=== PATIENT | female | born 1960 | race Caucasian/White ===

== ENCOUNTER 2017-01-06 18:21 | Emergency (ER) | payer MEDICARE, OTHER ==
[2017-01-06 18:30] VITALS: RESP 18
[2017-01-06] MEDS ORDERED: MORPHINE SULFATE 4 MG/ML SYRINGE IVP STA (18:44)
[2017-01-06] MEDS ORDERED: KETOROLAC 30 MG/ML 1 ML VIAL IVP STA (18:44)
[2017-01-06] MEDS ORDERED: SODIUM CHLORIDE 0.9% 1,000 ML IV STA (18:44)
--- NOTE | 2017-01-06 18:48 | ED ---
Abdominal Pain HPI - General Chief Complaint: Abdominal Pain Stated Complaint: LUQ pain Time Seen by Provider: 01/06/17 18:30 Source: patient Mode of arrival: ambulatory Limitations: no limitations - History of Present Illness Initial Comments: Patient is a 48-year-old female history of ventral hernia repair presenting with left upper quadrant pain. Patient states pains been worse for the past 2 days. Patient has Ultram for her fibromyalgia for which is not helping. Patient denies relation to food. Patient says is worse with movement and bending at the waist. Patient denies fever, chills, chest, shortness breath, nausea, vomiting, diarrhea, dysuria. - Related Data Home Medications Medication Instructions Recorded Confirmed Ascorbic Acid [Vitamin C] 1,500 mg PO DAILY 01/06/17 01/06/17 Cyanocobalamin (Vitamin B-12) 7,500 mcg PO DAILY 01/06/17 01/06/17 [Vitamin B12] Ferrous Sulfate [Feosol] 650 mg PO DAILY 01/06/17 01/06/17 Fish Oil/Dha/Epa [Fish Oil 1,200 1 cap PO DAILY 01/06/17 01/06/17 mg Fish Oil] Hydrochlorothiazide [Hydrodiuril] 12.5 mg PO DAILY 01/06/17 01/06/17 Levothyroxine Sodium [Synthroid] 75 mcg PO DAILY 01/06/17 01/06/17 Loratadine [Claritin] 10 mg PO DAILY 01/06/17 01/06/17 Milnacipran HCl [Savella] 100 mg PO BID 01/06/17 01/06/17 Omeprazole 20 mg PO DAILY 01/06/17 01/06/17 Pramipexole [Mirapex] 2 mg PO BID 01/06/17 01/06/17 buPROPion HCL [Wellbutrin XL] 300 mg PO DAILY 01/06/17 01/06/17 traMADol HCL [Ultram] 50 mg PO DAILY PRN 01/06/17 01/06/17 Allergies Allergy/AdvReac Type Severity Reaction Status Date / Time latex Allergy Rash/Hives Verified 01/06/17 18:45 Review of Systems ROS Statement: Those systems with pertinent positive or pertinent negative responses have been documented in the HPI. Constitutional: No fever and no chills. HENT: No congestion, no rhinorrhea and no sore throat. Eyes: No discharge and no redness. Respiratory: No cough and no shortness of breath. Cardiovascular: No chest pain and no palpitations. Gastrointestinal: No nausea, no vomiting, +abdominal pain and no diarrhea. Genitourinary: No dysuria and no hematuria. Musculoskeletal: No back pain and no arthralgias. Skin: No pallor and no rash. Neurological: No dizziness and No headaches. ROS Other: All systems not noted in ROS Statement are negative. Past Medical History Past Medical History: Fibromyalgia, Hypertension History of Any Multi-Drug Resistant Organisms: None Reported Past Surgical History: Back Surgery, Hernia Repair, Joint Replacement, Orthopedic Surgery Additional Past Surgical History / Comment(s): Right knee arthroplasty; right foot surgery Past Psychological History: Depression Smoking Status: Former smoker Past Alcohol Use History: Rare Past Drug Use History: None Reported General Exam - General Exam Comments Initial Comments: Constitutional: Patient appears well-developed and well-nourished. No distress. Head: Normocephalic and atraumatic. Eyes: Conjunctivae and EOM are normal. Right eye exhibits no discharge. Left eye exhibits no discharge. No scleral icterus. Neck: Normal range of motion. Neck supple. Cardiovascular: Normal rate and regular rhythm. No murmur heard. Pulmonary/Chest: Effort normal and breath sounds normal. No respiratory distress. No wheezes. Abdominal: Soft. No distension. Patient with nonspecific abdominal wall tenderness in LUQ. There is no rebound and no guarding. Musculoskeletal: Normal range of motion. No edema or tenderness. Neurological: Patient alert and oriented to person, place, and time. Skin: Skin is warm and dry. Not diaphoretic. Nursing notes and vitals reviewed. Limitations: no limitations Course Vital Signs 01/06/17 01/06/17 01/06/17 18:26 20:16 21:36 Temperature 98.1 F 97.4 F L 97.6 F Pulse Rate 98 88 77 Respiratory 18 18 18 Rate Blood Pressure 165/88 136/65 120/56 O2 Sat by Pulse 98 96 96 Oximetry 01/06/17 22:54 Temperature 98 F Pulse Rate 77 Respiratory 18 Rate Blood Pressure 133/70 O2 Sat by Pulse 96 Oximetry - Reevaluation(s) Reevaluation #1: 01/06/17 22:33 Patient updated results and feeling much better. Patient can use Tylenol, Motrin, heat or ice. Medical Decision Making - Medical Decision Making Patient is a 56-year-old female presenting with 2 days of left upper quadrant abdominal wall pain. Patient's not getting relief with tramadol. CBC, BMP, LFT , lipase unremarkable. Abdominal CT obtained and negative. Patient was given IV fluids, Toradol and morphine for pain. Prior to discharge, patient was resting comfortably in bed. Course of stay improved. Abdomen soft and nontender. Denies pain. Discussed physical exam and diagnostic tests with patient. Questions answered and patient is agreeable to discharge with close follow up with Primary Care Physician. Instructed to return to Emergency Department if symptoms worsen. - Lab Data Result diagrams: 01/06/17 19:04 01/06/17 19:04 Lab Results 01/06/17 01/06/17 01/06/17 Range/Units 19:04 19:04 19:04 WBC 7.5 (3.8-10.6) k/uL RBC 4.49 (3.80-5.40) m/uL Hgb 12.7 (11.4-16.0) gm/dL Hct 39.1 (34.0-46.0) % MCV 87.3 (80.0-100.0) fL MCH 28.2 (25.0-35.0) pg MCHC 32.3 (31.0-37.0) g/dL RDW 17.9 H (11.5-15.5) % Plt Count 270 (150-450) k/uL Neutrophils % 70 % Lymphocytes % 21 % Monocytes % 4 % Eosinophils % 3 % Basophils % 0 % Neutrophils # 5.2 (1.3-7.7) k/uL Lymphocytes # 1.6 (1.0-4.8) k/uL Monocytes # 0.3 (0-1.0) k/uL Eosinophils # 0.2 (0-0.7) k/uL Basophils # 0.0 (0-0.2) k/uL Anisocytosis Slight PT (9.0-12.0) sec INR (<1.1) APTT (22.0-30.0) sec Sodium 139 (137-145) mmol/L Potassium 4.1 (3.5-5.1) mmol/L Chloride 103 (98-107) mmol/L Carbon Dioxide 27 (22-30) mmol/L Anion Gap 9 mmol/L BUN 17 (7-17) mg/dL Creatinine 0.75 (0.52-1.04) mg/dL Est GFR (MDRD) Af Amer >60 (>60 ml/min/1.73 sqM) Est GFR (MDRD) Non-Af >60 (>60 ml/min/1.73 sqM) Glucose 113 H (74-99) mg/dL Calcium 9.4 (8.4-10.2) mg/dL Total Bilirubin (0.2-1.3) mg/dL AST (14-36) U/L ALT (9-52) U/L Alkaline Phosphatase (38-126) U/L Lipase (23-300) U/L Blood Type O Negative Blood Type Recheck No Antibody Screen NEGATIVE Spec Expiration Date 01/09/2017 - 230301/06/17 01/06/17 Range/Units 19:04 19:04 WBC (3.8-10.6) k/uL RBC (3.80-5.40) m/uL Hgb (11.4-16.0) gm/dL Hct (34.0-46.0) % MCV (80.0-100.0) fL MCH (25.0-35.0) pg MCHC (31.0-37.0) g/dL RDW (11.5-15.5) % Plt Count (150-450) k/uL Neutrophils % % Lymphocytes % % Monocytes % % Eosinophils % % Basophils % % Neutrophils # (1.3-7.7) k/uL Lymphocytes # (1.0-4.8) k/uL Monocytes # (0-1.0) k/uL Eosinophils # (0-0.7) k/uL Basophils # (0-0.2) k/uL Anisocytosis PT 9.9 (9.0-12.0) sec INR 1.0 (<1.1) APTT 24.0 (22.0-30.0) sec Sodium (137-145) mmol/L Potassium (3.5-5.1) mmol/L Chloride (98-107) mmol/L Carbon Dioxide (22-30) mmol/L Anion Gap mmol/L BUN (7-17) mg/dL Creatinine (0.52-1.04) mg/dL Est GFR (MDRD) Af Amer (>60 ml/min/1.73 sqM) Est GFR (MDRD) Non-Af (>60 ml/min/1.73 sqM) Glucose (74-99) mg/dL Calcium (8.4-10.2) mg/dL Total Bilirubin 0.5 (0.2-1.3) mg/dL AST 24 (14-36) U/L ALT 26 (9-52) U/L Alkaline Phosphatase 104 (38-126) U/L Lipase 115 (23-300) U/L Blood Type Blood Type Recheck Antibody Screen Spec Expiration Date Disposition Clinical Impression: Abdominal pain Disposition: HOME SELF-CARE Condition: Good Instructions: Abdominal Pain (ED) Referrals: Maria L Deleon DO [Primary Care Provider] - 1-2 days
[2017-01-06 19:31] LABS: Anion Gap 9 mmol/L; Blood Urea Nitrogen 17 mg/dL (7-17); Calcium 9.4 mg/dL (8.4-10.2); Carbon Dioxide 27 mmol/L (22-30); Chloride 103 mmol/L (98-107); Glucose 113 mg/dL (74-99); Non-African American GFR(MDRD) >60 (>60 ml/min/1.73 sqM); Potassium 4.1 mmol/L (3.5-5.1); Sodium 139 mmol/L (137-145)
[2017-01-06 19:34] LABS: Prothrombin Time 9.9 sec (9.0-12.0)
[2017-01-06 19:45] LABS: Anisocytosis Slight; Basophils % (A) 0 %; CH 28.2; CHCM 32.3; Eosinophils # (A) 0.2 k/uL (0-0.7); Eosinophils % (A) 3 %; HCT 39.1 % (34.0-46.0); HDW 2.71; HGB 12.7 gm/dL (11.4-16.0); Luc # (Auto) 0.13; Luc % (Auto) 2; Lymphocytes # (A) 1.6 k/uL (1.0-4.8); Lymphocytes % (A) 21 %; MCH 28.2 pg (25.0-35.0); MCHC 32.3 g/dL (31.0-37.0); MCV 87.3 fL (80.0-100.0); Mean Platelet Volume 6.7; Monocytes # (A) 0.3 k/uL (0-1.0); Monocytes % (A) 4 %; Neutrophils # (A) 5.2 k/uL (1.3-7.7); Neutrophils % (A) 70 %; RBC 4.49 m/uL (3.80-5.40); RDW 17.9 % (11.5-15.5); WBC 7.5 k/uL (3.8-10.6); WBC (Perox) 7.57
[2017-01-06 21:37] VITALS: PULSE 77
--- NOTE | 2017-01-06 22:13 | CT ---
EXAMINATION TYPE: CT abdomen pelvis wo con DATE OF EXAM: 01/06/2017 8:36 PM COMPARISON: NONE INDICATION: Pt states LUQ pain. Hx of hernia repairs. DLP: 1165.9 mGycm, Automated exposure control for dose reduction was used. CONTRAST: 0 mL of Omnipaque 300. Study performed without Oral Contrast TECHNIQUE: Axial images were obtained from above the diaphragm to the pubic rami in the axial plane a t 5 mm thick sections. Reconstructed images are reviewed on the computer in the coronal plane. FINDINGS: Limited CT sections are obtained the lung bases. The lung bases are clear. CT ABDOMEN: Postsurgical changes are through the stomach. Liver: Normal Spleen: Normal Pancreas: Normal Adrenal glands: The adrenal glands are normal. Gallbladder: Surgically absent Kidneys: No masses are evident. No hydronephrosis is present. No cysts are present. No renal stone s are identified. Aorta: Vascular calcification is within the aorta. Inferior vena cava: Normal. CT PELVIS: Loops of bowel within the abdomen and pelvis are normal. Study is performed without oral contrast limiting evaluation. Appendix: Normal as visualized. Urinary bladder: Normal. Genitourinary structures: Uterus and ovaries are not identified. No free fluid is within the pelvis. Osseous structures: No suspicious lytic or sclerotic lesions. Facet changes are present. IMPRESSIONS: 1. No acute process evident. 2. Normal appendix 3. No abnormal findings left upper quadrant to account for the patient's pain
[2017-01-06 22:51] LABS: Total Bilirubin 0.5 mg/dL (0.2-1.3)
[2017-01-06 22:55] VITALS: BP 133/70; TEMP 98
== END 2017-01-06 23:10 | disposition home or self-care (01) ==
LOC: EC 18:21
DX: R10.12 Left upper quadrant pain (principal); M79.7 Fibromyalgia; I10 Essential (primary) hypertension; F32.9 Major depressive disorder, single episode, unspecified; Z87.891 Personal history of nicotine dependence; Z79.899 Other long term (current) drug therapy; Z91.040 Latex allergy status
CPT/HCPCS: 99284; 96374; 96375; 96361 ×4; 36415; 86900; 86901; 80048; 82247; 83690; 84075; 84450; 84460; 85025; 85610; 85730; 86850; 74176; J2270; J1885

== ENCOUNTER → 2017-01-14 | Outpatient (CLI) | payer MEDICARE, OTHER ==
--- NOTE | 2017-01-15 09:35 | CT ---
EXAMINATION TYPE: CT chest w con DATE OF EXAM: 01/14/2017 8:27 PM COMPARISON: CT abdomen pelvis January 06, 2017 HISTORY: Patient complains of left lower chest and luq pain. CT DLP: 568 mGycm Automated exposure control for dose reduction was used. CONTRAST: CT scan of the chest is performed with IV Contrast, patient injected with 100 mL of Omnipaque 300. FINDINGS: LUNGS: The lungs are remarkable for some minimal density within the lingula of questionable clinical significance, possibly scar, there is no concerning parenchymal mass or nodule identified. There is no pleural effusion or pneumothorax seen. Coronary artery calcification suspected. The tracheobronc hial tree is patent. MEDIASTINUM: There are no greater than 1 cm hilar or mediastinal lymph nodes. No pericardial effusi on is seen. AORTA: No additional significant abnormality is seen. 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 Patient is post cholecystectomy. Low attenuation within the liver may be indicative of fatty infiltration. There is a small hiatal hernia or thickening of t he distal esophagus. Postop changes are noted to the stomach and along the anterior abdominal wall. IMPRESSION: Postop changes. Additional nonspecific findings described above.
== END | disposition home or self-care (01) ==
LOC: RADCTMAIN 19:33
PROVIDERS: ATTEND Family Medicine
DX: R10.12 Left upper quadrant pain (principal); Z90.49 Acquired absence of other specified parts of digestive tract
CPT/HCPCS: 71260; Q9967

== ENCOUNTER → 2017-04-06 | Outpatient (CLI) | payer MEDICARE, OTHER ==
--- NOTE | 2017-04-06 10:31 | FL ---
EXAMINATION TYPE: FL UGI air w esophagus DATE OF EXAM: 04/06/2017 10:23 AM COMPARISON: NONE CLINICAL HISTORY: Abdominal pain. History of previous gastric bypass. Preliminary view of the abdomen reveals a normal bowel gas pattern. Previous hernia repair surgery. Upper GI examination was performed according to the single contrast technique. Barium was swallowed without difficulty or delay. Esophageal peristalsis and motility are within normal limits. There is no evidence for esophagitis, intraluminal mass, hiatal hernia or gastroesophageal reflux. The stomach demonstrates changes of ga stric bypass procedure. There is no evidence for leak or obstruction. Gastrojejunostomy is unremarkab le. And single contrast cervical esophagram was also performed following the ingestion of thin liquid barium. There is no evidence for aspiration or penetration. No masses are seen. No filling defect s are evident. IMPRESSION: No significant abnormality appreciated.
== END | disposition home or self-care (01) ==
LOC: RADFLWHC 09:27
PROVIDERS: ATTEND Surgery
DX: R10.84 Generalized abdominal pain (principal)
CPT/HCPCS: 74246

== ENCOUNTER 2017-04-27 08:46 | Day surgery (SDC) | payer MEDICARE, OTHER ==
[2017-04-22 14:31] VITALS: BMI 39.4
[~2017-04-27 08:46] MED LIST: LACTATED RINGERS 1,000 ML IV SCH; LIDOCAINE 1% 20 ML VIAL (10MG/ML) FOR IV START INTRADERMA PRN
[2017-04-27 09:22] VITALS: RESP 16; TEMP 97.6
[2017-04-27 09:37] LABS: Glucose,Whole Blood 89 mg/dL (75-99)
[2017-04-27] MEDS ORDERED: GLYCOPYRROLATE 0.2 MG/ML 2 ML VIAL ONE (09:40)
[2017-04-27] MEDS ORDERED: PROPOFOL 10 MG/ML 20 ML VIAL IV ONE (09:40)
[2017-04-27] MEDS ORDERED: LIDOCAINE 1% INJ 10MG/ML (20 ML MDV) ONE (09:40)
--- NOTE | 2017-04-27 09:47 | P.GSHP ---
History of Present Illness H&P Date: 04/27/17 Chief Complaint: Epigastric pain, gastritis This is a 48-year-old female referred from Dr. Maria L Deleon. Patient presents today for EGD. He's had complaints of epigastric abdominal pain. Patient has previous history of gastric bypass and repair of incisional hernia. Past Medical History Past Medical History: Diabetes Mellitus, Fibromyalgia, Hypertension History of Any Multi-Drug Resistant Organisms: None Reported Past Surgical History: Back Surgery, Hernia Repair, Joint Replacement, Orthopedic Surgery Additional Past Surgical History / Comment(s): Right knee arthroplasty; R Knee replacement; right foot surgery; EGD; Colonoscopies Past Anesthesia/Blood Transfusion Reactions: Family History of Problems w/ Anesthesia, Postoperative Nausea & Vomiting (PONV) Additional Past Anesthesia/Blood Transfusion Reaction / Comment(s): mother N/V Smoking Status: Former smoker - Past Family History Father Family Medical History: Cancer Mother Family Medical History: Cancer Brother(s) Family Medical History: Cancer Medications and Allergies Home Medications Medication Instructions Recorded Confirmed Type Ascorbic Acid [Vitamin C] 1,500 mg PO DAILY 01/06/17 04/27/17 History Ferrous Sulfate [Feosol] 650 mg PO DAILY 01/06/17 04/22/17 History Hydrochlorothiazide [Hydrodiuril] 12.5 mg PO DAILY 01/06/17 04/27/17 History Levothyroxine Sodium [Synthroid] 75 mcg PO DAILY 01/06/17 04/27/17 History Loratadine [Claritin] 10 mg PO DAILY 01/06/17 04/27/17 History Milnacipran HCl [Savella] 100 mg PO BID 01/06/17 04/27/17 History Omeprazole 20 mg PO DAILY 01/06/17 04/27/17 History Pramipexole [Mirapex] 2 mg PO BID 01/06/17 04/27/17 History buPROPion HCL [Wellbutrin XL] 300 mg PO DAILY 01/06/17 04/27/17 History traMADol HCL [Ultram] 50 mg PO DAILY PRN 01/06/17 04/27/17 History metFORMIN HCL [Glucophage Xr] 500 mg PO DAILY 04/22/17 04/27/17 History Allergies Allergy/AdvReac Type Severity Reaction Status Date / Time latex Allergy Rash/Hives Verified 04/22/17 14:24 Surgical - Exam Vital Signs Temp Pulse Resp BP Pulse Ox 97.6 F 76 16 134/82 94 L 04/27/17 09:20 04/27/17 09:20 04/27/17 09:20 04/27/17 09:20 04/27/17 09:20 - General well developed, no distress - Eyes PERRL - ENT normal pinna - Neck no masses - Respiratory normal expansion - Cardiovascular Rhythm: regular - Abdomen Abdomen: soft Assessment and Plan Plan: Epigastric pain, gastritis, history gastric bypass. We'll perform EGD.
--- NOTE | 2017-04-27 10:06 | P.OP ---
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 Procedure(s) Performed: EGD Implants: Anesthesia: MAC Surgeon: Jackson Valerio Pathology: other (Foreign body mesh) Condition: stable Disposition: PACU Indications for Procedure: Operative Findings: Description of Procedure: The patient's placed the operative table in the supine position. She received IV sedation. The gastroscope some placed oropharynx and passed into the esophagus and into the proximal stomach. Just below the GE junction there was a foreign body encountered appeared to have the appearance of Prolene mesh. The scope was then placed into the distal stomach. The antrum was visualized. The patient had a previous history of a gastric bypass. 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 The piece of mesh was grasped and was easily retrieved with a forcep. There is a small amount of bleeding at the area of the mesh site. The scope was then withdrawn. The proximal stomach and distal esophagus appeared normal. Scope was withdrawn from patient.
[2017-04-27] MEDS ORDERED: ONDANSETRON 4 MG/2 ML VIAL IVP ONE (10:22)
[2017-04-27 10:55] VITALS: BP 115/74; PULSE 72
== END 2017-04-27 11:04 | disposition home or self-care (01) ==
LOC: ORWHC2ENDO 08:46
PROVIDERS: ATTEND Surgery
DX: T18.2XXA Foreign body in stomach, initial encounter (principal); Z98.84 Bariatric surgery status; E11.9 Type 2 diabetes mellitus without complications; M79.7 Fibromyalgia; I10 Essential (primary) hypertension; E07.9 Disorder of thyroid, unspecified; E66.9 Obesity, unspecified; Z79.899 Other long term (current) drug therapy; Z79.84 Long term (current) use of oral hypoglycemic drugs; Z91.040 Latex allergy status; Z87.891 Personal history of nicotine dependence
CPT/HCPCS: 88304; 43247; J2405; J2001; J2704; 43239

== ENCOUNTER 2017-07-27 17:30 | Emergency (ER) | payer MEDICARE, OTHER ==
[2017-07-27] MEDS ORDERED: KETOROLAC 30 MG/ML 1 ML VIAL IM STA (19:28)
[2017-07-27] MEDS ORDERED: ORPHENADRINE 30 MG/ML 2 ML VIAL IM STA (19:28)
--- NOTE | 2017-07-27 19:47 | ED ---
General Adult HPI - General Chief complaint: Extremity Injury, Lower Stated complaint: BACK PAIN Time Seen by Provider: 07/27/17 19:22 Source: patient, RN notes reviewed Mode of arrival: wheelchair Limitations: no limitations - History of Present Illness Initial comments: This is a 57-year-old female presents to the emergency department with chief complaint of acute on chronic back pain. Patient states that she has been experiencing increased back pain on the left side over the past 2 days. She states that pain is worsened with walking. She states that her left hip feels like it's going to give out due to the pain. She states that she walks with most of her weight on her right lower extremity. Patient states that she has had lumbar surgery in the past. She describes the pain as sharp and stabbing. She denies any radiation. Denies fever, chills, chest pain, shortness of breath , abdominal pain, nausea or vomiting, constipation or diarrhea, dysuria or hematuria, numbness or tingling, headache or vision changes. - Related Data Home Medications Medication Instructions Recorded Confirmed Ascorbic Acid [Vitamin C] 1,500 mg PO DAILY 01/06/17 07/27/17 Ferrous Sulfate [Feosol] 650 mg PO DAILY 01/06/17 07/27/17 Hydrochlorothiazide [Hydrodiuril] 12.5 mg PO DAILY 01/06/17 07/27/17 Levothyroxine Sodium [Synthroid] 75 mcg PO DAILY 01/06/17 07/27/17 Loratadine [Claritin] 10 mg PO DAILY 01/06/17 07/27/17 Milnacipran HCl [Savella] 100 mg PO BID 01/06/17 07/27/17 Omeprazole 20 mg PO DAILY 01/06/17 07/27/17 Pramipexole [Mirapex] 2 mg PO BID 01/06/17 07/27/17 buPROPion HCL [Wellbutrin XL] 300 mg PO DAILY 01/06/17 07/27/17 traMADol HCL [Ultram] 50 mg PO DAILY PRN 01/06/17 07/27/17 metFORMIN HCL [Glucophage Xr] 500 mg PO DAILY 04/22/17 07/27/17 Previous Rx's Medication Instructions Recorded Cyclobenzaprine [Flexeril] 10 mg PO TID #12 tab 11/15/17 Allergies Allergy/AdvReac Type Severity Reaction Status Date / Time latex Allergy Rash/Hives Verified 07/27/17 18:03 Review of Systems ROS Statement: Those systems with pertinent positive or pertinent negative responses have been documented in the HPI. ROS Other: All systems not noted in ROS Statement are negative. Past Medical History Past Medical History: Diabetes Mellitus, Fibromyalgia, Hypertension History of Any Multi-Drug Resistant Organisms: None Reported Past Surgical History: Back Surgery, Hernia Repair, Joint Replacement, Orthopedic Surgery Additional Past Surgical History / Comment(s): Right knee arthroplasty; R Knee replacement; right foot surgery; EGD; Colonoscopies Past Anesthesia/Blood Transfusion Reactions: Family History of Problems w/ Anesthesia, Postoperative Nausea & Vomiting (PONV) Additional Past Anesthesia/Blood Transfusion Reaction / Comment(s): mother N/V Past Psychological History: Depression Smoking Status: Former smoker Past Alcohol Use History: None Reported Past Drug Use History: None Reported - Past Family History Father Family Medical History: Cancer Mother Family Medical History: Cancer Brother(s) Family Medical History: Cancer General Exam - General Exam Comments Initial Comments: General: Awake and alert, well-developed; in no apparent distress. Lying on ED stretcher. HEENT: Head atraumatic, normocephalic. Pupils are equal, round and reactive to light. Extraocular movements intact. Oropharynx moist without erythema or exudate. Neck: Supple. Normal ROM. Cardiovascular: Regular rate and rhythm. No murmurs, rubs or gallops. Chest symmetrical. Respiratory: Lungs clear to auscultation bilaterally. No wheezes, rales or rhonchi. Normal respiratory effort with no use of accessory muscles. Musculoskeletal: Tenderness on palpation of left paraspinal muscles and SI joint. Range of motion and sensation are intact. Pulses are 2+ equal and palpable bilaterally. Skin: [place], warm and dry without rashes or lesions. Neurological: Alert and oriented x3. CN II-XII grossly intact. Speech is fluent and answers are appropriate. No focal neuro deficits. Psychiatric: Normal mood and affect. No overt signs of depression or anxiety noted. Limitations: no limitations Course Vital Signs 07/27/17 18:01 Temperature 98.2 F Pulse Rate 100 Respiratory 18 Rate Blood Pressure 134/86 O2 Sat by Pulse 99 Oximetry Medical Decision Making - Medical Decision Making This is a 57-year-old female who presents to the emergency department with chief complaint of acute on chronic back pain. Lumbar x-ray revealed no acute fractures or dislocations. This case was discussed with attending physician, Dr. Plata. Patient states pain has significantly improved with pain medication and muscle relaxers she received while in the emergency department. She is in no acute distress at this time. Patient will be discharged home with a prescription for Flexeril. She was strongly advised to follow up with her primary care provider within 1-2 days. Patient is in agreement to the plan and voices understanding. All questions were answered. - Radiology Data Radiology results: report reviewed X-ray lumbar spine impression: No acute fracture dislocation is seen in the lumbar spine. No significant change from comparison CT. Disposition Clinical Impression: Strain of lumbar region Disposition: HOME SELF-CARE Condition: Good Instructions: Low Back Strain (ED) Additional Instructions: Please take medications as prescribed. Please follow up with primary care provider within 1-2 days. Return to emergency department if symptoms should worsen or any concerns arise. Prescriptions: Cyclobenzaprine [Flexeril] 10 mg PO TID #12 tab Referrals: Maria L Deleon DO [Primary Care Provider] - 1-2 days Time of Disposition: 20:34
--- NOTE | 2017-07-27 20:07 | XR ---
EXAMINATION TYPE: XR lumbar spine 2 or 3V DATE OF EXAM: 07/27/2017 CLINICAL HISTORY: Low back pain into left leg. History of 2 prior surgeries. TECHNIQUE: Frontal, lateral, and oblique images of the lumbar spine are obtained. COMPARISON: CT abdomen and pelvis January 06, 2017 FINDINGS: Osseous structures are demineralized. There are 5 lumbar type vertebral bodies identified. The lumbar spine shows satisfactory alignment without evidence of acute fracture or dislocation. Ve rtebral body heights are within normal limits. There is moderate multilevel disc space narrowing wit h relative sparing of L2-L3 level. There is multilevel prominent facet arthropathy mid to lower lumba r spine. There is spinous process resection lower lumbar levels The oblique images appear within norm al limits. Coils ventral wall hernia repair surgery overlying the abdomen along the periphery of imag es. Cholecystectomy clips are noted. Vascular calcification of aorta is seen. IMPRESSION: No acute fracture or dislocation is seen in the lumbar spine. No significant change from comparison CT.
[2017-07-27 20:41] VITALS: BP 133/80; PULSE 97; RESP 16; TEMP 98
== END 2017-07-27 20:41 | disposition home or self-care (01) ==
LOC: EC 17:30
DX: S39.012A Strain of muscle, fascia and tendon of lower back, initial encounter (principal); E11.9 Type 2 diabetes mellitus without complications; M79.7 Fibromyalgia; I10 Essential (primary) hypertension; F32.9 Major depressive disorder, single episode, unspecified; Z98.890 Other specified postprocedural states; Z87.891 Personal history of nicotine dependence; Z79.899 Other long term (current) drug therapy; Z79.84 Long term (current) use of oral hypoglycemic drugs; Z91.040 Latex allergy status
CPT/HCPCS: 99283; 96372 ×2; 72100; J2360; J1885

== ENCOUNTER 2017-09-05 18:14 | Emergency (ER) | payer MEDICARE, OTHER ==
[2017-09-05 18:28] VITALS: BP 140/85; PULSE 99; RESP 20; TEMP 98.5
[2017-09-05] MEDS ORDERED: IBUPROFEN 600 MG STARTER PACK 4 TAB BTL PO STA (18:36)
--- NOTE | 2017-09-05 18:36 | ED ---
General Adult HPI - General Chief complaint: Fall Stated complaint: left flank pain from fall Time Seen by Provider: 09/05/17 18:29 Source: patient, RN notes reviewed Mode of arrival: ambulatory Limitations: no limitations - History of Present Illness Initial comments: 57-year-old female presents to the emergency Department chief complaint of right -sided rib pain and right knee pain after fall. She states that she has bad knees in her left leg just gave out she fell onto her right knee and hit the right side of her rib cage. Patient states hurts if she takes a deep breath or she touches the right lateral aspect of the ribs. Patient denies any abdominal pain she denies any head injury. She states that there is no loss of consciousness she's not take any blood thinners patient states that she was concerned due to her discomfort so she thought that she should be seen. Patient states her pain is moderate there is no radiation.Patient denies any recent fever, chills, shortness of breath, back pain, abdominal pain, nausea vomiting, numbness or tingling, dysuria or hematuria, constipation or diarrhea, headaches or visual changes, or any other current symptoms.. - Related Data Home Medications Medication Instructions Recorded Confirmed Hydrochlorothiazide [Hydrodiuril] 12.5 mg PO DAILY 01/06/17 09/05/17 Levothyroxine Sodium [Synthroid] 75 mcg PO DAILY 01/06/17 09/05/17 Milnacipran HCl [Savella] 100 mg PO BID 01/06/17 09/05/17 Pramipexole [Mirapex] 2 mg PO BID 01/06/17 09/05/17 buPROPion HCL [Wellbutrin XL] 300 mg PO HS 01/06/17 09/05/17 traMADol HCL [Ultram] 50 mg PO QID PRN 01/06/17 09/05/17 metFORMIN HCL [Glucophage Xr] 500 mg PO DAILY 04/22/17 09/05/17 Cyclobenzaprine [Flexeril] 10 mg PO BID 09/05/17 09/05/17 Gabapentin [Neurontin] 300 mg PO BID 09/05/17 09/05/17 Ranitidine HCl [Zantac] 300 mg PO BID 09/05/17 09/05/17 Allergies Allergy/AdvReac Type Severity Reaction Status Date / Time latex Allergy Rash/Hives Verified 09/05/17 19:04 Review of Systems ROS Statement: Those systems with pertinent positive or pertinent negative responses have been documented in the HPI. ROS Other: All systems not noted in ROS Statement are negative. Past Medical History Past Medical History: Diabetes Mellitus, Fibromyalgia, Hypertension History of Any Multi-Drug Resistant Organisms: None Reported Past Surgical History: Back Surgery, Hernia Repair, Joint Replacement, Orthopedic Surgery Additional Past Surgical History / Comment(s): Right knee arthroplasty; R Knee replacement; right foot surgery; EGD; Colonoscopies Past Anesthesia/Blood Transfusion Reactions: Family History of Problems w/ Anesthesia, Postoperative Nausea & Vomiting (PONV) Additional Past Anesthesia/Blood Transfusion Reaction / Comment(s): mother N/V Past Psychological History: Depression Smoking Status: Former smoker Past Alcohol Use History: None Reported Past Drug Use History: None Reported - Past Family History Father Family Medical History: Cancer Mother Family Medical History: Cancer Brother(s) Family Medical History: Cancer General Exam Limitations: no limitations General appearance: alert, in no apparent distress Head exam: Present: atraumatic, normocephalic, normal inspection ENT exam: Present: normal exam, mucous membranes moist Neck exam: Present: normal inspection. Absent: tenderness, meningismus, lymphadenopathy Respiratory exam: Present: normal lung sounds bilaterally, chest wall tenderness (right lateral). Absent: respiratory distress, wheezes, rales, rhonchi, stridor Cardiovascular Exam: Present: regular rate, normal rhythm, normal heart sounds. Absent: systolic murmur, diastolic murmur, rubs, gallop, clicks Extremities exam: Present: normal inspection, full ROM, tenderness (mild anterior to right knee), normal capillary refill. Absent: pedal edema, joint swelling, calf tenderness Neurological exam: Present: alert, oriented X3 Psychiatric exam: Present: normal affect, normal mood Skin exam: Present: warm, dry, intact, normal color. Absent: rash Course Vital Signs 09/05/17 18:24 Temperature 98.5 F Pulse Rate 99 Respiratory 20 Rate Blood Pressure 140/85 O2 Sat by Pulse 100 Oximetry Medical Decision Making - Medical Decision Making 57-year-old female presents for right rib pain and right knee pain after fall. This time patient appears to have a right rib and right knee contusion. This time we discussed Motrin Tylenol and ice. We discussed return parameters and follow-up and all the patient's questions. She stated that she understood and she is in agreement this plan. All questions have been answered. She will be discharged home. - Radiology Data Radiology results: report reviewed, image reviewed Disposition Clinical Impression: Fall, Contusion of right knee and lower leg, Contusion of rib on right side Disposition: HOME SELF-CARE Condition: Stable Instructions: Contusion in Adults (ED) Additional Instructions: Please use medication as discussed. Please follow up with family doctor if symptoms have not improved over the next two days. Please return to the emergency room if your symptoms increase or worsen or for any other concerns. Referrals: Maria L Deleon DO [Primary Care Provider] - 1-2 days Time of Disposition: 19:12
[2017-09-05] MEDS ORDERED: IBUPROFEN 600 MG TAB PO STA (18:40)
--- NOTE | 2017-09-05 19:09 | XR ---
EXAMINATION TYPE: PA chest and right rib series DATE OF EXAM: 09/05/2017 COMPARISON: None HISTORY: 57-year-old female with a right rib pain after fall yesterday TECHNIQUE: 5 views FINDINGS: Heart is normal size. Slight elongation of thoracic aorta. Mild interstitial prominence is a chronic appearance. No consolidation, pleural effusion, or pneumothorax. Strandy atelectasis in the lower alexys gs. No displaced right rib fracture seen. IMPRESSION: Chronic appearing changes without acute cardiopulmonary process. No displaced right rib fracture seen .
--- NOTE | 2017-09-05 19:10 | XR ---
EXAMINATION TYPE: XR knee complete RT DATE OF EXAM: 09/05/2017 COMPARISON: NONE HISTORY: 57-year-old female with pain after fall yesterday TECHNIQUE: Reviews FINDINGS: There is right knee total arthroplasty. Both distal femoral and proximal tibial components of the pro sthesis appear well seated without periprosthetic fracture. Extensor mechanism appears intact. Alignm ent grossly anatomic. No knee joint effusion. IMPRESSION: Uncomplicated appearance to the right total knee arthroplasty.
== END 2017-09-05 19:23 | disposition home or self-care (01) ==
LOC: EC 18:14
DX: S80.01XA Contusion of right knee, initial encounter (principal); S20.211A Contusion of right front wall of thorax, initial encounter; I10 Essential (primary) hypertension; E11.9 Type 2 diabetes mellitus without complications; M79.7 Fibromyalgia; F32.9 Major depressive disorder, single episode, unspecified; Z87.891 Personal history of nicotine dependence; Z79.84 Long term (current) use of oral hypoglycemic drugs; Z79.899 Other long term (current) drug therapy; Z91.040 Latex allergy status; Z96.651 Presence of right artificial knee joint; W01.10XA Fall on same level from slipping, tripping and stumbling with subsequent striking against unspecified object, initial encounter; Y92.59 Other trade areas as the place of occurrence of the external cause
CPT/HCPCS: 99283

== ENCOUNTER 2017-09-14 18:07 | Inpatient (IN) | payer MEDICARE, OTHER ==
[2017-09-14 19:09] LABS: Basophils % (A) 1 %; Eosinophils # (A) 0.2 k/uL (0-0.7); Eosinophils % (A) 2 %; HCT 41.6 % (34.0-46.0); Lymphocytes # (A) 0.4 k/uL (1.0-4.8); Lymphocytes % (A) 5 %; MCH 28.5 pg (25.0-35.0); MCHC 31.2 g/dL (31.0-37.0); MCV 91.3 fL (80.0-100.0); Mean Platelet Volume 7.2; Monocytes # (A) 0.3 k/uL (0-1.0); Monocytes % (A) 4 %; Neutrophils % (A) 87 %; Platelet Count 294 k/uL (150-450); RBC 4.56 m/uL (3.80-5.40); RDW 15.9 % (11.5-15.5); WBC 6.9 k/uL (3.8-10.6)
[2017-09-14 19:17] LABS: Partial Thromboplastin Time 24.5 sec (22.0-30.0); Prothrombin Time 9.6 sec (9.0-12.0)
[2017-09-14 19:20] LABS: ALT 45 U/L (9-52); AST 34 U/L (14-36); Albumin 4.3 g/dL (3.5-5.0); Alkaline Phosphatase 119 U/L (38-126); Anion Gap 10 mmol/L; Blood Urea Nitrogen 9 mg/dL (7-17); Calcium 9.3 mg/dL (8.4-10.2); Carbon Dioxide 25 mmol/L (22-30); Chloride 100 mmol/L (98-107); Glucose 106 mg/dL (74-99); Sodium 135 mmol/L (137-145); Total Bilirubin 0.4 mg/dL (0.2-1.3); Total Protein 7.2 g/dL (6.3-8.2)
[2017-09-14 19:23] LABS: Potassium 4.3 mmol/L (3.5-5.1)
--- NOTE | 2017-09-14 19:36 | XR ---
EXAMINATION TYPE: XR chest 2V DATE OF EXAM: 09/14/2017 COMPARISON: NONE HISTORY: Short of breath TECHNIQUE: Frontal and lateral views of the chest are obtained. FINDINGS: Heart and mediastinum are normal. There is some linear density in the right middle lobe. T he left lung is clear. There is no pleural effusion. There is no heart failure. Bony thorax is intact . IMPRESSION: Right middle lobe atelectasis. Normal heart.
[2017-09-14] MEDS ORDERED: ACETAMINOPHEN TAB 500 MG TAB PO STA (19:51)
[2017-09-14] MEDS ORDERED: IBUPROFEN 600 MG TAB PO STA (19:52)
--- NOTE | 2017-09-14 19:55 | ED ---
General Adult HPI - General Source: patient, family, RN notes reviewed Mode of arrival: wheelchair Limitations: no limitations <Jimmy Moreno - Last Filed: 09/14/17 21:23> <Hamilton Payan - Last Filed: 09/14/17 22:33> - General Chief complaint: Fever Stated complaint: Fever Time Seen by Provider: 09/14/17 19:15 - History of Present Illness Initial comments: Patient is a pleasant 57-year-old female presenting to the emergency department with fatigue and chills. Patient believes she is having a fever. Minimal cough. Patient does have some sinus congestion. Patient feels achy all over. Patient states every part of her body hurts. Patient has not taken any Tylenol or Motrin. No isolated area of weakness. (Jimmy Moreno) - Related Data Home Medications Medication Instructions Recorded Confirmed Levothyroxine Sodium [Synthroid] 75 mcg PO DAILY 01/06/17 09/14/17 Milnacipran HCl [Savella] 100 mg PO BID 01/06/17 09/14/17 Pramipexole [Mirapex] 1 mg PO QAM 01/06/17 09/14/17 buPROPion HCL [Wellbutrin XL] 300 mg PO DAILY 01/06/17 09/14/17 traMADol HCL [Ultram] 50 mg PO QID PRN 01/06/17 09/14/17 metFORMIN HCL [Glucophage Xr] 500 mg PO DAILY 04/22/17 09/14/17 Cyclobenzaprine [Flexeril] 10 mg PO TID 09/05/17 09/14/17 Ranitidine HCl [Zantac] 300 mg PO BID 09/05/17 09/14/17 Fluticasone Nasal [place] [Flonase 2 spr EA NOSTRIL DAILY 09/14/17 09/14/17 Nasal [place]] Gabapentin [Neurontin] 200 mg PO TID 09/14/17 09/14/17 Nortriptyline HCl 75 mg PO DAILY 09/14/17 09/14/17 Pantoprazole Sodium [Protonix] 40 mg PO DAILY 09/14/17 09/14/17 Pramipexole [Mirapex] 2 mg PO HS 09/14/17 09/14/17 Spironolactone [Aldactone] 50 mg PO DAILY 09/14/17 09/14/17 Allergies Allergy/AdvReac Type Severity Reaction Status Date / Time latex Allergy Rash/Hives Verified 09/14/17 18:13 Review of Systems ROS Other: All systems not noted in ROS Statement are negative. Constitutional: Reports: fever, chills, weakness Eyes: Denies: eye pain ENT: Denies: ear pain Respiratory: Reports: cough, dyspnea Cardiovascular: Denies: chest pain Endocrine: Reports: fatigue Gastrointestinal: Denies: abdominal pain Genitourinary: Denies: dysuria Musculoskeletal: Denies: back pain Skin: Denies: rash Neurological: Denies: headache <Jimmy Moreno - Last Filed: 09/14/17 21:23> ROS Other: All systems not noted in ROS Statement are negative. <Hamilton Payan - Last Filed: 09/14/17 22:33> ROS Statement: Those systems with pertinent positive or pertinent negative responses have been documented in the HPI. Past Medical History Past Medical History: Diabetes Mellitus, Fibromyalgia, Hypertension History of Any Multi-Drug Resistant Organisms: None Reported Past Surgical History: Back Surgery, Hernia Repair, Joint Replacement, Orthopedic Surgery Additional Past Surgical History / Comment(s): Right knee arthroplasty; R Knee replacement; right foot surgery; EGD; Colonoscopies Past Anesthesia/Blood Transfusion Reactions: Family History of Problems w/ Anesthesia, Postoperative Nausea & Vomiting (PONV) Additional Past Anesthesia/Blood Transfusion Reaction / Comment(s): mother N/V Past Psychological History: Depression Smoking Status: Former smoker Past Alcohol Use History: None Reported Past Drug Use History: None Reported - Past Family History Father Family Medical History: Cancer Mother Family Medical History: Cancer Brother(s) Family Medical History: Cancer <Jimmy Moreno - Last Filed: 09/14/17 21:23> General Exam Limitations: no limitations General appearance: alert, in no apparent distress Head exam: Present: atraumatic Eye exam: Present: normal appearance, PERRL ENT exam: Present: normal oropharynx Neck exam: Present: normal inspection. Absent: meningismus Respiratory exam: Present: normal lung sounds bilaterally Cardiovascular Exam: Present: tachycardia GI/Abdominal exam: Present: soft. Absent: tenderness Extremities exam: Present: normal inspection. Absent: pedal edema, calf tenderness Neurological exam: Present: alert. Absent: motor sensory deficit Psychiatric exam: Present: normal affect, normal mood Skin exam: Present: other (Facial flushing) <Jimmy Moreno - Last Filed: 09/14/17 21:23> General appearance: alert, in no apparent distress Head exam: Present: atraumatic, normocephalic, normal inspection Eye exam: Present: normal appearance, PERRL, EOMI. Absent: scleral icterus, conjunctival injection, periorbital swelling ENT exam: Present: normal exam, mucous membranes moist Neck exam: Present: normal inspection. Absent: tenderness, meningismus, lymphadenopathy Respiratory exam: Present: normal lung sounds bilaterally. Absent: respiratory distress, wheezes, rales, rhonchi, stridor Cardiovascular Exam: Present: tachycardia GI/Abdominal exam: Present: soft, normal bowel sounds. Absent: distended, tenderness, guarding, rebound, rigid Extremities exam: Present: normal inspection, full ROM, normal capillary refill. Absent: tenderness, pedal edema, joint swelling, calf tenderness Back exam: Present: normal inspection Neurological exam: Present: alert, oriented X3, CN II-XII intact Psychiatric exam: Present: normal affect, normal mood Skin exam: Present: warm, dry, intact, normal color. Absent: rash <Hamilton Payan - Last Filed: 09/14/17 22:33> Course <Jimmy Moreno - Last Filed: 09/14/17 21:23> <Hamilton Payan - Last Filed: 09/14/17 22:33> Vital Signs 09/14/17 09/14/17 09/14/17 18:11 18:56 20:10 Temperature 98.7 F 99.1 F Pulse Rate 118 H Respiratory 25 H 20 Rate Blood Pressure 134/66 O2 Sat by Pulse 97 Oximetry 09/14/17 21:34 Temperature 101.1 F H Pulse Rate 113 H Respiratory 18 Rate Blood Pressure 104/54 O2 Sat by Pulse 95 Oximetry - Reevaluation(s) Reevaluation #1: 09/14/17 21:23 Patient reevaluated and resting in bed. Patient states she does not feel all that much better. D-dimer somewhat elevated and computed tomography scan has been ordered. Patient and daughter updated on results of to this point. Case will be endorsed to Dr. Payan final disposition. (Jimmy Moreno) Reevaluation #2: 09/14/17 22:32 Patient at this time is that she does not feel well continued cough and congestion (Hamilton Payan) Reevaluation #3: 09/14/17 22:32 Patient is recurrent fever, flu x-ray urine or negative (Hamilton Payan) EKG Findings - EKG Comments: EKG Findings:: Sinus tachycardia 113. RI 160. QRS 86. QT 3:30. QTC 452. Normal axis. Normal QRS. No acute ST change. <Jimmy Moreno - Last Filed: 09/14/17 21:23> Medical Decision Making - Lab Data Result diagrams: 09/14/17 18:41 09/14/17 18:41 - Radiology Data Radiology results: image reviewed (Chest x-ray shows right lower lobe atelectasis) <Jimmy Moreno - Last Filed: 09/14/17 21:23> - Lab Data Result diagrams: 09/14/17 18:41 09/14/17 18:41 - Radiology Data Radiology results: report reviewed (CTA chest was negative for PE shows atelectasis), image reviewed <Hamilton Payan - Last Filed: 09/14/17 22:33> - Medical Decision Making 57 female to ER with cough congestion, fever, patient will be admitted for fever control IV hydration symptoms therapy, IV antibiotics secondary to underlying likely pneumonia. (Hamilton Payan) - Lab Data Lab Results 09/14/17 09/14/17 09/14/17 Range/Units 18:41 18:41 18:41 WBC 6.9 (3.8-10.6) k/uL RBC 4.56 (3.80-5.40) m/uL Hgb 13.0 (11.4-16.0) gm/dL Hct 41.6 (34.0-46.0) % MCV 91.3 (80.0-100.0) fL MCH 28.5 (25.0-35.0) pg MCHC 31.2 (31.0-37.0) g/dL RDW 15.9 H (11.5-15.5) % Plt Count 294 (150-450) k/uL Neutrophils % 87 % Lymphocytes % 5 % Monocytes % 4 % Eosinophils % 2 % Basophils % 1 % Neutrophils # 6.0 (1.3-7.7) k/uL Lymphocytes # 0.4 L (1.0-4.8) k/uL Monocytes # 0.3 (0-1.0) k/uL Eosinophils # 0.2 (0-0.7) k/uL Basophils # 0.0 (0-0.2) k/uL PT (9.0-12.0) sec INR (<1.2) APTT (22.0-30.0) sec D-Dimer (<0.60) mg/L FEU Sodium 135 L (137-145) mmol/L Potassium 4.3 (3.5-5.1) mmol/L Chloride 100 (98-107) mmol/L Carbon Dioxide 25 (22-30) mmol/L Anion Gap 10 mmol/L BUN 9 (7-17) mg/dL Creatinine 0.68 (0.52-1.04) mg/dL Est GFR (MDRD) Af Amer >60 (>60 ml/min/1.73 sqM) Est GFR (MDRD) Non-Af >60 (>60 ml/min/1.73 sqM) Glucose 106 H (74-99) mg/dL Plasma Lactic Acid William (0.7-2.0) mmol/L Calcium 9.3 (8.4-10.2) mg/dL Phosphorus (2.5-4.5) mg/dL Magnesium (1.6-2.3) mg/dL Total Bilirubin 0.4 (0.2-1.3) mg/dL AST 34 (14-36) U/L ALT 45 (9-52) U/L Alkaline Phosphatase 119 (38-126) U/L Total Protein 7.2 (6.3-8.2) g/dL Albumin 4.3 (3.5-5.0) g/dL Urine Color Urine Appearance (Clear) Urine pH (5.0-8.0) Ur Specific [place] (1.001-1.035) Urine Protein (Negative) Urine Glucose (UA) (Negative) Urine Ketones (Negative) Urine Blood (Negative) Urine Nitrite (Negative) Urine Bilirubin (Negative) Urine Urobilinogen (<2.0) mg/dL Ur Leukocyte Esterase (Negative) Influenza Type A RNA Not Detected (Not Detectd) Influenza Type B (PCR) Not Detected (Not Detectd) 01/03/18 01/03/18 01/03/18 Range/Units 18:41 18:41 18:41 WBC (3.8-10.6) k/uL RBC (3.80-5.40) m/uL Hgb (11.4-16.0) gm/dL Hct (34.0-46.0) % MCV (80.0-100.0) fL MCH (25.0-35.0) pg MCHC (31.0-37.0) g/dL RDW (11.5-15.5) % Plt Count (150-450) k/uL Neutrophils % % Lymphocytes % % Monocytes % % Eosinophils % % Basophils % % Neutrophils # (1.3-7.7) k/uL Lymphocytes # (1.0-4.8) k/uL Monocytes # (0-1.0) k/uL Eosinophils # (0-0.7) k/uL Basophils # (0-0.2) k/uL PT 9.6 (9.0-12.0) sec INR 1.0 (<1.2) APTT 24.5 (22.0-30.0) sec D-Dimer 1.18 H (<0.60) mg/L FEU Sodium (137-145) mmol/L Potassium (3.5-5.1) mmol/L Chloride (98-107) mmol/L Carbon Dioxide (22-30) mmol/L Anion Gap mmol/L BUN (7-17) mg/dL Creatinine (0.52-1.04) mg/dL Est GFR (MDRD) Af Amer (>60 ml/min/1.73 sqM) Est GFR (MDRD) Non-Af (>60 ml/min/1.73 sqM) Glucose (74-99) mg/dL Plasma Lactic Acid William 1.4 (0.7-2.0) mmol/L Calcium (8.4-10.2) mg/dL Phosphorus (2.5-4.5) mg/dL Magnesium (1.6-2.3) mg/dL Total Bilirubin (0.2-1.3) mg/dL AST (14-36) U/L ALT (9-52) U/L Alkaline Phosphatase (38-126) U/L Total Protein (6.3-8.2) g/dL Albumin (3.5-5.0) g/dL Urine Color Urine Appearance (Clear) Urine pH (5.0-8.0) Ur Specific [place] (1.001-1.035) Urine Protein (Negative) Urine Glucose (UA) (Negative) Urine Ketones (Negative) Urine Blood (Negative) Urine Nitrite (Negative) Urine Bilirubin (Negative) Urine Urobilinogen (<2.0) mg/dL Ur Leukocyte Esterase (Negative) Influenza Type A RNA (Not Detectd) Influenza Type B (PCR) (Not Detectd) 09/14/17 09/14/17 Range/Units 18:41 19:58 WBC (3.8-10.6) k/uL RBC (3.80-5.40) m/uL Hgb (11.4-16.0) gm/dL Hct (34.0-46.0) % MCV (80.0-100.0) fL MCH (25.0-35.0) pg MCHC (31.0-37.0) g/dL RDW (11.5-15.5) % Plt Count (150-450) k/uL Neutrophils % % Lymphocytes % % Monocytes % % Eosinophils % % Basophils % % Neutrophils # (1.3-7.7) k/uL Lymphocytes # (1.0-4.8) k/uL Monocytes # (0-1.0) k/uL Eosinophils # (0-0.7) k/uL Basophils # (0-0.2) k/uL PT (9.0-12.0) sec INR (<1.2) APTT (22.0-30.0) sec D-Dimer (<0.60) mg/L FEU Sodium (137-145) mmol/L Potassium (3.5-5.1) mmol/L Chloride (98-107) mmol/L Carbon Dioxide (22-30) mmol/L Anion Gap mmol/L BUN (7-17) mg/dL Creatinine (0.52-1.04) mg/dL Est GFR (MDRD) Af Amer (>60 ml/min/1.73 sqM) Est GFR (MDRD) Non-Af (>60 ml/min/1.73 sqM) Glucose (74-99) mg/dL Plasma Lactic Acid William (0.7-2.0) mmol/L Calcium (8.4-10.2) mg/dL Phosphorus 2.5 (2.5-4.5) mg/dL Magnesium 2.0 (1.6-2.3) mg/dL Total Bilirubin (0.2-1.3) mg/dL AST (14-36) U/L ALT (9-52) U/L Alkaline Phosphatase (38-126) U/L Total Protein (6.3-8.2) g/dL Albumin (3.5-5.0) g/dL Urine Color Yellow Urine Appearance Clear (Clear) Urine pH 8.5 H (5.0-8.0) Ur Specific [place] 1.012 (1.001-1.035) Urine Protein Trace H (Negative) Urine Glucose (UA) Negative (Negative) Urine Ketones Negative (Negative) Urine Blood Negative (Negative) Urine Nitrite Negative (Negative) Urine Bilirubin Negative (Negative) Urine Urobilinogen <2.0 (<2.0) mg/dL Ur Leukocyte Esterase Negative (Negative) Influenza Type A RNA (Not Detectd) Influenza Type B (PCR) (Not Detectd) Disposition <Jimmy Moreno - Last Filed: 09/14/17 21:23> <Hamilton Payan - Last Filed: 09/14/17 22:33> Clinical Impression: Fever, Community acquired pneumonia Disposition: ADMITTED IP TO THIS HOSP Condition: Fair Referrals: Maria L Deleon DO [Primary Care Provider] - 1-2 days
[2017-09-14 20:17] LABS: Bilirubin,Urine Negative (Negative); Blood,Urine Negative (Negative); Glucose,Urine (UA) Negative (Negative); Ketones,Urine Negative (Negative); Nitrite,Urine Negative (Negative); PH, Urine 8.5 (5.0-8.0); Protein,Urine Trace (Negative); Urobilinogen,Urine <2.0 mg/dL (<2.0)
[2017-09-14 20:38] LABS: Appearance,Urine Clear (Clear); Color,Urine Yellow; Leukocyte Esterase,Urine Negative (Negative); Specific Gravity,Urine 1.012 (1.001-1.035)
[2017-09-14] MEDS ORDERED: RX INFO: IV CONTRAST WAS GIVEN 1 EACH MISC MISCELLANE PRN (20:47)
[2017-09-14] MEDS ORDERED: SODIUM CHLORIDE 0.9% 500 ML IV STA ×2 (21:23→21:55)
[2017-09-14 21:43] LABS: Phosphorus 2.5 mg/dL (2.5-4.5)
[2017-09-14] MEDS ORDERED: SODIUM CHLORIDE 0.9% 1,000 ML IV STA (21:55)
--- NOTE | 2017-09-14 22:19 | CT ---
EXAMINATION TYPE: CT angio chest DATE OF EXAM: 09/14/2017 9:53 PM COMPARISON: 01/14/2017 HISTORY: Shortness of breath and fever today. CT DLP: 613.80 mGycm Automated exposure control for dose reduction was used. CONTRAST: CTA scan of the thorax is performed with IV Contrast, patient injected with 80 mL of Omnipaque 350, p ulmonary embolism protocol. There are 3-D post processed images.. FINDINGS: There is mild subsegmental atelectasis in the lower lobes. There is no evidence of a pulmonary mass. There is no sign of aortic aneurysm or dissection. I see no filling defects in the pulmonary arteries . There are no hilar masses. There is no mediastinal adenopathy. Spurring in the thoracic spine. IMPRESSION: NO EVIDENCE OF PULMONARY EMBOLISM. THERE IS PATCHY AREAS OF ATELECTASIS IN THE LOWER LOBES THAT APPEA RS NEW COMPARED TO OLD EXAM. SMALL HIATAL HERNIA.
[2017-09-14] MEDS ORDERED: MORPHINE SULFATE 5 MG/ML SYRINGE IVP STA (22:29)
[2017-09-14] MEDS ORDERED: MORPHINE SULFATE 5 MG/ML SYRINGE IVP PRN (22:29)
[2017-09-14] MEDS ORDERED: ACETAMINOPHEN TAB 325 MG TAB PO PRN (22:29)
[2017-09-14] MEDS ORDERED: ACETAMINOPHEN TAB 325 MG TAB PO STA (22:29)
[2017-09-14] MEDS ORDERED: AZITHROMYCIN 500 MG in SODIUM CHLORIDE 0.9% 250 ML IVPB STA (22:30)
[2017-09-14] MEDS ORDERED: PNEUMONIA PROTOCOL UTILIZED 1 EACH MISC PO PRN (22:30)
[2017-09-14] MEDS ORDERED: cefTRIAXone IN SWFI 1,000 MG/10 ML SYRINGE IVP STA ×2 (22:30→23:06)
[2017-09-14] MEDS ORDERED: VANCOMYCIN IV PER PHARMACY 1 EACH MISC MISCELLANE PRN (23:06)
--- NOTE | 2017-09-14 23:57 | ED ---
Medical Decision Making - Medical Decision Making 57 female to ER for evaluation, patient again was reexamined secondary to increase in fever, despite Motrin and Tylenol, also complaining of headache neck pain back pain. Patient states she did have a headache that began estriol that was not her original complaint was presented to the emergency room. Patient complaining of generalized pain, cough congestion, runny nose. Having pain and tenderness everywhere but is having pain in her neck and her back. Patient at this time has discussed lumbar puncture, we'll move forward with procedure. Patient does have history of back surgery, lumbar puncture was unsuccessful with 3 attempts Patient placed on antibiotics necessary to cover meningitis, Did make call for anesthesiology, suggest calling interventional radiology for LP in the morning Patient remains and continues remain awake and alert. - Lab Data Result diagrams: 09/14/17 18:41 09/14/17 18:41 Lab Results 09/14/17 09/14/17 09/14/17 Range/Units 18:41 18:41 18:41 WBC 6.9 (3.8-10.6) k/uL RBC 4.56 (3.80-5.40) m/uL Hgb 13.0 (11.4-16.0) gm/dL Hct 41.6 (34.0-46.0) % MCV 91.3 (80.0-100.0) fL MCH 28.5 (25.0-35.0) pg MCHC 31.2 (31.0-37.0) g/dL RDW 15.9 H (11.5-15.5) % Plt Count 294 (150-450) k/uL Neutrophils % 87 % Lymphocytes % 5 % Monocytes % 4 % Eosinophils % 2 % Basophils % 1 % Neutrophils # 6.0 (1.3-7.7) k/uL Lymphocytes # 0.4 L (1.0-4.8) k/uL Monocytes # 0.3 (0-1.0) k/uL Eosinophils # 0.2 (0-0.7) k/uL Basophils # 0.0 (0-0.2) k/uL PT (9.0-12.0) sec INR (<1.2) APTT (22.0-30.0) sec D-Dimer (<0.60) mg/L FEU Sodium 135 L (137-145) mmol/L Potassium 4.3 (3.5-5.1) mmol/L Chloride 100 (98-107) mmol/L Carbon Dioxide 25 (22-30) mmol/L Anion Gap 10 mmol/L BUN 9 (7-17) mg/dL Creatinine 0.68 (0.52-1.04) mg/dL Est GFR (MDRD) Af Amer >60 (>60 ml/min/1.73 sqM) Est GFR (MDRD) Non-Af >60 (>60 ml/min/1.73 sqM) Glucose 106 H (74-99) mg/dL Plasma Lactic Acid William (0.7-2.0) mmol/L Calcium 9.3 (8.4-10.2) mg/dL Phosphorus (2.5-4.5) mg/dL Magnesium (1.6-2.3) mg/dL Total Bilirubin 0.4 (0.2-1.3) mg/dL AST 34 (14-36) U/L ALT 45 (9-52) U/L Alkaline Phosphatase 119 (38-126) U/L Total Protein 7.2 (6.3-8.2) g/dL Albumin 4.3 (3.5-5.0) g/dL TSH (0.465-4.680) mIU/L Urine Color Urine Appearance (Clear) Urine pH (5.0-8.0) Ur Specific [place] (1.001-1.035) Urine Protein (Negative) Urine Glucose (UA) (Negative) Urine Ketones (Negative) Urine Blood (Negative) Urine Nitrite (Negative) Urine Bilirubin (Negative) Urine Urobilinogen (<2.0) mg/dL Ur Leukocyte Esterase (Negative) Influenza Type A RNA Not Detected (Not Detectd) Influenza Type B (PCR) Not Detected (Not Detectd) 09/14/17 09/14/17 09/14/17 Range/Units 18:41 18:41 18:41 WBC (3.8-10.6) k/uL RBC (3.80-5.40) m/uL Hgb (11.4-16.0) gm/dL Hct (34.0-46.0) % MCV (80.0-100.0) fL MCH (25.0-35.0) pg MCHC (31.0-37.0) g/dL RDW (11.5-15.5) % Plt Count (150-450) k/uL Neutrophils % % Lymphocytes % % Monocytes % % Eosinophils % % Basophils % % Neutrophils # (1.3-7.7) k/uL Lymphocytes # (1.0-4.8) k/uL Monocytes # (0-1.0) k/uL Eosinophils # (0-0.7) k/uL Basophils # (0-0.2) k/uL PT 9.6 (9.0-12.0) sec INR 1.0 (<1.2) APTT 24.5 (22.0-30.0) sec D-Dimer 1.18 H (<0.60) mg/L FEU Sodium (137-145) mmol/L Potassium (3.5-5.1) mmol/L Chloride (98-107) mmol/L Carbon Dioxide (22-30) mmol/L Anion Gap mmol/L BUN (7-17) mg/dL Creatinine (0.52-1.04) mg/dL Est GFR (MDRD) Af Amer (>60 ml/min/1.73 sqM) Est GFR (MDRD) Non-Af (>60 ml/min/1.73 sqM) Glucose (74-99) mg/dL Plasma Lactic Acid William 1.4 (0.7-2.0) mmol/L Calcium (8.4-10.2) mg/dL Phosphorus (2.5-4.5) mg/dL Magnesium (1.6-2.3) mg/dL Total Bilirubin (0.2-1.3) mg/dL AST (14-36) U/L ALT (9-52) U/L Alkaline Phosphatase (38-126) U/L Total Protein (6.3-8.2) g/dL Albumin (3.5-5.0) g/dL TSH (0.465-4.680) mIU/L Urine Color Urine Appearance (Clear) Urine pH (5.0-8.0) Ur Specific [place] (1.001-1.035) Urine Protein (Negative) Urine Glucose (UA) (Negative) Urine Ketones (Negative) Urine Blood (Negative) Urine Nitrite (Negative) Urine Bilirubin (Negative) Urine Urobilinogen (<2.0) mg/dL Ur Leukocyte Esterase (Negative) Influenza Type A RNA (Not Detectd) Influenza Type B (PCR) (Not Detectd) 09/14/17 09/14/17 Range/Units 18:41 19:58 WBC (3.8-10.6) k/uL RBC (3.80-5.40) m/uL Hgb (11.4-16.0) gm/dL Hct (34.0-46.0) % MCV (80.0-100.0) fL MCH (25.0-35.0) pg MCHC (31.0-37.0) g/dL RDW (11.5-15.5) % Plt Count (150-450) k/uL Neutrophils % % Lymphocytes % % Monocytes % % Eosinophils % % Basophils % % Neutrophils # (1.3-7.7) k/uL Lymphocytes # (1.0-4.8) k/uL Monocytes # (0-1.0) k/uL Eosinophils # (0-0.7) k/uL Basophils # (0-0.2) k/uL PT (9.0-12.0) sec INR (<1.2) APTT (22.0-30.0) sec D-Dimer (<0.60) mg/L FEU Sodium (137-145) mmol/L Potassium (3.5-5.1) mmol/L Chloride (98-107) mmol/L Carbon Dioxide (22-30) mmol/L Anion Gap mmol/L BUN (7-17) mg/dL Creatinine (0.52-1.04) mg/dL Est GFR (MDRD) Af Amer (>60 ml/min/1.73 sqM) Est GFR (MDRD) Non-Af (>60 ml/min/1.73 sqM) Glucose (74-99) mg/dL Plasma Lactic Acid William (0.7-2.0) mmol/L Calcium (8.4-10.2) mg/dL Phosphorus 2.5 (2.5-4.5) mg/dL Magnesium 2.0 (1.6-2.3) mg/dL Total Bilirubin (0.2-1.3) mg/dL AST (14-36) U/L ALT (9-52) U/L Alkaline Phosphatase (38-126) U/L Total Protein (6.3-8.2) g/dL Albumin (3.5-5.0) g/dL TSH 2.490 (0.465-4.680) mIU/L Urine Color Yellow Urine Appearance Clear (Clear) Urine pH 8.5 H (5.0-8.0) Ur Specific [place] 1.012 (1.001-1.035) Urine Protein Trace H (Negative) Urine Glucose (UA) Negative (Negative) Urine Ketones Negative (Negative) Urine Blood Negative (Negative) Urine Nitrite Negative (Negative) Urine Bilirubin Negative (Negative) Urine Urobilinogen <2.0 (<2.0) mg/dL Ur Leukocyte Esterase Negative (Negative) Influenza Type A RNA (Not Detectd) Influenza Type B (PCR) (Not Detectd) - Radiology Data Radiology results: report reviewed (CT brain negative), image reviewed Critical Care Time Critical Care Time: Yes Total Critical Care Time: 31 Disposition Clinical Impression: Fever, Community acquired pneumonia, Fever, unknown origin, Headache, Neck pain Narrative: ro Meningitis Disposition: ADMITTED IP TO THIS [facility] Condition: Fair
--- NOTE | 2017-09-15 00:45 | CT ---
EXAMINATION TYPE: CT brain wo con DATE OF EXAM: 09/15/2017 COMPARISON: NONE HISTORY: headache and fever CT DLP: 1047.10 mGycm Automated exposure control for dose reduction was used. FINDINGS: Ventricles and sulci appear normal. There is no mass effect nor midline shift. There is no sign of in tracranial hemorrhage. The calvarium is intact. There is mucosal thickening in the ethmoid air cells. IMPRESSION: NEGATIVE CT SCAN OF THE BRAIN. NO EVIDENCE OF CEREBRAL EDEMA.
[2017-09-15] MEDS: SODIUM CHLORIDE 0.9% 1,000 ML IV SCH ×3 (00:52→17:15)
[2017-09-15] MEDS: VANCOMYCIN 1,750 MG in SODIUM CHLORIDE 0.9% 250 ML IVPB SCH ×2 (02:39→13:15)
[2017-09-15 07:31] LABS: Glucose,Whole Blood 100 mg/dL (75-99)
[2017-09-15] MEDS: IBUPROFEN 600 MG TAB PO PRN ×2 (07:49→19:46)
[2017-09-15] MEDS: ENOXAPARIN 40 MG/0.4 ML SYRINGE SQ SCH (07:49)
[2017-09-15] MEDS: AZITHROMYCIN 500 MG TAB PO SCH (08:37)
[2017-09-15] MEDS: cefTRIAXone IN SWFI 2,000 MG/20 ML SYRINGE IVP SCH ×2 (08:37→22:04)
[2017-09-15 09:43] LABS: Basophils % (A) 1 %; Eosinophils # (A) 0.1 k/uL (0-0.7); Eosinophils % (A) 2 %; HCT 35.8 % (34.0-46.0); HGB 11.1 gm/dL (11.4-16.0); Hypochromasia Slight; Lymphocytes # (A) 0.6 k/uL (1.0-4.8); Lymphocytes % (A) 17 %; MCH 28.7 pg (25.0-35.0); MCHC 31.1 g/dL (31.0-37.0); MCV 92.3 fL (80.0-100.0); Mean Platelet Volume 7.8; Monocytes # (A) 0.3 k/uL (0-1.0); Monocytes % (A) 8 %; Neutrophils # (A) 2.5 k/uL (1.3-7.7); Neutrophils % (A) 71 %; Platelet Count 231 k/uL (150-450); RBC 3.88 m/uL (3.80-5.40); RDW 15.6 % (11.5-15.5); WBC 3.5 k/uL (3.8-10.6)
[2017-09-15 09:51] LABS: ALT 38 U/L (9-52); AST 26 U/L (14-36); Albumin 3.2 g/dL (3.5-5.0); Alkaline Phosphatase 89 U/L (38-126); Anion Gap 7 mmol/L; Blood Urea Nitrogen 11 mg/dL (7-17); Calcium 8.6 mg/dL (8.4-10.2); Carbon Dioxide 25 mmol/L (22-30); Chloride 107 mmol/L (98-107); Glucose 103 mg/dL (74-99); Potassium 3.9 mmol/L (3.5-5.1); Sodium 139 mmol/L (137-145); Total Bilirubin <0.1 mg/dL (0.2-1.3); Total Protein 5.7 g/dL (6.3-8.2)
[2017-09-15 11:25] LABS: Hepatitis A Antibody IgM Non-Reactive (Non-Reactive); Hepatitis B Core IgM Non-Reactive (Non-Reactive)
[2017-09-15] MEDS ORDERED: traMADol 50 MG TAB PO PRN (11:58)
[2017-09-15 12:10] LABS: Glucose,Whole Blood 85 mg/dL (75-99)
[2017-09-15] MEDS: IPRATROPIUM-ALBUTEROL 3 ML NEB INHALATION PRN (12:25)
--- NOTE | 2017-09-15 12:48 | P.HPIM ---
History of Present Illness H&P Date: 09/15/17 Chief Complaint: Chills with generalized weakness and fatigue This is a 57-year-old female, patient of [facility]. She has a known past medical history of diabetes mellitus type 2, fibromyalgia and hypothyroidism. Patient reports 2 days ago she noted that she was just feeling very weak and tired. Yesterday she started to have severe chills and was very fatigued following asleep constantly. She does report having some sinus congestion and postnasal drip. She's been having headache that wraps around her head. Her daughter was able to bring her into the emergency room. Patient reports that she cannot stay awake core. She did have a temp of 101.1. White count was normal. CRP level was elevated at 25.2. She was started on antibiotics for a possible pneumonia. Also due to the headache and some neck pain there were concerns about possible meningitis lumbar puncture was attempted 3 times in the emergency room and was unsuccessful. D-dimer was elevated computed tomography scan of the chest was negative for PE but did show atelectasis in the lower lobes patient started on Zithromax Rocephin and vancomycin in the emergency room. Dr. Hawley was consulted. Influenza screen was negative. Urinalysis negative. Blood cultures are pending. [facility] [place] She is working on a place to live. She denies any cough, chest pain, shortness of breath, nausea or vomiting, bowel movement changes or urinary symptoms. She denies any sore throat or earache. She denies any new skin rash. Denies any sick contacts. She does report aching all over her body. She feels that her neck discomfort is likely related to her fibromyalgia. Patient reports never feeling like this past. 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 Patient reports that she was placed on Protonix after that in her stomach discomfort did improve. She does complain of some mild epigastric discomfort at times. Amylase and lipase have been ordered. LFTs are normal. Review of Systems Please refer to HPI otherwise unremarkable Past Medical History Past Medical History: Diabetes Mellitus, Fibromyalgia, Hypertension History of Any Multi-Drug Resistant Organisms: None Reported Past Surgical History: Back Surgery, Cholecystectomy, Hernia Repair, Joint Replacement, Orthopedic Surgery Additional Past Surgical History / Comment(s): Right knee arthroplasty; R Knee replacement; right foot surgery; EGD; Colonoscopies, partial thyroidectomy Past Anesthesia/Blood Transfusion Reactions: Family History of Problems w/ Anesthesia, Postoperative Nausea & Vomiting (PONV) Additional Past Anesthesia/Blood Transfusion Reaction / Comment(s): mother N/V Past Psychological History: Depression Smoking Status: Former smoker Past Alcohol Use History: None Reported Additional Past Alcohol Use History / Comment(s): smoked from age 16 to 41 yrs 1ppd Past Drug Use History: None Reported - Past Family History Father Family Medical History: Cancer Mother Family Medical History: Cancer Brother(s) Family Medical History: Cancer Medications and Allergies Home Medications Medication Instructions Recorded Confirmed Type Levothyroxine Sodium [Synthroid] 75 mcg PO DAILY 01/06/17 09/14/17 History Milnacipran HCl [Savella] 100 mg PO BID 01/06/17 09/14/17 History Pramipexole [Mirapex] 1 mg PO QAM 01/06/17 09/14/17 History buPROPion HCL [Wellbutrin XL] 300 mg PO DAILY 01/06/17 09/14/17 History traMADol HCL [Ultram] 50 mg PO QID PRN 01/06/17 09/14/17 History metFORMIN HCL [Glucophage Xr] 500 mg PO DAILY 04/22/17 09/14/17 History Cyclobenzaprine [Flexeril] 10 mg PO TID 09/05/17 09/14/17 History Ranitidine HCl [Zantac] 300 mg PO BID 09/05/17 09/14/17 History Fluticasone Nasal [place] [Flonase 2 spr EA NOSTRIL DAILY 09/14/17 09/14/17 History Nasal [place]] Gabapentin [Neurontin] 200 mg PO TID 09/14/17 09/14/17 History Nortriptyline HCl 75 mg PO DAILY 09/14/17 09/14/17 History Pantoprazole Sodium [Protonix] 40 mg PO DAILY 09/14/17 09/14/17 History Pramipexole [Mirapex] 2 mg PO HS 09/14/17 09/14/17 History Spironolactone [Aldactone] 50 mg PO DAILY 09/14/17 09/14/17 History Allergies Allergy/AdvReac Type Severity Reaction Status Date / Time latex Allergy Rash/Hives Verified 09/14/17 18:13 Physical Exam Vitals: Vital Signs Temp Pulse Pulse Resp BP BP Pulse Ox 09/15/17 12:25 92 09/15/17 07:00 98.3 F 85 16 113/69 96 09/15/17 01:50 96.1 F L 97 20 102/65 96 09/15/17 00:00 99.1 F 91 18 110/61 96 09/14/17 21:34 101.1 F H 113 H 18 104/54 95 09/14/17 20:10 99.1 F 09/14/17 18:56 20 09/14/17 18:11 98.7 F 118 H 25 H 134/66 97 Intake and Output 09/14/17 09/15/17 09/15/17 22:59 06:59 14:59 Other: # Voids 1 Weight 113.398 kg 120.565 kg Mouth: Thrush Head normocephalic Neck supple Lungs clear to auscultation bilaterally no wheezing or crackles Heart regular rate and rhythm S1-S2, no rub or gallop Abdomen is soft mild epigastric tenderness nondistended positive bowel sounds no hepatosplenomegaly Extremities no edema Neuro alert and orientated to 3 Results CBC & Chem 7: 09/15/17 09:27 09/15/17 09:27 Labs: Abnormal Lab Results - Last 24 Hours (Table) 09/14/17 09/14/17 09/14/17 Range/Units 18:41 18:41 18:41 WBC (3.8-10.6) k/uL Hgb (11.4-16.0) gm/dL RDW 15.9 H (11.5-15.5) % Lymphocytes # 0.4 L (1.0-4.8) k/uL D-Dimer 1.18 H (<0.60) mg/L FEU Sodium 135 L (137-145) mmol/L Glucose 106 H (74-99) mg/dL POC Glucose (mg/dL) (75-99) mg/dL Total Bilirubin (0.2-1.3) mg/dL C-Reactive Protein (<10.0) mg/L Total Protein (6.3-8.2) g/dL Albumin (3.5-5.0) g/dL Urine pH (5.0-8.0) Urine Protein (Negative) 09/14/17 09/14/17 09/15/17 Range/Units 18:41 19:58 07:22 WBC (3.8-10.6) k/uL Hgb (11.4-16.0) gm/dL RDW (11.5-15.5) % Lymphocytes # (1.0-4.8) k/uL D-Dimer (<0.60) mg/L FEU Sodium (137-145) mmol/L Glucose (74-99) mg/dL POC Glucose (mg/dL) 100 H (75-99) mg/dL Total Bilirubin (0.2-1.3) mg/dL C-Reactive Protein 25.2 H (<10.0) mg/L Total Protein (6.3-8.2) g/dL Albumin (3.5-5.0) g/dL Urine pH 8.5 H (5.0-8.0) Urine Protein Trace H (Negative) 09/15/17 09/15/17 Range/Units 09:27 09:27 WBC 3.5 L (3.8-10.6) k/uL Hgb 11.1 L (11.4-16.0) gm/dL RDW 15.6 H (11.5-15.5) % Lymphocytes # 0.6 L (1.0-4.8) k/uL D-Dimer (<0.60) mg/L FEU Sodium (137-145) mmol/L Glucose 103 H (74-99) mg/dL POC Glucose (mg/dL) (75-99) mg/dL Total Bilirubin <0.1 L (0.2-1.3) mg/dL C-Reactive Protein (<10.0) mg/L Total Protein 5.7 L (6.3-8.2) g/dL Albumin 3.2 L (3.5-5.0) g/dL Urine pH (5.0-8.0) Urine Protein (Negative) Microbiology - Last 24 Hours (Table) 09/14/17 19:58 Urine Culture - Preliminary Urine,Voided Thrombosis Risk Factor Assmnt - Choose All That Apply Each Factor Represents 1 point: Age 41-60 years, Obesity (BMI >25) Thrombosis Risk Factor Assessment Total Risk Factor Score: 2 Thrombosis Risk Factor Assessment Level: Low Risk Assessment and Plan Assessment: 1. Severe chills with fatigue, generalized weakness and fever on admission. Acute etiology unclear. Initially concerns for a possible pneumonia in the ER. However patient denies cough and computed tomography scan of the chest shows atelectasis in the lower lobes. Influenza screen negative, urinalysis negative , white count 6.9. CRP elevated at 25.2. Blood culture pending. Infectious disease consulted. Patient currently on azithromycin and Rocephin and vancomycin. There were concerns about possible meningitis in the emergency room due to headache and neck pain. Lumbar puncture was unsuccessful. Will await evaluation by infectious disease. Computed tomography scan of the brain negative 2. Atelectasis: Ordered incentive spirometer 3. Elevated d-dimer on admission. Computed tomography scan of the chest negative for PE 4. Acute systemic inflammatory response syndrome present on admission with temp of 101.1 and tachycardia 5. History of fibromyalgia 6. Diabetes mellitus type 2: Hold metformin during hospitalization. Add sliding scale coverage 7. Hypothyroidism continue Synthroid 8. Oral thrush start nystatin swish and swallow GI prophylaxis Protonix and DVT prophylaxis Lovenox Time with Patient: Greater than 30 (Greater than 50% of the total time spent in counseling and coordination of care.I performed an examination of the patient and discussed their management with the physician Medical Office Asst. I have reviewed the Physician Medical Office Asst's notes and agree with the documented findings and plan of care)
[2017-09-15] MEDS: INSULIN ASPART 100 UNIT/ML 1 ML 10 ML VIAL SQ SCH ×3 (12:51→22:05)
[2017-09-15] MEDS: PANTOPRAZOLE 40 MG TABLET PO SCH (12:55)
[2017-09-15] MEDS: buPROPion XL 300 MG TAB.ER.24H PO SCH (12:55)
[2017-09-15] MEDS: NYSTATIN 100,000 UNIT/ML SUSP 500,000 UNIT/5 ML CUP PO SCH ×3 (12:55→22:06)
[2017-09-15] MEDS: NORTRIPTYLINE 25 MG CAP PO SCH (12:55)
[2017-09-15] MEDS: LEVOTHYROXINE 75 MCG TAB PO SCH (12:56)
[2017-09-15 13:10] LABS: Amylase <30 U/L (30-110); Lipase 73 U/L (23-300)
--- NOTE | 2017-09-15 15:39 | XR ---
EXAMINATION TYPE: XR chest 2V DATE OF EXAM: 09/15/2017 COMPARISON: 09/14/2017 INDICATION: Pneumonia short of breath congestion TECHNIQUE: Frontal and lateral views of the chest are obtained. FINDINGS: The heart size is normal. The pulmonary vasculature is normal. The lungs are clear. IMPRESSION: 1. No acute pulmonary process.
[2017-09-15] MEDS: CYCLOBENZAPRINE 10 MG TAB PO SCH ×2 (17:14→22:06)
[2017-09-15] MEDS: GABAPENTIN 100 MG CAP PO SCH ×2 (17:14→22:06)
[2017-09-15 17:17] LABS: Glucose,Whole Blood 84 mg/dL (75-99)
[2017-09-15 20:04] LABS: Hemoglobin A1C 5.5 % (4.0-6.0)
[2017-09-15 21:02] LABS: Glucose,Whole Blood 87 mg/dL (75-99)
[2017-09-15] MEDS ORDERED: cefTRIAXone IN SWFI 1,000 MG/10 ML SYRINGE IVP SCH (22:00)
[2017-09-15] MEDS: FAMOTIDINE 20 MG TAB PO SCH (22:04)
[2017-09-15] MEDS: NON-FORMULARY DRUG (Milnacipran Hcl [Savella] 100 MG) PO SCH (22:05)
[2017-09-15] MEDS: PRAMIPEXOLE 1 MG TAB PO SCH (22:06)
[2017-09-16] MEDS ORDERED: RX INFO: IV CONTRAST WAS GIVEN 1 EACH MISC MISCELLANE PRN (00:36)
--- NOTE | 2017-09-16 00:36 | P.CONS ---
History of Present Illness - Reason for Consult Consult date: 09/15/17 - Chief Complaint Sudden onset of fevers and chills and generalized weakness - History of Present Illness 57-year-old female who is a long-standing history of diabetes mellitus type 2 parathyroidism fibromyalgia and obesity. The patient relates she has a history of a gastric bypass years ago. She difficulty with some increasing weight gain and abdominal pain. Following with her surgeon and has been evaluated with endoscopy showing evidence of difficulty with the mesh that is present. Possibly some further surgical intervention was needed. The patient relates that she suddenly became ill while she was her daughter's house. She developed high-grade fevers chills generalized malaise and fatigue. Because she became so ill so quickly she was brought to the emergency center where she was out of his a temperature of 101.1. She did have complaints of severe headache. She had a temp for a lumbar puncture but with her significant degenerative joint disease could not be performed. Also concerns pneumonia and antibiotic therapy was given with Rocephin and azithromycin and vancomycin. Influenza testing was negative. The patient is now feeling somewhat better headache is improved but not resolved. She has no neck stiffness and fevers have definitely improved. She still feels poorly and continues to have difficulties with her abdominal pain. Review of Systems as noted the patient had the sudden onset fever chills rigors while she was at her daughter's house. This is all improved. HEENT:as per the HPI she has severe headache that is now much improved. No visual changes. No sensorimotor discomforts. No difficulty swallowing. Lungs: Denies significant shortness of breath, cough, sputum production, or hemoptysis. Cardiovascular: Denies significant shortness of breath, chest pain, chest wall pain, orthopnea, dyspnea on exertion, syncope Gastrointestinalas per the HPI has chronic abdominal pain. But denies nausea emesis diarrhea hematemesis melena or hematochezia at this time. Musculoskeletal: dShe has for myalgia has chronic musculoskeletal pain stable at this time. No new joint troubles Skin: Denies new rash or lesions. No new ulcers or wounds are related.. Neuro: as per the HPI had severe headache that is now improved. No acute unilateral weakness or neurological changes PsychiatricChronic anxiety Endocrine: chronic severe CT and weight gain is occurring as of late despite her bariatric procedure Past Medical History Past Medical History: Diabetes Mellitus, Fibromyalgia, Hypertension History of Any Multi-Drug Resistant Organisms: None Reported Past Surgical History: Back Surgery, Cholecystectomy, Hernia Repair, Joint Replacement, Orthopedic Surgery Additional Past Surgical History / Comment(s): Right knee arthroplasty; R Knee replacement; right foot surgery; EGD; Colonoscopies, partial thyroidectomy Past Anesthesia/Blood Transfusion Reactions: Family History of Problems w/ Anesthesia, Postoperative Nausea & Vomiting (PONV) Additional Past Anesthesia/Blood Transfusion Reaction / Comm: mother N/V Past Psychological History: Depression Additional Psychological History / Comment(s): . Adult children. No animal exposures. No experience. No international travel. Does not work outside of the home Smoking Status: Former smoker Past Alcohol Use History: None Reported Additional Past Alcohol Use History / Comment(s): smoked from age 16 to 41 yrs 1ppd Past Drug Use History: None Reported - Past Family History Father Family Medical History: Cancer Mother Family Medical History: Cancer Brother(s) Family Medical History: Cancer Medications and Allergies Home Medications and Allergies Comment(s): Current Medications Acetaminophen (Tylenol Tab) 650 mg PO Q6HR PRN PRN Reason: Fever and/ or Pain Albuterol/Ipratropium (Duoneb 0.5 Mg-3 Mg/3 Ml Soln) 3 ml INHALATION RT-Q4H PRN PRN Reason: shortness of breath Last Admin: 09/15/17 12:25 Dose: 3 ml Azithromycin (Zithromax) 500 mg PO DAILY [facility] Last Admin: 09/15/17 08:37 Dose: 500 mg Bupropion HCl (Wellbutrin Xl) 300 mg PO DAILY [facility] Last Admin: 09/15/17 12:55 Dose: 300 mg Ceftriaxone Sodium (Rocephin) 2,000 mg IVP Q12HR [facility] Last Admin: 09/15/17 22:04 Dose: 2,000 mg Cyclobenzaprine HCl (Flexeril) 10 mg PO TID [facility] Last Admin: 09/15/17 22:06 Dose: 10 mg Enoxaparin Sodium (Lovenox) 40 mg SQ DAILY [facility] Last Admin: 09/15/17 07:49 Dose: 40 mg Famotidine (Pepcid) 20 mg PO BID [facility] Last Admin: 09/15/17 22:04 Dose: 20 mg Fluticasone Propionate (Flonase Nasal [place]) 2 spray EA NOSTRIL DAILY [facility] Gabapentin (Neurontin) 200 mg PO TID [facility] Last Admin: 09/15/17 22:06 Dose: 200 mg Sodium Chloride (Saline 0.9%) 1,000 mls @ 100 mls/hr IV .Q10H [facility] Last Admin: 09/15/17 17:15 Dose: 100 mls/hr Vancomycin HCl 1,750 mg/ (Sodium Chloride) 250 mls @ 125 mls/hr IVPB Q12H [facility] Last Admin: 09/15/17 13:15 Dose: 125 mls/hr Ibuprofen (Motrin) 600 mg PO TID PRN PRN Reason: Fever Last Admin: 09/15/17 19:46 Dose: 600 mg Insulin Aspart (Novolog) 0 unit SQ ACHS [facility] PRN Reason: Protocol Last Admin: 09/15/17 22:05 Dose: Not Given Levothyroxine Sodium (Synthroid) 75 mcg PO DAILY@0630 [facility] Last Admin: 09/15/17 12:56 Dose: 75 mcg Miscellaneous Information (Rx Info: Iv Contrast Was Given) 1 each MISCELLANE DAILY PRN PRN Reason: Per Protocol Stop: 09/16/17 20:47 Miscellaneous Information (Pneumonia Protocol Utilized) 1 each PO ONCE PRN PRN Reason: Per Protocol Morphine Sulfate (Morphine Sulfate) 4 mg IVP Q4HR PRN PRN Reason: Pain/Discomfort Non-Formulary Medication (Milnacipran Hcl [Savella]) 100 mg PO BID [facility] Last Admin: 09/15/17 22:05 Dose: Not Given Nortriptyline HCl (Pamelor) 75 mg PO DAILY [facility] Last Admin: 09/15/17 12:55 Dose: 75 mg Nystatin (Mycostatin Oral Susp) 500,000 unit PO QID [facility] Last Admin: 09/15/17 22:06 Dose: 500,000 unit Pantoprazole Sodium (Protonix) 40 mg PO DAILY@0730 [facility] Last Admin: 09/15/17 12:55 Dose: 40 mg Pramipexole Dihydrochloride (Mirapex) 1 mg PO QAM [facility] Pramipexole Dihydrochloride (Mirapex) 2 mg PO HS [facility] Last Admin: 09/15/17 22:06 Dose: 2 mg Spironolactone (Aldactone) 50 mg PO DAILY [facility] Tramadol HCl (Ultram) 50 mg PO QID PRN PRN Reason: Pain Home Medications Medication Instructions Recorded Confirmed Type Levothyroxine Sodium [Synthroid] 75 mcg PO DAILY 01/06/17 09/14/17 History Milnacipran HCl [Savella] 100 mg PO BID 01/06/17 09/14/17 History Pramipexole [Mirapex] 1 mg PO QAM 01/06/17 09/14/17 History buPROPion HCL [Wellbutrin XL] 300 mg PO DAILY 01/06/17 09/14/17 History traMADol HCL [Ultram] 50 mg PO QID PRN 01/06/17 09/14/17 History metFORMIN HCL [Glucophage Xr] 500 mg PO DAILY 04/22/17 09/14/17 History Cyclobenzaprine [Flexeril] 10 mg PO TID 09/05/17 09/14/17 History Ranitidine HCl [Zantac] 300 mg PO BID 09/05/17 09/14/17 History Fluticasone Nasal [place] [Flonase 2 spr EA NOSTRIL DAILY 09/14/17 09/14/17 History Nasal [place]] Gabapentin [Neurontin] 200 mg PO TID 09/14/17 09/14/17 History Nortriptyline HCl 75 mg PO DAILY 09/14/17 09/14/17 History Pantoprazole Sodium [Protonix] 40 mg PO DAILY 09/14/17 09/14/17 History Pramipexole [Mirapex] 2 mg PO HS 09/14/17 09/14/17 History Spironolactone [Aldactone] 50 mg PO DAILY 09/14/17 09/14/17 History Allergies Allergy/AdvReac Type Severity Reaction Status Date / Time latex Allergy Rash/Hives Verified 09/14/17 18:13 Physical Exam Vitals: Vital Signs Temp Pulse Pulse Resp BP Pulse Ox 09/15/17 23:00 97.1 F L 92 20 108/68 95 09/15/17 15:00 96.5 F L 97 18 129/57 97 09/15/17 12:34 92 09/15/17 12:25 92 09/15/17 07:00 98.3 F 85 16 113/69 96 09/15/17 01:50 96.1 F L 97 20 102/65 96 Intake and Output 09/15/17 09/15/1709/16/18 14:59 22:59 06:59 Intake Total 200 Balance 200 Intake: Oral 200 Other: # Voids 3 1 1 pleasant obese 57-year-old woman who seems modestly comfortable at this time but does complain of abdominal pain.her fevers and chills have improved HEENT: Anicteric conjunctiva are pink and moist nasal mucosa grossly intact without significant lesions, there is no thrush. Neck: The neck is supple without significant lymphadenopathy or thyromegaly. Lungs: Good bilateral air entry without significant crackles or wheezing. There is no significant bronchial sounds. There is no egophony or dullness.few basilar crackles are heard Heart: Regular rate and rhythm with an audible S1-S2, no S3 no S4. There is no significant murmur click or rub, PMI was nondisplaced. Abdomen: obese,Positive bowel sounds soft without palpable masses or organomegaly. There was no guarding or rebound.patient is evidence of prior extensive surgery to the abdomen. The horizontal incision is an area of discoloration that is chronic. It is chronically tender. It does not have drainage at this time. Extremities: The upper extremities have excellent pulses they are symmetric, no significant petechiae or telangiectasia. No splinter hemorrhages were noted. The lower extremities are free from significant edema. The peripheral pulses were 2+ and symmetric. Neuro: Awake alert oriented to person place and time. There are no acute new gross focal sensory motor deficits. Results CBC & Chem 7: 09/15/17 09:27 09/15/17 09:27 Labs: Abnormal Lab Results - Last 24 Hours (Table) 09/14/17 09/15/17 09/15/17 Range/Units 18:41 07:22 09:27 WBC 3.5 L (3.8-10.6) k/uL Hgb 11.1 L (11.4-16.0) gm/dL RDW 15.6 H (11.5-15.5) % Lymphocytes # 0.6 L (1.0-4.8) k/uL Glucose (74-99) mg/dL POC Glucose (mg/dL) 100 H (75-99) mg/dL Total Bilirubin (0.2-1.3) mg/dL C-Reactive Protein 25.2 H (<10.0) mg/L Total Protein (6.3-8.2) g/dL Albumin (3.5-5.0) g/dL Amylase (30-110) U/L 09/15/17 09/15/17 Range/Units 09: 09:27 WBC (3.8-10.6) k/uL Hgb (11.4-16.0) gm/dL RDW (11.5-15.5) % Lymphocytes # (1.0-4.8) k/uL Glucose 103 H (74-99) mg/dL POC Glucose (mg/dL) (75-99) mg/dL Total Bilirubin <0.1 L (0.2-1.3) mg/dL C-Reactive Protein (<10.0) mg/L Total Protein 5.7 L (6.3-8.2) g/dL Albumin 3.2 L (3.5-5.0) g/dL Amylase <30 L (30-110) U/L Microbiology - Last 24 Hours (Table) 09/14/17 18:41 Blood Culture - Preliminary Blood No Growth after 24 hours 09/14/17 19:58 Urine Culture - Preliminary Urine,Voided Laboratory Results WBC 3.5 k/uL (3.8-10.6) L 09/15/17 09: RBC 3.88 m/uL (3.80-5.40) 09/15/17 09:27 Hgb 11.1 gm/dL (11.4-16.0) L 09/15/17 09: Hct 35.8 % (34.0-46.0) 09/15/17 09: MCV 92.3 fL (80.0-100.0) 09/15/17 09: MCH 28.7 pg (25.0-35.0) 09/15/17 09: MCHC 31.1 g/dL (31.0-37.0) 09/15/17 09: RDW 15.6 % (11.5-15.5) H 09/15/17 09:27 Plt Count 231 k/uL (150-450) 09/15/17 09:27 Neutrophils % 71 % 09/15/17 09:27 Lymphocytes % 17 % 09/15/17 09:27 Monocytes % 8 % 09/15/17 09:27 Eosinophils % 2 % 09/15/17 09:27 Basophils % 1 % 09/15/17 09:27 Neutrophils # 2.5 k/uL (1.3-7.7) 09/15/17 09:27 Lymphocytes # 0.6 k/uL (1.0-4.8) L 09/15/17 09:27 Monocytes # 0.3 k/uL (0-1.0) 09/15/17 09:27 Eosinophils # 0.1 k/uL (0-0.7) 09/15/17 09:27 Basophils # 0.0 k/uL (0-0.2) 09/15/17 09:27 Hypochromasia Slight 09/15/17 09:27 PT 9.6 sec (9.0-12.0) 09/14/17 18:41 INR 1.0 (<1.2) 09/14/17 18:41 APTT 24.5 sec (22.0-30.0) 09/14/17 18:41 D-Dimer 1.18 mg/L FEU (<0.60) H 09/14/17 18:41 Sodium 139 mmol/L (137-145) 09/15/17 09:27 Potassium 3.9 mmol/L (3.5-5.1) 09/15/17 09:27 Chloride 107 mmol/L (98-107) 09/15/17 09:27 Carbon Dioxide 25 mmol/L (22-30) 09/15/17 09:27 Anion Gap 7 mmol/L 09/15/17 09:27 BUN 11 mg/dL (7-17) 09/15/17 09:27 Creatinine 0.72 mg/dL (0.52-1.04) 09/15/17 09:27 Est GFR (MDRD) Af Amer >60 (>60 ml/min/1.73 sqM) 09/15/17 09:27 Est GFR (MDRD) Non-Af >60 (>60 ml/min/1.73 sqM) 09/15/17 09:27 Glucose 103 mg/dL (74-99) H 09/15/17 09:27 POC Glucose (mg/dL) 87 mg/dL (75-99) 09/15/17 20:57 POC Glu Academic Tutor ID Siobhan Machado 09/15/17 20:57 Plasma Lactic Acid William 1.4 mmol/L (0.7-2.0) 09/14/17 18:41 Calcium 8.6 mg/dL (8.4-10.2) 09/15/17 09:27 Phosphorus 2.5 mg/dL (2.5-4.5) 09/14/17 18:41 Magnesium 2.0 mg/dL (1.6-2.3) 09/14/17 18:41 Total Bilirubin <0.1 mg/dL (0.2-1.3) L 09/15/17 09:27 AST 26 U/L (14-36) 09/15/17 09:27 ALT 38 U/L (9-52) 09/15/17 09:27 Alkaline Phosphatase 89 U/L (38-126) 09/15/17 09:27 C-Reactive Protein 25.2 mg/L (<10.0) H 09/14/17 18:41 Total Protein 5.7 g/dL (6.3-8.2) L 09/15/17 09:27 Albumin 3.2 g/dL (3.5-5.0) L 09/15/17 09:27 Amylase <30 U/L (30-110) L 09/15/17 09:27 Lipase 73 U/L (23-300) 09/15/17 09:27 TSH 2.490 mIU/L (0.465-4.680) 09/14/17 18:41 Urine Color Yellow 09/14/17 19:58 Urine Appearance Clear (Clear) 09/14/17 19:58 Urine pH 8.5 (5.0-8.0) H 09/14/17 19:58 Ur Specific [place] 1.012 (1.001-1.035) 09/14/17 19:58 Urine Protein Trace (Negative) H 09/14/17 19:58 Urine Glucose (UA) Negative (Negative) 09/14/17 19:58 Urine Ketones Negative (Negative) 09/14/17 19:58 Urine Blood Negative (Negative) 09/14/17 19:58 Urine Nitrite Negative (Negative) 09/14/17 19:58 Urine Bilirubin Negative (Negative) 09/14/17 19:58 Urine Urobilinogen <2.0 mg/dL (<2.0) 09/14/17 19:58 Ur Leukocyte Esterase Negative (Negative) 09/14/17 19:58 Hepatitis A IgM Ab Non-Reactive (Non-Reactive) 09/14/17 18:41 Hep Bs Antigen Non-Reactive (Non-Reactive) 09/14/17 18:41 Hep B Core IgM Ab Non-Reactive (Non-Reactive) 09/14/17 18:41 Hep C IgG Ab Non-Reactive (Non-Reactive) 09/14/17 18:41 Influenza Type A RNA Not Detected (Not Detectd) 09/14/17 18:41 Influenza Type B (PCR) Not Detected (Not Detectd) 09/14/17 18:41 Microbiology 09/14/17 18:41 Blood Blood Culture - Preliminary No Growth after 24 hours 09/14/17 19:58 Urine,Voided Urine Culture - Preliminary Assessment and Plan (1) Fever Current Visit: Yes Status: Acute Code(s): R50.9 - FEVER, UNSPECIFIED SNOMED Code(s): 461294462 (2) Pneumonia Current Visit: Yes Status: Acute Code(s): J18.9 - PNEUMONIA, UNSPECIFIED ORGANISM SNOMED Code(s): 411596183 (3) Abdominal pain Narrative/Plan: 57-year-old female presents to hospital with a sudden onset of fevers and chills in sudden weakness.imaging studies reveal evidence of no pulmonary embolus and evidence of some atelectasis and not completely excluding pneumonia. Influenza was negative. Patient is receiving several antibiotic therapy at this time with the concerns to pneumonia. Cultures are negative so far Fever is resolving Patient however has significant ongoing abdominal pain and does have the significant history of the gastric bypass with difficulties. 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 Apparently at some time she is was to be seen by another surgeon to see if any else can be done. However at this time she is acutely ill and concern would be to the possibility of infection related to these ongoing issues. If not performed a computed tomography scan of the abdomen and pelvis should be performed to assure there is no abscess related to these chronic issues. as of the workup continues and cultures are followed a course of antibiotic therapy can then be suggestive the time of her discharge. she has developed what appears to be a transient leukopenia. If this continues will consider discontinuation of vancomycin. Current Visit: Yes Status: Acute Code(s): R10.9 - UNSPECIFIED ABDOMINAL PAIN SNOMED Code(s): 13552238 (4) History of gastric bypass Current Visit: Yes Status: Acute Code(s): Z98.84 - BARIATRIC SURGERY STATUS SNOMED Code(s): 364272745
[2017-09-16] MEDS: VANCOMYCIN 1,750 MG in SODIUM CHLORIDE 0.9% 250 ML IVPB SCH ×2 (01:23→13:07)
[2017-09-16] MEDS: IBUPROFEN 600 MG TAB PO PRN ×2 (06:13→15:58)
[2017-09-16] MEDS: LEVOTHYROXINE 75 MCG TAB PO SCH (06:14)
[2017-09-16] MEDS: INSULIN ASPART 100 UNIT/ML 1 ML 10 ML VIAL SQ SCH ×4 (07:39→21:07)
[2017-09-16] MEDS: SODIUM CHLORIDE 0.9% 1,000 ML IV SCH ×2 (07:54→13:08)
[2017-09-16] MEDS: NYSTATIN 100,000 UNIT/ML SUSP 500,000 UNIT/5 ML CUP PO SCH ×4 (07:55→21:11)
[2017-09-16 07:56] LABS: Glucose,Whole Blood 99 mg/dL (75-99)
[2017-09-16] MEDS: GABAPENTIN 100 MG CAP PO SCH ×3 (07:56→21:10)
[2017-09-16] MEDS: NORTRIPTYLINE 25 MG CAP PO SCH (07:56)
[2017-09-16] MEDS: SPIRONOLACTONE 25 MG TAB PO SCH (07:57)
[2017-09-16] MEDS: PRAMIPEXOLE 1 MG TAB PO SCH ×2 (07:57→21:11)
[2017-09-16] MEDS: AZITHROMYCIN 500 MG TAB PO SCH (07:57)
[2017-09-16] MEDS: PANTOPRAZOLE 40 MG TABLET PO SCH (07:57)
[2017-09-16] MEDS: buPROPion XL 300 MG TAB.ER.24H PO SCH (07:58)
[2017-09-16] MEDS: CYCLOBENZAPRINE 10 MG TAB PO SCH ×3 (07:58→21:10)
[2017-09-16] MEDS: FAMOTIDINE 20 MG TAB PO SCH ×2 (07:58→21:10)
[2017-09-16] MEDS: FLUTICASONE 50MCG/SPRAY NASAL 16GM EA NOSTRIL SCH (07:58)
[2017-09-16] MEDS: ENOXAPARIN 40 MG/0.4 ML SYRINGE SQ SCH (07:59)
[2017-09-16] MEDS: NON-FORMULARY DRUG (Milnacipran Hcl [Savella] 100 MG) PO SCH ×2 (08:02→21:11)
[2017-09-16 08:19] LABS: ALT 45 U/L (9-52); AST 29 U/L (14-36); Albumin 3.2 g/dL (3.5-5.0); Alkaline Phosphatase 93 U/L (38-126); Anion Gap 9 mmol/L; Blood Urea Nitrogen 9 mg/dL (7-17); Calcium 8.5 mg/dL (8.4-10.2); Carbon Dioxide 23 mmol/L (22-30); Chloride 109 mmol/L (98-107); Glucose 94 mg/dL (74-99); Potassium 4.3 mmol/L (3.5-5.1); Sodium 141 mmol/L (137-145); Total Bilirubin <0.1 mg/dL (0.2-1.3); Total Protein 5.7 g/dL (6.3-8.2)
[2017-09-16 08:20] LABS: Basophils % (A) 0 %; Eosinophils # (A) 0.1 k/uL (0-0.7); Eosinophils % (A) 2 %; HCT 36.6 % (34.0-46.0); HGB 11.3 gm/dL (11.4-16.0); Hypochromasia Moderate; Lymphocytes # (A) 0.9 k/uL (1.0-4.8); Lymphocytes % (A) 19 %; MCH 28.9 pg (25.0-35.0); MCHC 30.8 g/dL (31.0-37.0); MCV 93.9 fL (80.0-100.0); Mean Platelet Volume 7.5; Monocytes # (A) 0.3 k/uL (0-1.0); Monocytes % (A) 6 %; Neutrophils # (A) 3.2 k/uL (1.3-7.7); Neutrophils % (A) 70 %; Platelet Count 230 k/uL (150-450); RDW 15.9 % (11.5-15.5); WBC 4.5 k/uL (3.8-10.6)
[2017-09-16] MEDS: IOHEXOL 350 MG/ML 25 ML BOTTLE (ORAL USE) PO PRN ×2 (08:22→09:15)
[2017-09-16] MEDS: cefTRIAXone IN SWFI 2,000 MG/20 ML SYRINGE IVP SCH (08:22)
[2017-09-16] MEDS: IPRATROPIUM-ALBUTEROL 3 ML NEB INHALATION PRN (08:25)
--- NOTE | 2017-09-16 10:34 | CT ---
EXAMINATION TYPE: CT abdomen pelvis w con DATE OF EXAM: 09/16/2017 HISTORY: Left upper abdominal pain. Assess for abscess with history of gastric bypass. CT DLP: 3012.2mGycm Automated Exposure Control for Dose Reduction was Utilized. CONTRAST: CT scan of the abdomen and pelvis is performed with IV Contrast, patient injected with 100 mL of Omni paque 300. COMPARISON: CT abdomen and pelvis January 06, 2017 FINDINGS: LUNG BASES: No significant abnormality is appreciated. LIVER/GB: Cholecystectomy clips are redemonstrated. PANCREAS: No significant abnormality is seen. SPLEEN: No significant abnormality is seen. ADRENALS: Small low dense nodular thickening to left adrenal gland is stable favoring benign hyperpla [place]. KIDNEYS: Mildly distended bladder is present. BOWEL: There is small remnant bypass stomach which correlates with patient's history of gastric bypas s surgery. The oral contrast only reaches the mid small bowel level. There is no suspicious small or large bowel dilatation identified. Remnant stomach is poorly distended and thus suboptimally evaluate d. There is no contrast in bypassed gastric antrum and proximal duodenal sweep which correlates with patient's history. 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 Distal to this there is reflux con trast into the afferent small bowel loop. Cecum is noted wandering into the anterior right mid abdome n seen best on coronal image 31 with visualization of terminal ileum which appears unremarkable. Ther e is poor distention mid transverse colon making evaluation at this level suboptimal. There is poorly distended sigmoid colon also noted. UTERUS/ADNEXA: Uterus is surgically absent. LYMPH NODES: No greater than 1cm abdominal or pelvic lymph nodes are appreciated. Nonspecific 6 mm so ft tissue nodule right lower quadrant axial image 54 could reflect prominent lymph node is stable but of uncertain etiology. OSSEOUS STRUCTURES: There is underlying dextroconvex scoliosis in the lumbar spine. There is multilev el facet arthropathy mid to lower lumbar levels. There are bilateral laminectomy defects and spinous process resection lower lumbar levels. There is multilevel vacuum disc phenomenon in the thoracolumba r spine. There is mild to moderate disc space narrowing L3-L4 through L5-S1 levels. Multilevel mild t o moderate spurring in the visualized thoracolumbar spine is noted. OTHER: There are numerous ventral wall coils from hernia repair surgery. Curvilinear density is pres ent suspected mesh. No suspicious recurrent ventral wall hernia is identified. Overlying vertical sca r is noted. There is mild to moderate calcified plaque in the distal abdominal aorta extending to iliac branch ve ssels. IMPRESSION: No worrisome thick-walled fluid collection particularly near epigastric region to suggest abscess is identified. No bowel obstruction is present. No significant change from prior study is no courtney.
--- NOTE | 2017-09-16 10:35 | P.PN ---
Subjective Progress Note Date: 09/16/17 This is a 57-year-old female, patient of [facility]. She has a known past medical history of diabetes mellitus type 2, fibromyalgia and hypothyroidism. Patient reports 2 days ago she noted that she was just feeling very weak and tired. Yesterday she started to have severe chills and was very fatigued following asleep constantly. She does report having some sinus congestion and postnasal drip. She's been having headache that wraps around her head. Her daughter was able to bring her into the emergency room. Patient reports that she cannot stay awake core. She did have a temp of 101.1. White count was normal. CRP level was elevated at 25.2. She was started on antibiotics for a possible pneumonia. Also due to the headache and some neck pain there were concerns about possible meningitis lumbar puncture was attempted 3 times in the emergency room and was unsuccessful. D-dimer was elevated computed tomography scan of the chest was negative for PE but did show atelectasis in the lower lobes patient started on Zithromax Rocephin and vancomycin in the emergency room. Dr. Hawley was consulted. Influenza screen was negative. Urinalysis negative. Blood cultures are pending. Patient has currently been living in a retirement. She is working on a place to live. She denies any cough, chest pain, shortness of breath, nausea or vomiting, bowel movement changes or urinary symptoms. She denies any sore throat or earache. She denies any new skin rash. Denies any sick contacts. She does report aching all over her body. She feels that her neck discomfort is likely related to her fibromyalgia. Patient reports never feeling like this past. 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 Patient reports that she was placed on Protonix after that in her stomach discomfort did improve. She does complain of some mild epigastric discomfort at times. Amylase and lipase have been ordered. LFTs are normal. 09/16/2017 patient is afebrile this morning. She is still complaining of sinus congestion and frontal temporal sinus headache. She usually takes Claritin at home this will be restarted. She was seen by infectious disease they have ordered a computed tomography scan of the abdomen and pelvis due to patient's history of gastric bypass difficulties and an EGD that had shown concerns for a possible fistula between the gastric pouch and distal aspect of the stomach. Amylase and lipase and LFTs are all normal. She is complaining of a more of a left lower quadrant abdominal pain today. Denies any nausea or vomiting. Denies any change in her bowel movements. Denies any chest pain or shortness of breath. Denies any burning with urination. Denies cough. Seen by infectious disease felt that there were not signs of meningitis lumbar puncture was not required Objective - Vital Signs Vital signs: Vital Signs Temp 98.0 F 09/16/17 07:00 Pulse 92 09/16/17 08:34 Resp 16 09/16/17 07:00 BP 132/81 09/16/17 07:00 Pulse Ox 97 09/16/17 07:00 Intake & Output 09/15/17 09/16/17 09/16/17 18:59 06:59 18:59 Intake Total 300 Balance 300 Intake: Oral 300 Other: # Voids 2 1 - Exam HEENT tenderness with palpation of frontal sinuses and maxillary sinus bilaterally Head normocephalic Neck supple Lungs clear to auscultation bilaterally no wheezing or crackles Heart regular rate and rhythm S1-S2, no rub or gallop Abdomen is soft nontender nondistended positive bowel sounds no hepatosplenomegaly Extremities no edema Neuro alert and orientated to 3 - Labs CBC & Chem 7: 09/16/17 07:30 09/16/17 07:30 Labs: Abnormal Lab Results - Last 24 Hours (Table) 09/15/17 09/16/17 09/16/17 Range/Units 09:27 07:30 07:30 Hgb 11.3 L (11.4-16.0) gm/dL MCHC 30.8 L (31.0-37.0) g/dL RDW 15.9 H (11.5-15.5) % Lymphocytes # 0.9 L (1.0-4.8) k/uL Chloride 109 H (98-107) mmol/L Total Bilirubin <0.1 L (0.2-1.3) mg/dL Total Protein 5.7 L (6.3-8.2) g/dL Albumin 3.2 L (3.5-5.0) g/dL Amylase <30 L (30-110) U/L Microbiology - Last 24 Hours (Table) 09/14/17 19:58 Urine Culture - Final Urine,Voided 09/14/17 18:41 Blood Culture - Preliminary Blood No Growth after 24 hours Assessment and Plan Assessment: 1. Severe chills with fatigue, generalized weakness and fever on admission. Acute etiology unclear. Initially concerns for a possible pneumonia in the ER. However patient denies cough and computed tomography scan of the chest shows atelectasis in the lower lobes. Repeat chest x-ray shows no acute pulmonary process. Influenza screen negative, urinalysis negative, white count 6.9. CRP elevated at 25.2. Blood culture pending. Infectious disease consulted. Patient currently on azithromycin and Rocephin and vancomycin. There were concerns about possible meningitis in the emergency room due to headache and neck pain. Lumbar puncture was unsuccessful. Will await evaluation by infectious disease. Computed tomography scan of the brain negative. Computed tomography scan the abdomen and pelvis pending. Patient seen by infectious disease felt that this was unlikely meningitis. LP is not required. Hepatitis panel negative 2. Atelectasis: Ordered incentive spirometer 3. Elevated d-dimer on admission. Computed tomography scan of the chest negative for PE 4. Acute systemic inflammatory response syndrome present on admission with temp of 101.1 and tachycardia 5. History of fibromyalgia 6. Diabetes mellitus type 2: Hold metformin during hospitalization. Add sliding scale coverage A1c is only 5.5. Continue to monitor 7. Hypothyroidism continue Synthroid 8. Oral thrush start nystatin swish and swallow GI prophylaxis Protonix and DVT prophylaxis Lovenox I performed an examination of the patient and discussed their management with the physician Tool Shaper Setup Operator. I have reviewed the Physician Tool Shaper Setup Operator's notes and agree with the documented findings and plan of care
[2017-09-16 11:37] LABS: Glucose,Whole Blood 88 mg/dL (75-99)
[2017-09-16] MEDS: LORATADINE 10 MG TAB PO SCH (13:07)
--- NOTE | 2017-09-16 14:41 | P.PN ---
Subjective Progress Note Date: 09/16/17 Principal diagnosis: Fever 57-year-old female who is a long-standing history of diabetes mellitus type 2 parathyroidism fibromyalgia and obesity. The patient relates she has a history of a gastric bypass years ago. She difficulty with some increasing weight gain and abdominal pain. Following with her surgeon and has been evaluated with endoscopy showing evidence of difficulty with the mesh that is present. Possibly some further surgical intervention was needed. The patient relates that she suddenly became ill while she was her daughter's house. She developed high-grade fevers chills generalized malaise and fatigue. Because she became so ill so quickly she was brought to the emergency center where she was out of his a temperature of 101.1. She did have complaints of severe headache. She had a temp for a lumbar puncture but with her significant degenerative joint disease could not be performed. Also concerns pneumonia and antibiotic therapy was given with Rocephin and azithromycin and vancomycin. Influenza testing was negative. The patient is now feeling somewhat better headache is improved but not resolved. She has no neck stiffness and fevers have definitely improved. She still feels poorly and continues to have difficulties with her abdominal pain. Patient is feeling considerably better today. CT results are reviewed. No evidence of any intra-abdominal abscess. The mesh is definitely visible on computed tomography scan. But no abscess or other acute abnormality associated with the mesh. Objective - Vital Signs Vital signs: Vital Signs Temp 98.0 F 09/16/17 07:00 Pulse 92 09/16/17 08:34 Resp 16 09/16/17 07:00 BP 132/81 09/16/17 07:00 Pulse Ox 97 09/16/17 07:00 Intake & Output 09/15/17 09/16/17 09/16/17 18:59 06:59 18:59 Intake Total 300 Balance 300 Intake: Oral 300 Other: # Voids 2 1 - Exam pleasant obese 57-year-old woman who seems modestly comfortable at this time but does complain of abdominal pain.her fevers and chills have improved HEENT: Anicteric conjunctiva are pink and moist nasal mucosa grossly intact without significant lesions, there is no thrush. Neck: The neck is supple without significant lymphadenopathy or thyromegaly. Lungs: Good bilateral air entry without significant crackles or wheezing. There is no significant bronchial sounds. There is no egophony or dullness.few basilar crackles are heard Heart: Regular rate and rhythm with an audible S1-S2, no S3 no S4. There is no significant murmur click or rub, PMI was nondisplaced. Abdomen: obese,Positive bowel sounds soft without palpable masses or organomegaly. There was no guarding or rebound.patient is evidence of prior extensive surgery to the abdomen. The horizontal incision is an area of discoloration that is chronic. It is chronically tender. It does not have drainage at this time. Extremities: The upper extremities have excellent pulses they are symmetric, no significant petechiae or telangiectasia. No splinter hemorrhages were noted. The lower extremities are free from significant edema. The peripheral pulses were 2+ and symmetric. Neuro: Awake alert oriented to person place and time. There are no acute new gross focal sensory motor deficits. - Labs CBC & Chem 7: 09/16/17 07:30 09/16/17 07:30 Labs: Abnormal Lab Results - Last 24 Hours (Table) 09/16/17 09/16/17 Range/Units 07:30 07:30 Hgb 11.3 L (11.4-16.0) gm/dL MCHC 30.8 L (31.0-37.0) g/dL RDW 15.9 H (11.5-15.5) % Lymphocytes # 0.9 L (1.0-4.8) k/uL Chloride 109 H (98-107) mmol/L Total Bilirubin <0.1 L (0.2-1.3) mg/dL Total Protein 5.7 L (6.3-8.2) g/dL Albumin 3.2 L (3.5-5.0) g/dL Microbiology - Last 24 Hours (Table) 09/14/17 19:58 Urine Culture - Final Urine,Voided 09/14/17 18:41 Blood Culture - Preliminary Blood No Growth after 24 hours Laboratory Results WBC 4.5 k/uL (3.8-10.6) 09/16/17 07:30 RBC 3.90 m/uL (3.80-5.40) 09/16/17 07:30 Hgb 11.3 gm/dL (11.4-16.0) L 09/16/17 07:30 Hct 36.6 % (34.0-46.0) 09/16/17 07:30 MCV 93.9 fL (80.0-100.0) 09/16/17 07:30 MCH 28.9 pg (25.0-35.0) 09/16/17 07:30 MCHC 30.8 g/dL (31.0-37.0) L 09/16/17 07:30 RDW 15.9 % (11.5-15.5) H 09/16/17 07:30 Plt Count 230 k/uL (150-450) 09/16/17 07:30 Neutrophils % 70 % 09/16/17 07:30 Lymphocytes % 19 % 09/16/17 07:30 Monocytes % 6 % 09/16/17 07:30 Eosinophils % 2 % 09/16/17 07:30 Basophils % 0 % 09/16/17 07:30 Neutrophils # 3.2 k/uL (1.3-7.7) 09/16/17 07:30 Lymphocytes # 0.9 k/uL (1.0-4.8) L 09/16/17 07:30 Monocytes # 0.3 k/uL (0-1.0) 09/16/17 07:30 Eosinophils # 0.1 k/uL (0-0.7) 09/16/17 07:30 Basophils # 0.0 k/uL (0-0.2) 09/16/17 07:30 Hypochromasia Moderate 09/16/17 07:30 PT 9.6 sec (9.0-12.0) 09/14/17 18:41 INR 1.0 (<1.2) 09/14/17 18:41 APTT 24.5 sec (22.0-30.0) 09/14/17 18:41 D-Dimer 1.18 mg/L FEU (<0.60) H 09/14/17 18:41 Sodium 141 mmol/L (137-145) 09/16/17 07:30 Potassium 4.3 mmol/L (3.5-5.1) 09/16/17 07:30 Chloride 109 mmol/L (98-107) H 09/16/17 07:30 Carbon Dioxide 23 mmol/L (22-30) 09/16/17 07:30 Anion Gap 9 mmol/L 09/16/17 07:30 BUN 9 mg/dL (7-17) 09/16/17 07:30 Creatinine 0.61 mg/dL (0.52-1.04) 09/16/17 07:30 Est GFR (MDRD) Af Amer >60 (>60 ml/min/1.73 sqM) 09/16/17 07:30 Est GFR (MDRD) Non-Af >60 (>60 ml/min/1.73 sqM) 09/16/17 07:30 Glucose 94 mg/dL (74-99) 09/16/17 07:30 POC Glucose (mg/dL) 88 mg/dL (75-99) 09/16/17 11:35 POC Glu Machine Stoppage Frequency Checker ID Fernanda Lomeli 09/16/17 11:[address] Glu mg/dL 111 09/15/17 09:27 Hemoglobin A1c 5.5 % (4.0-6.0) 09/15/17 09:27 Plasma Lactic Acid William 1.4 mmol/L (0.7-2.0) 09/14/17 18:41 Calcium 8.5 mg/dL (8.4-10.2) 09/16/17 07:30 Phosphorus 2.5 mg/dL (2.5-4.5) 09/14/17 18:41 Magnesium 2.0 mg/dL (1.6-2.3) 09/14/17 18:41 Total Bilirubin <0.1 mg/dL (0.2-1.3) L 09/16/17 07:30 AST 29 U/L (14-36) 09/16/17 07:30 ALT 45 U/L (9-52) 09/16/17 07:30 Alkaline Phosphatase 93 U/L (38-126) 09/16/17 07:30 C-Reactive Protein 25.2 mg/L (<10.0) H 09/14/17 18:41 Total Protein 5.7 g/dL (6.3-8.2) L 09/16/17 07:30 Albumin 3.2 g/dL (3.5-5.0) L 09/16/17 07:30 Amylase <30 U/L (30-110) L 09/15/17 09:27 Lipase 73 U/L (23-300) 09/15/17 09:27 TSH 2.490 mIU/L (0.465-4.680) 09/14/17 18:41 Urine Color Yellow 09/14/17 19:58 Urine Appearance Clear (Clear) 09/14/17 19:58 Urine pH 8.5 (5.0-8.0) H 09/14/17 19:58 Ur Specific [place] 1.012 (1.001-1.035) 09/14/17 19:58 Urine Protein Trace (Negative) H 09/14/17 19:58 Urine Glucose (UA) Negative (Negative) 09/14/17 19:58 Urine Ketones Negative (Negative) 09/14/17 19:58 Urine Blood Negative (Negative) 09/14/17 19:58 Urine Nitrite Negative (Negative) 09/14/17 19:58 Urine Bilirubin Negative (Negative) 09/14/17 19:58 Urine Urobilinogen <2.0 mg/dL (<2.0) 09/14/17 19:58 Ur Leukocyte Esterase Negative (Negative) 09/14/17 19:58 Hepatitis A IgM Ab Non-Reactive (Non-Reactive) 09/14/17 18:41 Hep Bs Antigen Non-Reactive (Non-Reactive) 09/14/17 18:41 Hep B Core IgM Ab Non-Reactive (Non-Reactive) 09/14/17 18:41 Hep C IgG Ab Non-Reactive (Non-Reactive) 09/14/17 18:41 Influenza Type A RNA Not Detected (Not Detectd) 09/14/17 18:41 Influenza Type B (PCR) Not Detected (Not Detectd) 09/14/17 18:41 Microbiology 09/14/17 19:58 Urine,Voided Urine Culture - Final 09/14/17 18:41 Blood Blood Culture - Preliminary No Growth after [address] reviewed with radiologist. No intra-abdominal abscesses seen. Assessment and Plan (1) Fever Current Visit: Yes Status: Acute Code(s): R50.9 - FEVER, UNSPECIFIED SNOMED Code(s): 484207857 (2) Pneumonia Current Visit: Yes Status: Acute Code(s): J18.9 - PNEUMONIA, UNSPECIFIED ORGANISM SNOMED Code(s): 553986766 (3) Abdominal pain Narrative/Plan: 57-year-old female presents to hospital with a sudden onset of fevers and chills in sudden weakness.imaging studies reveal evidence of no pulmonary embolus and evidence of some atelectasis and not completely excluding pneumonia. Influenza was negative. Patient is receiving several antibiotic therapy at this time with the concerns to pneumonia. Cultures are negative so far Fever is resolving Patient however has significant ongoing abdominal pain and does have the significant history of the gastric bypass with difficulties. 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 Apparently at some time she is was to be seen by another surgeon to see if any else can be done. However at this time she is acutely ill and concern would be to the possibility of infection related to these ongoing issues. If not performed a computed tomography scan of the abdomen and pelvis should be performed to assure there is no abscess related to these chronic issues. as of the workup continues and cultures are followed a course of antibiotic therapy can then be suggestive the time of her discharge. she has developed what appears to be a transient leukopenia which is most likely viral. Computed tomography scan is reviewed with no evidence of any intra-abdominal abscess. Consequently has had an acute viral infection resulting in the above symptoms that are now much improved. Intravenous antibiotic therapy has been discontinued, may complete her course of azithromycin. Current Visit: Yes Status: Acute Code(s): R10.9 - UNSPECIFIED ABDOMINAL PAIN SNOMED Code(s): 23874752 (4) History of gastric bypass Current Visit: Yes Status: Acute Code(s): Z98.84 - BARIATRIC SURGERY STATUS SNOMED Code(s): 595527021
[2017-09-16 17:20] LABS: Glucose,Whole Blood 102 mg/dL (75-99)
[2017-09-16 20:53] LABS: Glucose,Whole Blood 93 mg/dL (75-99)
[2017-09-16 23:01] VITALS: RESP 18
[2017-09-17] MEDS: LEVOTHYROXINE 75 MCG TAB PO SCH (05:04)
[2017-09-17] MEDS: IBUPROFEN 600 MG TAB PO PRN (05:04)
[2017-09-17] MEDS: SODIUM CHLORIDE 0.9% 1,000 ML IV SCH ×2 (05:06→11:55)
[2017-09-17 07:52] VITALS: PULSE 90; TEMP 97.1
[2017-09-17 07:58] LABS: Glucose,Whole Blood 102 mg/dL (75-99)
[2017-09-17] MEDS: INSULIN ASPART 100 UNIT/ML 1 ML 10 ML VIAL SQ SCH ×2 (08:26→11:56)
[2017-09-17] MEDS: FLUTICASONE 50MCG/SPRAY NASAL 16GM EA NOSTRIL SCH (08:28)
[2017-09-17] MEDS: LORATADINE 10 MG TAB PO SCH (08:29)
[2017-09-17] MEDS: ENOXAPARIN 40 MG/0.4 ML SYRINGE SQ SCH (08:29)
[2017-09-17] MEDS: CYCLOBENZAPRINE 10 MG TAB PO SCH (08:29)
[2017-09-17] MEDS: NYSTATIN 100,000 UNIT/ML SUSP 500,000 UNIT/5 ML CUP PO SCH ×2 (08:29→11:59)
[2017-09-17] MEDS: buPROPion XL 300 MG TAB.ER.24H PO SCH (08:29)
[2017-09-17] MEDS: AZITHROMYCIN 500 MG TAB PO SCH (08:29)
[2017-09-17] MEDS: PRAMIPEXOLE 1 MG TAB PO SCH (08:29)
[2017-09-17] MEDS: NORTRIPTYLINE 25 MG CAP PO SCH (08:29)
[2017-09-17] MEDS: PANTOPRAZOLE 40 MG TABLET PO SCH (08:29)
[2017-09-17] MEDS: FAMOTIDINE 20 MG TAB PO SCH (08:29)
[2017-09-17] MEDS: GABAPENTIN 100 MG CAP PO SCH (08:29)
[2017-09-17] MEDS: NON-FORMULARY DRUG (Milnacipran Hcl [Savella] 100 MG) PO SCH (08:30)
[2017-09-17] MEDS: SPIRONOLACTONE 25 MG TAB PO SCH (08:30)
[2017-09-17 08:31] LABS: Basophils % (A) 0 %; Eosinophils # (A) 0.2 k/uL (0-0.7); Eosinophils % (A) 7 %; HCT 35.9 % (34.0-46.0); HGB 11.3 gm/dL (11.4-16.0); Hypochromasia Slight; Lymphocytes # (A) 0.8 k/uL (1.0-4.8); Lymphocytes % (A) 22 %; MCHC 31.4 g/dL (31.0-37.0); MCV 92.2 fL (80.0-100.0); Mean Platelet Volume 7.4; Monocytes # (A) 0.2 k/uL (0-1.0); Monocytes % (A) 6 %; Neutrophils # (A) 2.2 k/uL (1.3-7.7); Neutrophils % (A) 62 %; Platelet Count 240 k/uL (150-450); RBC 3.89 m/uL (3.80-5.40); RDW 15.6 % (11.5-15.5); WBC 3.6 k/uL (3.8-10.6)
[2017-09-17 08:48] LABS: ALT 39 U/L (9-52); AST 30 U/L (14-36); Albumin 3.4 g/dL (3.5-5.0); Alkaline Phosphatase 99 U/L (38-126); Anion Gap 8 mmol/L; Blood Urea Nitrogen 7 mg/dL (7-17); Calcium 8.8 mg/dL (8.4-10.2); Carbon Dioxide 28 mmol/L (22-30); Chloride 106 mmol/L (98-107); Glucose 89 mg/dL (74-99); Sodium 142 mmol/L (137-145); Total Bilirubin 0.2 mg/dL (0.2-1.3); Total Protein 5.9 g/dL (6.3-8.2)
[2017-09-17 09:49] VITALS: BP 133/74
[2017-09-17 11:39] LABS: Glucose,Whole Blood 81 mg/dL (75-99)
[2017-09-17] MEDS ORDERED: VANCOMYCIN TROUGH DUE 1 EACH MISC MISCELLANE ONE (12:00)
--- NOTE | 2017-09-17 13:31 | P.DS ---
Providers Date of admission: 09/14/17 22:30 Attending physician: Charisse Mann Consults: 09/15/17 00:03 Consult Physician Urgent Consulting Provider: Julius Hawley Reason/Comments: FUKO Do you want consulting provider notified?: Yes Primary care physician: Maria L Deleon Hospital Course: 1. Viral upper respiratory tract infection. With fever of 101.5 in the ER. Extensive Workup has been negative. computed tomography scan of the chest shows atelectasis in the lower lobes. Repeat chest x-ray shows no acute pulmonary process. Influenza screen negative, urinalysis negative, Blood culture negative. Infectious disease consulted. Computed tomography scan of the brain and abdomen and pelvis negative. Hepatitis panel negative 2. Atelectasis: Ordered incentive spirometer 3. Elevated d-dimer on admission. Computed tomography scan of the chest negative for PE 4. Acute systemic inflammatory response syndrome present on admission with temp of 101.1 and tachycardia probably secondary to viral illness 5. History of fibromyalgia 6. Diabetes mellitus type 2: Hold metformin during hospitalization. Add sliding scale coverage A1c is only 5.5. Continue to monitor 7. Hypothyroidism continue Synthroid 8. Oral thrush start nystatin swish and swallow Patient will be discharged home in a stable condition Patient Condition at Discharge: Fair Plan - Discharge Summary Discharge Rx Participant: Yes New Discharge Prescriptions: New Azithromycin [Zithromax] 500 mg PO DAILY #4 tab Nystatin 100,000 Unit/ml Susp [Mycostatin Oral Susp] 500,000 unit PO QID 5 Days #20 cup Continue traMADol HCL [Ultram] 50 mg PO QID PRN PRN Reason: Pain buPROPion HCL [Wellbutrin XL] 300 mg PO DAILY Milnacipran HCl [Savella] 100 mg PO BID Levothyroxine Sodium [Synthroid] 75 mcg PO DAILY Pramipexole [Mirapex] 1 mg PO QAM metFORMIN HCL [Glucophage Xr] 500 mg PO DAILY Ranitidine HCl [Zantac] 300 mg PO BID Cyclobenzaprine [Flexeril] 10 mg PO TID Spironolactone [Aldactone] 50 mg PO DAILY Pantoprazole Sodium [Protonix] 40 mg PO DAILY Fluticasone Nasal [place] [Flonase Nasal [place]] 2 spr EA NOSTRIL DAILY Nortriptyline HCl 75 mg PO DAILY Pramipexole [Mirapex] 2 mg PO HS Gabapentin [Neurontin] 200 mg PO TID Discharge Medication List Levothyroxine Sodium [Synthroid] 75 mcg PO DAILY 01/06/17 [History] Milnacipran HCl [[place]] 100 mg PO BID 01/06/17 [History] Pramipexole [Mirapex] 1 mg PO QAM 01/06/17 [History] buPROPion HCL [Wellbutrin XL] 300 mg PO DAILY 01/06/17 [History] traMADol HCL [Ultram] 50 mg PO QID PRN 01/06/17 [History] metFORMIN HCL [Glucophage Xr] 500 mg PO DAILY 04/22/17 [History] Cyclobenzaprine [Flexeril] 10 mg PO TID 09/05/17 [History] Ranitidine HCl [Zantac] 300 mg PO BID 09/05/17 [History] Fluticasone Nasal [place] [Flonase Nasal [place]] 2 spr EA NOSTRIL DAILY 09/14/17 [ History] Gabapentin [Neurontin] 200 mg PO TID 09/14/17 [History] Nortriptyline HCl 75 mg PO DAILY 09/14/17 [History] Pantoprazole Sodium [Protonix] 40 mg PO DAILY 09/14/17 [History] Pramipexole [Mirapex] 2 mg PO HS 09/14/17 [History] Spironolactone [Aldactone] 50 mg PO DAILY 09/14/17 [History] Azithromycin [Zithromax] 500 mg PO DAILY #4 tab 09/16/17 [Rx] Nystatin 100,000 Unit/ml Susp [Mycostatin Oral Susp] 500,000 unit PO QID 5 Days #20 cup 09/17/17 [Rx] Follow up Appointment(s)/Referral(s): Maria L Deleon DO [Primary Care Provider] - 1 Week Activity/Diet/Wound Care/Special Instructions: Cardiac, diabetic diet. Activity as tolerated. Discharge Disposition: HOME SELF-CARE
== END 2017-09-17 14:00 | disposition home or self-care (01) | DRG 153 ==
LOC: EC 18:07 → 4MS4W 22:30
PROVIDERS: ADMIT Internal Medicine; ATTEND Internal Medicine
PROC: 00JU3ZZ Inspection of Spinal Canal, Percutaneous Approach (ICD-10-PCS; principal; 2017-09-14)
DX: J06.9 Acute upper respiratory infection, unspecified (principal); B37.0 Candidal stomatitis; J98.11 Atelectasis; E11.9 Type 2 diabetes mellitus without complications; M79.7 Fibromyalgia; R79.82 Elevated C-reactive protein (CRP); R79.1 Abnormal coagulation profile; F32.9 Major depressive disorder, single episode, unspecified; Z96.651 Presence of right artificial knee joint; I10 Essential (primary) hypertension; E66.9 Obesity, unspecified; R51 Headache; E89.0 Postprocedural hypothyroidism; Z91.040 Latex allergy status; Z79.899 Other long term (current) drug therapy; Z79.84 Long term (current) use of oral hypoglycemic drugs; Z87.19 Personal history of other diseases of the digestive system; Z90.49 Acquired absence of other specified parts of digestive tract; Z98.84 Bariatric surgery status; Z87.891 Personal history of nicotine dependence; Z80.9 Family history of malignant neoplasm, unspecified
CPT/HCPCS: 36415; 70450; 71046; 71275; 74177; 80053; 80074; 80202; 81003; 82150; 83036; 83605; 83690; 83735; 84100; 84443; 85025; 85379; 85610; 85730; 86140; 87040; 87086; 87502; 93005; 94640; 94760; 96361; 96365; 96374; 96375; 99285

== ENCOUNTER 2017-09-21 20:33 | Emergency (ER) | payer MEDICARE, OTHER ==
[2017-09-21 20:38] VITALS: RESP 20; TEMP 97.4
[2017-09-21] MEDS ORDERED: SODIUM CHLORIDE 0.9% 500 ML IV STA (20:45)
[2017-09-21] MEDS ORDERED: SODIUM CHLORIDE 0.9% 1,000 ML IV STA (20:45)
[2017-09-21] MEDS ORDERED: MORPHINE SULFATE 5 MG/ML SYRINGE IV STA (20:45)
[2017-09-21] MEDS ORDERED: ONDANSETRON 4 MG/2 ML VIAL IVP STA (20:45)
[2017-09-21] MEDS ORDERED: KETOROLAC 30 MG/ML 1 ML VIAL IVP STA (20:46)
[2017-09-21] MEDS ORDERED: diphenhydrAMINE 50 MG/ML 1 ML VIAL IVP STA (20:46)
[2017-09-21 20:59] LABS: Basophils % (A) 0 %; Eosinophils # (A) 0.2 k/uL (0-0.7); Eosinophils % (A) 4 %; HCT 36.3 % (34.0-46.0); HGB 11.9 gm/dL (11.4-16.0); Lymphocytes # (A) 1.8 k/uL (1.0-4.8); Lymphocytes % (A) 32 %; MCHC 32.8 g/dL (31.0-37.0); MCV 88.5 fL (80.0-100.0); Mean Platelet Volume 7.2; Monocytes # (A) 0.3 k/uL (0-1.0); Monocytes % (A) 5 %; Neutrophils # (A) 3.2 k/uL (1.3-7.7); Neutrophils % (A) 57 %; Platelet Count 331 k/uL (150-450); RBC 4.11 m/uL (3.80-5.40); RDW 13.9 % (11.5-15.5); WBC 5.6 k/uL (3.8-10.6)
[2017-09-21 21:07] LABS: ALT 31 U/L (9-52); AST 31 U/L (14-36); Albumin 3.9 g/dL (3.5-5.0); Alkaline Phosphatase 117 U/L (38-126); Anion Gap 11 mmol/L; Blood Urea Nitrogen 15 mg/dL (7-17); Calcium 9.4 mg/dL (8.4-10.2); Carbon Dioxide 27 mmol/L (22-30); Chloride 102 mmol/L (98-107); Glucose 108 mg/dL (74-99); Phosphorus 3.2 mg/dL (2.5-4.5); Potassium 3.9 mmol/L (3.5-5.1); Sodium 140 mmol/L (137-145); Total Bilirubin 0.3 mg/dL (0.2-1.3); Total Protein 6.6 g/dL (6.3-8.2)
[2017-09-21 21:09] LABS: Partial Thromboplastin Time 22.3 sec (22.0-30.0); Prothrombin Time 9.7 sec (9.0-12.0)
[2017-09-21 21:18] LABS: Creatine Kinase 154 U/L (30-135)
--- NOTE | 2017-09-21 21:27 | ED ---
General Adult HPI - General Chief complaint: Headache Stated complaint: Headache/Dizziness Time Seen by Provider: 09/21/17 20:40 Source: patient, RN notes reviewed, old records reviewed Mode of arrival: EMS Limitations: no limitations - History of Present Illness Initial comments: This is a 57-year-old female to the ER for evaluation regarding headache today. This is a positional headache. She states he does not think his sinuses even though she does struggle from sinus disease. No trauma. Patient has no fevers. Patient states the headache is positional, this morning was worse when she was lying down, better when she gets up moving around and again tonight when she laid down. He states the headache is throbbing in nature no nausea or vomiting. No neurological deficits - Related Data Home Medications Medication Instructions Recorded Confirmed Levothyroxine Sodium [Synthroid] 75 mcg PO DAILY 01/06/17 09/21/17 Milnacipran HCl [Savella] 100 mg PO BID 01/06/17 09/21/17 Pramipexole [Mirapex] 1 mg PO QAM 01/06/17 09/21/17 buPROPion HCL [Wellbutrin XL] 300 mg PO DAILY 01/06/17 09/21/17 traMADol HCL [Ultram] 50 mg PO QID PRN 01/06/17 09/21/17 metFORMIN HCL [Glucophage Xr] 500 mg PO DAILY 04/22/17 09/21/17 Cyclobenzaprine [Flexeril] 10 mg PO TID 09/05/17 09/21/17 Ranitidine HCl [Zantac] 300 mg PO BID 09/05/17 09/21/17 Fluticasone Nasal [place] [Flonase 2 spr EA NOSTRIL DAILY 09/14/17 09/21/17 Nasal [place]] Gabapentin [Neurontin] 200 mg PO TID 09/14/17 09/21/17 Nortriptyline HCl 75 mg PO DAILY 09/14/17 09/21/17 Pantoprazole Sodium [Protonix] 40 mg PO DAILY 09/14/17 09/21/17 Pramipexole [Mirapex] 2 mg PO HS 09/14/17 09/21/17 Spironolactone [Aldactone] 50 mg PO DAILY 09/14/17 09/21/17 Allergies Allergy/AdvReac Type Severity Reaction Status Date / Time latex Allergy Rash/Hives Verified 09/21/17 20:52 Review of Systems ROS Statement: Those systems with pertinent positive or pertinent negative responses have been documented in the HPI. ROS Other: All systems not noted in ROS Statement are negative. Past Medical History Past Medical History: Diabetes Mellitus, Fibromyalgia, Hypertension, Pneumonia History of Any Multi-Drug Resistant Organisms: None Reported Past Surgical History: Back Surgery, Cholecystectomy, Hernia Repair, Joint Replacement, Orthopedic Surgery Additional Past Surgical History / Comment(s): Right knee arthroplasty; R Knee replacement; right foot surgery; EGD; Colonoscopies, partial thyroidectomy Past Anesthesia/Blood Transfusion Reactions: Family History of Problems w/ Anesthesia, Postoperative Nausea & Vomiting (PONV) Additional Past Anesthesia/Blood Transfusion Reaction / Comment(s): mother N/V Past Psychological History: Depression Smoking Status: Former smoker Past Alcohol Use History: None Reported Past Drug Use History: None Reported - Past Family History Father Family Medical History: Cancer Mother Family Medical History: Cancer Brother(s) Family Medical History: Cancer General Exam Limitations: no limitations General appearance: alert, in no apparent distress Head exam: Present: atraumatic, normocephalic, normal inspection Eye exam: Present: normal appearance, PERRL, EOMI. Absent: scleral icterus, conjunctival injection, periorbital swelling ENT exam: Present: normal exam, mucous membranes moist Neck exam: Present: normal inspection. Absent: tenderness, meningismus, lymphadenopathy Respiratory exam: Present: normal lung sounds bilaterally. Absent: respiratory distress, wheezes, rales, rhonchi, stridor Cardiovascular Exam: Present: regular rate, normal rhythm, normal heart sounds. Absent: systolic murmur, diastolic murmur, rubs, gallop, clicks GI/Abdominal exam: Present: soft, normal bowel sounds. Absent: distended, tenderness, guarding, rebound, rigid Extremities exam: Present: normal inspection, full ROM, normal capillary refill. Absent: tenderness, pedal edema, joint swelling, calf tenderness Back exam: Present: normal inspection Neurological exam: Present: alert, oriented X3, CN II-XII intact Psychiatric exam: Present: normal affect, normal mood Skin exam: Present: warm, dry, intact, normal color. Absent: rash Course Vital Signs 09/21/17 20:35 Temperature 97.4 F L Pulse Rate 90 Respiratory 20 Rate Blood Pressure 157/88 O2 Sat by Pulse 97 Oximetry - Reevaluation(s) Reevaluation #1: 09/21/17 21:26 Prior record and hospitalizations through reviewed EKG Findings - EKG Comments: EKG Findings:: EKG shows normal sinus rhythm rate of 89, MD 160, QRS 74, QTc 479 Medical Decision Making - Medical Decision Making 57 female the ER for evaluation regarding static positional headache worse with laying down, patient CT is negative, headache is improved, resolved and patient can be discharged home. No fevers - Lab Data Result diagrams: 09/21/17 20:39 09/21/17 20:39 Lab Results 09/21/17 09/21/17 09/21/17 Range/Units 20:39 20:39 20:39 WBC 5.6 (3.8-10.6) k/uL RBC 4.11 (3.80-5.40) m/uL Hgb 11.9 (11.4-16.0) gm/dL Hct 36.3 (34.0-46.0) % MCV 88.5 (80.0-100.0) fL MCH 29.0 (25.0-35.0) pg MCHC 32.8 (31.0-37.0) g/dL RDW 13.9 (11.5-15.5) % Plt Count 331 (150-450) k/uL Neutrophils % 57 % Lymphocytes % 32 % Monocytes % 5 % Eosinophils % 4 % Basophils % 0 % Neutrophils # 3.2 (1.3-7.7) k/uL Lymphocytes # 1.8 (1.0-4.8) k/uL Monocytes # 0.3 (0-1.0) k/uL Eosinophils # 0.2 (0-0.7) k/uL Basophils # 0.0 (0-0.2) k/uL PT (9.0-12.0) sec INR (<1.2) APTT (22.0-30.0) sec Sodium 140 (137-145) mmol/L Potassium 3.9 (3.5-5.1) mmol/L Chloride 102 (98-107) mmol/L Carbon Dioxide 27 (22-30) mmol/L Anion Gap 11 mmol/L BUN 15 (7-17) mg/dL Creatinine 0.70 (0.52-1.04) mg/dL Est GFR (MDRD) Af Amer >60 (>60 ml/min/1.73 sqM) Est GFR (MDRD) Non-Af >60 (>60 ml/min/1.73 sqM) Glucose 108 H (74-99) mg/dL Calcium 9.4 (8.4-10.2) mg/dL Phosphorus 3.2 (2.5-4.5) mg/dL Magnesium 2.0 (1.6-2.3) mg/dL Total Bilirubin 0.3 (0.2-1.3) mg/dL AST 31 (14-36) U/L ALT 31 (9-52) U/L Alkaline Phosphatase 117 (38-126) U/L Total Creatine Kinase 154 H (30-135) U/L CK-MB (CK-2) 1.1 (0.0-2.4) ng/mL CK-MB (CK-2) Rel Index 0.7 Troponin I <0.012 (0.000-0.034) ng/mL Total Protein 6.6 (6.3-8.2) g/dL Albumin 3.9 (3.5-5.0) g/dL 09/21/17 Range/Units 20:39 WBC (3.8-10.6) k/uL RBC (3.80-5.40) m/uL Hgb (11.4-16.0) gm/dL Hct (34.0-46.0) % MCV (80.0-100.0) fL MCH (25.0-35.0) pg MCHC (31.0-37.0) g/dL RDW (11.5-15.5) % Plt Count (150-450) k/uL Neutrophils % % Lymphocytes % % Monocytes % % Eosinophils % % Basophils % % Neutrophils # (1.3-7.7) k/uL Lymphocytes # (1.0-4.8) k/uL Monocytes # (0-1.0) k/uL Eosinophils # (0-0.7) k/uL Basophils # (0-0.2) k/uL PT 9.7 (9.0-12.0) sec INR 1.0 (<1.2) APTT 22.3 (22.0-30.0) sec Sodium (137-145) mmol/L Potassium (3.5-5.1) mmol/L Chloride (98-107) mmol/L Carbon Dioxide (22-30) mmol/L Anion Gap mmol/L BUN (7-17) mg/dL Creatinine (0.52-1.04) mg/dL Est GFR (MDRD) Af Amer (>60 ml/min/1.73 sqM) Est GFR (MDRD) Non-Af (>60 ml/min/1.73 sqM) Glucose (74-99) mg/dL Calcium (8.4-10.2) mg/dL Phosphorus (2.5-4.5) mg/dL Magnesium (1.6-2.3) mg/dL Total Bilirubin (0.2-1.3) mg/dL AST (14-36) U/L ALT (9-52) U/L Alkaline Phosphatase (38-126) U/L Total Creatine Kinase (30-135) U/L CK-MB (CK-2) (0.0-2.4) ng/mL CK-MB (CK-2) Rel Index Troponin I (0.000-0.034) ng/mL Total Protein (6.3-8.2) g/dL Albumin (3.5-5.0) g/dL - Radiology Data Radiology results: report reviewed (CT brain negative), image reviewed Disposition Clinical Impression: Neck pain, Headache Disposition: HOME SELF-CARE Condition: Good Instructions: Acute Headache (ED) Referrals: Maria L Deleon DO [Primary Care Provider] - 1-2 days
[2017-09-21 21:31] LABS: Creatine Kinase MB 1.1 ng/mL (0.0-2.4); Troponin I <0.012 ng/mL (0.000-0.034)
--- NOTE | 2017-09-21 21:44 | CT ---
EXAMINATION: CT brain wo con DATE AND TIME: 09/21/2017 9:30 PM ORDERING PROVIDER: Hamilton Payan DO CLINICAL INDICATION: pain weeks, dizzyness TECHNIQUE: Standard departmental protocol. COMPARISON: 09/15/2017 DESCRIPTION: The calvarium is intact. There is no intracranial hemorrhage. There is no mass or mass e ffect. There is no definite new attenuation defect. Remainder of the intra-axial and extra-axial comp artment examination is unremarkable. The paranasal sinuses, middle ear cavities, and mastoid sinus ai r cells are clear. The orbits are intact. IMPRESSION: NO ACUTE PROCESS.
[2017-09-21 23:12] VITALS: BP 128/69; PULSE 82
== END 2017-09-21 23:34 | disposition home or self-care (01) ==
LOC: EC 20:33
DX: R51 Headache (principal); M54.2 Cervicalgia; E11.9 Type 2 diabetes mellitus without complications; M79.7 Fibromyalgia; I10 Essential (primary) hypertension; F32.9 Major depressive disorder, single episode, unspecified; Z87.891 Personal history of nicotine dependence; Z91.040 Latex allergy status; Z79.51 Long term (current) use of inhaled steroids; Z79.84 Long term (current) use of oral hypoglycemic drugs; Z79.899 Other long term (current) drug therapy
CPT/HCPCS: 99285; 96374; 96375 ×3; 96361; 36415; 93005; 80053; 82550; 82553; 83735; 84100; 84484; 85025; 85610; 85730; 70450; J1200; J2405; J1885; J2274

== ENCOUNTER 2018-01-03 20:39 | Emergency (ER) | payer MEDICARE, OTHER ==
[2018-01-03] MEDS ORDERED: SODIUM CHLORIDE 0.9% 1,000 ML IV STA (21:50)
[2018-01-03] MEDS ORDERED: MORPHINE SULFATE 4 MG/0.8 ML SYRINGE (INJ) IV STA (21:50)
[2018-01-03] MEDS ORDERED: PANTOPRAZOLE 40 MG/10 ML VIAL IVP STA (21:50)
[2018-01-03] MEDS ORDERED: RX INFO: IV CONTRAST WAS GIVEN 1 EACH MISC MISCELLANE PRN (21:50)
--- NOTE | 2018-01-03 21:55 | ED ---
General Adult HPI - General Chief complaint: Abdominal Pain Stated complaint: Abdominal pain Time Seen by Provider: 01/03/18 21:35 Source: patient, family, RN notes reviewed Mode of arrival: wheelchair Limitations: no limitations - History of Present Illness Initial comments: Patient is a pleasant 57-year-old female presenting to the emergency Department with complaints of abdominal discomfort. Onset of symptoms was 2 hours ago. Discomfort has been waxing and waning. Discomfort is more mild at this time. Discomfort is left lower abdomen. Discomfort does radiate somewhat towards the back. Patient does have chronic abdominal problems however this is not similar to that. Patient does have history of mesh with problems involving this. Patient also has hernia that she is pending repair. Patient also has history of gastric bypass surgery. No associated nausea or vomiting. Patient may be somewhat constipated. No fevers. No hematuria or dysuria. - Related Data Home Medications Medication Instructions Recorded Confirmed Levothyroxine Sodium [Synthroid] 75 mcg PO DAILY 01/06/17 01/03/18 Milnacipran HCl [Savella] 100 mg PO BID 01/06/17 01/03/18 Pramipexole [Mirapex] 1 mg PO QAM 01/06/17 01/03/18 traMADol HCL [Ultram] 50 mg PO QID PRN 01/06/17 01/03/18 metFORMIN HCL [Glucophage Xr] 500 mg PO DAILY 04/22/17 01/03/18 Cyclobenzaprine [Flexeril] 10 mg PO TID 09/05/17 01/03/18 Ranitidine HCl [Zantac] 300 mg PO BID 09/05/17 01/03/18 Fluticasone Nasal [place] [Flonase 2 spr EA NOSTRIL DAILY 09/14/17 01/03/18 Nasal [place]] Pramipexole [Mirapex] 2 mg PO HS 09/14/17 01/03/18 Spironolactone [Aldactone] 50 mg PO DAILY 09/14/17 01/03/18 Previous Rx's Medication Instructions Recorded Ketorolac [Toradol] 10 mg PO Q6HR PRN #15 tab 01/03/18 Tamsulosin [Flomax] 0.4 mg PO DAILY #14 cap 01/03/18 Allergies Allergy/AdvReac Type Severity Reaction Status Date / Time latex Allergy Rash/Hives Verified 01/03/18 21:31 Review of Systems ROS Statement: Those systems with pertinent positive or pertinent negative responses have been documented in the HPI. ROS Other: All systems not noted in ROS Statement are negative. Constitutional: Denies: fever Eyes: Denies: eye pain ENT: Denies: ear pain Respiratory: Denies: cough Cardiovascular: Denies: chest pain Endocrine: Denies: fatigue Gastrointestinal: Reports: abdominal pain, constipation. Denies: nausea, vomiting, diarrhea Genitourinary: Denies: dysuria, hematuria Musculoskeletal: Denies: arthralgia Skin: Denies: rash Neurological: Denies: weakness Past Medical History Past Medical History: Diabetes Mellitus, Fibromyalgia, Hypertension, Pneumonia History of Any Multi-Drug Resistant Organisms: None Reported Past Surgical History: Back Surgery, Cholecystectomy, Hernia Repair, Joint Replacement, Orthopedic Surgery Additional Past Surgical History / Comment(s): Right knee arthroplasty; R Knee replacement; right foot surgery; EGD; Colonoscopies, partial thyroidectomy Past Anesthesia/Blood Transfusion Reactions: Family History of Problems w/ Anesthesia, Postoperative Nausea & Vomiting (PONV) Additional Past Anesthesia/Blood Transfusion Reaction / Comment(s): mother N/V Past Psychological History: Depression Smoking Status: Former smoker Past Alcohol Use History: None Reported Past Drug Use History: None Reported - Past Family History Father Family Medical History: Cancer Mother Family Medical History: Cancer Brother(s) Family Medical History: Cancer General Exam Limitations: no limitations General appearance: alert Head exam: Present: atraumatic Eye exam: Present: normal appearance, PERRL ENT exam: Present: normal oropharynx Neck exam: Present: normal inspection Respiratory exam: Present: normal lung sounds bilaterally Cardiovascular Exam: Present: regular rate, normal rhythm Expanded Peripheral pulses: 2+: Radial (R), Radial (L), Dorsalis Pedis (R), Dorsalis Pedis (L) GI/Abdominal exam: Present: soft, tenderness (Mild to moderate tenderness left lower quadrant), normal bowel sounds. Absent: distended, guarding, rebound, rigid, pulsatile mass Extremities exam: Present: normal inspection Neurological exam: Present: alert Psychiatric exam: Present: normal affect, normal mood Skin exam: Present: normal color Course Vital Signs 01/03/18 01/03/18 01/03/18 20:59 22:07 23:19 Temperature 97.0 F L Pulse Rate 53 L 87 91 Respiratory 26 H 18 18 Rate Blood Pressure 145/80 156/78 164/73 O2 Sat by Pulse 94 L 100 100 Oximetry EKG Findings - EKG Comments: EKG Findings:: Sinus rhythm at 78. TX 108. QRS 80. QT 398. QTC 453. Normal axis. Normal QRS. No acute ST change. Medical Decision Making - Medical Decision Making Patient reevaluated and resting comfortably in bed. Patient saw some discomfort. Patient updated and does request discharge home. Patient offered Toradol however refuses. Patient is receptive to prescriptions. - Lab Data Result diagrams: 01/03/18 21:19 01/03/18 21:19 Lab Results 01/03/18 01/03/18 01/03/18 Range/Units 21:19 21:19 21:19 WBC 8.7 (3.8-10.6) k/uL RBC 5.08 (3.80-5.40) m/uL Hgb 14.0 (11.4-16.0) gm/dL Hct 43.1 (34.0-46.0) % MCV 84.8 (80.0-100.0) fL MCH 27.6 (25.0-35.0) pg MCHC 32.5 (31.0-37.0) g/dL RDW 15.0 (11.5-15.5) % Plt Count 264 (150-450) k/uL Neutrophils % 63 % Lymphocytes % 24 % Monocytes % 5 % Eosinophils % 6 % Basophils % 0 % Neutrophils # 5.4 (1.3-7.7) k/uL Lymphocytes # 2.1 (1.0-4.8) k/uL Monocytes # 0.4 (0-1.0) k/uL Eosinophils # 0.5 (0-0.7) k/uL Basophils # 0.0 (0-0.2) k/uL PT 9.4 (9.0-12.0) sec INR 0.9 (<1.2) APTT 21.5 L (22.0-30.0) sec Sodium 139 (137-145) mmol/L Potassium 4.6 (3.5-5.1) mmol/L Chloride 104 (98-107) mmol/L Carbon Dioxide 24 (22-30) mmol/L Anion Gap 11 mmol/L BUN 17 (7-17) mg/dL Creatinine 0.73 (0.52-1.04) mg/dL Est GFR (CKD-EPI)AfAm >90 (>60 ml/min/1.73 sqM) Est GFR (CKD-EPI)NonAf >90 (>60 ml/min/1.73 sqM) Glucose 105 H (74-99) mg/dL Calcium 9.2 (8.4-10.2) mg/dL Total Bilirubin 0.4 (0.2-1.3) mg/dL AST 31 (14-36) U/L ALT 34 (9-52) U/L Alkaline Phosphatase 118 (38-126) U/L Total Protein 6.1 L (6.3-8.2) g/dL Albumin 3.9 (3.5-5.0) g/dL Amylase 43 (30-110) U/L Lipase 194 (23-300) U/L - Radiology Data Radiology results: image reviewed (Chest x-ray shows no acute process. Computed tomography scan of the abdomen pelvis shows left sided ureteral stone. Otherwise no acute process. Postoperative changes.) Disposition Clinical Impression: Ureterolithiasis Disposition: HOME SELF-CARE Condition: Stable Instructions: Kidney Stones (ED) Additional Instructions: Please follow-up with primary care physician and urology in the next couple days for recheck. Return for fever, uncontrolled pain, vomiting, worsening symptoms or other concerns. Prescriptions: Ketorolac [Toradol] 10 mg PO Q6HR PRN #15 tab PRN Reason: Pain Tamsulosin [Flomax] 0.4 mg PO DAILY #14 cap Is patient prescribed a controlled substance at d/c from ED?: No Referrals: Maria L Deleon DO [Primary Care Provider] - 1-2 days Rosendo Hitchcock MD [STAFF PHYSICIAN] - 1-2 days Time of Disposition: 23:47
[2018-01-03 22:03] LABS: Basophils % (A) 0 %; Eosinophils # (A) 0.5 k/uL (0-0.7); Eosinophils % (A) 6 %; HCT 43.1 % (34.0-46.0); Lymphocytes # (A) 2.1 k/uL (1.0-4.8); Lymphocytes % (A) 24 %; MCH 27.6 pg (25.0-35.0); MCHC 32.5 g/dL (31.0-37.0); MCV 84.8 fL (80.0-100.0); Mean Platelet Volume 7.6; Monocytes # (A) 0.4 k/uL (0-1.0); Monocytes % (A) 5 %; Neutrophils # (A) 5.4 k/uL (1.3-7.7); Neutrophils % (A) 63 %; Platelet Count 264 k/uL (150-450); RBC 5.08 m/uL (3.80-5.40); WBC 8.7 k/uL (3.8-10.6)
[2018-01-03 22:11] VITALS: RESP 18
[2018-01-03 22:12] LABS: ALT 34 U/L (9-52); AST 31 U/L (14-36); Albumin 3.9 g/dL (3.5-5.0); Alkaline Phosphatase 118 U/L (38-126); Amylase 43 U/L (30-110); Anion Gap 11 mmol/L; Blood Urea Nitrogen 17 mg/dL (7-17); Calcium 9.2 mg/dL (8.4-10.2); Carbon Dioxide 24 mmol/L (22-30); Chloride 104 mmol/L (98-107); Glucose 105 mg/dL (74-99); Lipase 194 U/L (23-300); Potassium 4.6 mmol/L (3.5-5.1); Sodium 139 mmol/L (137-145); Total Bilirubin 0.4 mg/dL (0.2-1.3); Total Protein 6.1 g/dL (6.3-8.2)
[2018-01-03 22:18] LABS: INR 0.9 (<1.2); Prothrombin Time 9.4 sec (9.0-12.0)
[2018-01-03 22:28] LABS: Partial Thromboplastin Time 21.5 sec (22.0-30.0)
[2018-01-03] MEDS ORDERED: MORPHINE SULFATE 4 MG/0.8 ML SYRINGE (INJ) IVP STA (23:04)
--- NOTE | 2018-01-03 23:08 | CT ---
EXAMINATION TYPE: CT abdomen pelvis w con DATE OF EXAM: 01/03/2018 COMPARISON: 09/16/2017 HISTORY: Left lower quadrant and back pain. CT DLP: 1755.00 mGycm Automated exposure control for dose reduction was used. TECHNIQUE: Helical acquisition of images was performed from the lung bases through the pelvis. CONTRAST: Performed without Oral Contrast and with IV Contrast, patient injected with 100 mL of Isovue 300. FINDINGS: Lung bases are clear. There is no pleural effusion. Heart size is normal. Liver spleen pancreas appear normal. There are clips from cholecystectomy. There are surgical clips a t the gastric fundus. There is no adrenal mass. Kidneys show satisfactory contrast opacification. There is mild left-sided hydronephrosis. There is a 3 mm calculus at the left ureterovesical junction. There is no retroperito lou adenopathy. There is no ascites. I see no intestinal wall thickening. There are no dilated loops . Appendix appears normal. Bladder distends smoothly. There is no sign of ascites. There is no sign o f free air. There are surgical clips on the anterior abdominal wall. There is surgery in the lower samir mbar spine with L4 and L5 laminectomy. IMPRESSION: THERE IS A SMALL CALCULUS OBSTRUCTING THE LEFT UPPER COLLECTING SYSTEM WITH MILD LEFT-SIDED HYDRONEPH ROSIS AND HYDROURETER. PREVIOUS BARIATRIC SURGERY. NORMAL APPENDIX. OBSTRUCTION IS NEW COMPARED TO OLD CT SCAN.
[2018-01-03] MEDS: IOPAMIDOL-300 CONTRAST 30 ML VIAL (ORAL USE) PO PRN ×2 (23:11→23:25)
[2018-01-03] MEDS ORDERED: MORPHINE SULFATE 4 MG/0.8 ML SYRINGE (INJ) ONE (23:14)
--- NOTE | 2018-01-03 23:22 | XR ---
EXAMINATION TYPE: XR chest 2V DATE OF EXAM: 01/03/2018 COMPARISON: 09/15/2017 HISTORY: Short of breath TECHNIQUE: Frontal and lateral views of the chest are obtained. FINDINGS: Heart and mediastinum are normal. Lungs are clear. Diaphragm is normal. There are chest le ads. Bony thorax is intact. IMPRESSION: Normal chest. No change.
[2018-01-04 00:08] VITALS: BP 146/67; PULSE 95; TEMP 97.7
== END 2018-01-04 00:07 | disposition home or self-care (01) ==
LOC: EC 20:39
DX: N20.1 Calculus of ureter (principal); E11.9 Type 2 diabetes mellitus without complications; M79.7 Fibromyalgia; F32.9 Major depressive disorder, single episode, unspecified; Z87.891 Personal history of nicotine dependence; Z90.49 Acquired absence of other specified parts of digestive tract; Z98.84 Bariatric surgery status; Z98.890 Other specified postprocedural states; Z96.651 Presence of right artificial knee joint; Z79.51 Long term (current) use of inhaled steroids; Z79.84 Long term (current) use of oral hypoglycemic drugs; Z79.899 Other long term (current) drug therapy; Z91.040 Latex allergy status
CPT/HCPCS: 36415; 93005; 80053; 82150; 83690; 85025; 85610; 85730; 71046; 74177; 99285; 96374; 96376; 96361 ×2; C9113; Q9967; J2270

== ENCOUNTER 2018-03-29 21:16 | Emergency (ER) | payer MEDICARE, OTHER ==
[2018-03-29 21:29] VITALS: RESP 18; TEMP 98.3
[2018-03-29] MEDS ORDERED: HYDROcodone/APAP 7.5-325MG 1 EACH TAB PO ONE (22:08)
--- NOTE | 2018-03-29 22:13 | ED ---
General Adult HPI - General Chief complaint: Extremity Injury, Upper Stated complaint: Fall/Wrist Pain Time Seen by Provider: 03/29/18 21:35 Source: patient Mode of arrival: ambulatory Limitations: no limitations - History of Present Illness Initial comments: This is a 57-year-old female with past medical history of DMII, gastric bypass in January 2018 Presents today for chief complaint of fall and left wrist pain. Patient states that this evening she was doing laundry in her basement not wearing shoes when she slipped on the floor catching herself with her left hand extended. Patient fell to the ground due to the pain in the left hand, but denies hitting her head or loss of consciousness. Patient described the pain as sharp and localized to the left wrist with some radiation up the forearm, the pain is 10 out of 10 sharp in nature that increases with movement. Patient denies any chest pain, palpitations, dizziness, shortness of breath or any noticeable symptoms prior to the fall. She states that this was a mechanical fall. Patient immediately noticed a deformity of her left wrist and swelling, and was unable to range the wrist secondary to pain. In addition patient noted that yesterday while she was weed whacking her yard, she stepped into a hole and fell onto her right knee. She was able to get up and ambulate after, however she asked if we could get an x-ray just in case because she did notice right knee swelling. Patient had previous right total knee arthroplasty. Patient admits to tingling in the left wrist and hand. Eyes numbness, paresthesias, loss of sensation, coolness. Patient presents emergency department today with elevated blood pressure at 172/99, patient denies any chest pain, shortness of breath, headache, dizziness, abdominal pain, nausea, vomiting, visual changes, or any other symptoms. - Related Data Home Medications Medication Instructions Recorded Confirmed Levothyroxine Sodium [Synthroid] 75 mcg PO DAILY 01/06/17 03/29/18 Milnacipran HCl [Savella] 100 mg PO BID 01/06/17 03/29/18 Pramipexole [Mirapex] 1 mg PO QAM 01/06/17 03/29/18 traMADol HCL [Ultram] 50 mg PO HS 01/06/17 03/29/18 Pramipexole [Mirapex] 2 mg PO HS 09/14/17 03/29/18 Calcium Carbonate/Vitamin D3 1 tab PO DAILY 03/29/18 03/29/18 [Calcium 600-Vit D3 400 Caplet] Multivitamin [Multivitamins Adult 1 tab PO DAILY 03/29/18 03/29/18 Gummies] Omeprazole [PriLOSEC] 20 mg PO AC-BRKFST 03/29/18 03/29/18 Previous Rx's Medication Instructions Recorded HYDROcodone/APAP 10-325MG [[place] 1 tab PO Q4HR PRN 3 Days #18 tab 03/29/18 10-325] Allergies Allergy/AdvReac Type Severity Reaction Status Date / Time latex Allergy Rash/Hives Verified 03/29/18 21:42 Review of Systems ROS Statement: Those systems with pertinent positive or pertinent negative responses have been documented in the HPI. ROS Other: All systems not noted in ROS Statement are negative. Constitutional: Denies: fever, chills Eyes: Denies: eye pain, vision change ENT: Denies: ear pain, hearing loss Respiratory: Denies: cough, hemoptysis Cardiovascular: Denies: chest pain, palpitations, edema Gastrointestinal: Denies: abdominal pain, nausea, vomiting, diarrhea, constipation Genitourinary: Denies: urgency, dysuria, frequency Musculoskeletal: Reports: as per HPI, joint swelling, arthralgia. Denies: back pain Skin: Denies: rash, lesions Neurological: Denies: headache, weakness, numbness, paresthesias, confusion, abnormal gait Past Medical History Past Medical History: Diabetes Mellitus, Fibromyalgia, Hypertension, Pneumonia History of Any Multi-Drug Resistant Organisms: None Reported Past Surgical History: Back Surgery, Cholecystectomy, Hernia Repair, Joint Replacement, Orthopedic Surgery Additional Past Surgical History / Comment(s): Right knee arthroplasty; R Knee replacement; right foot surgery; EGD; Colonoscopies, partial thyroidectomy, partial stomach removed from mesh through stomach Past Anesthesia/Blood Transfusion Reactions: Family History of Problems w/ Anesthesia, Postoperative Nausea & Vomiting (PONV) Additional Past Anesthesia/Blood Transfusion Reaction / Comment(s): mother N/V Past Psychological History: Depression Smoking Status: Former smoker Past Alcohol Use History: None Reported Past Drug Use History: None Reported - Past Family History Father Family Medical History: Cancer Mother Family Medical History: Cancer Brother(s) Family Medical History: Cancer General Exam - General Exam Comments Initial Comments: General: The patient is awake and alert, in no distress, and does not appear acutely ill. Eye: Pupils are equal, round and reactive to light, extra-ocular movements are intact. No nystagmus. There is normal conjunctiva bilaterally. No signs of icterus. Ears, nose, mouth and throat: There are moist mucous membranes and no oral lesions. Neck: The neck is supple, there is no tenderness or JVD. Cardiovascular: There is a regular rate and rhythm. No murmur, rub or gallop is appreciated. Respiratory: Lungs are clear to auscultation, respirations are non-labored, breath sounds are equal. No wheezes, stridor, rales, or rhonchi. Musculoskeletal: Normal ROM of the knees b/l no evidence of crepitus or clicking, mild tenderness to palpation over the medial aspect of the knee joint. Mild soft tissue swelling of the right knee, no overlying ecchymosis, laceration, erythema or abrasions. Strength 5/5 knees b/l. Sensation intact LE b/l equally. Compartments are soft and compressible. Pulses equal bilaterally 2 + DP equally b/l. Pt is able to ambulate without difficulty. Upon inspection of the right wrist there is an obvious deformity with radial deviation, soft tissue swelling and tenderness to palpation over the wrist joint the metacarpals , and distal forearm. No signs of open fracture. Patient is unable to range at the wrist joint secondary to pain. She has full sensation of the right hand and forearm which is equal in comparison to the left. She is able to make the okay and finger cross sign, however she is unable to make a stop sign secondary to pain. Capillary refill of the right hand is less than 2 seconds. +2 radial pulse bilaterally. Compartments are soft and compressible of the hand wrist and forearm. Full range of motion, strength, sensation of the hips, ankles and feet bilaterally. There is no pain in the calf. Neurological: A&O x 3. CN II-XII intact, There are no obvious motor or sensory deficits. Coordination appears grossly intact. Speech is normal. Skin: Skin is warm and dry and no rashes or lesions are noted. Psychiatric: Cooperative, appropriate mood & affect, normal judgment. Limitations: no limitations Course Vital Signs 03/29/18 03/29/18 21:26 22:51 Temperature 98.3 F Pulse Rate 90 75 Respiratory 18 18 Rate Blood Pressure 172/99 144/66 O2 Sat by Pulse 100 100 Oximetry Procedures - Orthopedic Splinting/Casting Injury #1 Side: left Upper Extremity Injury Location: short arm Upper Extremity Immobilizer: sugar tong splint Other Orthopedic Equipment: other (sling) Medical Decision Making - Medical Decision Making Physical examination reveals that the patient is neurovascularly intact, with + 2 ulnar and radial pulses bilaterally as well as less than 2 second capillary refill. Patient is full sensation of the right and left hand equally bilaterally. X-ray of the right knee, left wrist and forearm were obtained revealing no acute fracture or dislocation of the right knee prosthesis unchanged from previous x-rays. However there is a comminuted impacted distal radial fracture with 1 cm of posterior displacement of the distal fragment. Patient was offered IV analgesics however she states that morphine or Dilaudid and allowed times the stronger IV pain medications make her very drowsy and out of it and she does not like this feeling. She denies IV analgesics at this time . She was given oral [place] 7.5 instead . She stated that this brought the pain from a 10 to about an 8 . Patient was put into a sugar tong splint. The case was discussed with Dr. Freeman at this time we feel that because the patient is neurovascularly intact, compartments soft and compressible she is stable for discharge with [place] 10 for pain management (per patient request) and orthopedic follow-up tomorrow. Of note patient does have a current tramadol prescription, however I educated her on the risk of overdose and if she were to combine [place] and the tramadol. Patient states that she will hold the tramadol and only uses [place] for pain management. Disposition Clinical Impression: Impacted comminuted fracture, Distal radius fracture, left Disposition: HOME SELF-CARE Condition: Good Instructions: Wrist Fracture in Adults (ED) Additional Instructions: Please use medication as discussed. Please follow-up with orthopedic surgery tomorrow 03/30/2018. Please return to emergency room if the symptoms increase or worsen or for any other concerns as discussed. Prescriptions: HYDROcodone/APAP 10-325MG [[place] 10-325] 1 tab PO Q4HR PRN 3 Days #18 tab PRN Reason: Pain Is patient prescribed a controlled substance at d/c from ED?: Yes When asked, does pt state using other controlled substances?: Yes If prescribed controlled substance>3 days was MAPS reviewed?: Prescribed <3 Days If opioid is for acute pain is fill amount 7 days or less?: Yes If Rx opioid, was Start Talking consent form obtained?: Yes Referrals: Maria L Deleon DO [Primary Care Provider] - 1-2 days Balbir Silveira MD [STAFF PHYSICIAN] - 1-2 days Time of Disposition: 23:56
[2018-03-29 22:52] VITALS: BP 144/66; PULSE 75
--- NOTE | 2018-03-29 22:59 | XR ---
EXAMINATION TYPE: XR wrist complete LT DATE OF EXAM: 03/29/2018 COMPARISON: NONE HISTORY: Pain after a fall TECHNIQUE: 3 views FINDINGS: There is impacted comminuted transverse fracture of the distal radial metaphysis. There is a 1 cm posterior displacement of the distal major fragment. There is no dislocation. Carpal bones jaya ear intact. Distal ulna appears intact. IMPRESSION: Comminuted impacted distal radius fracture.
--- NOTE | 2018-03-29 23:09 | XR ---
EXAMINATION TYPE: XR forearm LT DATE OF EXAM: 03/29/2018 COMPARISON: NONE HISTORY: Pain after fall TECHNIQUE: 3 views FINDINGS: There is impacted comminuted distal radius fracture. There is mild displacement. The elbow joint is intact. IMPRESSION: Comminuted distal radius impacted fracture.
--- NOTE | 2018-03-29 23:10 | XR ---
EXAMINATION TYPE: XR knee complete RT DATE OF EXAM: 03/29/2018 COMPARISON: 09/05/2017 HISTORY: Pain after falling TECHNIQUE: 3 views FINDINGS: There is right knee prosthesis. Components appear in anatomic position. I see no fracture. IMPRESSION: Right knee prosthesis without change compared to old exam. No fracture.
== END 2018-03-30 00:20 | disposition home or self-care (01) ==
LOC: EC 21:16
DX: S52.592A Other fractures of lower end of left radius, initial encounter for closed fracture (principal); M79.7 Fibromyalgia; I10 Essential (primary) hypertension; F32.9 Major depressive disorder, single episode, unspecified; Z87.891 Personal history of nicotine dependence; Z79.899 Other long term (current) drug therapy; Z91.040 Latex allergy status; Z96.651 Presence of right artificial knee joint; W01.0XXA Fall on same level from slipping, tripping and stumbling without subsequent striking against object, initial encounter; Y93.E2 Activity, laundry
CPT/HCPCS: 29125; 99283

== ENCOUNTER → 2018-03-30 | Outpatient (CLI) | payer MEDICARE, OTHER ==
[2018-03-30 11:40] LABS: Basophils % (A) 0 %; Eosinophils # (A) 0.3 k/uL (0-0.7); Eosinophils % (A) 6 %; HCT 33.8 % (34.0-46.0); HGB 10.5 gm/dL (11.4-16.0); Hypochromasia Marked; Lymphocytes # (A) 1.4 k/uL (1.0-4.8); Lymphocytes % (A) 24 %; MCH 24.8 pg (25.0-35.0); Mean Platelet Volume 7.8; Monocytes # (A) 0.3 k/uL (0-1.0); Monocytes % (A) 5 %; Neutrophils # (A) 3.8 k/uL (1.3-7.7); Neutrophils % (A) 63 %; Platelet Count 316 k/uL (150-450); Poikilocytosis Slight; RBC 4.22 m/uL (3.80-5.40); RDW 15.2 % (11.5-15.5); WBC 6.1 k/uL (3.8-10.6)
[2018-03-30 11:44] LABS: Potassium 4.2 mmol/L (3.5-5.1)
== END | disposition home or self-care (01) ==
LOC: LABPAT 10:44
PROVIDERS: ATTEND Orthopaedic Surgery
DX: Z01.812 Encounter for preprocedural laboratory examination (principal); S52.551D Other extraarticular fracture of lower end of right radius, subsequent encounter for closed fracture with routine healing
CPT/HCPCS: 36415; 80051; 85025

== ENCOUNTER 2018-03-31 14:13 | Day surgery (SDC) | payer MEDICARE, OTHER ==
--- NOTE | 2018-03-30 11:43 | HP ---
HISTORY AND PHYSICAL CHIEF COMPLAINT: Left wrist pain. HISTORY OF PRESENT ILLNESS: The patient is a 57-year-old right-hand dominant female on permanent disability who presents with left wrist pain after an injury on 03/29/2018. She slipped and fell in her basement, landing on her left wrist. Initially, she was seen in the emergency room and placed in a splint. She denies previous injury. PAST MEDICAL HISTORY: Significant for gastroesophageal reflux disease, hypothyroidism, fibromyalgia, and arthritis. PAST SURGICAL HISTORY: Significant for gastric bypass, previous foot surgery, right knee unicompartmental arthroplasty with conversion to a total knee arthroplasty in addition to multiple lumbar spine surgeries. CURRENT MEDICATIONS: 1. Levothyroxine. 2. Prilosec. 3. Tramadol. 4. Mirapex. She notes allergies to LATEX. FAMILY HISTORY: Significant for heart disease and cancer. SOCIAL HISTORY: Negative for current tobacco or alcohol use. 16 POINT REVIEW OF SYSTEMS: Otherwise reviewed and is noncontributory. PHYSICAL EXAMINATION: The patient is approximately 5 foot 6, 244 pounds of endomorphic habitus. HEENT exam is nonfocal. Neck is supple. She is nontender about the left shoulder and elbow. On examination of her left wrist, she has moderate dorsal swelling. She is tender over the distal radius. She has a dorsal deformity. She fires the EPL. Light touch is intact throughout the digits. Capillary refill is less than 2 seconds in the left digits. X-rays of the left wrist from 03/29/2018 shows an extra-articular distal radius fracture with significant dorsal displacement/angulation/dorsal comminution. IMPRESSION: 1. Displaced left extra-articular distal radius fracture. 2. History of fibromyalgia. RECOMMENDATIONS: I talked to the patient at length regarding her condition and treatment options. At this point, I recommend proceeding with open reduction and internal fixation. We will potentially keep the patient for a 23-hour hold postoperatively. Risks and benefits were discussed at length in layman's terms. MMODL / IJN: [id number] /
[2018-03-30 11:48] VITALS: BMI 38.7
[~2018-03-31 14:13] MED LIST changes: -LACTATED RINGERS 1,000 ML IV SCH; +MIDAZOLAM 2 MG/2 ML VIAL IV ONE; +ceFAZolin IN SWFI 2 GM/20 ML SYRINGE IVP ONE; +fentaNYL (PF) 50 MCG/ML 2 ML AMP IV ONE
[2018-03-31] MEDS ORDERED: SCOPOLAMINE 1.5MG/72HR PATCH TRANSDERM ONE (14:50)
[2018-03-31] MEDS: LACTATED RINGERS 1,000 ML IV SCH (15:02)
[2018-03-31] MEDS ORDERED: ONDANSETRON 4 MG/2 ML VIAL IVP ONE (15:03)
[2018-03-31] MEDS ORDERED: DEXAMETHASONE SOD PHOSPHATE 10 MG/ML 1 ML VIAL IV ONE (15:04)
--- NOTE | 2018-03-31 15:28 | P.ONQ ---
Anesthesiology Proc Note - PNB - Peripheral Nerve Block Performed Left Axillary Single Procedure Start Time: 15:20 Procedure Stop Time: 15:25 Specifically requested for management of pain by DrRoxane: Dennis Graham Preparation: Sterile Dressing Needle Types: Facet, Other (see comment) Needle Size: 100mm (4") Needle Gauge: 21 Technique: Ultrasound
[2018-03-31] MEDS ORDERED: LIDOCAINE 1% INJ 10MG/ML (20 ML MDV) ONE (16:49)
[2018-03-31] MEDS ORDERED: PROPOFOL 10 MG/ML 20 ML VIAL IV ONE (16:49)
[2018-03-31] MEDS ORDERED: fentaNYL (PF) 50 MCG/ML 2 ML AMP ONE (16:49)
[2018-03-31] MEDS ORDERED: ROPIVACAINE 5 MG/ML 30 ML VIAL ONE (16:49)
[2018-03-31] MEDS ORDERED: ceFAZolin 1,000 MG in SODIUM CHLORIDE 0.9% 1,000 ML IRRIGATION ONE (17:09)
[2018-03-31] MEDS ORDERED: HYDROcodone/APAP 5-325MG 1 EACH TAB PO PRN ×2 (18:12)
[2018-03-31] MEDS ORDERED: HYDROmorphone 1 MG/ML 1 ML SYRINGE IVP PRN (18:12)
[2018-03-31] MEDS ORDERED: ONDANSETRON 4 MG/2 ML VIAL IVP PRN (18:12)
[2018-03-31] MEDS ORDERED: NALOXONE 0.4 MG/ML 1 ML VIAL IV PRN (18:12)
--- NOTE | 2018-03-31 18:12 | P.OP ---
Date of Procedure: 03/31/18 Preoperative Diagnosis: Displaced left extra-articular distal radius fracture Postoperative Diagnosis: Same Procedure(s) Performed: Open reduction and internal fixation left intertrochanteric femur fracture Implants: [employer] narrow volar distal radial plate Anesthesia: regional Surgeon: Balbir Silveira Estimated Blood Loss (ml): 10 Pathology: none sent Condition: stable Disposition: PACU Indications for Procedure: The patient's a 57-year-old female who presents with left wrist pain after a recent fall. Upon evaluation she was noted of a significantly displaced/ angulated extra-articular distal radius fracture. A discussion of the risks and benefits of operative intervention versus conservative measures was made with the patient. She opted to proceed with surgery. Operative risks to include infection, neurovascular injury, development of blood clots, possible development nonunion, possible development of malunion need for subsequent procedures was discussed. Informed consent was obtained. Operative Findings: As below Description of Procedure: The patient was brought to the operating room after a Block was previously placed by anesthesia. The left upper extremity was prepped and draped in normal fashion. The tourniquet was inflated to 250 mmHg. A 5 cm incision was then made along the volar radial aspect of the left wrist. The skin was incised sharply. Subcutaneous tissues were divided bluntly. Electrocautery was used for hemostasis. The flexor carpi radialis was identified and the tendon sheath opened. The tendon was gently retracted ulnarly and the radial artery retracted radially. The underlying fascia was opened. The pronator quadratus was elevated off the distal radius exposing the fracture site. This was cleaned of clot and debris. This was then reduced. This is verified with fluoroscopy. A narrow volar plate was placed along the volar surface to the watershed line. It was provisionally attached with K wires. This is verified with fluoroscopy. 2.4 mm cortical screws the appropriate length were placed proximally. Smooth pegs were placed in the distal 2 rows. Final fluoroscopic views to include AP, lateral, and PA views showed adequate reduction of the fracture and placement of the implant. The wound was irrigated with normal saline. The pronator quadratus was repaired with simple 3-0 Vicryl sutures. The subcutaneous tissues reapproximated interrupted simple 3-0 Vicryl sutures. The skin was reapproximated 3-0 subcuticular Prolene suture. Steri-Strips were applied. The tourniquet was deflated the proximal a 45 as total tourniquet time. A sterile dressing was applied in addition to a volar splint. The patient was awoken from sedation and transferred to recovery room in good condition. Blood loss was estimated at 10 mL. No complications were incurred. Sponge and needle counts were correct at the end of the case.
[2018-03-31] MEDS ORDERED: PRAMIPEXOLE 1 MG TAB PO SCH (21:00)
[2018-03-31] MEDS: MILNACIPRAN HCL 100 MG PO SCH (22:11)
[2018-03-31] MEDS: ceFAZolin IN SWFI 2 GM/20 ML SYRINGE IVP SCH (23:54)
[2018-04-01] MEDS ORDERED: ceFAZolin 3 GM in SODIUM CHLORIDE 0.9% 100 ML IVPB SCH ×2
--- NOTE | 2018-04-01 05:49 | FL ---
FLUOROSCOPY 23 seconds of fluoroscopy time were utilized during internal fixation of the distal left radius. 30 i mages document the procedure.
[2018-04-01] MEDS ORDERED: LEVOTHYROXINE 75 MCG TAB PO SCH (06:30)
[2018-04-01] MEDS ORDERED: PANTOPRAZOLE 40 MG TABLET PO SCH (07:30)
[2018-04-01] MEDS: ceFAZolin IN SWFI 2 GM/20 ML SYRINGE IVP SCH (07:55)
[2018-04-01 08:12] VITALS: RESP 18
[2018-04-01] MEDS ORDERED: HYDROcodone/APAP 5-325MG 1 EACH TAB PO PRN (08:28)
[2018-04-01] MEDS ORDERED: PRAMIPEXOLE 1 MG TAB PO SCH (09:00)
[2018-04-01 09:48] LABS: Basophils % (A) 0 %; Eosinophils % (A) 0 %; HCT 32.3 % (34.0-46.0); HGB 9.9 gm/dL (11.4-16.0); Hypochromasia Marked; Lymphocytes # (A) 1.5 k/uL (1.0-4.8); Lymphocytes % (A) 21 %; MCH 24.8 pg (25.0-35.0); MCHC 30.6 g/dL (31.0-37.0); MCV 80.9 fL (80.0-100.0); Mean Platelet Volume 6.8; Monocytes # (A) 0.6 k/uL (0-1.0); Monocytes % (A) 8 %; Neutrophils # (A) 4.8 k/uL (1.3-7.7); Neutrophils % (A) 69 %; Platelet Count 368 k/uL (150-450); Poikilocytosis Slight; RBC 3.99 m/uL (3.80-5.40); RDW 14.9 % (11.5-15.5)
[2018-04-01 10:05] LABS: ALT 32 U/L (9-52); AST 26 U/L (14-36); Albumin 3.6 g/dL (3.5-5.0); Alkaline Phosphatase 105 U/L (38-126); Anion Gap 9 mmol/L; Blood Urea Nitrogen 14 mg/dL (7-17); Calcium 9.1 mg/dL (8.4-10.2); Carbon Dioxide 25 mmol/L (22-30); Chloride 107 mmol/L (98-107); Glucose 96 mg/dL (74-99); Potassium 4.1 mmol/L (3.5-5.1); Sodium 141 mmol/L (137-145); Total Bilirubin 0.1 mg/dL (0.2-1.3); Total Protein 6.2 g/dL (6.3-8.2)
[2018-04-01] MEDS: MILNACIPRAN HCL 100 MG PO SCH (10:21)
--- NOTE | 2018-04-01 11:16 | P.CONS ---
History of Present Illness - Reason for Consult Consult date: 04/01/18 Management Requesting physician: Balbir Silveira - Chief Complaint Status post open reduction internal fixation of the distal radius - History of Present Illness This is a 57-year-old patient of Dr. Deleon. Patient presented to emergency department after falling and injuring her left wrist. Patient states she was walking downstairs to her basement and slipped and landed directly on her wrist. Patient underwent an open reduction and internal fixation of the left distal, radius fracture with Dr. Silveira. Patient has a significant history for gastric bypass back in but has had complications due to the band moving and eventually rupturing patient is currently being followed by [facility]. Patient does state she had a PEG tube placed back in January to supplement with protein. Patient does state she eats but uses the PEG tube for supplementation with protein until further surgery can be completed. Patient does also have a significant history for fibromyalgia, GERD, hypertension, Thryoid disorder, back surgery, Cholecystectomy and previous joint replacement surgery. Patient is requesting case management for possible home visiting nurses due to her inability now to manage her peg tube with her left arm currently in a cast. Patient denies chest pain or shortness of breath at this time. Denies nausea vomiting or diarrhea. Denies urinary, frequency or burning. Review of Systems Please refer to HPI otherwise unremarkable Past Medical History Past Medical History: Fibromyalgia, GERD/Reflux, Hypertension, Thyroid Disorder Additional Past Medical History / Comment(s): RECENT FX LT WRIST-03/29/18. STILL HAS FEEDING TUBE FROM GASTRIC BYPASS IN JANUARY 2018 History of Any Multi-Drug Resistant Organisms: None Reported Past Surgical History: Back Surgery, Cholecystectomy, Hernia Repair, Hysterectomy, Joint Replacement, Orthopedic Surgery Additional Past Surgical History / Comment(s): Right knee arthroplasty; R Knee replacement; right foot surgery; EGD; Colonoscopies, partial thyroidectomy, partial stomach removed from mesh through stomacH W/BYPASS AND FEEDING TUBE Past Anesthesia/Blood Transfusion Reactions: Family History of Problems w/ Anesthesia, Postoperative Nausea & Vomiting (PONV) Additional Past Anesthesia/Blood Transfusion Reaction / Comm: mother N/V Smoking Status: Former smoker - Past Family History Father Family Medical History: Cancer Mother Family Medical History: Cancer Brother(s) Family Medical History: Cancer Medications and Allergies Home Medications Medication Instructions Recorded Confirmed Type Levothyroxine Sodium [Synthroid] 75 mcg PO DAILY 04/27/17 07/19/18 History Milnacipran HCl [Savella] 100 mg PO BID 01/06/17 03/30/18 History Pramipexole [Mirapex] 1 mg PO QAM 01/06/17 03/30/18 History Pramipexole [Mirapex] 2 mg PO HS 09/14/17 03/30/18 History HYDROcodone/APAP 10-325MG [[place] 1 tab PO Q4HR PRN 3 Days #18 tab 03/29/1803/30 Rx 10-325] Omeprazole [PriLOSEC] 20 mg PO AC-BRKFST 03/29/18 03/30/18 History Allergies Allergy/AdvReac Type Severity Reaction Status Date / Time latex Allergy Rash/Hives Verified 03/31/18 14:30 Physical Exam Vitals: Vital Signs Temp Pulse Pulse Pulse Resp BP Pulse Ox 04/01/18 08:11 97.8 F 82 18 114/76 97 04/01/18 04:21 98.1 F 75 16 109/73 96 03/31/18 23:49 98.0 F 83 18 112/74 95 03/31/18 21:35 86 18 119/75 93 L 03/31/18 21:05 88 18 126/69 93 L 03/31/18 20:35 94 18 124/76 93 L 03/31/18 20:20 89 18 135/85 93 L 03/31/18 20:05 101 H 18 155/95 95 03/31/18 19:50 90 18 142/89 94 L 03/31/18 19:00 97.0 F L 88 18 139/86 97 03/31/18 18:30 84 16 136/77 96 03/31/18 18:17 82 16 127/66 95 03/31/18 18:08 97.1 F L 81 16 125/62 94 L 03/31/18 15:45 83 16 126/84 100 03/31/18 15:30 76 16 03/31/18 14:39 98.8 F 81 16 166/95 99 Intake and Output 03/31/18 04/01/18 04/01/18 22:59 06:59 14:59 Intake Total 851 Output Total 310 Balance 541 Intake: IV 851 Output: Urine 300 Estimated Blood Loss 10 Other: # Voids 2 Head normocephalic Neck supple Lungs clear to auscultation bilaterally no wheezing or crackles Heart regular rate and rhythm S1-S2, no rub or gallop Abdomen is soft nontender nondistended positive bowel sounds no hepatosplenomegaly. Peg tube site clean dry and intact. Extremities no edema. Left arm in a cast and sling. Neuro alert and orientated to 3 Results CBC & Chem 7: 04/01/18 09:31 04/01/18 09:31 Labs: Abnormal Lab Results - Last 24 Hours (Table) 04/01/18 04/01/18 Range/Units 09:31 09:31 Hgb 9.9 L (11.4-16.0) gm/dL Hct 32.3 L (34.0-46.0) % MCH 24.8 L (25.0-35.0) pg MCHC 30.6 L (31.0-37.0) g/dL Total Bilirubin 0.1 L (0.2-1.3) mg/dL Total Protein 6.2 L (6.3-8.2) g/dL Assessment and Plan Assessment: 1. Left distal radial fracture. Status post open reduction internal fixation of left distal radius fracture Dr. Silveira. Pain medications currently ordered per Dr. Silveira. 2. History of hypothyroidism. Managed on Synthroid 3. History of gastric weight loss surgery in . Patient has had issues with and moving and rupturing. Patient had PEG tube placed in January. Patient states she supplemented her diet with protein through the PEG tube. Patient being followed by [facility]. 4. History of fibromyalgia continue Savella 5. History of essential hypertension 6. History of GERD continue Protonix Thank you for this consultation will continue to follow patient throughout stay. Awaiting case management. Patient stating possible home nursing due to her inability to manage PEG tube with Left Arm. Possible discharge per Ortho surgical services today Time with Patient: Greater than 30 (Greater than 60% of the total time spent in counseling and coordination of care. I performed an examination of the patient and discussed their management with the Nurse Practitioner. I have reviewed the Nurse Practitioner's notes and agree with the documented findings and plan of care)
[2018-04-01] MEDS ORDERED: HYDROcodone/APAP 7.5-325MG 1 EACH TAB PO PRN (11:26)
--- NOTE | 2018-04-01 11:31 | P.PN ---
Progress Note - Text Progress Note Date: 04/01/18 S: The patient notes moderate left wrist pain. O: Afebrile, vital signs stable Left upper extremity splint intact. Mild swelling left digits. Light touch intact left digits. Capillary refill less than 2 seconds left digits. A/P: Postoperative day 1 status post open reduction and internal fixation left distal radius fracture. We will plan on discharge this afternoon. We will increase her pain medication to [place] 7.5 mg every 4 hours as needed. Follow- up with Dr. Silveira in 2 weeks. Ice and elevate as needed. We will have her use her sling when she is out of bed.
--- NOTE | 2018-04-01 11:40 | P.DS ---
Providers Date of admission: 03/31/2018 Expected date of discharge: 04/01/18 Attending physician: Balbir Silveira Consults: 03/31/18 20:53 Consult Physician Routine Consulting Provider: Charisse Mann Consult Reason/Comments: medical management Do you want consulting provider notified?: Yes Primary care physician: Stated None Hospital Course: The patient underwent open reduction and internal fixation of her left displaced distal radius fracture. Postoperatively she appeared to be neurovascularly intact. Upon discharge her pain was controlled with oral pain medication. She had good return of bowel and bladder function. On discharge she was afebrile with stable vital signs. Procedures: Open reduction and internal fixation left distal radius fracture. Patient Condition at Discharge: Good Plan - Discharge Summary New Discharge Prescriptions: New HYDROcodone/APAP 7.5-325MG [Coral 7.5-325] 1 tab PO Q4H PRN 5 Days #30 tab PRN Reason: Pain No Action Milnacipran HCl [Savella] 100 mg PO BID Levothyroxine Sodium [Synthroid] 75 mcg PO DAILY Pramipexole [Mirapex] 1 mg PO QAM Pramipexole [Mirapex] 2 mg PO HS Omeprazole [PriLOSEC] 20 mg PO AC-BRKFST HYDROcodone/APAP 10-325MG [Coral 10-325] 1 tab PO Q4HR PRN 3 Days #18 tab PRN Reason: Pain Discharge Medication List Levothyroxine Sodium [Synthroid] 75 mcg PO DAILY 01/06/17 [History] Milnacipran HCl [Savella] 100 mg PO BID 01/06/17 [History] Pramipexole [Mirapex] 1 mg PO QAM 01/06/17 [History] Pramipexole [Mirapex] 2 mg PO HS 09/14/17 [History] HYDROcodone/APAP 10-325MG [Coral 10-325] 1 tab PO Q4HR PRN 3 Days #18 tab [Rx] Omeprazole [PriLOSEC] 20 mg PO AC-BRKFST 03/29/18 [History] HYDROcodone/APAP 7.5-325MG [Coral 7.5-325] 1 tab PO Q4H PRN 5 Days #30 tab 04/01 [Rx] Follow up Appointment(s)/Referral(s): Johann Fischer, PAC [PHYSICIAN [employer]] - 2 Weeks Activity/Diet/Wound Care/Special Instructions: Keep splint intact. Ice and elevate as needed. Wear sling when ambulatory. Discharge Disposition: HOME SELF-CARE
[2018-04-01] MEDS: LACTATED RINGERS 1,000 ML IV SCH (12:35)
[2018-04-01 15:12] VITALS: BP 140/70; PULSE 78; TEMP 97
== END 2018-04-01 15:20 | disposition home or self-care (01) ==
LOC: OR 14:13 → 6PED 18:29 → OR 04-01 15:20
PROVIDERS: ATTEND Orthopaedic Surgery
DX: S52.552A Other extraarticular fracture of lower end of left radius, initial encounter for closed fracture (principal); W01.0XXA Fall on same level from slipping, tripping and stumbling without subsequent striking against object, initial encounter; I10 Essential (primary) hypertension; K21.9 Gastro-esophageal reflux disease without esophagitis; E03.9 Hypothyroidism, unspecified; M79.7 Fibromyalgia; T85.598A Other mechanical complication of other gastrointestinal prosthetic devices, implants and grafts, initial encounter; Z79.890 Hormone replacement therapy; Z87.891 Personal history of nicotine dependence; Z79.891 Long term (current) use of opiate analgesic; Z79.899 Other long term (current) drug therapy; M19.90 Unspecified osteoarthritis, unspecified site; Z91.040 Latex allergy status
CPT/HCPCS: 80053; 85025; 73100; 25607; C1713; J2250; J1100; J2405; J0690 ×3; J2001; J3010; J2795; J2704

== ENCOUNTER → 2018-06-26 | Outpatient (CLI) | payer MEDICARE, OTHER ==
--- NOTE | 2018-06-27 09:49 | CT ---
EXAMINATION TYPE: CT foot RT wo con DATE OF EXAM: 06/26/2018 COMPARISON: None HISTORY: Right foot pain, pre-op CT DLP: 214.9 mGycm Automated exposure control for dose reduction was used. Helical imaging through the right foot. Coron al and sagittal reconstructions FINDINGS: Suspect there may been prior osteotomy of the calcaneus, there is metallic hardware, multiple screws coursing transversely across the calcaneus, side plates are present at the lateral aspect, screws tra nsgress the medial cortex into the soft tissues. Arthrodesis present at the medial tarsal bones at th e navicular and medial cuneiform, screw transgresses the lateral cortex of the navicular and medial c uneiform, screw transgresses to the level of the joint between the navicular and lateral cuneiform, j oint space loss is present between the cuneiform bones, navicular cuneiform joints with hypertrophic changes compatible with osteoarthritis. Small ossific densities present dorsal to the tarsometatarsal joint of the first digit measuring 9 mm, additional ossific density present anterior to the distal f ibula just lateral to the distal tibia. Remodeling present at the distal tibia, there is marginal spu rring present. Remodeling also present at the intertarsal joints, subchondral geode formation is pres ent, small subchondral geode suspected at the medial ankle mortise as well as multiple foci within th e calcaneus and talus. First digit appears rotated. IMPRESSION: Postop changes, osteoarthritis. Additional findings above.
== END | disposition home or self-care (01) ==
LOC: RADCTMAIN 17:08
PROVIDERS: ATTEND Orthopaedic Surgery
DX: M19.071 Primary osteoarthritis, right ankle and foot (principal); Z98.890 Other specified postprocedural states

== ENCOUNTER → 2018-07-14 | Outpatient (CLI) | payer MEDICARE, OTHER ==
--- NOTE | 2018-07-17 13:39 | MM ---
Reason for exam: screening (asymptomatic). Last mammogram was performed 14 years and 4 months ago. History: Patient is postmenopausal. Physical Findings: A clinical breast exam by your physician is recommended on an annual basis and results should be correlated with mammographic findings. MG 3D Screening Mammo W/Cad Bilateral CC and MLO view(s) were taken. No prior studies available for comparison. There are scattered fibroglandular densities. There is no discrete abnormality. No significant changes when compared with prior studies. ASSESSMENT: Negative, BI-RAD 1 RECOMMENDATION: Routine screening mammogram of both breasts in 1 year.
== END ==
LOC: RADMAMWWP 13:16
PROVIDERS: ATTEND Family Medicine
DX: Z12.31 Encounter for screening mammogram for malignant neoplasm of breast (principal)
CPT/HCPCS: 77063; 77067

== ENCOUNTER 2018-07-19 08:00 | Inpatient (IN) | payer MEDICARE, OTHER ==
[2018-07-28] MEDS ORDERED: ceFAZolin IN SWFI 2 GM/20 ML SYRINGE IVP ONE (05:00)
[2018-07-28] MEDS ORDERED: LACTATED RINGERS 1,000 ML IV SCH (06:06)
[2018-07-28] MEDS ORDERED: LIDOCAINE 1% 20 ML VIAL (10MG/ML) FOR IV START INTRADERMA PRN (06:06)
[2018-07-28] MEDS ORDERED: ONDANSETRON 4 MG/2 ML VIAL IVP ONE (11:13)
[2018-07-28] MEDS ORDERED: MIDAZOLAM 2 MG/2 ML VIAL IVP ONE (12:08)
[2018-07-28] MEDS ORDERED: KETAMINE 10 MG/ML 20 ML VIAL ONE (12:36)
[2018-07-28] MEDS ORDERED: LIDOCAINE 1% INJ 10MG/ML (20 ML MDV) ONE (12:36)
[2018-07-28] MEDS ORDERED: PROPOFOL 10 MG/ML 20 ML VIAL IV ONE (12:36)
[2018-07-28] MEDS ORDERED: SUCCINYLCHOLINE CHLORIDE VIAL 200 MG/10 ML VIAL IV ONE (12:36)
[2018-07-28] MEDS ORDERED: ROPIVACAINE 5 MG/ML 30 ML VIAL ONE (12:36)
[2018-07-28] MEDS ORDERED: HYDROmorphone (PF) 1 MG/ML ONE (12:36)
[2018-07-28] MEDS ORDERED: MIDAZOLAM 2 MG/2 ML VIAL ONE (12:36)
[2018-07-28] MEDS ORDERED: fentaNYL (PF) 50 MCG/ML 2 ML AMP ONE (12:36)
[2018-07-28] MEDS ORDERED: LACTATED RINGERS 1,000 ML IV ONE ×2 (13:28→15:31)
[2018-07-28] MEDS ORDERED: ONDANSETRON 4 MG/2 ML VIAL IVP PRN (15:45)
[2018-07-28] MEDS ORDERED: NALOXONE 0.4 MG/ML 1 ML VIAL IV PRN (15:45)
[2018-07-28] MEDS ORDERED: HYDROcodone/APAP 5-325MG 1 EACH TAB PO PRN (15:45)
[2018-07-28] MEDS ORDERED: HYDROmorphone 1 MG/ML 1 ML SYRINGE IVP PRN (15:45)
[2018-07-28] MEDS ORDERED: MAGNESIUM HYDROXIDE 2,400 MG/10 ML CUP PO PRN (15:45)
--- NOTE | 2018-07-28 15:59 | FL ---
EXAMINATION TYPE: FL guidance operating room, XR foot complete RT DATE OF EXAM: 07/28/2018 CLINICAL HISTORY: Right foot pain. TECHNIQUE: Fluoroscopy. Limited intraoperative views right foot. COMPARISON: CT right foot from one month ago. FINDINGS: Fluoroscopic guidance was provided during open reduction internal fixation procedure perfo rmed by Dr. Jose. A total of 1.03 minutes of fluoroscopic time was utilized during the procedure and four spot fluoroscopic images are acquired. Images acquired show placement of new large talocalcaneal screws and redemonstration of surgical kim ge anterior hindfoot, suspect new surgery anterior talonavicular level. Please refer to procedure not e for further details as I was not present. IMPRESSION: As Above.
--- NOTE | 2018-07-28 16:11 | P.OP ---
Date of Procedure: 07/28/18 Preoperative Diagnosis: 1. Stage III adult acquired flatfoot deformity, right 2. Right tendo Achilles contracture 3. Failed prior surgery by podiatry 4. BMI of 37.3 Postoperative Diagnosis: Same Procedure(s) Performed: 1. Correction of right adult acquired flatfoot deformity with double arthrodesis (subtalar and talonavicular fusion) 2. Removal of hardware, deep right foot 3. Percutaneous tendo Achilles lengthening, right 4. Application of short-leg splint by physician Anesthesia: RANDYA Surgeon: Rashaad Jose Systems Design Engineer #1: Selene Newsome Estimated Blood Loss (ml): 100 IV fluids (ml): 1,000 Pathology: none sent Condition: stable Disposition: PACU Indications for Procedure: The patient is a very pleasant 58-year-old female with multiple medical problems including have a BMI of 37.3 who presented with a painful and recurrent flatfoot deformity. The patient was initially managed by a manager enrollment in [facility]. She had surgical correction of her flat foot deformity with a medializing calcaneal osteotomy and naviculocuneiform fusion. She went on to have recurrence of her deformity. She moved to this area and followed up with me. Initially she was managed nonsurgically with a brace. She continued to have pain and dysfunction and requested surgery. The patient was seen by her primary care physician and general surgeon and received clearance. We discussed different options including continued nonsurgical treatment with bracing and shoe modifications as well as surgery. Due to the degree of deformity, her age, and weight I recommended correction with a double arthrodesis of the subtalar and talonavicular joint. We also discussed performing a tendo Achilles lengthening and removing her hardware. We discussed the potential risks and complications of surgery including but not limited to risk of anesthesia, risk of superficial infection, risk of deep infection, risk of delayed wound healing, risk of over correction of her deformity, risk under correction of her deformity, risk of recurrence of her deformity, risk of damage to local blood vessels or nerves, risk of symptomatically hardware, risk of intraoperative fracture, risk of postoperative fracture, risk of chronic pain, risk of chronic swelling, risk of need for further surgery, risk of dissatisfaction with her surgical outcome, risk of inability to regain preinjury level of function, risk of DVT, risk of PE , risk of other medical complications, and possibly loss of life or limb. The patient voiced understanding of these potential competitions and also acknowledges that other less common competitions are possible. She also understands that revision surgery can be less predictive in terms of both outcome and recurrence. We also discussed the role that her weight and other medical complications plate. The patient voiced her understanding of this and provided his consent to go forward with surgery. Description of Procedure: The patient identified in prep in holding and the correct right leg was marked my initials. I reviewed the consent form with the patient and all of her questions were answered. The patient was then brought back to the operating appeared she was positioned on the OR table where general anesthetic was administered. A tourniquet was applied to the proximal aspect of the right leg. All bony prominences were well-padded. A bump was placed under the right buttock internally rotating the leg to neutral. A ramp was placed under the right leg. The right leg was then prepped and draped in standard sterile fashion. Prior to starting surgery timeout was performed identifying the correct patient, operative extremity, and procedure. The patient's leg was then elevated, exsanguinated with an Esmarch bandage, and the tourniquet was inflated to 250 mmHg. I began by performing a percutaneous triple hemisection of the Achilles tendon. Stab incisions were made at 2 cm intervals starting at the distal Achilles tendon. The most proximal and distal incision the 15 blade was inserted and the middle portion of the Achilles tendon and the lateral 50% of the tendon was released sharply. The 15 blade was placed in the middle incision and the medial 50% of the tendon was released. A gentle dorsiflexion force was applied to the ankle and there was a palpable and audible pop as the Achilles lengthening. After doing this I was able to dorsiflex the ankle past neutral. The Achilles tendon was palpably intact. Next I then made an incision through her previous scar over the lateral wall of the calcaneus. Dissection was carried down carefully to the subcutaneous tissue. The plate was identified laterally over the calcaneus. There is a small amount of bony overgrowth. The screws were then removed and the plate was easily levered off of the bone. The wound was irrigated and then closed. I then marked out an incision over the subtalar joint starting at the tip of the distal fibula and extending laterally toward the base the fourth metatarsal. Skin incision with a scalpel and dissection was carried down carefully to the subcutaneous tissue tenotomy scissors. I developed the interval between the EDB and peroneal tendons. The capsule of the subtalar joint was sharply opened. K wires were placed in the talar body and calcaneus and a distractor was applied. Cartilage was then removed from the posterior and middle facets of the talus and calcaneus. The wound was copiously irrigated. A 2.5 mm drill bit was used to perforate the subchondral bone to facilitate fusion. Attention was then turned to the dorsal medial incision over the mid foot. Skin incision was made through the prior scar. Dissection was carried down carefully to the plate and screws which were sequentially removed. The talonavicular joint was then opened. A large portion of the navicular had been removed by the prior surgeon. K wires were placed in the remaining navicular and talus. A distractor was applied. The cartilage from the talonavicular joint was then removed using a combination of osteotomes and curettes. The joint was copiously irrigated. The subchondral bone was perforated with a 2.0 mm drill bit to facilitate fusion. A mixture of crushed cancellus allograft and augment were packed into both joint spaces. I then reduced and held both joints reduced. K wires were placed across both joints to hold the reduction. Clinically the patient's foot appeared plantigrade. Fluoroscopy was brought in to verify that Yana's line was intact on both an AP and lateral view. I then placed 2 partially-threaded cannulated screws across the subtalar joint starting at the heel. I then placed a partially threaded cannulated screw through the navicular up into the talar body. A 2 hole claw compression plate was then placed over the dorsal aspect of the talonavicular joint. Final fluoroscopic images were taken. Clinically the patient's foot appeared plantigrade. Both wounds were copiously irrigated and closed in layers. I verified that all instrument, sponge, and sharp counts were correct. A sterile dressing consisting of Betadine soaked Adaptic, 4 x 4, and web rolls applied. The drapes were taken down and a well-padded bulky Moreno splint was placed with the ankle in neutral. The patient was then awoken from her anesthetic, transferred to a gurney, and brought back up out of procedure well. Selene Newsome PA-C was required as a skilled information services assistant for patient positioning, surgical exposure, placement of hardware, closure of wounds, and application of splints. Plan: The patient is going to be admitted for IV antibiotics, pain control, and discharge planning. She may ultimately require discharge to a half-way facility or rehab hospital. She is to be strictly nonweightbearing on her right leg. She will receive 2 doses of postoperative antibiotics. She is to be treated with Lovenox for DVT prophylaxis. Internal medicine will be consulted for perioperative medical management.
[2018-07-28] MEDS ORDERED: HYDROmorphone 1 MG/ML 1 ML SYRINGE IVP ONE ×2 (17:15→17:20)
[2018-07-28] MEDS: LACTATED RINGERS 1,000 ML IV SCH (18:03)
[2018-07-28] MEDS: GABAPENTIN 100 MG CAP PO SCH (20:02)
[2018-07-28] MEDS: SAVELLA 100 MG PO SCH (20:02)
[2018-07-28] MEDS: ceFAZolin IN SWFI 2 GM/20 ML SYRINGE IVP SCH (20:09)
[2018-07-28] MEDS: SENNOSIDES-DOCUSATE SODIUM 1 EACH TAB PO SCH (20:10)
[2018-07-28] MEDS: HYDROmorphone 1 MG/ML 1 ML SYRINGE IVP PRN ×2 (20:10→23:21)
[2018-07-28] MEDS: CALCIUM CARBONATE 500 MG CHEWABLE PO SCH (20:10)
[2018-07-28] MEDS: PRAMIPEXOLE 1 MG TAB PO SCH (20:10)
[2018-07-29] MEDS: HYDROcodone/APAP 5-325MG 1 EACH TAB PO PRN ×2 (01:27→07:23)
[2018-07-29] MEDS: LACTATED RINGERS 1,000 ML IV SCH ×3 (02:36→20:51)
[2018-07-29] MEDS: ceFAZolin IN SWFI 2 GM/20 ML SYRINGE IVP SCH (02:36)
[2018-07-29] MEDS: HYDROmorphone 1 MG/ML 1 ML SYRINGE IVP PRN ×6 (02:48→21:11)
[2018-07-29] MEDS: LEVOTHYROXINE 75 MCG TAB PO SCH (05:35)
[2018-07-29] MEDS: FERROUS SULFATE 325 MG TAB PO SCH (07:23)
[2018-07-29] MEDS: CALCIUM CARBONATE 500 MG CHEWABLE PO SCH ×3 (07:23→20:49)
[2018-07-29] MEDS: ENOXAPARIN 40 MG/0.4 ML SYRINGE SQ SCH (07:24)
[2018-07-29] MEDS: PRAMIPEXOLE 1 MG TAB PO SCH ×2 (07:24→20:50)
[2018-07-29] MEDS: ZINC SULFATE 220 MG CAP PO SCH (07:24)
[2018-07-29] MEDS: MULTIVITAMINS, THERA 1 EACH TAB PO SCH (07:24)
[2018-07-29] MEDS: SAVELLA 100 MG PO SCH ×2 (07:25→20:51)
[2018-07-29] MEDS ORDERED: HYDROcodone/APAP 7.5-325MG 1 EACH TAB PO PRN (09:18)
--- NOTE | 2018-07-29 09:31 | P.PN ---
Subjective Progress Note Date: 07/29/18 The patient is doing well this morning. She denies chest pain or shortness of breath. She has discomfort in her ankle. Objective - Vital Signs Vital signs: Vital Signs Temp 98.6 F 07/29/18 07:00 Pulse 95 07/29/18 07:00 Resp 18 07/29/18 07:15 BP 115/72 07/29/18 07:00 Pulse Ox 94 L 07/29/18 07:00 Intake & Output 07/28/18 07/29/18 07/29/18 18:59 06:59 18:59 Intake Total 2100 400 Output Total 100 Balance 2000 400 Weight 241 kg Intake: IV 2100 Intake, IV Titration 400 Amount Lactated Ringers 1,000 ml 400 @ 100 mls/hr IV .Q10H [facility] Rx#:[id number] Output: Estimated Blood Loss 100 - Exam On inspection of the right leg there is a bulky Moreno in place with a small amount of bleeding to the lateral aspect of the splint at the ankle. The toes are warm and well perfused with brisk capillary refill. Sensation is intact to light touch the tip of the toes. There is no pain with passive range of motion of the toes. She is able to actively move her toes up and down. Assessment and Plan Plan: Postoperative day #1 status post correction of right flatfoot deformity with double arthrodesis, percutaneous tendo Achilles lengthening, and deep hardware removal. Doing well. 1. Continue strict nonweightbearing right lower extremity 2. Reinforce dressing over splint as needed 3. 2 doses postoperative antibiotics 4. DVT prophylaxis with Lovenox while in-house and discharged home on aspirin 325 mg twice daily 5. Physical therapy for mobilization and gait training 6. Internal medicine for perioperative medical management 7. Discharge planning - patient would like to discharge to [facility]
[2018-07-29] MEDS: CHOLECALCIFEROL 1,000 UNIT TAB PO SCH (11:23)
[2018-07-29 11:44] VITALS: BMI 32.6
--- NOTE | 2018-07-29 11:50 | P.CONS ---
History of Present Illness - Reason for Consult Consult date: 07/29/18 Requesting physician: Rashaad Jose - History of Present Illness Luciana case is a 58-year-old female who was admitted to [facility] by Dr. Rashaad Jose and underwent correction of right eyeball acquired flatfoot deformity with percutaneous and keel tendon lengthening and application of short-leg splint. Patient was admitted to the medical floor post surgery, consultation was requested for medical management while hospitalized. Patient's primary care physician is Dr. Maria L Deleon. 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 She is still followed by surgeons at [facility] in [place] and will have to have further surgery in the future. #4 history of morbid obesity #5 history of vitamin D deficiency #6 patient denies any other past medical history there is no cardiac history no history of asthma or COPD and no history of any kidney abnormality Past Medical History Past Medical History: Diabetes Mellitus, Fibromyalgia, GERD/Reflux, Hypertension , Musculoskeletal Disorder, Thyroid Disorder Additional Past Medical History / Comment(s): FX LT WRIST 03/29/18. BLOOD PRESSURE ELEV W/ PAIN, NO RX CURRENTLY. HX BORDERLINE DM. HX RT FOOT COLLAPSED , HAS HARDWARE, CURRENT COLLAPSE AGAIN; RT KNEE IRRITATED D/T FOOT. VARICOSE VEINS. RT LEG EDEMA. STILL HAS FEEDING TUBE FROM GASTRIC BYPASS IN JANUARY 2018; HAS 2 PROTEIN DRINKS @ HS VIA G-TUBE. History of Any Multi-Drug Resistant Organisms: None Reported Past Surgical History: Back Surgery, Bariatric Surgery, Cholecystectomy, Hernia Repair, Hysterectomy, Joint Replacement, Orthopedic Surgery Additional Past Surgical History / Comment(s): Rt knee arthroplasty; R Knee replacement; Rt foot surgery; EGD; Colonoscopies. Partial Thyroidectomy. Partial stomach removed from mesh through stomacH W/BYPASS, FEEDING TUBE. ORIF LT WRIST 03/2018. Past Anesthesia/Blood Transfusion Reactions: Family History of Problems w/ Anesthesia, Postoperative Nausea & Vomiting (PONV) Additional Past Anesthesia/Blood Transfusion Reaction / Comm: mother N/V Past Psychological History: Depression Additional Psychological History / Comment(s): . Adult children. No animal exposures. No experience. No international travel. Does not work outside of the home Smoking Status: Former smoker Past Alcohol Use History: Rare Additional Past Alcohol Use History / Comment(s): smoked from age 16 to 41 yrs, 1ppd. Past Drug Use History: None Reported - Past Family History Father Family Medical History: Cancer Mother Family Medical History: Cancer Brother(s) Family Medical History: Cancer Additional Family Medical History / Comment(s): PANCREAS CA Medications and Allergies Home Medications Medication Instructions Recorded Confirmed Type Levothyroxine Sodium [Synthroid] 75 mcg PO DAILY 01/06/17 07/28/18 History Milnacipran HCl [Savella] 100 mg PO BID 01/06/17 07/28/18 History Pramipexole [Mirapex] 1 mg PO QAM 01/06/17 07/28/18 History Pramipexole [Mirapex] 2 mg PO HS 09/14/17 07/28/18 History Omeprazole [PriLOSEC] 20 mg PO AC-BRKFST 03/29/18 07/28/18 History Ferrous Sulfate [Feosol] 325 mg PO DAILY 07/20/18 07/28/18 History Gabapentin [Neurontin] 100 mg PO HS 07/20/18 07/28/18 History Multivitamins, Thera [Multivitamin 1 tab PO DAILY 07/20/18 07/28/18 History (formulary)] Zinc 50 mg PO DAILY 07/20/18 07/28/18 History traMADol HCl [Ultram] 50 mg PO Q4-6H PRN 07/20/18 07/28/18 History Allergies Allergy/AdvReac Type Severity Reaction Status Date / Time latex Allergy Rash/Hives, Verified 07/28/18 16:57 DYSPNEA Latex, Natural Rubber Allergy Dyspnea, Verified 07/28/18 16:57 RASH Physical Exam Vitals: Vital Signs Temp Pulse Resp BP Pulse Ox 07/29/18 07:15 18 07/29/18 07:00 98.6 F 95 18 115/72 94 L 07/29/18 01:21 98.3 F 95 20 109/73 95 07/28/18 20:21 92 112/73 93 L 07/28/18 19:58 98.3 F 92 16 112/73 93 L 07/28/18 19:33 85 112/74 94 L 07/28/18 19:18 84 106/69 95 07/28/18 19:03 94 126/79 93 L 07/28/18 18:48 88 111/75 90 L 07/28/18 18:33 92 121/83 94 L 07/28/18 18:19 83 134/72 94 L 07/28/18 18:17 91 14 07/28/18 18:03 89 121/73 92 L 07/28/18 17:48 97.5 F L 95 16 122/77 95 07/28/18 17:29 91 14 125/66 97 07/28/18 17:19 83 16 145/69 98 07/28/18 17:15 82 18 145/69 98 07/28/18 17:00 80 16 137/64 96 07/28/18 16:45 91 16 141/62 99 07/28/18 16:15 98.9 F 76 14 133/61 98 Intake and Output 07/28/18 07/29/18 07/29/18 22:59 06:59 14:59 Intake Total 500 Balance 500 Intake: IV 100 Intake, IV Titration 400 Amount Lactated Ringers 1,000 ml 400 @ 100 mls/hr IV .Q10H [facility] Rx#:[id number] Other: Weight 241 kg 94.5 kg In general patient is alert and oriented 3 in no apparent distress HEENT head normocephalic and atraumatic Neck is supple no JVD no goiter no lymphadenopathy Chest exam reveals a few scattered rhonchi bilaterally no wheezing Cardiac exam reveals regular heart sounds S1 and S2 no gallops no murmurs Abdomen is soft nontender no organomegaly with normal bowel sounds, PEG tube in place Extremity exam reveals no edema no cyanosis or clubbing short-leg cast on the right lower extremity Neurological examination reveals no gross focal deficit Assessment and Plan Plan: #1 adult acquired flatfoot on the right status post surgical repair yesterday postoperative day #1 #2 underlying history of hypothyroidism resumed Synthroid #3 underlying history of fibromyalgia resume Savella and Mirapex #4 multiple complications from previous abdominal surgeries currently patient is on protein supplement at night through PEG tube #5 for DVT prophylaxis patient is on Lovenox 40 mg subcu daily, for GI prophylaxis Will start Protonix 40 mg daily Will follow during this hospitalization closely
[2018-07-29] MEDS: HYDROcodone/APAP 7.5-325MG 1 EACH TAB PO PRN ×2 (12:43→17:30)
[2018-07-29] MEDS: PANTOPRAZOLE 40 MG TABLET PO SCH (13:33)
--- NOTE | 2018-07-29 17:59 | P.ONQ ---
Anesthesiology Proc Note - PNB - Peripheral Nerve Block Performed Right Popliteal Single Time Out Performed: Yes Procedure Start Time: 16:46 Procedure Stop Time: 16:49 Indication: Acute Post-Operative Pain, Requested by physician Sedation Type: Sedate with meaningful contact maintained Preparation: Sterile Prep Needle Size: 50mm (2") Needle Gauge: 21 Technique: Ultrasound Injectate: 0.5% Ropivacaine (see comment for volume) (ropi .5% 20cc for popliteal block and 10 mL for saphenous nerve block) Blood Aspirated: No Pain Paresthesia on Injection Noted: No Resistance on Injection: Normal Events: Uneventful and Well Tolerated
[2018-07-29] MEDS: GABAPENTIN 100 MG CAP PO SCH (20:49)
[2018-07-29] MEDS: SENNOSIDES-DOCUSATE SODIUM 1 EACH TAB PO SCH (20:50)
[2018-07-30] MEDS: HYDROmorphone 1 MG/ML 1 ML SYRINGE IVP PRN ×6 (00:57→17:05)
[2018-07-30] MEDS: HYDROcodone/APAP 7.5-325MG 1 EACH TAB PO PRN (06:03)
[2018-07-30] MEDS: LEVOTHYROXINE 75 MCG TAB PO SCH (07:22)
[2018-07-30] MEDS: PRAMIPEXOLE 1 MG TAB PO SCH ×2 (07:22→20:44)
[2018-07-30] MEDS: MULTIVITAMINS, THERA 1 EACH TAB PO SCH (07:22)
[2018-07-30] MEDS: FERROUS SULFATE 325 MG TAB PO SCH (07:22)
[2018-07-30] MEDS: CALCIUM CARBONATE 500 MG CHEWABLE PO SCH ×3 (07:22→20:43)
[2018-07-30] MEDS: PANTOPRAZOLE 40 MG TABLET PO SCH (07:23)
[2018-07-30] MEDS: ENOXAPARIN 40 MG/0.4 ML SYRINGE SQ SCH (07:23)
[2018-07-30] MEDS: LACTATED RINGERS 1,000 ML IV SCH ×2 (07:23→17:07)
[2018-07-30] MEDS: ZINC SULFATE 220 MG CAP PO SCH (07:23)
[2018-07-30] MEDS: SAVELLA 100 MG PO SCH ×2 (07:24→22:17)
[2018-07-30 07:49] LABS: Anisocytosis Slight; Basophils % (A) 0 %; Eosinophils # (A) 0.1 k/uL (0-0.7); Eosinophils % (A) 2 %; HCT 33.2 % (34.0-46.0); HGB 10.2 gm/dL (11.4-16.0); Hypochromasia Moderate; Lymphocytes # (A) 0.9 k/uL (1.0-4.8); Lymphocytes % (A) 17 %; MCH 25.5 pg (25.0-35.0); MCHC 30.7 g/dL (31.0-37.0); MCV 83.1 fL (80.0-100.0); Microcytosis Slight; Monocytes # (A) 0.4 k/uL (0-1.0); Monocytes % (A) 8 %; Neutrophils # (A) 3.6 k/uL (1.3-7.7); Neutrophils % (A) 71 %; Platelet Count 228 k/uL (150-450); RBC 3.99 m/uL (3.80-5.40); RDW 17.9 % (11.5-15.5); WBC 5.1 k/uL (3.8-10.6)
[2018-07-30 07:58] LABS: ALT 21 U/L (9-52); AST 24 U/L (14-36); Albumin 3.1 g/dL (3.5-5.0); Alkaline Phosphatase 111 U/L (38-126); Anion Gap 5 mmol/L; Blood Urea Nitrogen 7 mg/dL (7-17); Calcium 8.3 mg/dL (8.4-10.2); Carbon Dioxide 31 mmol/L (22-30); Chloride 103 mmol/L (98-107); Glucose 130 mg/dL (74-99); Potassium 3.8 mmol/L (3.5-5.1); Sodium 139 mmol/L (137-145); Total Bilirubin 0.2 mg/dL (0.2-1.3); Total Protein 5.8 g/dL (6.3-8.2)
[2018-07-30] MEDS ORDERED: HYDROcodone/APAP 10-325MG 1 EACH TAB PO PRN ×2 (10:19)
--- NOTE | 2018-07-30 10:28 | P.PN ---
Subjective Progress Note Date: 07/30/18 Luciana case is a 58-year-old female who was admitted to [facility] by Dr. Rashaad Jose and underwent correction of right eyeball acquired flatfoot deformity with percutaneous and keel tendon lengthening and application of short-leg splint. Patient was admitted to the medical floor post surgery, consultation was requested for medical management while hospitalized. Patient's primary care physician is Dr. Maria L Deleon. On 07/30/2018 patient was seen and examined on the medical floor she is alert and oriented 3 slightly somnolent with pain medications she had nausea this morning she is still having significant pain in her right lower extremity otherwise she denies any complaints there is no fever or chills no headache or dizziness no chest pain no shortness of breath no cough no nausea or vomiting no abdominal pain no diarrhea and no urinary symptoms Objective - Vital Signs Vital signs: Vital Signs Temp 98.7 F 07/30/18 07:00 Pulse 84 07/30/18 07:00 Resp 16 07/30/18 07:00 BP 119/69 07/30/18 07:00 Pulse Ox 96 07/30/18 07:30 Intake & Output 07/29/18 07/30/18 07/30/18 18:59 06:59 18:59 Weight 94.5 kg Other: Voiding Method Bedpan # Voids 3 - Exam In general patient is alert and oriented 3 in no apparent distress HEENT head normocephalic and atraumatic Neck is supple no JVD no goiter no lymphadenopathy Chest exam reveals a few scattered rhonchi bilaterally no wheezing Cardiac exam reveals regular heart sounds S1 and S2 no gallops no murmurs Abdomen is soft nontender no organomegaly with normal bowel sounds, PEG tube in place Extremity exam reveals no edema no cyanosis or clubbing short-leg cast on the right lower extremity Neurological examination reveals no gross focal deficit - Labs CBC & Chem 7: 07/30/18 06:40 07/30/18 06:40 Labs: Abnormal Lab Results - Last 24 Hours (Table) 07/29/18 07/30/18 07/30/18 Range/Units 06:45 06:40 06:40 Hgb 10.2 L (11.4-16.0) gm/dL Hct 33.2 L (34.0-46.0) % MCHC 30.7 L (31.0-37.0) g/dL RDW 17.9 H (11.5-15.5) % Lymphocytes # 0.9 L (1.0-4.8) k/uL Carbon Dioxide 31 H (22-30) mmol/L Creatinine 0.43 L (0.52-1.04) mg/dL Glucose 130 H (74-99) mg/dL Calcium 8.3 L (8.4-10.2) mg/dL Total Protein 5.8 L (6.3-8.2) g/dL Albumin 3.1 L (3.5-5.0) g/dL Vitamin D 25-Hydroxy 19.4 L (30.0-100.0) ng/mL Assessment and Plan Plan: #1 adult acquired flatfoot on the right status post surgical repair yesterday postoperative day #1 #2 underlying history of hypothyroidism resumed Synthroid #3 underlying history of fibromyalgia resume Savella and Mirapex #4 multiple complications from previous abdominal surgeries currently patient is on protein supplement at night through PEG tube #5 for DVT prophylaxis patient is on Lovenox 40 mg subcu daily, for GI prophylaxis Will start Protonix 40 mg daily Will follow during this hospitalization closely Today I reviewed labs and medications I added vitamin D 50,000 units once weekly Continue current management otherwise will follow in a.m.
--- NOTE | 2018-07-30 10:30 | P.PN ---
Subjective Progress Note Date: 07/30/18 Principal diagnosis: Status post correction of right flatfoot deformity with double arthrodesis, percutaneous tendo-Achilles lengthening, and deep hardware removal This is a 58 year-old female post status post correction of right flatfoot deformity with double arthrodesis, percutaneous tendo-Achilles lengthening, and deep hardware removal. This is post-op day 2. The patient was evaluated at the bedside today. She is experiencing some nausea this morning which she attributes to Dilaudid. The patient denies abdominal pain, shortness of breath , and chest pain this morning. She states her pain is not controlled at this time. The patient has been up with physical therapy but continues to use the bed kemp. Objective - Vital Signs Vital signs: Vital Signs Temp 98.7 F 07/30/18 07:00 Pulse 84 07/30/18 07:00 Resp 16 07/30/18 07:00 BP 119/69 07/30/18 07:00 Pulse Ox 96 07/30/18 07:30 Intake & Output 07/29/18 07/30/18 07/30/18 18:59 06:59 18:59 Weight 94.5 kg Other: Voiding Method Bedpan # Voids 3 - Exam The patient is a 58-year-old female who is in no acute distress. She is alert and oriented 3. Bulky Moreno splint is in place to the right lower extremity. There is a small amount of old bleeding to the lateral aspect of the splint. Her toes are warm and well perfused with brisk capillary refill. Sensation is intact to the toes. There is no pain to passive range of motion of toes. She is able to actively move her toes without much difficulty. - Labs CBC & Chem 7: 07/30/18 06:40 07/30/18 06:40 Labs: Abnormal Lab Results - Last 24 Hours (Table) 07/29/18 07/30/18 07/30/18 Range/Units 06:45 06:40 06:40 Hgb 10.2 L (11.4-16.0) gm/dL Hct 33.2 L (34.0-46.0) % MCHC 30.7 L (31.0-37.0) g/dL RDW 17.9 H (11.5-15.5) % Lymphocytes # 0.9 L (1.0-4.8) k/uL Carbon Dioxide 31 H (22-30) mmol/L Creatinine 0.43 L (0.52-1.04) mg/dL Glucose 130 H (74-99) mg/dL Calcium 8.3 L (8.4-10.2) mg/dL Total Protein 5.8 L (6.3-8.2) g/dL Albumin 3.1 L (3.5-5.0) g/dL Vitamin D 25-Hydroxy 19.4 L (30.0-100.0) ng/mL Assessment and Plan (1) Flatfoot Current Visit: Yes Status: Acute Code(s): M21.40 - FLAT FOOT [PES PLANUS] ( ACQUIRED), UNSPECIFIED FOOT SNOMED Code(s): 12054620 (2) History of gastric bypass Current Visit: No Status: Acute Code(s): Z98.84 - BARIATRIC SURGERY STATUS SNOMED Code(s): 442935677 (3) Status post foot surgery Current Visit: Yes Status: Acute Code(s): Z98.890 - OTHER SPECIFIED POSTPROCEDURAL STATES SNOMED Code(s): 37026594794200021 Plan: 1. Continue pain control, [place] increased today. Decrease use of Dilaudid 2. Anticoagulation with Lovenox 3. Continue physical therapy and ambulation, strict non-weightbearing to right leg 4. Anticipate discharge to [facility] likely tomorrow.
[2018-07-30] MEDS: CHOLECALCIFEROL 1,000 UNIT TAB PO SCH (11:06)
[2018-07-30] MEDS: HYDROcodone/APAP 10-325MG 1 EACH TAB PO PRN ×2 (11:44→20:43)
[2018-07-30] MEDS ORDERED: ERGOCALCIFEROL 50,000 UNIT CAP PO SCH (12:00)
[2018-07-30] MEDS: SENNOSIDES-DOCUSATE SODIUM 1 EACH TAB PO SCH (20:43)
[2018-07-30] MEDS: GABAPENTIN 100 MG CAP PO SCH (22:16)
[2018-07-31] MEDS: HYDROcodone/APAP 10-325MG 1 EACH TAB PO PRN (02:24)
[2018-07-31] MEDS: LACTATED RINGERS 1,000 ML IV SCH ×2 (03:49→15:45)
[2018-07-31] MEDS: LEVOTHYROXINE 75 MCG TAB PO SCH (05:13)
[2018-07-31 08:39] LABS: Anisocytosis Slight; Basophils % (A) 0 %; Eosinophils # (A) 0.3 k/uL (0-0.7); Eosinophils % (A) 7 %; HCT 35.6 % (34.0-46.0); HGB 10.7 gm/dL (11.4-16.0); Hypochromasia Marked; Lymphocytes # (A) 1.2 k/uL (1.0-4.8); Lymphocytes % (A) 28 %; MCH 25.2 pg (25.0-35.0); MCHC 29.9 g/dL (31.0-37.0); MCV 84.2 fL (80.0-100.0); Mean Platelet Volume 7.1; Monocytes # (A) 0.3 k/uL (0-1.0); Monocytes % (A) 6 %; Neutrophils # (A) 2.5 k/uL (1.3-7.7); Neutrophils % (A) 57 %; Platelet Count 240 k/uL (150-450); RBC 4.23 m/uL (3.80-5.40); RDW 17.7 % (11.5-15.5); WBC 4.4 k/uL (3.8-10.6)
[2018-07-31 08:51] LABS: ALT 27 U/L (9-52); AST 26 U/L (14-36); Albumin 3.2 g/dL (3.5-5.0); Alkaline Phosphatase 107 U/L (38-126); Anion Gap 8 mmol/L; Blood Urea Nitrogen 8 mg/dL (7-17); Calcium 8.8 mg/dL (8.4-10.2); Carbon Dioxide 31 mmol/L (22-30); Chloride 102 mmol/L (98-107); Glucose 134 mg/dL (74-99); Sodium 141 mmol/L (137-145); Total Bilirubin 0.4 mg/dL (0.2-1.3); Total Protein 6.2 g/dL (6.3-8.2)
[2018-07-31] MEDS: CALCIUM CARBONATE 500 MG CHEWABLE PO SCH ×2 (08:55→17:39)
[2018-07-31] MEDS: PANTOPRAZOLE 40 MG TABLET PO SCH (08:55)
[2018-07-31] MEDS: SAVELLA 100 MG PO SCH ×2 (08:55→23:53)
[2018-07-31] MEDS: PRAMIPEXOLE 1 MG TAB PO SCH (08:55)
[2018-07-31] MEDS: ENOXAPARIN 40 MG/0.4 ML SYRINGE SQ SCH (08:55)
[2018-07-31] MEDS: MULTIVITAMINS, THERA 1 EACH TAB PO SCH (08:55)
[2018-07-31] MEDS: FERROUS SULFATE 325 MG TAB PO SCH (08:55)
[2018-07-31] MEDS: CHOLECALCIFEROL 1,000 UNIT TAB PO SCH (08:55)
[2018-07-31] MEDS: HYDROmorphone 1 MG/ML 1 ML SYRINGE IVP PRN ×2 (08:56→17:38)
[2018-07-31] MEDS: ZINC SULFATE 220 MG CAP PO SCH (08:56)
--- NOTE | 2018-07-31 11:20 | P.PN ---
Subjective Progress Note Date: 07/31/18 Luciana case is a 58-year-old female who was admitted to [facility] by Dr. Rashaad Jose and underwent correction of right eyeball acquired flatfoot deformity with percutaneous and keel tendon lengthening and application of short-leg splint. Patient was admitted to the medical floor post surgery, consultation was requested for medical management while hospitalized. Patient's primary care physician is Dr. Maria L Deleon. On 07/30/2018 patient was seen and examined on the medical floor she is alert and oriented 3 slightly somnolent with pain medications she had nausea this morning she is still having significant pain in her right lower extremity otherwise she denies any complaints there is no fever or chills no headache or dizziness no chest pain no shortness of breath no cough no nausea or vomiting no abdominal pain no diarrhea and no urinary symptoms 07/31/2018 patient sitting in bedside chair. She is complaining of pain in her foot. She is able to pivot to the bedside commode. She is scheduled for discharge to [facility] today. Denies any chest pain or shortness of breath. Denies nausea or vomiting. Reports being 2 days since last bowel movement. Denies any burning with urination. Objective - Vital Signs Vital signs: Vital Signs Temp 97.7 F 07/31/18 07:00 Pulse 73 07/31/18 07:00 Resp 12 07/31/18 07:00 BP 130/84 07/31/18 07:00 Pulse Ox 97 07/31/18 07:00 Intake & Output 07/30/18 07/31/18 07/31/18 18:59 06:59 18:59 Other: Voiding Method Bedpan Bedpan - Exam Head normocephalic Neck supple Lungs clear to auscultation bilaterally no wheezing or crackles Heart regular rate and rhythm S1-S2, no rub or gallop Abdomen is soft nontender nondistended positive bowel sounds no hepatosplenomegaly Extremities no edema. Right foot in leg splint and Benson wrapped Neuro alert and orientated to 3 - Labs CBC & Chem 7: 07/31/18 08:01 07/31/18 08:01 Labs: Abnormal Lab Results - Last 24 Hours (Table) 07/31/18 07/31/18 Range/Units 08:01 08:01 Hgb 10.7 L (11.4-16.0) gm/dL MCHC 29.9 L (31.0-37.0) g/dL RDW 17.7 H (11.5-15.5) % Carbon Dioxide 31 H (22-30) mmol/L Creatinine 0.40 L (0.52-1.04) mg/dL Glucose 134 H (74-99) mg/dL Total Protein 6.2 L (6.3-8.2) g/dL Albumin 3.2 L (3.5-5.0) g/dL Assessment and Plan Assessment: #1 adult acquired flatfoot on the right status post surgical repair yesterday postoperative day #3. #2 underlying history of hypothyroidism resumed Synthroid #3 underlying history of fibromyalgia resume Savella and Mirapex #4 multiple complications from previous abdominal surgeries currently patient is on protein supplement at night through PEG tube #5 for DVT prophylaxis patient is on Lovenox 40 mg subcu daily, for GI prophylaxis Will start Protonix 40 mg daily #6 iron deficiency anemia: Continue iron supplement #7 vitamin D insufficiency: Vitamin D 25 hydroxy level 19.4. Patient started on vitamin D2 50,000 units by mouth every 7 days for 8 weeks Patient is medically stable for discharge to [facility] when cleared by orthopedics. Pain management per orthopedics. Recommend rechecking a CBC in 1 week and a vitamin D level in 9 weeks. When patient completes the 8 weeks of the high dose of vitamin D she can start vitamin D3 2000 units daily I performed an examination of the patient and discussed their management with the physician Oracle Application Architect. I have reviewed the Physician Oracle Application Architect's notes and agree with the documented findings and plan of care
--- NOTE | 2018-07-31 11:53 | P.PN ---
Subjective Progress Note Date: 07/31/18 Principal diagnosis: Status post correction of right flatfoot deformity with double arthrodesis, percutaneous tendo-Achilles lengthening, and deep hardware removal This is a 58 year-old female post status post correction of right flatfoot deformity with double arthrodesis, percutaneous tendo-Achilles lengthening, and deep hardware removal on 07/28/[address] Jose. Today is post-op day 3. The patient was evaluated at the bedside today, she is complaining of persistent pain of the right foot, she describes it as "pounding". The patient denies abdominal pain, shortness of breath, fevers, chest pain, or dysuria. She states her pain is not controlled at this time. The patient has been up with physical therapy and is pivoting to the beside commode. Objective - Vital Signs Vital signs: Vital Signs Temp 97.7 F 07/31/18 07:00 Pulse 73 07/31/18 07:00 Resp 12 07/31/18 07:00 BP 130/84 07/31/18 07:00 Pulse Ox 97 07/31/18 07:00 Intake & Output 07/30/18 07/31/18 07/31/18 18:59 06:59 18:59 Other: Voiding Method Bedpan Bedpan - Exam The patient is a 58-year-old female who is in no acute distress, sitting up in her chair. She is alert and oriented 3. Bulky Moreno splint is in place to the right lower extremity. The toes are warm and well perfused with brisk capillary refill. Sensation is intact to the toes. There is no pain to passive range of motion of toes. She is able to actively move her toes without much difficulty. - Labs CBC & Chem 7: 07/31/18 08:01 07/31/18 08:01 Labs: Abnormal Lab Results - Last 24 Hours (Table) 07/31/18 07/31/18 Range/Units 08:01 08:01 Hgb 10.7 L (11.4-16.0) gm/dL MCHC 29.9 L (31.0-37.0) g/dL RDW 17.7 H (11.5-15.5) % Carbon Dioxide 31 H (22-30) mmol/L Creatinine 0.40 L (0.52-1.04) mg/dL Glucose 134 H (74-99) mg/dL Total Protein 6.2 L (6.3-8.2) g/dL Albumin 3.2 L (3.5-5.0) g/dL Assessment and Plan Assessment: Status post correction of right flatfoot deformity with double arthrodesis, percutaneous tendo-Achilles lengthening, and deep hardware removal Post-op day #3 Plan: -Continue strict nonweightbearing right lower extremity -Continue DVT prophylaxis with Lovenox -Physical therapy for mobilization and gait training -Percocet 5mg ordered for pain control, decrease use of Diluadid as tolerated -Patient will stay inpatient for another night for pain management -Possible discharge to [facility] tomorrow
[2018-07-31] MEDS: oxyCODONE-APAP 5-325MG 1 EACH TAB PO PRN ×3 (12:47→21:02)
[2018-08-01] MEDS: SENNOSIDES-DOCUSATE SODIUM 1 EACH TAB PO SCH (00:37)
[2018-08-01] MEDS: GABAPENTIN 100 MG CAP PO SCH (00:37)
[2018-08-01] MEDS: PRAMIPEXOLE 1 MG TAB PO SCH ×2 (00:37→09:23)
[2018-08-01] MEDS: oxyCODONE-APAP 5-325MG 1 EACH TAB PO PRN ×3 (00:38→09:23)
[2018-08-01] MEDS: CALCIUM CARBONATE 500 MG CHEWABLE PO SCH ×2 (00:46→09:23)
[2018-08-01] MEDS: LACTATED RINGERS 1,000 ML IV SCH ×2 (03:46→09:21)
[2018-08-01 04:04] VITALS: TEMP 98.1
[2018-08-01 05:41] LABS: Hemoglobin A1C 5.9 % (4.0-6.0)
[2018-08-01] MEDS: LEVOTHYROXINE 75 MCG TAB PO SCH (05:53)
--- NOTE | 2018-08-01 09:03 | P.DS ---
Providers Date of admission: 07/28/18 10:25 Attending physician: Rashaad Jose Consults: 07/28/18 15:45 Consult Physician Routine Consulting Provider: Charisse Mann Consult Reason/Comments: post op medical management Do you want consulting provider notified?: Already Contacted Primary care physician: Maria L Deleon [facility] Course: This is a 58-year-old female with a past medical history of obesity, hypothyroidism, fibromyalgia, multiple gastric surgeries with a current percutaneous feeding tube that was seen in the office by Dr. Jose for her flat foot deformity of the right foot. After nonsurgical treatment with bracing and shoe modifications, the patient requested surgery. Patient underwent a subtalar and talonavicular fusion, removal of hardware of the deep right foot, and a right percutaneous tendo Achilles lengthening on 07/28/[address] Jose. The patient was admitted to [facility] following this procedure. Procedure was performed without complication or sequelae. Patient is doing well postoperatively. Vital signs and postoperative labs are stable. The patient is transferring to the bedside commode with a walker with minimal assistance. Patient was seen at bedside today and she has no new complaints. She denies chest pain, shortness of breath, fevers, chills, abdominal pain, or dysuria. Patient states her pain is currently well-controlled. On exam the patient is sitting up in her chair in no acute distress. Patient is alert and oriented 3. A Bulky Moreno splint is in place to the right lower extremity. The toes are warm and well perfused with brisk capillary refill. Sensation is intact to the toes. There is no pain to passive range of motion of toes. She is able to actively move her toes without difficulty. Right calf if soft and nontender. Right dorsalis pedis pulse +2. The patient is discharged in good condition. She will be discharged to [facility]. Please see discharge orders. Please refer to the med rec for accurate list of medications. Procedures: 1. Subtalar and talonavicular fusion 2. Right foot hardware removal 3. Right percutaneous tendo Achilles lengthening Plan - Discharge Summary Discharge Rx Participant: Yes New Discharge Prescriptions: New Ergocalciferol [Vitamin D2 (DRISDOL)] 50,000 unit PO Q7D #8 cap Aspirin 325 mg PO BID #28 tab Docusate [Colace] 100 mg PO BID #60 capsule oxyCODONE-APAP 5-325MG [Percocet 5-325 mg] 1 tab PO Q4HR PRN 7 Days #42 tab PRN Reason: Pain Continue Milnacipran HCl [Savella] 100 mg PO BID Levothyroxine Sodium [Synthroid] 75 mcg PO DAILY Pramipexole [Mirapex] 1 mg PO QAM Pramipexole [Mirapex] 2 mg PO HS Omeprazole [PriLOSEC] 20 mg PO AC-BRKFST Ferrous Sulfate [Iron (65 MG Elemental)] 325 mg PO DAILY Gabapentin [Neurontin] 100 mg PO HS Multivitamins, Thera [Multivitamin (formulary)] 1 tab PO DAILY Zinc 50 mg PO DAILY No Action traMADol HCl [Ultram] 50 mg PO Q4-6H PRN PRN Reason: Pain Discharge Medication List Levothyroxine Sodium [Synthroid] 75 mcg PO DAILY 01/06/17 [History] Milnacipran HCl [Savella] 100 mg PO BID 01/06/17 [History] Pramipexole [Mirapex] 1 mg PO QAM 01/06/17 [History] Pramipexole [Mirapex] 2 mg PO HS 09/14/17 [History] Omeprazole [PriLOSEC] 20 mg PO AC-BRKFST 03/29/18 [History] Ferrous Sulfate [Iron (65 MG Elemental)] 325 mg PO DAILY 07/20/18 [History] Gabapentin [Neurontin] 100 mg PO HS 07/20/18 [History] Multivitamins, Thera [Multivitamin (formulary)] 1 tab PO DAILY 07/20/18 [History ] Zinc 50 mg PO DAILY 07/20/18 [History] traMADol HCl [Ultram] 50 mg PO Q4-6H PRN 07/20/18 [History] Ergocalciferol [Vitamin D2 (DRISDOL)] 50,000 unit PO Q7D #8 cap 07/31/18 [Rx] Aspirin 325 mg PO BID #28 tab 08/01/18 [Rx] Docusate [Colace] 100 mg PO BID #60 capsule 08/01/18 [Rx] oxyCODONE-APAP 5-325MG [Percocet 5-325 mg] 1 tab PO Q4HR PRN 7 Days #42 tab [Rx] Follow up Appointment(s)/Referral(s): Maria L Deleon DO [Primary Care Provider] - 1 Week Rashaad Jose MD [Medical Doctor] - 2 Weeks Ambulatory/Diagnostic Orders: Complete Blood Count w/diff [LAB.AMB] Time Frame: 1 Week, Location: None Selected Activity/Diet/Wound Care/Special Instructions: Diet: regular recommend checking vitamin D level in [address] Mann to follow at [facility] of 1. Strict non-weight bearing of the right leg. 2. Keep splint intact until follow-up visit in the office. Keep splint clean and dry. 3. Ice and elevate the right leg. 4. Take pain medications as directed. Take Colace and Miralax as a stool softener. 5. Take an aspirin daily for blood clot prevention. 6. Follow-up appointment in the office with Dr. Jose in 2 weeks. 7. Call the office with any questions or concerns, Discharge Disposition: TRANSFER TO SNF/ECF
[2018-08-01] MEDS: SAVELLA 100 MG PO SCH (09:14)
[2018-08-01] MEDS: ZINC SULFATE 220 MG CAP PO SCH (09:23)
[2018-08-01] MEDS: CHOLECALCIFEROL 1,000 UNIT TAB PO SCH (09:23)
[2018-08-01] MEDS: MULTIVITAMINS, THERA 1 EACH TAB PO SCH (09:23)
[2018-08-01] MEDS: FERROUS SULFATE 325 MG TAB PO SCH (09:23)
[2018-08-01] MEDS: PANTOPRAZOLE 40 MG TABLET PO SCH (09:24)
[2018-08-01] MEDS: ENOXAPARIN 40 MG/0.4 ML SYRINGE SQ SCH (09:24)
[2018-08-01 09:38] VITALS: RESP 16
[2018-08-01 11:32] VITALS: BP 156/88; PULSE 85
--- NOTE | 2018-08-01 12:40 | P.PN ---
Subjective Progress Note Date: 08/01/18 Luciana case is a 58-year-old female who was admitted to [facility] and underwent right adult acquired flatfoot deformity with double arthrodesis ( subralar and talonavicular fusion), percutaneous tendon Achilles lengthening on the right, removal of hardware, application of short leg splint completed by Dr. Jose. Patient was admitted to the medical floor post surgery, consultation was requested for medical management while hospitalized. Patient's primary care physician is Dr. Maria L Deleon. On 07/30/2018 patient was seen and examined on the medical floor she is alert and oriented 3 slightly somnolent with pain medications she had nausea this morning she is still having significant pain in her right lower extremity otherwise she denies any complaints there is no fever or chills no headache or dizziness no chest pain no shortness of breath no cough no nausea or vomiting no abdominal pain no diarrhea and no urinary symptoms 07/31/2018 patient sitting in bedside chair. She is complaining of pain in her foot. She is able to pivot to the bedside commode. She is scheduled for [facility] today. Denies any chest pain or shortness of breath. Denies nausea or vomiting. Reports being 2 days since last bowel movement. Denies any burning with urination. 08/01/2018 patient was not discharged yesterday due to pain. Orthopedics added Percocet. Patient's pain is better controlled today. She did have elevated blood pressure this morning 170/74. Repeat blood pressure was 156/88. Her pain is better controlled. Likely elevated blood pressure due to pain. Patient denies any chest pain or shortness of breath denies a nausea or vomiting she is passing gas no bowel movement 3 days. Denies any burning with urination Objective - Vital Signs Vital signs: Vital Signs Temp 98.1 F 08/01/18 07:00 Pulse 85 08/01/18 11:32 Resp 16 08/01/18 07:00 BP 156/88 08/01/18 11:32 Pulse Ox 99 08/01/18 07:00 Intake & Output 07/31/18 08/01/18 08/01/18 18:59 06:59 18:59 Intake Total 222 Balance 222 Weight 94.5 kg 94.5 kg Intake: Oral 222 Other: Voiding Method Bedside Commode # Voids 1 1 - Exam Head normocephalic Neck supple Lungs clear to auscultation bilaterally no wheezing or crackles Heart regular rate and rhythm S1-S2, no rub or gallop Abdomen is soft nontender nondistended positive bowel sounds no hepatosplenomegaly Extremities no edema. Right foot in leg splint and Benson wrapped Neuro alert and orientated to 3 - Labs CBC & Chem 7: 07/31/18 08:01 07/31/18 08:01 Labs: Abnormal Lab Results - Last 24 Hours (Table) 07/31/18 Range/Units 08:01 Prealbumin 6.0 L (18.0-42.0) mg/dL Assessment and Plan Assessment: #1 adult acquired flatfoot on the right status post surgical repair yesterday postoperative day #4. #2 underlying history of hypothyroidism resumed Synthroid #3 underlying history of fibromyalgia resume Savella and Mirapex #4 multiple complications from previous abdominal surgeries currently patient is on protein supplement at night through PEG tube #5 for DVT prophylaxis patient is on Lovenox 40 mg subcu daily, for GI prophylaxis Will start Protonix 40 mg daily #6 iron deficiency anemia: Continue iron supplement #7 vitamin D insufficiency: Vitamin D 25 hydroxy level 19.4. Patient started on vitamin D2 50,000 units by mouth every 7 days for 8 weeks Patient is medically stable for discharge to [facility] when cleared by orthopedics. Pain management per orthopedics. Recommend rechecking a CBC in 1 week and a vitamin D level in 9 weeks. When patient completes the 8 weeks of the high dose of vitamin D she can start vitamin D3 2000 units daily I performed an examination of the patient and discussed their management with the physician Biologist Aide. I have reviewed the Physician Biologist Aide's notes and agree with the documented findings and plan of care
== END 2018-08-01 14:01 | DRG 496 ==
LOC: 2ORMAIN 07-28 10:25 → 4SSUR 07-28 16:39
PROVIDERS: ADMIT Orthopaedic Surgery; ATTEND Orthopaedic Surgery
PROC: 0L8N0ZZ Division of Right Lower Leg Tendon, Open Approach (ICD-10-PCS; 2018-07-28)
PROC: 0QPL04Z Removal of Internal Fixation Device from Right Tarsal, Open Approach (ICD-10-PCS; principal; 2018-07-28 12:30)
DX: M21.41 Flat foot [pes planus] (acquired), right foot (principal); K31.6 Fistula of stomach and duodenum; K95.09 Other complications of gastric band procedure; E44.0 Moderate protein-calorie malnutrition; E66.01 Morbid (severe) obesity due to excess calories; M67.01 Short Achilles tendon (acquired), right ankle; E11.9 Type 2 diabetes mellitus without complications; E55.9 Vitamin D deficiency, unspecified; D50.9 Iron deficiency anemia, unspecified; E89.2 Postprocedural hypoparathyroidism; I10 Essential (primary) hypertension; M79.7 Fibromyalgia; I83.90 Asymptomatic varicose veins of unspecified lower extremity; K21.9 Gastro-esophageal reflux disease without esophagitis; Z68.37 Body mass index [BMI] 37.0-37.9, adult; Z79.890 Hormone replacement therapy; Z79.899 Other long term (current) drug therapy; Z98.84 Bariatric surgery status; Z90.710 Acquired absence of both cervix and uterus; Z98.891 History of uterine scar from previous surgery; Z87.891 Personal history of nicotine dependence; Z90.49 Acquired absence of other specified parts of digestive tract; Z96.651 Presence of right artificial knee joint; Z91.040 Latex allergy status; Z82.49 Family history of ischemic heart disease and other diseases of the circulatory system; Y83.1 Surgical operation with implant of artificial internal device as the cause of abnormal reaction of the patient, or of later complication, without mention of misadventure at the time of the procedure; Z80.0 Family history of malignant neoplasm of digestive organs; Z86.59 Personal history of other mental and behavioral disorders
CPT/HCPCS: 80053; 82306; 83036; 84134; 85025

== ENCOUNTER → 2019-05-01 | Outpatient (CLI) | payer MEDICARE, OTHER ==
[2019-05-01 19:03] LABS: Anti-DNA, DS unit <1.0 IU/mL; DNA Double-Stranded NEGATIVE (NEGATIVE)
== END | disposition home or self-care (01) ==
LOC: LABWHC1 09:26
PROVIDERS: ATTEND Internal Medicine Rheumatology
DX: M25.50 Pain in unspecified joint (principal)
CPT/HCPCS: 36415; 86225; 86235

== ENCOUNTER → 2019-08-06 | Outpatient (CLI) | payer MEDICARE, OTHER ==
--- NOTE | 2019-08-06 20:44 | MR ---
EXAMINATION TYPE: MR brain wo/w con DATE OF EXAM: 08/06/2019 COMPARISON: None HISTORY: Blurry vision, mellisa lower ext weakness, weakness in fingers CONTRAST: Performed utilizing 13.5 mL intravenous Gadavist gadolinium contrast. TECHNIQUE: Multiplanar, multiecho imaging on a 3.0 Alyssia magnet is performed through the brain. Stud y is performed within 24 hours of arrival to the hospital. The craniovertebral junction is normal. The pituitary is normal. Diffusion-weighted imaging is performed. No abnormal hyperintensity is present to suggest an acute i ntracranial infarct or acute ischemic change. There are scattered punctate areas of hyperintensity on T2 and Inversion Recovery weighted sequences which are non-specific but can be related to microvascular ischemic changes. Is nonspecific. Other et iologies including multiple sclerosis or migraine headaches and vasculitis should be considered. Lyme disease could be considered Ventricles and sulci are appropriate for the patient age. Portions of the orbits within the field-of- view as visualized are normal. There are air-fluid levels within bilateral maxillary sinuses with thick mucosal thickening. Mild muc osal thickening in ethmoid air cells. There is mucosal thickening possible small air-fluid level with in the sphenoid sinus. There is opacification of left frontal sinus. Clinical correlation recommended for pansinusitis. IMPRESSIONS: 1. Multiple scattered white matter changes in the centrum semiovale, likely on the basis of chronic w cyn matter ischemic changes. Differential diagnosis is discussed above. 2. Clinical correlation recommended for sinusitis.
== END | disposition home or self-care (01) ==
LOC: RADMRIMAIN 10:18
PROVIDERS: ATTEND Family Medicine
DX: R90.89 Other abnormal findings on diagnostic imaging of central nervous system (principal); H53.8 Other visual disturbances
CPT/HCPCS: 70553; A9585

== ENCOUNTER 2020-06-23 12:05 | Emergency (ER) | payer MEDICARE, OTHER ==
[2020-06-23 12:16] VITALS: RESP 14
--- NOTE | 2020-06-23 12:46 | XR ---
EXAMINATION TYPE: XR shoulder complete 3 views RT, XR tibia fibula 2 views RT DATE OF EXAM: 06/23/2020 Comparison: None Clinical History: 60-year-old female fall, pain Findings: Right shoulder: Moderate to severe joint space narrowing and capsular hypertrophy at the acromioclavicular joint. Sub acromial space is preserved. Moderate degenerative spurring at the glenohumeral joint. No acute fract ure, subluxation, dislocation seen. Right tibia/fibula: Visualized portions of the right total knee arthroplasty appear intact. No periprosthetic fracture is identified. More mid to distal tibia and fibula shows no acute fracture or dislocation. Surgical art hrodesis of the hindfoot partially visualized. Nonspecific alis of calcification projecting in the p retibial soft tissues overlying the tibial tuberosity. Impression: 1. 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 Mild to moderate right GH joint OA. No acute osseous susceptibility seen. 2. Right tibia/fibula: No acute osseous abnormality seen. Previous right total knee arthroplasty and surgical arthrodesis of the hindfoot.
--- NOTE | 2020-06-23 13:03 | ED ---
Fall HPI - General Chief Complaint: Fall Stated Complaint: Fall, Ankle Pain Time Seen by Provider: 06/23/20 12:08 Source: patient, EMS, RN notes reviewed Mode of arrival: EMS Limitations: physical limitation - History of Present Illness Initial Comments: This is a 60-year-old female presents emergency from via EMS with chief complaint of a fall. Patient states she was stepping out her door and states that she fell on her right ankle she has pain had a right ankle and right lower leg. No paresthesias. Patient states that she did not have a head injury. Patient was given pain medication by EMS which has helped her pain. Patient denies any hip pain. Patient had a prior right knee surgery. - Related Data Home Medications Medication Instructions Recorded Confirmed Levothyroxine Sodium [Synthroid] 75 mcg PO DAILY 01/06/17 07/28/18 Milnacipran HCl [Savella] 100 mg PO BID 01/06/17 07/28/18 Pramipexole [Mirapex] 1 mg PO QAM 01/06/17 07/28/18 Pramipexole [Mirapex] 2 mg PO HS 09/14/17 07/28/18 Omeprazole [PriLOSEC] 20 mg PO AC-BRKFST 03/29/18 07/28/18 Ferrous Sulfate [Iron (65 MG 325 mg PO DAILY 07/20/18 07/28/18 Elemental)] Gabapentin [Neurontin] 100 mg PO HS 07/20/18 07/28/18 Multivitamins, Thera [Multivitamin 1 tab PO DAILY 07/20/18 07/28/18 (formulary)] Zinc 50 mg PO DAILY 07/20/18 07/28/18 traMADol HCl [Ultram] 50 mg PO Q4-6H PRN 07/20/18 07/28/18 Previous Rx's Medication Instructions Recorded Ergocalciferol [Vitamin D2 50,000 unit PO Q7D #8 cap 07/31/18 (DRISDOL)] Aspirin 325 mg PO BID #28 tab 08/01/18 Docusate [Colace] 100 mg PO BID #60 capsule 08/01/18 oxyCODONE-APAP 5-325MG [Percocet 1 tab PO Q4HR PRN 7 Days #42 tab 08/01/18 5-325 mg] Ibuprofen [Motrin] 600 mg PO Q8HR PRN #30 tab 06/23/20 Allergies Allergy/AdvReac Type Severity Reaction Status Date / Time latex Allergy Rash/Hives, Verified 07/28/18 16:57 DYSPNEA Latex, Natural Rubber Allergy Dyspnea, Verified 07/28/18 16:57 RASH Review of Systems ROS Statement: Those systems with pertinent positive or pertinent negative responses have been documented in the HPI. ROS Other: All systems not noted in ROS Statement are negative. Past Medical History Past Medical History: Fibromyalgia, GERD/Reflux, Hypertension, Thyroid Disorder Additional Past Medical History / Comment(s): RECENT FX LT WRIST-03/29/18 History of Any Multi-Drug Resistant Organisms: None Reported Past Surgical History: Back Surgery, Cholecystectomy, Hernia Repair, Hysterectomy, Joint Replacement, Orthopedic Surgery Additional Past Surgical History / Comment(s): Right knee arthroplasty; R Knee replacement; right foot surgery; EGD; Colonoscopies, partial thyroidectomy, partial stomach removed from mesh through stomacH W/BYPASS AND FEEDING TUBE Past Anesthesia/Blood Transfusion Reactions: Family History of Problems w/ Anesthesia, Postoperative Nausea & Vomiting (PONV) Additional Past Anesthesia/Blood Transfusion Reaction / Comment(s): mother N/V Past Psychological History: Depression Past Alcohol Use History: None Reported Past Drug Use History: Marijuana - Past Family History Father Family Medical History: Cancer Mother Family Medical History: Cancer Brother(s) Family Medical History: Cancer Additional Family Medical History / Comment(s): PANCREAS CA General Exam Limitations: no limitations General appearance: alert, in no apparent distress Head exam: Present: atraumatic, normocephalic, normal inspection Respiratory exam: Present: normal lung sounds bilaterally. Absent: respiratory distress, wheezes, rales, rhonchi, stridor Cardiovascular Exam: Present: regular rate (Patient was tachycardic at triage though heart rate is improved. Heart rate 92 on exam), normal rhythm, normal heart sounds. Absent: systolic murmur, diastolic murmur, rubs, gallop, clicks GI/Abdominal exam: Present: soft, normal bowel sounds. Absent: distended, tenderness, guarding, rebound, rigid Extremities exam: Present: other (Tenderness to use of the right tibia there is old surgical scar noted of the right knee patient's full range of motion nontender is at the right hip foot is nontender neurovascular intact) Back exam: Present: full ROM. Absent: tenderness, paraspinal tenderness, vertebral tenderness Neurological exam: Present: reflexes normal. Absent: motor sensory deficit Skin exam: Present: warm, dry, intact, normal color. Absent: rash Course Vital Signs 06/23/20 12:13 Temperature 97.0 F L Pulse Rate 122 H Respiratory 14 Rate Blood Pressure 128/84 O2 Sat by Pulse 96 Oximetry Medical Decision Making - Medical Decision Making X-rays reviewed there are no acute fracture. Patient has right shoulder sprain right ankle sprain. Patient will be discharged with pain medication. Patient follow-up with her orthopedic physician and orthopedics associate return parameters were discussed. Disposition Clinical Impression: Fall, Right shoulder strain, Right ankle sprain Disposition: HOME SELF-CARE Condition: Stable Instructions (If sedation given, give patient instructions): Ankle Sprain (ED) Additional Instructions: Please return to the Emergency Department if symptoms worsen or any other concerns. Prescriptions: Ibuprofen [Motrin] 600 mg PO Q8HR PRN #30 tab PRN Reason: Pain Is patient prescribed a controlled substance at d/c from ED?: No Referrals: Maria L Deleon DO [Primary Care Provider] - 1-2 days Will Barrios DO [Doctor of Osteopathic Medicine] - 1-2 days Time of Disposition: 13:18
[2020-06-23] MEDS ORDERED: ACET/COD 300 MG/30 MG STARTER PACK 6 TAB BTL PO STA (13:18)
[2020-06-23 13:31] VITALS: BP 141/109; PULSE 125; TEMP 97.1
== END 2020-06-23 13:31 | disposition home or self-care (01) ==
LOC: EC 12:05
DX: S93.401A Sprain of unspecified ligament of right ankle, initial encounter (principal); S46.911A Strain of unspecified muscle, fascia and tendon at shoulder and upper arm level, right arm, initial encounter; E07.9 Disorder of thyroid, unspecified; K21.9 Gastro-esophageal reflux disease without esophagitis; I10 Essential (primary) hypertension; F32.9 Major depressive disorder, single episode, unspecified; Z79.890 Hormone replacement therapy; Z79.899 Other long term (current) drug therapy; Z91.040 Latex allergy status; Z91.048 Other nonmedicinal substance allergy status; Z96.651 Presence of right artificial knee joint; W19.XXXA Unspecified fall, initial encounter
CPT/HCPCS: 99284

== ENCOUNTER → 2020-07-07 | Outpatient (CLI) | payer MEDICARE, OTHER ==
--- NOTE | 2020-07-07 17:55 | US ---
EXAMINATION TYPE: US venous doppler duplex LE RT DATE OF EXAM: 07/07/2020 1:32 PM COMPARISON: NONE CLINICAL HISTORY: 60-year-old female I80.9 PHLEBITIS AND THROMBOPHLEBITIS OF UNSPECIFIED. SIDE PERFORMED: Right TECHNIQUE: The lower extremity deep venous system is examined utilizing real time linear array sonog brandon with graded compression, doppler sonography and color-flow sonography. FINDINGS: VESSELS IMAGED: External Iliac Vein (EIV) Common Femoral Vein Deep Femoral Vein Greater Saphenous Vein * Femoral Vein Popliteal Vein Small Saphenous Vein * Proximal Calf Veins Posterior tibial veins (* superficial vessels) Receiving Checker notes: Patient of large body habitus. Right Leg: Appears negative for DVT (GSV and posterior tibial veins also scanned per order). IMPRESSION: No evidence for DVT within the right lower extremity.
== END | disposition home or self-care (01) ==
LOC: RADUSWWP 13:01
PROVIDERS: ATTEND Orthopaedic Surgery
DX: M79.671 Pain in right foot (principal); M21.41 Flat foot [pes planus] (acquired), right foot; M79.7 Fibromyalgia; I10 Essential (primary) hypertension; Z48.89 Encounter for other specified surgical aftercare; R60.9 Edema, unspecified; M32.9 Systemic lupus erythematosus, unspecified; M19.071 Primary osteoarthritis, right ankle and foot; Z87.891 Personal history of nicotine dependence; M25.571 Pain in right ankle and joints of right foot; M25.561 Pain in right knee; Z96.651 Presence of right artificial knee joint; S83.12 Posterior subluxation and dislocation of proximal end of tibia; M79.661 Pain in right lower leg; I80.9 Phlebitis and thrombophlebitis of unspecified site

== ENCOUNTER → 2020-11-17 | Outpatient (CLI) | payer MEDICARE, OTHER ==
--- NOTE | 2020-11-17 08:14 | CT ---
EXAMINATION TYPE: CT chest w con DATE OF EXAM: 11/17/2020 COMPARISON: CTA chest September 14, 2017 and a 01/29/2017 HISTORY: Restricted Lung Disease with difficulty breathing. CT DLP: 701.7 mGycm. Automated Exposure Control for Dose Reduction was Utilized. TECHNIQUE: CT scan of the thorax is performed following with IV Contrast, patient injected with 100 mL of Isovue 300. FINDINGS: LUNGS: There is new elevated right hemidiaphragm with right basilar linear scarring and/or atelectasi s. Left lung shows mild to moderate linear scarring and/or atelectasis anteriorly in the base. No ple ural effusion or pneumothorax seen bilaterally. MEDIASTINUM: There are no greater than 1 cm hilar or mediastinal lymph nodes. No cardiomegaly or pe ricardial effusion is seen. Main pulmonary artery measures 2.9 cm in diameter axial image 23, unchan ged from prior studies. Absent right thyroid lobe redemonstrated OTHER: Surgical changes from gastric bypass procedure. Cholecystectomy clips redemonstrated. Addition al surgical coils and sutures in the anterior abdominal wall in the upper abdomen are noted. Underlyi ng scoliotic curvature is present. IMPRESSION: New Elevated right hemidiaphragm. Consider diaphragm paralysis. Consider fluoroscopic as sisted sniff test to further evaluate. Mild to moderate bibasilar linear scarring and/or atelectasis.
== END | disposition home or self-care (01) ==
LOC: RADCTMAIN 07:09
PROVIDERS: ATTEND Family Medicine
DX: J98.4 Other disorders of lung (principal); J98.6 Disorders of diaphragm
CPT/HCPCS: 71260; Q9967

== ENCOUNTER → 2020-11-28 | Outpatient (CLI) | payer MEDICARE, OTHER ==
--- NOTE | 2020-11-28 10:39 | FL ---
EXAMINATION TYPE: FL sniff test without CXR DATE OF EXAM: 11/28/2020 COMPARISON: Chest CT 11 days ago. Older studies from 2018. HISTORY: Recent abnormal CT. Dyspnea. History of heart ablation. TECHNIQUE: Fluoroscopy assisted sniff test. Total 1.04 minutes. 38 images saved to PACS. . FINDINGS: There is redemonstration of elevated right hemidiaphragm. Overlying cholecystectomy clips. Overlying coils from ventral wall hernia repair surgery. Dynamic imaging showed satisfactory movement of the left hemidiaphragm during inspiration and expirat ion. Right hemidiaphragm compared to show some movement and an appropriate direction but diminished f rom opposite left side. IMPRESSION: Elevated right hemidiaphragm redemonstrated new from 2018. No complete paralysis of right hemidiaphragm, sluggish or diminished motion relative to the left hemidiaphragm noted.
== END ==
LOC: RADUSWWP 08:15
PROVIDERS: ATTEND Family Medicine
DX: R06.00 Dyspnea, unspecified (principal)
CPT/HCPCS: 76000

== ENCOUNTER 2021-04-11 18:54 | Inpatient (IN) | payer MEDICARE, OTHER ==
[2021-04-11] MEDS ORDERED: SODIUM CHLORIDE 0.9% 500 ML 500 ML IV STA (19:16)
[2021-04-11] MEDS ORDERED: ACETAMINOPHEN TAB 500 MG TAB PO STA (19:17)
--- NOTE | 2021-04-11 19:35 | ED ---
General Adult HPI - General Chief complaint: Chest Pain Stated complaint: Chest Pain Time Seen by Provider: 04/11/21 18:59 Source: patient, RN notes reviewed, old records reviewed Mode of arrival: wheelchair Limitations: no limitations - History of Present Illness Initial comments: 60-year-old female presenting for evaluation chest pain, cough, fever. Patient has been on antibiotics for sinus infection. She reports that her symptoms have. Abdominal movement present for the past 24 hours. She has a left-sided chest pain which does travel into her back. She has no previous history of CAD. No history of DVT or PE. She denies lower extremity pain or swelling. She has a fever up to 103. She has had chills. She has not been vaccinated against coronavirus. She denies dysuria or hematuria. Denies abdominal pain nausea or vomiting. She does report a generalized headache as well. - Related Data Home Medications Medication Instructions Recorded Confirmed Levothyroxine Sodium [Synthroid] 75 mcg PO HS 01/06/17 04/11/21 Milnacipran HCl [Savella] 100 mg PO BID 01/06/17 04/11/21 Pramipexole [Mirapex] 1 mg PO DAILY 01/06/17 04/11/21 Pramipexole [Mirapex] 2 mg PO HS 09/14/17 04/11/21 Albuterol Inhaler [Ventolin Hfa 2 puff INHALATION RT-Q4H PRN 04/11/21 04/11/21 Inhaler] Amiodarone [Cordarone] 200 mg PO HS 04/11/21 04/11/21 Amoxic-Pot Clav 875-125Mg 1 tab PO BID 04/11/21 04/11/21 [Augmentin 875-125] FLUoxetine HCL [PROzac] 20 mg PO HS 04/11/21 04/11/21 Folic Acid 1 mg PO DAILY 04/11/21 04/11/21 HYDROcodone/APAP 10-325MG [[place]ois 1 tab PO QID 04/11/21 04/11/21 10-325] Imitrex(Unknown Dose) 1 tab PO DAILY PRN 04/11/21 04/11/21 Methotrexate/Pf [Reditrex 25 mg/ml 20 mg SQ MO 04/11/21 04/11/21 Syringe] Omeprazole 40 mg PO DAILY 04/11/21 04/11/21 Allergies Allergy/AdvReac Type Severity Reaction Status Date / Time latex Allergy Rash/Hives, Verified 04/11/21 20:32 DYSPNEA Latex, Natural Rubber Allergy Dyspnea, Verified 04/11/21 20:32 RASH Review of Systems ROS Statement: Those systems with pertinent positive or pertinent negative responses have been documented in the HPI. ROS Other: All systems not noted in ROS Statement are negative. Past Medical History Past Medical History: Fibromyalgia, GERD/Reflux, Hypertension, Thyroid Disorder Additional Past Medical History / Comment(s): RECENT FX LT WRIST-03/29/18 History of Any Multi-Drug Resistant Organisms: None Reported Past Surgical History: Back Surgery, Cholecystectomy, Hernia Repair, Hysterectomy, Joint Replacement, Orthopedic Surgery Additional Past Surgical History / Comment(s): Right knee arthroplasty; R Knee replacement; right foot surgery; EGD; Colonoscopies, partial thyroidectomy, partial stomach removed from mesh through stomacH W/BYPASS AND FEEDING TUBE Past Anesthesia/Blood Transfusion Reactions: Family History of Problems w/ Anesthesia, Postoperative Nausea & Vomiting (PONV) Additional Past Anesthesia/Blood Transfusion Reaction / Comment(s): mother N/V Past Psychological History: Depression Past Alcohol Use History: None Reported Past Drug Use History: Marijuana - Past Family History Father Family Medical History: Cancer Mother Family Medical History: Cancer Brother(s) Family Medical History: Cancer Additional Family Medical History / Comment(s): PANCREAS CA General Exam Limitations: no limitations General appearance: alert, in no apparent distress Head exam: Present: atraumatic, normocephalic Eye exam: Present: normal appearance, PERRL ENT exam: Present: mucous membranes dry Neck exam: Present: normal inspection. Absent: tenderness, meningismus Respiratory exam: Present: rhonchi. Absent: respiratory distress Cardiovascular Exam: Present: regular rate, normal rhythm GI/Abdominal exam: Present: soft. Absent: distended, tenderness, guarding Extremities exam: Present: normal inspection, normal capillary refill. Absent: pedal edema, calf tenderness Neurological exam: Present: alert, oriented X3, CN II-XII intact. Absent: motor sensory deficit Psychiatric exam: Present: normal affect, normal mood Skin exam: Present: warm, dry, intact. Absent: cyanosis, diaphoretic Course Vital Signs 07/31/21 07/31/21 07/31/21 18:55 19:33 20:43 Temperature 99.5 F 102.8 F H 100.3 F H Pulse Rate 99 92 90 Respiratory 18 20 18 Rate Blood Pressure 154/87 180/79 161/90 O2 Sat by Pulse 97 95 96 Oximetry EKG Findings - EKG Comments: EKG Findings:: EKG: Normal sinus rhythm, rate of 95, MD interval 156, QRS duration 82, QTC 462, no ST segment elevation Medical Decision Making - Medical Decision Making 60-year-old female with cough, fever, chest pain. Patient's symptoms 7 present over the past 24 hours. Her chest pain is predominantly left side. EKG is sinus rhythm without ST segment elevation. Chest x-ray shows a right-sided pneumonia with elevated right hemidiaphragm. She has normal white blood cell count, hemoglobin 11.3. She has an elevated d-dimer 0.69. Normal CMP, lactic acid is pending. Troponin is negative. Coronavirus testing is negative. Given the elevated d-dimer, CT angiography is performed, results are pending. Patient started on antibiotics and IV fluid in the emergency department. She will be admitted to internal medicine, case discussed with Dr. Dixon who will admit. - Lab Data Result diagrams: 04/11/21 19:24 04/11/21 19:24 Lab Results 04/11/21 04/11/21 04/11/21 Range/Units 19:24 19:24 19:24 WBC 6.0 (3.8-10.6) k/uL RBC 5.31 (3.80-5.40) m/uL Hgb 11.3 L (11.4-16.0) gm/dL Hct 37.9 (34.0-46.0) % MCV 71.4 L (80.0-100.0) fL MCH 21.3 L (25.0-35.0) pg MCHC 29.8 L (31.0-37.0) g/dL RDW 17.0 H (11.5-15.5) % Plt Count 326 (150-450) k/uL MPV 7.5 Neutrophils % 69 % Lymphocytes % 20 % Monocytes % 7 % Eosinophils % 1 % Basophils % 1 % Neutrophils # 4.2 (1.3-7.7) k/uL Lymphocytes # 1.2 (1.0-4.8) k/uL Monocytes # 0.4 (0-1.0) k/uL Eosinophils # 0.0 (0-0.7) k/uL Basophils # 0.0 (0-0.2) k/uL Hypochromasia Marked Anisocytosis Slight Microcytosis Moderate PT 10.0 (9.0-12.0) sec INR 0.9 (<1.2) APTT 22.7 (22.0-30.0) sec D-Dimer 0.69 H (<0.60) mg/L FEU Sodium 135 L (137-145) mmol/L Potassium 4.2 (3.5-5.1) mmol/L Chloride 100 (98-107) mmol/L Carbon Dioxide 25 (22-30) mmol/L Anion Gap 10 mmol/L BUN 3 L (7-17) mg/dL Creatinine 0.58 (0.52-1.04) mg/dL Est GFR (CKD-EPI)AfAm >90 (>60 ml/min/1.73 sqM) Est GFR (CKD-EPI)NonAf >90 (>60 ml/min/1.73 sqM) Glucose 118 H (74-99) mg/dL Calcium 9.2 (8.4-10.2) mg/dL Magnesium 2.2 (1.6-2.3) mg/dL Total Bilirubin 0.5 (0.2-1.3) mg/dL AST 28 (14-36) U/L ALT 17 (4-34) U/L Alkaline Phosphatase 168 H (38-126) U/L Troponin I (0.000-0.034) ng/mL Total Protein 7.8 (6.3-8.2) g/dL Albumin 4.6 (3.5-5.0) g/dL Urine Color Urine Appearance (Clear) Urine pH (5.0-8.0) Ur Specific [place] (1.001-1.035) Urine Protein (Negative) Urine Glucose (UA) (Negative) Urine Ketones (Negative) Urine Blood (Negative) Urine Nitrite (Negative) Urine Bilirubin (Negative) Urine Urobilinogen (<2.0) mg/dL Ur Leukocyte Esterase (Negative) Urine RBC (0-5) /hpf Urine WBC (0-5) /hpf Ur Squamous Epith Cells (0-4) /hpf Coronavirus (PCR) (Not Detectd) 07/31/21 07/31/21 07/31/21 Range/Units 19:24 19:24 19:24 WBC (3.8-10.6) k/uL RBC (3.80-5.40) m/uL Hgb (11.4-16.0) gm/dL Hct (34.0-46.0) % MCV (80.0-100.0) fL MCH (25.0-35.0) pg MCHC (31.0-37.0) g/dL RDW (11.5-15.5) % Plt Count (150-450) k/uL MPV Neutrophils % % Lymphocytes % % Monocytes % % Eosinophils % % Basophils % % Neutrophils # (1.3-7.7) k/uL Lymphocytes # (1.0-4.8) k/uL Monocytes # (0-1.0) k/uL Eosinophils # (0-0.7) k/uL Basophils # (0-0.2) k/uL Hypochromasia Anisocytosis Microcytosis PT (9.0-12.0) sec INR (<1.2) APTT (22.0-30.0) sec D-Dimer (<0.60) mg/L FEU Sodium (137-145) mmol/L Potassium (3.5-5.1) mmol/L Chloride (98-107) mmol/L Carbon Dioxide (22-30) mmol/L Anion Gap mmol/L BUN (7-17) mg/dL Creatinine (0.52-1.04) mg/dL Est GFR (CKD-EPI)AfAm (>60 ml/min/1.73 sqM) Est GFR (CKD-EPI)NonAf (>60 ml/min/1.73 sqM) Glucose (74-99) mg/dL Calcium (8.4-10.2) mg/dL Magnesium (1.6-2.3) mg/dL Total Bilirubin (0.2-1.3) mg/dL AST (14-36) U/L ALT (4-34) U/L Alkaline Phosphatase (38-126) U/L Troponin I <0.012 (0.000-0.034) ng/mL Total Protein (6.3-8.2) g/dL Albumin (3.5-5.0) g/dL Urine Color Colorless Urine Appearance Clear (Clear) Urine pH 7.5 (5.0-8.0) Ur Specific [place] 1.003 (1.001-1.035) Urine Protein Negative (Negative) Urine Glucose (UA) Negative (Negative) Urine Ketones Negative (Negative) Urine Blood Negative (Negative) Urine Nitrite Negative (Negative) Urine Bilirubin Negative (Negative) Urine Urobilinogen <2.0 (<2.0) mg/dL Ur Leukocyte Esterase Large H (Negative) Urine RBC 1 (0-5) /hpf Urine WBC 25 H (0-5) /hpf Ur Squamous Epith Cells <1 (0-4) /hpf Coronavirus (PCR) Not Detected (Not Detectd) Disposition Clinical Impression: Fever, Pneumonia, Chest pain Disposition: ADMITTED IP TO THIS [facility] Condition: Stable Is patient prescribed a controlled substance at d/c from ED?: No Referrals: Maria L Deleon DO [Primary Care Provider] - 1-2 days Decision to Admit Reason: Admit from EC Decision Date: 04/11/21 Decision Time: 20:54
[2021-04-11 19:50] LABS: INR 0.9 (<1.2); Partial Thromboplastin Time 22.7 sec (22.0-30.0)
[2021-04-11 19:52] LABS: ALT 17 U/L (4-34); AST 28 U/L (14-36); African American GFR (CKD) >90 (>60 ml/min/1.73 sqM); Albumin 4.6 g/dL (3.5-5.0); Alkaline Phosphatase 168 U/L (38-126); Anion Gap 10 mmol/L; Blood Urea Nitrogen 3 mg/dL (7-17); Calcium 9.2 mg/dL (8.4-10.2); Carbon Dioxide 25 mmol/L (22-30); Chloride 100 mmol/L (98-107); Glucose 118 mg/dL (74-99); Magnesium 2.2 mg/dL (1.6-2.3); Non-African American GFR(CKD) >90 (>60 ml/min/1.73 sqM); Potassium 4.2 mmol/L (3.5-5.1); Sodium 135 mmol/L (137-145); Total Bilirubin 0.5 mg/dL (0.2-1.3); Total Protein 7.8 g/dL (6.3-8.2)
[2021-04-11 19:58] LABS: Anisocytosis Slight; Basophils % (A) 1 %; Eosinophils % (A) 1 %; HCT 37.9 % (34.0-46.0); HGB 11.3 gm/dL (11.4-16.0); Hypochromasia Marked; Lymphocytes # (A) 1.2 k/uL (1.0-4.8); Lymphocytes % (A) 20 %; MCH 21.3 pg (25.0-35.0); MCHC 29.8 g/dL (31.0-37.0); MCV 71.4 fL (80.0-100.0); Mean Platelet Volume 7.5; Microcytosis Moderate; Monocytes # (A) 0.4 k/uL (0-1.0); Monocytes % (A) 7 %; Neutrophils # (A) 4.2 k/uL (1.3-7.7); Neutrophils % (A) 69 %; Platelet Count 326 k/uL (150-450); RBC 5.31 m/uL (3.80-5.40)
--- NOTE | 2021-04-11 20:01 | XR ---
EXAMINATION TYPE: XR chest 1V portable DATE OF EXAM: 04/11/2021 COMPARISON: 09/14/2017 HISTORY: Short of breath. Chest pain TECHNIQUE: FINDINGS: There is elevation of the right diaphragm. There is some interstitial infiltrate right lowe r lobe. Left lung is fairly clear. There is no heart failure. There are chest leads. IMPRESSION: There is chronic elevation of the right diaphragm that could relate to paralysis that is worse than last exam. There is some new interstitial infiltrate right lung compared to old exam. No h eart failure.
[2021-04-11] MEDS ORDERED: cefTRIAXone IN SWFI 1,000 MG/10 ML SYRINGE IVP STA (20:10)
[2021-04-11] MEDS ORDERED: AZITHROMYCIN 500 MG in SODIUM CHLORIDE 0.9% 250 ML IVPB STA (20:10)
[2021-04-11] MEDS ORDERED: MORPHINE SULFATE 2 MG/ML SYRINGE IVP STA (20:15)
[2021-04-11] MEDS ORDERED: ASPIRIN 325 MG TAB PO STA (20:15)
[2021-04-11] MEDS: SODIUM CHLORIDE 0.9% 1,000 ML IV SCH (20:40)
[2021-04-11] MEDS ORDERED: NALOXONE 0.4 MG/ML 1 ML VIAL IV PRN (20:50)
[2021-04-11] MEDS ORDERED: MORPHINE SULFATE 4 MG/ML SYRINGE IV PRN (20:50)
[2021-04-11 20:51] LABS: Appearance,Urine Clear (Clear); Bilirubin,Urine Negative (Negative); Blood,Urine Negative (Negative); Color,Urine Colorless; Glucose,Urine (UA) Negative (Negative); Ketones,Urine Negative (Negative); Leukocyte Esterase,Urine Large (Negative); Nitrite,Urine Negative (Negative); PH, Urine 7.5 (5.0-8.0); Protein,Urine Negative (Negative); RBC,Urine 1 /hpf (0-5); Specific Gravity,Urine 1.003 (1.001-1.035); Squamous Epithelial Cell,Urine <1 /hpf (0-4); Urobilinogen,Urine <2.0 mg/dL (<2.0); WBC,Urine 25 /hpf (0-5)
--- NOTE | 2021-04-11 21:23 | CT ---
EXAMINATION TYPE: CT angio chest DATE OF EXAM: 04/11/2021 COMPARISON: 09/14/2017 HISTORY: Chest pain, SOB. Hx loop recorder, COPD CT DLP: 650.7 mGycm Automated exposure control for dose reduction was used. CONTRAST: Performed with IV Contrast, patient injected with 100 mL of Isovue 370. Images obtained from the thoracic inlet to the diaphragm with IV contrast. There are 3-D post process ed images. There is a 5 cm patch of airspace infiltrate in the lateral right upper lobe. There is some linear in filtrate and atelectasis at the right lung base. There is elevated right diaphragm. There is no media stinal adenopathy. Thoracic aorta is intact. There is no aneurysm or dissection. There are no hilar m asses. I see no filling defect in the pulmonary arteries. Thoracic spine is intact. There is no compr ession fracture. Sternum is intact. There is no evidence of rib fracture. IMPRESSION: No evidence of pulmonary embolism. There is right lower lobe mild pneumonia and atelectasis. There is also patchy right upper lobe pneumonia. Pulmonary abnormalities mostly new compared to old exam.
[2021-04-12] MEDS: SODIUM CHLORIDE 0.9% 1,000 ML IV SCH ×3 (05:41→21:14)
[2021-04-12 06:31] LABS: Anisocytosis Slight; Basophils % (A) 0 %; Eosinophils % (A) 0 %; HCT 33.6 % (34.0-46.0); HGB 10.1 gm/dL (11.4-16.0); Hypochromasia Marked; Lymphocytes # (A) 1.1 k/uL (1.0-4.8); Lymphocytes % (A) 25 %; MCH 22.1 pg (25.0-35.0); MCHC 30.2 g/dL (31.0-37.0); MCV 73.5 fL (80.0-100.0); Mean Platelet Volume 7.3; Microcytosis Moderate; Monocytes # (A) 0.4 k/uL (0-1.0); Monocytes % (A) 9 %; Neutrophils # (A) 2.8 k/uL (1.3-7.7); Neutrophils % (A) 62 %; Platelet Count 286 k/uL (150-450); RBC 4.57 m/uL (3.80-5.40); RDW 17.2 % (11.5-15.5); WBC 4.6 k/uL (3.8-10.6)
[2021-04-12 06:44] LABS: ALT 14 U/L (4-34); AST 25 U/L (14-36); African American GFR (CKD) >90 (>60 ml/min/1.73 sqM); Albumin 3.8 g/dL (3.5-5.0); Alkaline Phosphatase 129 U/L (38-126); Anion Gap 8 mmol/L; Blood Urea Nitrogen 8 mg/dL (7-17); Calcium 8.5 mg/dL (8.4-10.2); Carbon Dioxide 24 mmol/L (22-30); Chloride 108 mmol/L (98-107); Glucose 106 mg/dL (74-99); Non-African American GFR(CKD) >90 (>60 ml/min/1.73 sqM); Potassium 3.9 mmol/L (3.5-5.1); Sodium 140 mmol/L (137-145); Total Bilirubin 0.2 mg/dL (0.2-1.3); Total Protein 6.7 g/dL (6.3-8.2)
[2021-04-12] MEDS ORDERED: IMITREX PO PRN (08:04)
[2021-04-12] MEDS ORDERED: FAMOTIDINE 20 MG/2 ML VIAL IV SCH (09:00)
[2021-04-12] MEDS: FOLIC ACID 1 MG TAB PO SCH (09:06)
[2021-04-12] MEDS: PRAMIPEXOLE 1 MG TAB PO SCH ×2 (09:06→22:34)
[2021-04-12] MEDS: ACETAMINOPHEN TAB 325 MG TAB PO PRN ×2 (09:06→20:11)
[2021-04-12] MEDS: HEPARIN SODIUM,PORCINE/PF 5,000 UNIT/0.5 ML SYRINGE SQ SCH ×2 (09:06→22:23)
--- NOTE | 2021-04-12 10:18 | P.HPIM ---
History of Present Illness This is a pleasant 60 years old female with past medical history of atrial fibrillation, COPD, fibromyalgia, GERD, hypertension, osteoarthritis, sleep apnea on CPAP/BiPAP. Depression. 8. She is a patient of Dr. Deleon, her livestock trader is Dr. Khan at [facility] who was recently diagnosed her with sleep apnea and to start on CPAP machine. Her fruit rancher is Dr. Rodríguez ( ! unKnown spelling) ablation for her and felt that she has a loop recorder. She presents because of chest pressure on the left side going through the back about 10/10 in severity when she came in and currently is down to 4-5/10 in severity of one-day duration associated with other symptoms like chills, dyspnea but she may consider some phlegm. states that her symptoms started yesterday she denies abdominal pain or nausea vomiting or diarrhea. no urinary complaints. i did resolve but came back this morning. numbness or blurred vision. she denies smoking, alcohol or illicit drugs she denies depression On admission she had a fever of 102.8. Rest of vitals are stable CBC is unremarkable with a new leukocytosis, d-dimer is slightly elevated at 0.69. BMP and liver enzymes not elevated. Urine analysis is no suspicious of infection although there is large amount of leukocyte esterase. Coronavirus not detected. CTA of the chest: No PE. There is right lower lobe mild pneumonia and atelectasis. There is patchy right upper lobe pneumonia. Pulmonary abnormalities most likely new compared to old exam EKG showing sinus normal sinus rhythm at [address]-T changes, and QTC 462. Chest x-ray: New interstitial infiltrate in the right lung compared to old exam In the emergency room she was given aspirin 325 mg, ceftriaxone and Zithromax. An normal saline at 1:30 milliliters per hour Review of Systems CONSTITUTIONAL: No fever, no malaise, no fatigue. HEENT: No recent visual problems or hearing problems. Denied any sore throat. CARDIOVASCULAR: No orthopnea, PND, no palpitations, no syncope. PULMONARY: no cough, no hemoptysis. GASTROINTESTINAL: No diarrhea, no nausea, no vomiting, no abdominal pain. Normoactive bowel sounds. NEUROLOGICAL: No headaches, no weakness, no numbness. HEMATOLOGICAL: Denies any bleeding or petechiae. GENITOURINARY: Denies any burning micturition, frequency, or urgency. MUSCULOSKELETAL/RHEUMATOLOGICAL: Denies any joint pain, swelling, or any muscle pain. ENDOCRINE: Denies any polyuria or polydipsia. Past Medical History Past Medical History: Atrial Fibrillation, COPD, Fibromyalgia, GERD/Reflux, Hypertension, Osteoarthritis (OA), Sleep Apnea/CPAP/BIPAP, Thyroid Disorder Additional Past Medical History / Comment(s): RECENT FX LT WRIST-03/29/18; hypothyroidism; recent cardiac cath/ ablation; Loop recorder in place; ENRIQUE wheres cpap HS History of Any Multi-Drug Resistant Organisms: None Reported Past Surgical History: Back Surgery, Cardiac Ablation, Cholecystectomy, Hernia Repair, Hysterectomy, Joint Replacement, Orthopedic Surgery, Tonsillectomy Additional Past Surgical History / Comment(s): Right knee arthroplasty; R Knee replacement; right foot surgery; EGD; Colonoscopies, partial thyroidectomy, partial stomach removed from mesh through stomacH W/BYPASS AND FEEDING TUBE Past Anesthesia/Blood Transfusion Reactions: Family History of Problems w/ Anesthesia, Postoperative Nausea & Vomiting (PONV) Additional Past Anesthesia/Blood Transfusion Reaction / Comment(s): mother N/V Past Psychological History: Depression Additional Psychological History / Comment(s): . Adult children. No animal exposures. No experience. No international travel. Does not work outside of the home Smoking Status: Never smoker Past Alcohol Use History: None Reported Additional Past Alcohol Use History / Comment(s): smoked from age 16 to 41 yrs 1ppd Past Drug Use History: None Reported - Past Family History Father Family Medical History: Cancer Additional Family Medical History / Comment(s): blood CA Mother Family Medical History: Cancer, Congestive Heart Failure (CHF), COPD, Hyperlipidemia, Hypertension Additional Family Medical History / Comment(s): skin CA Brother(s) Family Medical History: Cancer Additional Family Medical History / Comment(s): PANCREAS CA Medications and Allergies Home Medications Medication Instructions Recorded Confirmed Type Levothyroxine Sodium [Synthroid] 75 mcg PO HS 01/06/17 04/11/21 History Milnacipran HCl [Savella] 100 mg PO BID 01/06/17 04/11/21 History Pramipexole [Mirapex] 1 mg PO DAILY 01/06/17 04/11/21 History Pramipexole [Mirapex] 2 mg PO HS 09/14/17 04/11/21 History Albuterol Inhaler [Ventolin Hfa 2 puff INHALATION RT-Q4H PRN 04/11/21 04/11/21 History Inhaler] Amiodarone [Cordarone] 200 mg PO HS 04/11/21 04/11/21 History Amoxic-Pot Clav 875-125Mg 1 tab PO BID 04/11/21 04/11/21 History [Augmentin 875-125] FLUoxetine HCL [PROzac] 20 mg PO HS 04/11/21 04/11/21 History Folic Acid 1 mg PO DAILY 04/11/21 04/11/21 History HYDROcodone/APAP 10-325MG [Verbena 1 tab PO QID 04/11/21 04/11/21 History 10-325] Imitrex(Unknown Dose) 1 tab PO DAILY PRN 04/11/21 04/11/21 History Methotrexate/Pf [Reditrex 25 mg/ml 20 mg SQ MO 04/11/21 04/11/21 History Syringe] Omeprazole 40 mg PO DAILY 04/11/21 04/11/21 History Allergies Allergy/AdvReac Type Severity Reaction Status Date / Time latex Allergy Rash/Hives, Verified 04/11/21 20:32 DYSPNEA Latex, Natural Rubber Allergy Dyspnea, Verified 04/11/21 20:32 RASH Physical Exam Vitals: Vital Signs Temp Pulse Pulse Resp BP BP Pulse Ox 04/12/21 07:53 100.0 F H 85 18 124/80 94 L 04/12/21 02:00 98.8 F 87 151/82 95 04/11/21 23:23 98.2 F 90 18 144/84 95 04/11/21 21:58 86 18 144/76 97 04/11/21 20:43 100.3 F H 90 18 161/90 96 04/11/21 19:33 102.8 F H 92 20 180/79 95 04/11/21 18:55 99.5 F 99 18 154/87 97 Intake and Output 04/11/21 04/12/21 04/12/21 22:59 06:59 14:59 Intake Total 1320 Balance 1320 Intake: Intake, IV Titration 1320 Amount Sodium Chloride 0.9% 1, 1320 000 ml @ 130 mls/hr IV . Q7H42M [facility] Rx#:[id number] Other: # Voids 0 Weight 117.934 kg 117.934 kg -GENERAL: The patient is alert and oriented x3, not in any acute distress. Well obese HEENT: Pupils are round and equally reacting to light. EOMI. No scleral icterus. No conjunctival pallor. Normocephalic, atraumatic. No pharyngeal erythema. No thyromegaly. CARDIOVASCULAR: S1 and S2 present. No murmurs, rubs, or gallops. PULMONARY: Chest is clear to auscultation, no wheezing or crackles. ABDOMEN: Soft, nontender, nondistended, normoactive bowel sounds. No palpable organomegaly. MUSCULOSKELETAL: No joint swelling or deformity. EXTREMITIES: No cyanosis, clubbing, or pedal edema. NEUROLOGICAL: Gross neurological examination did not reveal any focal deficits. SKIN: No rashes. No petechiae Results CBC & Chem 7: 04/12/21 06:10 04/12/21 06:10 Labs: Abnormal Lab Results - Last 24 Hours (Table) 04/11/21 04/11/21 04/11/21 Range/Units 19:24 19:24 19:24 Hgb 11.3 L (11.4-16.0) gm/dL Hct (34.0-46.0) % MCV 71.4 L (80.0-100.0) fL MCH 21.3 L (25.0-35.0) pg MCHC 29.8 L (31.0-37.0) g/dL RDW 17.0 H (11.5-15.5) % D-Dimer 0.69 H (<0.60) mg/L FEU Sodium 135 L (137-145) mmol/L Chloride (98-107) mmol/L BUN 3 L (7-17) mg/dL Creatinine (0.52-1.04) mg/dL Glucose 118 H (74-99) mg/dL Alkaline Phosphatase 168 H (38-126) U/L Ur Leukocyte Esterase (Negative) Urine WBC (0-5) /hpf 04/11/21 04/12/21 04/12/21 Range/Units 19:24 06:10 06:10 Hgb 10.1 L (11.4-16.0) gm/dL Hct 33.6 L (34.0-46.0) % MCV 73.5 L (80.0-100.0) fL MCH 22.1 L (25.0-35.0) pg MCHC 30.2 L (31.0-37.0) g/dL RDW 17.2 H (11.5-15.5) % D-Dimer (<0.60) mg/L FEU Sodium (137-145) mmol/L Chloride 108 H (98-107) mmol/L BUN (7-17) mg/dL Creatinine 0.49 L (0.52-1.04) mg/dL Glucose 106 H (74-99) mg/dL Alkaline Phosphatase 129 H (38-126) U/L Ur Leukocyte Esterase Large H (Negative) Urine WBC 25 H (0-5) /hpf Thrombosis Risk Factor Assmnt - Choose All That Apply Each Factor Represents 1 point: Abnormal pulmonary function (COPD) Each Risk Factor Represents 2 Points: Age 61-74 years Thrombosis Risk Factor Assessment Total Risk Factor Score: 3 Thrombosis Risk Factor Assessment Level: Moderate Risk Assessment and Plan Assessment: Chest pressure with recent history of loop recorder Right upper and lower lobe pneumonia recent diagnosis with sleep apnea and started on CPAP Hypertension Paroxysmal atrial fibrillation not on anticoagulation COPD, no acute exacerbation Osteoarthritis Depression, not an active issue Obesity with BMI 40.7 Plan: this is a pleasant 60 years old female who presents because of right pneumonia. Thank you with antibiotics, ceftriaxone and Zithromax. Check sputum culture Pulmonary consult cardiology consult Patient is advised to bring her CPAP machine from home Continue with normal saline Labs and medication were reviewed.. Continue same treatment. Continue with symptomatic treatment. Resume home medication. Monitor lytes and vitals. DVT and GI prophylaxis. Further recommendations depends on the clinical course of the patient DVT prophylaxis: Subcutaneous heparin GI Prophylaxis: Pepcid PT/OT: Pending Prognosis is guarded
[2021-04-12] MEDS ORDERED: DOXYCYCLINE 100 MG in SODIUM CHLORIDE 0.9% 100 ML IVPB SCH (12:00)
[2021-04-12] MEDS: ALBUTEROL NEBULIZED 2.5 MG/3 ML INHALATION PRN (16:20)
[2021-04-12] MEDS ORDERED: AZITHROMYCIN 500 MG in SODIUM CHLORIDE 0.9% 250 ML IVPB SCH (20:00)
[2021-04-12] MEDS: HYDROcodone/APAP 10-325MG 1 EACH TAB PO PRN (21:13)
[2021-04-12] MEDS: AMIODARONE 200 MG TAB PO SCH (21:14)
[2021-04-12] MEDS: FLUoxetine HCL 20 MG CAP PO SCH (21:14)
[2021-04-12] MEDS: DOXYCYCLINE 100 MG CAP PO SCH (21:14)
[2021-04-12] MEDS: LEVOTHYROXINE 75 MCG TAB PO SCH (21:14)
[2021-04-12] MEDS: FAMOTIDINE 20 MG TAB PO SCH (21:14)
[2021-04-13] MEDS: SODIUM CHLORIDE 0.9% 1,000 ML IV SCH ×2 (06:59→16:39)
[2021-04-13] MEDS: ACETAMINOPHEN TAB 325 MG TAB PO PRN (07:28)
[2021-04-13] MEDS: FAMOTIDINE 20 MG TAB PO SCH ×2 (07:29→23:58)
[2021-04-13] MEDS: FOLIC ACID 1 MG TAB PO SCH (07:29)
[2021-04-13] MEDS: HEPARIN SODIUM,PORCINE/PF 5,000 UNIT/0.5 ML SYRINGE SQ SCH (07:31)
[2021-04-13] MEDS: DOXYCYCLINE 100 MG CAP PO SCH ×2 (07:31→23:59)
[2021-04-13] MEDS: PRAMIPEXOLE 1 MG TAB PO SCH ×2 (07:32→23:59)
[2021-04-13 09:30] LABS: ALT 18 U/L (8-44); AST 24 U/L (13-35); African American GFR (CKD) 120.2 (60.0-200.0); Albumin/Globulin Ratio 1.46 (1.60-3.17); Alkaline Phosphatase 127 U/L (41-126); Bilirubin, Conjugated <0.20 mg/dL (0.20-0.40); Calcium 8.7 mg/dL (8.7-10.3); Carbon Dioxide 25.3 mmol/L (21.6-31.8); Chloride 106 mmol/L (96-109); Globulin 2.8 g/dL (1.6-3.3); Glucose 106 mg/dL (70-110); Magnesium 2.1 mg/dL (1.5-2.4); Non-African American GFR(CKD) 103.7 (60.0-200.0); Sodium 141 mmol/L (135-145); Total Bilirubin 0.2 mg/dL (0.2-1.2); Total Protein 6.9 g/dL (6.2-8.2)
--- NOTE | 2021-04-13 09:59 | P.CNPUL ---
History of Present Illness Consult date: 04/13/21 Reason for consult: dyspnea, cough, obstructive sleep apnea Chief complaint: Intermittent cough and shortness of breath started 1-2 days ago History of present illness: Patient is a 60-year-old morbidly obese female she sees Dr. Martinez primary care activity, her level glass forming machine operator is Dr. Kenney from [facility], patient recently has been diagnosed with severe sleep apnea and sleep disorder breathing and she has been using the CPAP machine for last 1 week, patient developed cough congestion shortness of breath, chest x-ray positive for patchy infiltrate likely pneumonia patient has been no hospital for broad-spectrum antibiotic including pneumonia treatment, she has been having chest pain however severity of pain has improved, her urine and blood culture are negative her symptoms continued to improve, computed tomography scan of the chest was negative for pulmonary embolism however infiltrate in right lower lobe has been noted currently patient is being broad-spectrum antibiotics IV steroids and breathing treatments Review of Systems All systems: negative Past Medical History Past Medical History: Atrial Fibrillation, COPD, Fibromyalgia, GERD/Reflux, Hypertension, Osteoarthritis (OA), Sleep Apnea/CPAP/BIPAP, Thyroid Disorder Additional Past Medical History / Comment(s): RECENT FX LT WRIST-03/29/18; hypothyroidism; recent cardiac cath/ ablation; Loop recorder in place; ENRIQUE wheres cpap HS History of Any Multi-Drug Resistant Organisms: None Reported Past Surgical History: Back Surgery, Cardiac Ablation, Cholecystectomy, Hernia Repair, Hysterectomy, Joint Replacement, Orthopedic Surgery, Tonsillectomy Additional Past Surgical History / Comment(s): Right knee arthroplasty; R Knee replacement; right foot surgery; EGD; Colonoscopies, partial thyroidectomy, partial stomach removed from mesh through stomacH W/BYPASS AND FEEDING TUBE Past Anesthesia/Blood Transfusion Reactions: Family History of Problems w/ Anesthesia, Postoperative Nausea & Vomiting (PONV) Additional Past Anesthesia/Blood Transfusion Reaction / Comment(s): mother N/V Past Psychological History: Depression Additional Psychological History / Comment(s): . Adult children. No animal exposures. No experience. No international travel. Does not work outside of the home Smoking Status: Never smoker Past Alcohol Use History: None Reported Additional Past Alcohol Use History / Comment(s): smoked from age 16 to 41 yrs 1ppd Past Drug Use History: None Reported - Past Family History Father Family Medical History: Cancer Additional Family Medical History / Comment(s): blood CA Mother Family Medical History: Cancer, Congestive Heart Failure (CHF), COPD, Hyperlipidemia, Hypertension Additional Family Medical History / Comment(s): skin CA Brother(s) Family Medical History: Cancer Additional Family Medical History / Comment(s): PANCREAS CA Medications and Allergies Home Medications Medication Instructions Recorded Confirmed Type Levothyroxine Sodium [Synthroid] 75 mcg PO HS 01/06/17 04/11/21 History Milnacipran HCl [Savella] 100 mg PO BID 01/06/17 04/11/21 History Pramipexole [Mirapex] 1 mg PO DAILY 01/06/17 04/11/21 History Pramipexole [Mirapex] 2 mg PO HS 09/14/17 04/11/21 History Albuterol Inhaler [Ventolin Hfa 2 puff INHALATION RT-Q4H PRN 04/11/21 04/11/21 History Inhaler] Amiodarone [Cordarone] 200 mg PO HS 04/11/21 04/11/21 History Amoxic-Pot Clav 875-125Mg 1 tab PO BID 04/11/21 04/11/21 History [Augmentin 875-125] FLUoxetine HCL [PROzac] 20 mg PO HS 04/11/21 04/11/21 History Folic Acid 1 mg PO DAILY 04/11/21 04/11/21 History HYDROcodone/APAP 10-325MG [[place] 1 tab PO QID 04/11/21 04/11/21 History 10-325] Imitrex(Unknown Dose) 1 tab PO DAILY PRN 04/11/21 04/11/21 History Methotrexate/Pf [Reditrex 25 mg/ml 20 mg SQ MO 04/11/21 04/11/21 History Syringe] Omeprazole 40 mg PO DAILY 04/11/21 04/11/21 History Allergies Allergy/AdvReac Type Severity Reaction Status Date / Time latex Allergy Rash/Hives, Verified 04/11/21 20:32 DYSPNEA Latex, Natural Rubber Allergy Dyspnea, Verified 04/11/21 20:32 RASH Physical Exam Vitals: Vital Signs Temp Pulse Pulse Resp BP Pulse Ox 04/13/21 08:00 97.8 F 69 16 157/87 95 04/13/21 02:00 97.9 F 72 21 136/77 92 L 04/12/21 20:00 97.7 F 72 21 172/76 96 04/12/21 16:31 78 04/12/21 16:21 80 96 04/12/21 14:00 98.0 F 79 19 146/84 98 Intake and Output 04/12/21 04/13/21 04/13/21 22:59 06:59 14:59 Other: # Voids 3 2 - Constitutional General appearance: disheveled, morbidly obese - EENT Eyes: PERRLA Ears: bilateral: normal - Neck Neck: normal ROM Carotids: bilateral: upstroke normal - Respiratory Respiratory: bilateral: CTA, diminished - Cardiovascular Heart sounds: normal: S1, S2 - Gastrointestinal General gastrointestinal: normal bowel sounds - Integumentary Integumentary: normal turgor - Neurologic Neurologic: CNII-XII intact - Musculoskeletal Musculoskeletal: gait normal, generalized weakness, strength equal bilaterally - Psychiatric Psychiatric: A&O x's 3, appropriate affect, intact judgment & insight Results - Laboratory Findings CBC and BMP: 04/12/21 06:10 04/13/21 05:40 PT/INR, D-dimer PT 10.0 sec (9.0-12.0) 04/11/21 19:24 INR 0.9 (<1.2) 04/11/21 19:24 D-Dimer 0.69 mg/L FEU (<0.60) H 04/11/21 19:24 Abnormal lab findings: Abnormal Labs 04/11/21 04/11/21 04/11/21 19:24 19:24 19:24 Hgb 11.3 L Hct MCV 71.4 L MCH 21.3 L MCHC 29.8 L RDW 17.0 H D-Dimer 0.69 H Sodium 135 L Chloride BUN 3 L Creatinine BUN/Creatinine Ratio Glucose 118 H Conjugated Bilirubin Alkaline Phosphatase 168 H Albumin/Globulin Ratio Ur Leukocyte Esterase Urine WBC 04/11/21 04/12/21 04/12/21 19:24 06:10 06:10 Hgb 10.1 L Hct 33.6 L MCV 73.5 L MCH 22.1 L MCHC 30.2 L RDW 17.2 H D-Dimer Sodium Chloride 108 H BUN Creatinine 0.49 L BUN/Creatinine Ratio Glucose 106 H Conjugated Bilirubin Alkaline Phosphatase 129 H Albumin/Globulin Ratio Ur Leukocyte Esterase Large H Urine WBC 25 H 04/13/21 05:40 Hgb Hct MCV MCH MCHC RDW D-Dimer Sodium Chloride BUN Creatinine 0.5 L BUN/Creatinine Ratio 24.00 H Glucose Conjugated Bilirubin <0.20 L Alkaline Phosphatase 127 H Albumin/Globulin Ratio 1.46 L Ur Leukocyte Esterase Urine WBC - Diagnostic Findings Chest x-ray: report reviewed, image reviewed CT scan - chest: report reviewed, image reviewed (Finding as noted above) Assessment and Plan Assessment: Right lower lobe pneumonia Chest pressure cardiovascular services have been following patient has a loop recorder, Sleep disorder breathing and sleep apnea Moderate to Severe COPD Morbid obesity Plan: Continue antibiotics breathing treatment and steroids Increase activity as tolerated Supplemental oxygen and Patient will need a follow-up chest x-ray in 8-10 weeks Time with Patient: Greater than 30
[2021-04-13] MEDS: HYDROcodone/APAP 10-325MG 1 EACH TAB PO PRN (10:55)
[2021-04-13] MEDS: methylPREDNISolone SOD SUCCI 40 MG/ML 1 ML VIAL IV SCH ×2 (10:56→23:57)
--- NOTE | 2021-04-13 12:19 | P.PN ---
Subjective This is a pleasant 60 years old female with past medical history of atrial fibrillation, COPD, fibromyalgia, GERD, hypertension, osteoarthritis, sleep apnea on CPAP/BiPAP. Depression. 8. She is a patient of Dr. Deleon, her soil sampler is Dr. Khan at [facility] who was recently diagnosed her with sleep apnea and to start on CPAP machine. Her environmental programs manager is Dr. Rodríguez ( ! unKnown spelling) ablation for her and felt that she has a loop recorder. She presents because of chest pressure on the left side going through the back about 10/10 in severity when she came in and currently is down to 4-5/10 in severity of one-day duration associated with other symptoms like chills, dyspnea but she may consider some phlegm. states that her symptoms started yesterday she denies abdominal pain or nausea vomiting or diarrhea. no urinary complaints. i did resolve but came back this morning. numbness or blurred vision. she denies smoking, alcohol or illicit drugs she denies depression On admission she had a fever of 102.8. Rest of vitals are stable CBC is unremarkable with a new leukocytosis, d-dimer is slightly elevated at 0.6 9. BMP and liver enzymes not elevated. Urine analysis is no suspicious of infection although there is large amount of leukocyte esterase. Coronavirus not detected. CTA of the chest: No PE. There is right lower lobe mild pneumonia and atelectasis. There is patchy right upper lobe pneumonia. Pulmonary abnormalities most likely new compared to old exam EKG showing sinus normal sinus rhythm at [address]-T changes, and QTC 462. Chest x-ray: New interstitial infiltrate in the right lung compared to old exam In the emergency room she was given aspirin 325 mg, ceftriaxone and Zithromax. An normal saline at 130 milliliters per hour 04/13/2021 Patient breathing is feeling a little better today, she still have some chest pressure. No diarrhea or abdominal pain. However she is complains from headache on both temporal areas with tenderness but no blurred vision. No do uble vision. No shoulder pain or tenderness. No focal neurological deficits, no weakness or numbness or blurred vision or slurred speech. She is hemodynamically stable. She has a fever yesterday of 100.0, and 102.8 on admission but she is been afebrile today. She is on room air. No leukocytosis. BMP and liver enzymes are unremarkable. Her CBC is unremarkable as well. We checked ESR because of her headache and is only mildly elevated at 25 which could be due to her infection. Patient to continue on doxycycline and ceftriaxone currently. Patient she has history of mild COPD and Solu-Medrol 40 mg twice daily was added Objective - Vital Signs Vital signs: Vital Signs Temp 97.8 F 04/13/21 08:00 Pulse 69 04/13/21 08:00 Resp 16 04/13/21 08:00 BP 157/87 04/13/21 08:00 Pulse Ox 95 04/13/21 08:00 Intake & Output 04/12/21 04/13/21 04/13/21 18:59 06:59 18:59 Other: # Voids 3 2 - Exam -GENERAL: The patient is alert and oriented x3, not in any acute distress. Obese HEENT: Pupils are round and equally reacting to light. EOMI. No scleral icterus. No conjunctival pallor. Normocephalic, atraumatic. No pharyngeal erythema. No thyromegaly. CARDIOVASCULAR: S1 and S2 present. No murmurs, rubs, or gallops. -PULMONARY: Chest is clear to auscultation, no wheezing or crackles. Bilateral harsh breath sounds with mild wheezing ABDOMEN: Soft, nontender, nondistended, normoactive bowel sounds. No palpable organomegaly. MUSCULOSKELETAL: No joint swelling or deformity. EXTREMITIES: No cyanosis, clubbing, or pedal edema. NEUROLOGICAL: Gross neurological examination did not reveal any focal deficits. SKIN: No rashes. no petechiae. - Labs CBC & Chem 7: 04/12/21 06:10 04/13/21 05:40 Labs: Abnormal Lab Results - Last 24 Hours (Table) 04/13/21 04/13/21 Range/Units 05:40 05:40 ESR 25 H (0-20) mm/hr Creatinine 0.5 L (0.6-1.5) mg/dL BUN/Creatinine Ratio 24.00 H (12.00-20.00) Ratio Conjugated Bilirubin <0.20 L (0.20-0.40) mg/dL Alkaline Phosphatase 127 H (41-126) U/L Albumin/Globulin Ratio 1.46 L (1.60-3.17) g/dL Microbiology - Last 24 Hours (Table) 04/11/21 19:24 Blood Culture - Preliminary Blood No Growth after 24 hours 04/11/21 19:24 Blood Culture - Preliminary Blood No Growth after 24 hours 04/11/21 19:24 Urine Culture - Preliminary Urine,Voided Assessment and Plan Assessment: Chest pressure with recent history of loop recorder Right upper and lower lobe pneumonia moderate acute COPD exacerbation Bitemporal headache with tenderness, no visual complaints. ESR is only mildly up at 25 recent diagnosis with sleep apnea and started on CPAP Hypertension Paroxysmal atrial fibrillation not on anticoagulation Osteoarthritis Depression, not an active issue Obesity with BMI 40.7 Plan: this is a pleasant 60 years old female who presents because of right pneumonia. Thank you with antibiotics, ceftriaxone and doxycycline. Check sputum culture continue with Solu-Medrol Monitor for headache or any visual changes or neurological complaints Pulmonary consult cardiology consult Patient is advised to bring her CPAP machine from home Continue with normal saline Labs and medication were reviewed.. Continue same treatment. Continue with symptomatic treatment. Resume home medication. Monitor lytes and vitals. DVT and GI prophylaxis. Further recommendations depends on the clinical course of the patient DVT prophylaxis: Subcutaneous heparin GI Prophylaxis: Pepcid PT/OT: Pending
--- NOTE | 2021-04-13 12:39 | P.CRDCN ---
History of Present Illness Consult date: 04/13/21 History of present illness: HISTORY OF PRESENT ILLNESS: This is a 60-year-old female with a past medical history significant for sleep apnea with CPAP use, SVT, cardiac ablation, loop recorder insertion, and former nicotine dependence. Patient follows with a Dr. Gamboa in [place]. We have been asked to see the patient in consultation for chest pain. Patient examined at the bedside. Patient is admitted to the hospital secondary to pneumonia. Patient reports on Tuesday she began having chest pressure at home. She also reports having the chills. She is not sure if she had a fever because she did not take her temperature. She reports she had discomfort in her back. She reports having shortness of breath. Denies any cough or sputum production. She gives history of a cardiac ablation secondary to SVT. She denies previous history of atrial fibrillation. She also reports having a loop recorder implanted a few months ago. She believes she had a stress test and a cardiac cath performed this year at [facility]. She states she was told she did not have any blockages in her heart. EKG reveals sinus mechanism with no signs of acute ischemia Chest xray there is chronic elevation of the right diaphragm that could relate to paralysis that is worse than last exam. There is some new interstitial infiltrate right lung compared to exam. No heart failure. Laboratory data: WBC 4.6. Hemoglobin 10.1. Platelet count 286. Sodium 141. Potassium 4.0. BUN 12. Creatinine 0.50. Troponin negative 3. Current home cardiac medications include amiodarone 200 mg at night REVIEW OF SYSTEMS: At the time of my exam: CONSTITUTIONAL: Denies fever or chills. HEENT: Denies blurred vision, vision changes, or eye pain. Denies hemoptysis CARDIOVASCULAR: Denies chest pain. Denies orthopnea. Denies PND. Denies palpitations RESPIRATORY: Denies shortness of breath. GASTROINTESTINAL: Denies abdominal pain. Denies nausea or vomiting. HEMATOLOGIC: Denies bleeding disorders. GENITOURINARY: Denies any blood in urine. SKIN: Denies pruitis. Denies rash. PHYSICAL EXAM: VITAL SIGNS: Reviewed. GENERAL: Well-developed in no acute distress. HEENT: Head is normocephalic. Pupils are equal, round. Sclerae anicteric. Mucous membranes of the mouth are moist. Neck supple. No JVD or thyromegaly LUNGS: Respirations even and unlabored. Lungs essentially clear to auscultation bilaterally. HEART: Regular rate and rhythm. S1 and S2 heard. Systolic murmur noted. ABDOMEN: Soft. Nondistended. Nontender. EXTREMITIES: Normal range of motion. No clubbing or cyanosis. Peripheral pulses intact. No lower extremity edema NEUROLOGIC: Awake and alert. Oriented x 3. ASSESSMENT: Right sided pneumonia Chest pain, troponin negative x 3, may be secondary to above History of SVT with cardiac ablation History of loop recorder insertion Obstructive sleep apnea with CPAP use Former nicotine dependence PLAN: An acute coronary event has been ruled out Obtain 2D echo to assess cardiac structure and function Continue home cardiac medications Obtain records from patients primary construction administrative assistant and [facility] Further recommendations pending patient course Nurse practitioner note has been reviewed by physician. Signing provider agrees with the documented findings, assessment, and plan of care. Past Medical History Past Medical History: Atrial Fibrillation, COPD, Fibromyalgia, GERD/Reflux, Hypertension, Osteoarthritis (OA), Sleep Apnea/CPAP/BIPAP, Thyroid Disorder Additional Past Medical History / Comment(s): RECENT FX LT WRIST-03/29/18; hypothyroidism; recent cardiac cath/ ablation; Loop recorder in place; ENRIQUE wheres cpap HS History of Any Multi-Drug Resistant Organisms: None Reported Past Surgical History: Back Surgery, Cardiac Ablation, Cholecystectomy, Hernia Repair, Hysterectomy, Joint Replacement, Orthopedic Surgery, Tonsillectomy Additional Past Surgical History / Comment(s): Right knee arthroplasty; R Knee replacement; right foot surgery; EGD; Colonoscopies, partial thyroidectomy, partial stomach removed from mesh through stomacH W/BYPASS AND FEEDING TUBE Past Anesthesia/Blood Transfusion Reactions: Family History of Problems w/ Anesthesia, Postoperative Nausea & Vomiting (PONV) Additional Past Anesthesia/Blood Transfusion Reaction / Comment(s): mother N/V Past Psychological History: Depression Additional Psychological History / Comment(s): . Adult children. No animal exposures. No experience. No international travel. Does not work outside of the home Smoking Status: Never smoker Past Alcohol Use History: None Reported Additional Past Alcohol Use History / Comment(s): smoked from age 16 to 41 yrs 1ppd Past Drug Use History: None Reported - Past Family History Father Family Medical History: Cancer Additional Family Medical History / Comment(s): blood CA Mother Family Medical History: Cancer, Congestive Heart Failure (CHF), COPD, Hyperlipidemia, Hypertension Additional Family Medical History / Comment(s): skin CA Brother(s) Family Medical History: Cancer Additional Family Medical History / Comment(s): PANCREAS CA Medications and Allergies Home Medications Medication Instructions Recorded Confirmed Type Levothyroxine Sodium [Synthroid] 75 mcg PO HS 01/06/17 04/11/21 History Milnacipran HCl [Savella] 100 mg PO BID 01/06/17 04/11/21 History Pramipexole [Mirapex] 1 mg PO DAILY 01/06/17 04/11/21 History Pramipexole [Mirapex] 2 mg PO HS 09/14/17 04/11/21 History Albuterol Inhaler [Ventolin Hfa 2 puff INHALATION RT-Q4H PRN 04/11/21 04/11/21 History Inhaler] Amiodarone [Cordarone] 200 mg PO HS 04/11/21 04/11/21 History Amoxic-Pot Clav 875-125Mg 1 tab PO BID 04/11/21 04/11/21 History [Augmentin 875-125] FLUoxetine HCL [PROzac] 20 mg PO HS 04/11/21 04/11/21 History Folic Acid 1 mg PO DAILY 04/11/21 04/11/21 History HYDROcodone/APAP 10-325MG [[place] 1 tab PO QID 04/11/21 04/11/21 History 10-325] Imitrex(Unknown Dose) 1 tab PO DAILY PRN 04/11/21 04/11/21 History Methotrexate/Pf [Reditrex 25 mg/ml 20 mg SQ MO 04/11/21 04/11/21 History Syringe] Omeprazole 40 mg PO DAILY 04/11/21 04/11/21 History Allergies Allergy/AdvReac Type Severity Reaction Status Date / Time latex Allergy Rash/Hives, Verified 04/11/21 20:32 DYSPNEA Latex, Natural Rubber Allergy Dyspnea, Verified 04/11/21 20:32 RASH Physical Exam Vitals: Vital Signs Temp Pulse Pulse Resp BP Pulse Ox 04/13/21 08:00 97.8 F 69 16 157/87 95 04/13/21 02:00 97.9 F 72 21 136/77 92 L 04/12/21 20:00 97.7 F 72 21 172/76 96 04/12/21 16:31 78 04/12/21 16:21 80 96 04/12/21 14:00 98.0 F 79 19 146/84 98 Intake and Output 04/12/21 04/13/21 04/13/21 22:59 06:59 14:59 Other: # Voids 3 2 Results 04/12/21 06:10 04/13/21 05:40 Cardiac Enzymes 04/13/21 04/13/21 Range/Units 05:40 05:40 AST 24 (13-35) U/L Troponin I <0.012 (0.000-0.034) ng/mL Comprehensive Metabolic Panel 04/13/21 Range/Units 05:40 Sodium 141 (135-145) mmol/L Potassium 4.0 (3.5-5.5) mmol/L Chloride 106 (96-109) mmol/L Carbon Dioxide 25.3 (21.6-31.8) mmol/L BUN 12.0 (9.0-27.0) mg/dL Creatinine 0.5 L (0.6-1.5) mg/dL Glucose 106 (70-110) mg/dL Calcium 8.7 (8.7-10.3) mg/dL Unconjugated Bilirubin mg/dL AST 24 (13-35) U/L ALT 18 (8-44) U/L Alkaline Phosphatase 127 H (41-126) U/L Total Protein 6.9 (6.2-8.2) g/dL Albumin 4.10 (3.80-4.90) g/dL Current Medications Generic Name Dose Route Start Last Admin Trade Name Freq PRN Reason Stop Dose Admin Acetaminophen 650 mg 04/11/21 20:50 04/13/21 07:28 Acetaminophen Tab 325 Mg Tab PO 650 mg Q6HR PRN Administration Mild Pain or Fever > 100.5 Hydrocodone Bitart/Acetaminophen 1 each 04/12/21 08:04 04/13/21 10:55 Hydrocodone/Apap 10-325mg 1 Each Tab PO 1 each QID PRN Administration Pain Albuterol Sulfate 2.5 mg 04/12/21 10:56 04/12/21 16:20 Albuterol Nebulized 2.5 Mg/3 Ml INHALATION 2.5 mg RT-Q4H PRN Administration Shortness Of Breath Amiodarone HCl 200 mg 04/12/21 21:00 04/12/21 21:14 Amiodarone 200 Mg Tab PO 200 mg HS MARTÍN Administration Doxycycline Monohydrate 100 mg 04/12/21 21:00 04/13/21 07:31 Doxycycline 100 Mg Cap PO 100 mg BID MARTÍN Administration Famotidine 20 mg 04/12/21 21:00 04/13/21 07:29 Famotidine 20 Mg Tab PO 20 mg BID MARTÍN Administration Fluoxetine HCl 20 mg 04/12/21 21:00 04/12/21 21:14 Fluoxetine Hcl 20 Mg Cap PO 20 mg HS MARTÍN Administration Folic Acid 1 mg 04/12/21 09:00 04/13/21 07:29 Folic Acid 1 Mg Tab PO 1 mg DAILY MARTÍN Administration Heparin Sodium (Porcine) 5,000 unit 04/12/21 09:00 04/13/21 07:31 Heparin Sodium,Porcine/Pf 5,000 Unit/0.5 Ml Syringe SQ 5,000 unit Q12HR MARTÍN Administration Sodium Chloride 1,000 mls @ 75 mls/hr 04/11/21 20:45 04/13/21 06:59 Saline 0.9% IV Not Given .[id number] MARTÍN Ceftriaxone Sodium 1 gm/ 50 mls @ 100 mls/hr 04/12/21 09:00 04/13/21 07:29 Sodium Chloride IVPB 100 mls/hr Q24HR MARTÍN Administration Levothyroxine Sodium 75 mcg 04/12/21 21:00 04/12/21 21:14 Levothyroxine 75 Mcg Tab PO 75 mcg HS MARTÍN Administration Methylprednisolone Sodium Succinate 40 mg 04/13/21 10:30 04/13/21 10:56 Methylprednisolone Sod Succi 40 Mg/Ml 1 Ml Vial IV 40 mg Q12HR MARTÍN Administration Morphine Sulfate 4 mg 04/11/21 20:50 Morphine Sulfate 4 Mg/Ml Syringe IV Q4HR PRN Severe Pain Naloxone HCl 0.2 mg 04/11/21 20:50 Naloxone 0.4 Mg/Ml 1 Ml Vial IV Q2M PRN Opioid Reversal Pramipexole Dihydrochloride 2 mg 04/12/21 21:00 04/12/21 22:34 Pramipexole 1 Mg Tab PO 2 mg HS MARTÍN Administration Pramipexole Dihydrochloride 1 mg 04/12/21 09:00 04/13/21 07:32 Pramipexole 1 Mg Tab PO 1 mg DAILY MARTÍN Administration Intake and Output 04/12/21 04/13/21 04/13/21 22:59 06:59 14:59 Other: # Voids 3 2 04/12/21 06:10 04/13/21 05:40
[2021-04-13] MEDS: ALBUTEROL NEBULIZED 2.5 MG/3 ML INHALATION PRN (16:25)
[2021-04-13 20:38] LABS: Glucose,Whole Blood 150 mg/dL (75-99)
[2021-04-14] MEDS: FLUoxetine HCL 20 MG CAP PO SCH
[2021-04-14] MEDS: HYDROcodone/APAP 10-325MG 1 EACH TAB PO PRN
[2021-04-14] MEDS: AMIODARONE 200 MG TAB PO SCH (00:02)
[2021-04-14] MEDS: HEPARIN SODIUM,PORCINE/PF 5,000 UNIT/0.5 ML SYRINGE SQ SCH ×2 (00:02→11:20)
[2021-04-14] MEDS: LEVOTHYROXINE 75 MCG TAB PO SCH (00:03)
[2021-04-14 06:55] LABS: Glucose,Whole Blood 152 mg/dL (75-99)
[2021-04-14] MEDS: SODIUM CHLORIDE 0.9% 1,000 ML IV SCH (07:35)
[2021-04-14] MEDS: methylPREDNISolone SOD SUCCI 40 MG/ML 1 ML VIAL IV SCH (07:35)
[2021-04-14 08:14] VITALS: PULSE 73
--- NOTE | 2021-04-14 08:35 | XR ---
EXAMINATION TYPE: XR chest 1V DATE OF EXAM: 04/14/2021 COMPARISON: 04/11/2021 HISTORY: 60-year-old female shortness of breath TECHNIQUE: Single frontal view of the chest is obtained. FINDINGS: Asymmetric elevation right hemidiaphragm redemonstrated. Heart upper limits of normal in size. Loop r ecorder device redemonstrated. Patchy opacity right mid and lower lung remains. IMPRESSION: 1. Asymmetric elevation right hemidiaphragm is similar. Hemidiaphragmatic paralysis is a possibility. 2. Continued airspace disease right mid and lower lung.
--- NOTE | 2021-04-14 10:53 | ECHOF ---
Referral Reason:LV function MEASUREMENTS -------- HEIGHT: 170.2 cm WEIGHT: 117.9 kg BP: RVIDd: 3.4 cm (< 3.3) IVSd: 1.2 cm (0.6 - 1.1) LVIDd: 4.2 cm (3.9 - 5.3) LVPWd: 1.3 cm (0.6 - 1.1) IVSs: 1.6 cm LVIDs: 2.9 cm LVPWs: 1.8 cm LA Diam: 3.9 cm (2.7 - 3.8) LAESV Index (A-L): 28.48 ml/m Ao Diam: 3.0 cm (2.0 - 3.7) AV Cusp: 2.1 cm (1.5 - 2.6) MV EXCURSION: 15.965 mm (> 18.000) MV EF SLOPE: 146 mm/s (70 - 150) EPSS: 0.2 cm MV E Jamie: 1.20 m/s MV DecT: 261 ms MV A Jamie: 1.10 m/s MV E/A Ratio: 1.09 RAP: 5.00 mmHg RVSP: 47.55 mmHg FINDINGS -------- Sinus rhythm. This was a technically adequate study. The left ventricular size is normal. There is mild concentric left ventricular hypertrophy. Overa ll left ventricular systolic function is normal with, an EF between 55 - 60 %. The right ventricle is mildly enlarged. Normal LA size by volume 22+/-6 ml/m2. The right atrial size is normal. Interatrial and interventricular septum intact. The aortic valve is trileaflet, and appears structurally normal. No aortic stenosis or regurgitation. Mild mitral annular calcification present. Mild mitral regurgitation is present. The tricuspid valve appears structurally normal. Mild tricuspid regurgitation present. There is m ild to moderate pulmonary hypertension. The right ventricular systolic pressure, as measured by Dop pler, is 47.55mmHg. Trace/mild (physiologic) pulmonic regurgitation. The aortic root size is normal. IVC Not well visulized. There is no pericardial effusion. CONCLUSIONS -------- 1. There is mild concentric left ventricular hypertrophy. 2. Overall left ventricular systolic function is normal with, an EF between 55 - 60 %. 3. The right ventricle is mildly enlarged. 4. Normal LA size by volume 22+/-6 ml/m2. 5. The aortic valve is trileaflet, and appears structurally normal. No aortic stenosis or regurgitati on. 6. Mild mitral regurgitation is present. 7. Mild tricuspid regurgitation present. 8. There is mild to moderate pulmonary hypertension. 9. Trace/mild (physiologic) pulmonic regurgitation. 10. There is no pericardial effusion. PARK GUARD: Dory Ponce RDCS
[2021-04-14] MEDS: PRAMIPEXOLE 1 MG TAB PO SCH (11:19)
[2021-04-14] MEDS: DOXYCYCLINE 100 MG CAP PO SCH (11:19)
[2021-04-14] MEDS: FOLIC ACID 1 MG TAB PO SCH (11:20)
[2021-04-14] MEDS: FAMOTIDINE 20 MG TAB PO SCH (11:20)
[2021-04-14 11:54] LABS: Glucose,Whole Blood 163 mg/dL (75-99)
--- NOTE | 2021-04-14 11:58 | P.PN ---
Progress Note - Text Progress Note Date: 04/14/21 Significant clinical improvement. Patient will be discharged home today in a stable condition with guarded prognosis pending final DC recommendations and clearance from cardiology. Patient will require a nebulizer machine at discharge as patient has acute on chronic COPD exacerbation, will be discharged on duanebs 4 times a day scheduled and every 4 hours when necessary shortness of breath in addition to steroid taper and Augmentin for 5 days. Please refer to my discharge summary. The impression and plan of care has been dictated as directed. : I performed a history and examination of this patient, discussed the same with the dictator. I agree with the dictator's note ,documented as a scribe. Any additional findings or plans will be noted.
--- NOTE | 2021-04-14 12:59 | P.PN ---
Subjective Progress Note Date: 04/14/21 HISTORY OF PRESENT ILLNESS: This is a 60-year-old female with a past medical history significant for sleep apnea with CPAP use, SVT, cardiac ablation, loop recorder insertion, and former nicotine dependence. Patient follows with a Dr. Gamboa in [place]. We have been asked to see the patient in consultation for chest pain. Patient examined at the bedside. Patient is admitted to the hospital secondary to pneumonia. Patient reports on Tuesday she began having chest pressure at home. She also reports having the chills. She is not sure if she had a fever because she did not take her temperature. She reports she had discomfort in her back. She reports having shortness of breath. Denies any cough or sputum production. She gives history of a cardiac ablation secondary to SVT. She denies previous history of atrial fibrillation. She also reports having a loop recorder implanted a few months ago. She believes she had a stress test and a cardiac cath performed this year at [facility]. She states she was told she did not have any blockages in her heart. EKG reveals sinus mechanism with no signs of acute ischemia Chest xray there is chronic elevation of the right diaphragm that could relate to paralysis that is worse than last exam. There is some new interstitial infiltrate right lung compared to exam. No heart failure. Laboratory data: WBC 4.6. Hemoglobin 10.1. Platelet count 286. Sodium 141. Potassium 4.0. BUN 12. Creatinine 0.50. Troponin negative 3. Current home cardiac medications include amiodarone 200 mg at night 04/14/[address] Craig. Patient is sitting up in the chair. She reports she was started on steroids and her breathing has significantly improved today. She denies chest pain or pressure. Echo obtained revealed ejection fraction 55-60%. Mild mitral regurgitation. Mild tricuspid regurgitation. [id number] pulmonary hypertension. PHYSICAL EXAM: VITAL SIGNS: Reviewed. GENERAL: Well-developed in no acute distress. HEENT: Head is normocephalic. Pupils are equal, round. Sclerae anicteric. Mucous membranes of the mouth are moist. Neck supple. No JVD or thyromegaly LUNGS: Respirations even and unlabored. Lungs diminished bilaterally. HEART: Regular rate and rhythm. S1 and S2 heard. Systolic murmur noted. ABDOMEN: Soft. Nondistended. Nontender. EXTREMITIES: Normal range of motion. No clubbing or cyanosis. Peripheral pulses intact. No lower extremity edema NEUROLOGIC: Awake and alert. Oriented x 3. ASSESSMENT: Right sided pneumonia Chest pain, troponin negative x 3, may be secondary to above History of SVT with cardiac ablation History of loop recorder insertion Obstructive sleep apnea with CPAP use Former nicotine dependence PLAN: Records reviewed from [facility]. Patient underwent cardiac cath at the beginning of 2020 revealing mild coronary artery disease. Patient is stable from DC from a cardiac standpoint We will sign off. Please reconsult if needed. Nurse practitioner note has been reviewed by physician. Signing provider agrees with the documented findings, assessment, and plan of care. Objective - Vital Signs Vital signs: Vital Signs Temp 97.6 F 04/14/21 08:13 Pulse 73 04/14/21 08:13 Resp 17 04/14/21 08:13 BP 185/99 04/14/21 08:13 Pulse Ox 97 04/14/21 08:13 Intake & Output 04/13/21 04/14/21 04/14/21 18:59 06:59 18:59 Intake Total 240 Balance 240 Intake: Oral 240 Other: # Voids 2 # Bowel Movements 0 0 - Labs CBC & Chem 7: 04/12/21 06:10 04/13/21 05:40 Labs: Abnormal Lab Results - Last 24 Hours (Table) 04/13/21 04/14/21 04/14/21 Range/Units 20:27 06:54 11:53 POC Glucose (mg/dL) 150 H 152 H 163 H (75-99) mg/dL Microbiology - Last 24 Hours (Table) 04/13/21 08:45 Gram Stain - Preliminary Sputum Sputum Culture - Preliminary 04/11/21 19:24 Blood Culture - Preliminary Blood No Growth after 48 hours 04/11/21 19:24 Blood Culture - Preliminary Blood No Growth after 48 hours 04/11/21 19:24 Urine Culture - Final Urine,Voided
[2021-04-14 13:30] VITALS: BP 105/60; RESP 20; TEMP 98.5
--- NOTE | 2021-04-15 16:37 | P.DS ---
Providers Date of admission: 04/11/21 20:53 Expected date of discharge: 04/14/21 Attending physician: Nick Zamorano MD Consults: 04/12/21 08:12 Consult Physician Urgent Consulting Provider: Brice Conway Consult Reason/Comments: Right upper and lower lobe pneumonia Do you want consulting provider notified?: Yes Primary care physician: Maria L Deleon [facility] Course: Final Diagnoses: Chest pressure with recent history of loop recorder,cardiology follow-up Right upper and lower lobe pneumonia,moderate acute COPD exacerbation in a patient with history of moderate to severe COPD recent diagnosis with obstructive sleep apnea and started on CPAP Hypertension Paroxysmal atrial fibrillation not on anticoagulation Osteoarthritis Depression, not an active issue Obesity with BMI 40.7 Mild to moderate pulmonary hypertension This is a 60-year-old female admitted with complaints of chest pressure, chills, shortness of breath , cough and multiple other medical issues. Reported she recently started using her CPAP machine. Advised deep cleaning of both machine and tubing. Reports her CPAP machine "blasts" her with air, discussed mask needs to be evaluated for possible lost seal. Evaluated by cardiology, pulmonary. Maintained on nebulized bronchodilators, antibiotics, steroids and IV fluid hydration. Echo reported normal LV function, EF 55-60%, mild to moderate pulmonary hypertension.[facility] records review per cardiology pending.Significant clinical improvement. Cleared by pulmonary for discharge. Patient will be discharged home today in a stable condition with guarded prognosis pending final DC recommendations and clearance from cardiology. Patient will require a nebulizer machine at discharge as patient has acute on chronic COPD exacerbation, will be discharged on duanebs 4 times a day scheduled and every 4 hours when necessary shortness of breath in addition to steroid taper and Augmentin for 5 days. The impression and plan of care has been dictated as directed. : I performed a history and examination of this patient, discussed the same with the dictator. I agree with the dictator's note ,documented as a scribe. Any additional findings or plans will be noted. Patient Condition at Discharge: Stable Plan - Discharge Summary Discharge Rx Participant: Yes New Discharge Prescriptions: New Ipratropium-Albuterol Nebulize [Duoneb 0.5 mg-3 mg/3 ml Soln] 3 ml INHALATION QID #120 neb predniSONE 10 mg PO DIRECTED #18 tab Doxycycline [Vibramycin] 100 mg PO BID #10 cap No Action Milnacipran HCl [[place]] 100 mg PO BID Levothyroxine Sodium [Synthroid] 75 mcg PO HS Pramipexole [Mirapex] 1 mg PO DAILY Pramipexole [Mirapex] 2 mg PO HS Folic Acid 1 mg PO DAILY FLUoxetine HCL [PROzac] 20 mg PO HS Amiodarone [Cordarone] 200 mg PO HS Albuterol Inhaler [Ventolin Hfa Inhaler] 2 puff INHALATION RT-Q4H PRN PRN Reason: Shortness Of Breath Methotrexate/Pf [Reditrex 25 mg/ml Syringe] 20 mg SQ MO Imitrex(Unknown Dose) 1 tab PO DAILY PRN PRN Reason: Migraine Headache HYDROcodone/APAP 10-325MG [[place] 10-325] 1 tab PO QID Omeprazole 40 mg PO DAILY Discharge Medication List Levothyroxine Sodium [Synthroid] 75 mcg PO HS 01/06/17 [History] Milnacipran HCl [[place]] 100 mg PO BID 01/06/17 [History] Pramipexole [Mirapex] 1 mg PO DAILY 01/06/17 [History] Pramipexole [Mirapex] 2 mg PO HS 09/14/17 [History] Albuterol Inhaler [Ventolin Hfa Inhaler] 2 puff INHALATION RT-Q4H PRN 04/11/21 [History] Amiodarone [Cordarone] 200 mg PO HS 04/11/21 [History] FLUoxetine HCL [PROzac] 20 mg PO HS 04/11/21 [History] Folic Acid 1 mg PO DAILY 04/11/21 [History] HYDROcodone/APAP 10-325MG [[place] 10-325] 1 tab PO QID 04/11/21 [History] Imitrex(Unknown Dose) 1 tab PO DAILY PRN 04/11/21 [History] Methotrexate/Pf [Reditrex 25 mg/ml Syringe] 20 mg SQ MO 04/11/21 [History] Omeprazole 40 mg PO DAILY 04/11/21 [History] Doxycycline [Vibramycin] 100 mg PO BID #10 cap 04/14/21 [Rx] Ipratropium-Albuterol Nebulize [Duoneb 0.5 mg-3 mg/3 ml Soln] 3 ml INHALATION QID #120 neb 04/14/21 [Rx] predniSONE 10 mg PO DIRECTED #18 tab 04/14/21 [Rx] Follow up Appointment(s)/Referral(s): Maria L Deleon DO [Primary Care Provider] - 04/17/21 1:00 pm Ambulatory/Diagnostic Orders: Complete Blood Count w/diff [LAB.AMB] Time Frame: 3 Days, Location: None Selected Activity/Diet/Wound Care/Special Instructions: Pending final DC recommendations and clearance from cardiology Discharge Disposition: HOME SELF-CARE
== END 2021-04-14 14:20 | disposition home or self-care (01) | DRG 194 ==
LOC: EC 18:54 → 4SSUR 20:53
PROVIDERS: ADMIT Family Medicine; ATTEND Family Medicine
DX: J18.9 Pneumonia, unspecified organism (principal); J44.1 Chronic obstructive pulmonary disease with (acute) exacerbation; J44.0 Chronic obstructive pulmonary disease with (acute) lower respiratory infection; Z68.41 Body mass index [BMI] 40.0-44.9, adult; E03.9 Hypothyroidism, unspecified; E66.01 Morbid (severe) obesity due to excess calories; F32.9 Major depressive disorder, single episode, unspecified; G47.33 Obstructive sleep apnea (adult) (pediatric); I10 Essential (primary) hypertension; I27.20 Pulmonary hypertension, unspecified; I48.0 Paroxysmal atrial fibrillation; M19.90 Unspecified osteoarthritis, unspecified site; M79.7 Fibromyalgia; Z20.822 Contact with and (suspected) exposure to COVID-19; Z79.52 Long term (current) use of systemic steroids; Z79.890 Hormone replacement therapy; Z87.891 Personal history of nicotine dependence; Z90.710 Acquired absence of both cervix and uterus; Z96.651 Presence of right artificial knee joint; Z86.79 Personal history of other diseases of the circulatory system; Z87.19 Personal history of other diseases of the digestive system; Z90.49 Acquired absence of other specified parts of digestive tract; Z91.040 Latex allergy status; Z91.048 Other nonmedicinal substance allergy status
CPT/HCPCS: 36415; 71045; 71275; 80048; 80053; 80076; 81001; 83605; 83735; 84484; 85025; 85379; 85610; 85652; 85730; 87040; 87070; 87086; 87205; 87635; 93005; 93306; 94640; 96361; 96365; 96374; 96375; 99285

== ENCOUNTER 2021-07-19 12:31 | Emergency (ER) | payer MEDICARE, OTHER ==
[2021-07-19 12:38] VITALS: TEMP 97.2
--- NOTE | 2021-07-19 13:08 | XR ---
EXAMINATION TYPE: XR chest 2V DATE OF EXAM: 07/19/2021 COMPARISON: 04/14/2021 TECHNIQUE: PA and lateral views submitted. HISTORY: Cough FINDINGS: The lungs are clear and there is no pneumothorax, pleural effusion, or focal pneumonia. Elevated ri ght hemidiaphragm. Heart size normal. Degenerative change of the spine. IMPRESSION: 1. No acute process.
[2021-07-19] MEDS ORDERED: SODIUM CHLORIDE 0.9% 1,000 ML IV STA (13:23)
[2021-07-19] MEDS ORDERED: IPRATROPIUM-ALBUTEROL 3 ML NEB INHALATION STA (13:23)
[2021-07-19] MEDS ORDERED: methylPREDNISolone SOD SUCCI 125 MG/2 ML VIAL IV STA (14:09)
--- NOTE | 2021-07-19 14:10 | ED ---
General Adult HPI - General Chief complaint: Shortness of Breath Stated complaint: JOHN Time Seen by Provider: 07/19/21 13:10 Source: patient, RN notes reviewed Mode of arrival: ambulatory Limitations: no limitations - History of Present Illness Initial comments: 61-year-old female with a past medical history of COPD, fibromyalgia, GERD, hypertension presents to the emergency room for shortness of breath. Patient states that she has had a cough and shortness of breath as well as congestion for 3 days now. She also has body aches and doesn't feel well. Patient has been doing breathing treatments of albuterol but it seems to be helping very much with her cough. Patient also recently had a blood transfusion a few days ago.Patient has no other complaints at this time including chest pain, abdominal pain, nausea or vomiting, headache, or visual changes. - Related Data Home Medications Medication Instructions Recorded Confirmed Milnacipran HCl [Savella] 100 mg PO BID 01/06/17 07/19/21 Pramipexole [Mirapex] 1 mg PO BID 09/14/17 07/19/21 Albuterol Inhaler [Ventolin Hfa 2 puff INHALATION RT-Q4H PRN 04/11/21 07/19/21 Inhaler] Folic Acid 1 mg PO DAILY 04/11/21 07/19/21 Omeprazole 40 mg PO DAILY 04/11/21 07/19/21 Cholecalciferol [Vitamin D3 (25 50 mcg PO DAILY 07/19/21 07/19/21 Mcg = 1000 Iu)] Cyanocobalamin (Vitamin B-12) 1,000 mcg PO DAILY 07/19/21 07/19/21 [Vitamin B-12] FLUoxetine HCL [PROzac] 20 mg PO DAILY 07/19/21 07/19/21 HYDROcodone/APAP 10-325MG [[place] 1 tab PO Q6HR PRN 07/19/21 07/19/21 10-325] Ipratropium-Albuterol Nebulize 3 ml INHALATION RT-QID PRN 07/19/21 07/19/21 [Duoneb 0.5 mg-3 mg/3 ml Soln] Multivitamins, Thera [Multivitamin 1 tab PO DAILY 07/19/21 07/19/21 (formulary)] metFORMIN HCL 500 mg PO DAILY 07/19/21 07/19/21 Previous Rx's Medication Instructions Recorded predniSONE 50 mg PO DAILY #5 tablet 07/19/21 Allergies Allergy/AdvReac Type Severity Reaction Status Date / Time latex Allergy Rash/Hives, Verified 07/19/21 13:43 DYSPNEA Latex, Natural Rubber Allergy Dyspnea, Verified 07/19/21 13:43 RASH Review of Systems ROS Statement: Those systems with pertinent positive or pertinent negative responses have been documented in the HPI. ROS Other: All systems not noted in ROS Statement are negative. Past Medical History Past Medical History: COPD, Fibromyalgia, GERD/Reflux, Hypertension, Pneumonia, Thyroid Disorder Additional Past Medical History / Comment(s): RECENT FX LT WRIST-03/29/18 History of Any Multi-Drug Resistant Organisms: None Reported Past Surgical History: Back Surgery, Cholecystectomy, Hernia Repair, Hysterectomy, Joint Replacement, Orthopedic Surgery Additional Past Surgical History / Comment(s): Right knee arthroplasty; R Knee replacement; right foot surgery; EGD; Colonoscopies, partial thyroidectomy, partial stomach removed from mesh through stomacH W/BYPASS AND FEEDING TUBE Past Anesthesia/Blood Transfusion Reactions: Family History of Problems w/ Anesthesia, Postoperative Nausea & Vomiting (PONV) Additional Past Anesthesia/Blood Transfusion Reaction / Comment(s): mother N/V Past Psychological History: Depression Smoking Status: Former smoker Past Alcohol Use History: None Reported Past Drug Use History: None Reported - Past Family History Father Family Medical History: Cancer Additional Family Medical History / Comment(s): blood CA Mother Family Medical History: Cancer Additional Family Medical History / Comment(s): skin CA Brother(s) Family Medical History: Cancer Additional Family Medical History / Comment(s): PANCREAS CA General Exam Limitations: no limitations General appearance: alert, in no apparent distress Head exam: Present: atraumatic Eye exam: Present: normal appearance, PERRL, EOMI. Absent: scleral icterus, conjunctival injection ENT exam: Present: normal exam, mucous membranes moist Neck exam: Present: normal inspection, full ROM. Absent: tenderness Respiratory exam: Present: wheezes. Absent: respiratory distress Cardiovascular Exam: Present: regular rate, normal rhythm, normal heart sounds GI/Abdominal exam: Present: soft, normal bowel sounds. Absent: distended, tenderness Neurological exam: Present: alert Course Vital Signs 07/19/21 07/19/21 07/19/21 12:34 14:00 14:20 Temperature 97.2 F L Pulse Rate 94 88 Respiratory 24 20 18 Rate Blood Pressure 111/64 O2 Sat by Pulse 100 Oximetry 07/19/21 07/19/21 14:28 14:49 Temperature Pulse Rate 88 68 Respiratory 18 20 Rate Blood Pressure 137/77 O2 Sat by Pulse 100 Oximetry Medical Decision Making - Medical Decision Making vitals are stable. Patient is well-appearing. She does have wheezing noted in the bilateral lung malave. CBC is unremarkable. Hemoglobin is stable at 10.6. CMP unremarkable. Coronavirus is negative. Chest x-ray shows no acute process. Patient likely experiencing COPD exacerbation. Will be treated with steroid. Has nebulizers at home. Will follow-up with her doctor and return for any worsening symptoms. - Lab Data Result diagrams: 07/19/21 14:22 07/19/21 14:22 Lab Results 07/19/21 07/19/21 07/19/21 Range/Units 12:41 14:22 14:22 WBC 6.7 (3.8-10.6) k/uL RBC 4.67 (3.80-5.40) m/uL Hgb 10.6 L (11.4-16.0) gm/dL Hct 35.4 (34.0-46.0) % MCV 75.9 L (80.0-100.0) fL MCH 22.7 L (25.0-35.0) pg MCHC 29.9 L (31.0-37.0) g/dL RDW 20.2 H (11.5-15.5) % Plt Count 300 (150-450) k/uL MPV 7.9 Neutrophils % 64 % Lymphocytes % 24 % Monocytes % 7 % Eosinophils % 3 % Basophils % 0 % Neutrophils # 4.3 (1.3-7.7) k/uL Lymphocytes # 1.6 (1.0-4.8) k/uL Monocytes # 0.5 (0-1.0) k/uL Eosinophils # 0.2 (0-0.7) k/uL Basophils # 0.0 (0-0.2) k/uL Hypochromasia Marked Anisocytosis Moderate Microcytosis Moderate Sodium 136 L (137-145) mmol/L Potassium 4.1 (3.5-5.1) mmol/L Chloride 105 (98-107) mmol/L Carbon Dioxide 24 (22-30) mmol/L Anion Gap 7 mmol/L BUN 11 (7-17) mg/dL Creatinine 0.46 L (0.52-1.04) mg/dL Est GFR (CKD-EPI)AfAm >90 (>60 ml/min/1.73 sqM) Est GFR (CKD-EPI)NonAf >90 (>60 ml/min/1.73 sqM) Glucose 111 H (74-99) mg/dL Calcium 8.9 (8.4-10.2) mg/dL Total Bilirubin 0.4 (0.2-1.3) mg/dL AST 29 (14-36) U/L ALT 16 (4-34) U/L Alkaline Phosphatase 131 H (38-126) U/L Total Protein 6.9 (6.3-8.2) g/dL Albumin 3.8 (3.5-5.0) g/dL Coronavirus (PCR) Not Detected (Not Detectd) Disposition Clinical Impression: COPD with acute exacerbation Disposition: HOME SELF-CARE Condition: Good Instructions (If sedation given, give patient instructions): COPD (Chronic Obstructive Pulmonary Disease) (ED) Additional Instructions: Please take steroid as directed. Continue to do breathing treatments. Follow- up with your doctor. Return to the emergency room for any worsening symptoms. Prescriptions: predniSONE 50 mg PO DAILY #5 tablet Is patient prescribed a controlled substance at d/c from ED?: No Referrals: Maria L Deleon DO [Primary Care Provider] - 1-2 days Time of Disposition: 15:22
[2021-07-19 14:40] LABS: Anisocytosis Moderate; Basophils % (A) 0 %; Eosinophils # (A) 0.2 k/uL (0-0.7); Eosinophils % (A) 3 %; HCT 35.4 % (34.0-46.0); HGB 10.6 gm/dL (11.4-16.0); Hypochromasia Marked; Lymphocytes # (A) 1.6 k/uL (1.0-4.8); Lymphocytes % (A) 24 %; MCH 22.7 pg (25.0-35.0); MCHC 29.9 g/dL (31.0-37.0); MCV 75.9 fL (80.0-100.0); Mean Platelet Volume 7.9; Microcytosis Moderate; Monocytes # (A) 0.5 k/uL (0-1.0); Monocytes % (A) 7 %; Neutrophils # (A) 4.3 k/uL (1.3-7.7); Neutrophils % (A) 64 %; Platelet Count 300 k/uL (150-450); RBC 4.67 m/uL (3.80-5.40); RDW 20.2 % (11.5-15.5); WBC 6.7 k/uL (3.8-10.6)
[2021-07-19 14:47] LABS: ALT 16 U/L (4-34); AST 29 U/L (14-36); African American GFR (CKD) >90 (>60 ml/min/1.73 sqM); Albumin 3.8 g/dL (3.5-5.0); Alkaline Phosphatase 131 U/L (38-126); Anion Gap 7 mmol/L; Blood Urea Nitrogen 11 mg/dL (7-17); Calcium 8.9 mg/dL (8.4-10.2); Carbon Dioxide 24 mmol/L (22-30); Chloride 105 mmol/L (98-107); Glucose 111 mg/dL (74-99); Non-African American GFR(CKD) >90 (>60 ml/min/1.73 sqM); Potassium 4.1 mmol/L (3.5-5.1); Sodium 136 mmol/L (137-145); Total Bilirubin 0.4 mg/dL (0.2-1.3); Total Protein 6.9 g/dL (6.3-8.2)
[2021-07-19 16:23] VITALS: BP 154/74; PULSE 82; RESP 18
== END 2021-07-19 16:22 | disposition home or self-care (01) ==
LOC: EC 12:31
DX: J44.1 Chronic obstructive pulmonary disease with (acute) exacerbation (principal); I10 Essential (primary) hypertension; K21.9 Gastro-esophageal reflux disease without esophagitis; F32.9 Major depressive disorder, single episode, unspecified; M79.7 Fibromyalgia; Z20.822 Contact with and (suspected) exposure to COVID-19; Z79.52 Long term (current) use of systemic steroids; Z79.84 Long term (current) use of oral hypoglycemic drugs; Z79.899 Other long term (current) drug therapy; Z87.891 Personal history of nicotine dependence; Z90.49 Acquired absence of other specified parts of digestive tract
CPT/HCPCS: 36415; 94640; 93005; 80053; 85025; 87635; 71046; 96374; 96361; 99285; J2930

== ENCOUNTER 2022-02-02 22:57 | Observation (INO) | payer MEDICARE, OTHER ==
--- NOTE | 2022-02-02 23:20 | ED ---
Chest Pain HPI - General Chief Complaint: Chest Pain Stated Complaint: Chest Pain Time Seen by Provider: 02/02/22 23:12 Source: patient Mode of arrival: wheelchair Limitations: no limitations - History of Present Illness Initial Comments: This patient is 61-year-old woman who presents with complaint of having a pressure feeling on the left chest that is been present since yesterday about 1:00. She states that she had just been sitting at the time when she noticed it come on. It does go to her back and neck as well. She has not noticed worsening or relieving factors. She states that it has been accompanied by a cough with some phlegm and a little bit of shortness of breath. MD Complaint: chest pain Onset/Timin -: hour(s) Onset: during rest Pain Location: left chest Pain Radiation: back, neck Severity: moderate Quality: heaviness Consistency: constant Improves With: nothing Worsens With: nothing Anginal Symptoms: dyspnea Other Symptoms: cough Treatments Prior to Arrival: none - Related Data Home Medications Medication Instructions Recorded Confirmed Milnacipran HCl [Savella] 100 mg PO BID 01/06/17 07/23/21 Pramipexole [Mirapex] 1 mg PO BID 09/14/17 07/23/21 Albuterol Inhaler [Ventolin Hfa 2 puff INHALATION RT-Q4H PRN 04/11/21 07/23/21 Inhaler] Folic Acid 1 mg PO DAILY 04/11/21 07/23/21 Omeprazole 40 mg PO DAILY 04/11/21 07/23/21 Cholecalciferol [Vitamin D3 (25 50 mcg PO DAILY 07/19/21 07/23/21 Mcg = 1000 Iu)] Cyanocobalamin (Vitamin B-12) 1,000 mcg PO DAILY 07/19/21 07/23/21 [Vitamin B-12] FLUoxetine HCL [PROzac] 20 mg PO DAILY 07/19/21 07/23/21 HYDROcodone/APAP 10-325MG [[place] 1 tab PO Q6HR PRN 07/19/21 07/23/21 10-325] Ipratropium-Albuterol Nebulize 3 ml INHALATION RT-QID PRN 07/19/21 07/23/21 [Duoneb 0.5 mg-3 mg/3 ml Soln] Multivitamins, Thera [Multivitamin 1 tab PO DAILY 07/19/21 07/23/21 (formulary)] metFORMIN HCL 500 mg PO DAILY 07/19/21 07/23/21 Previous Rx's Medication Instructions Recorded predniSONE 50 mg PO DAILY #5 tablet 07/19/21 Allergies Allergy/AdvReac Type Severity Reaction Status Date / Time latex Allergy Rash/Hives, Verified 02/02/22 23:04 DYSPNEA Latex, Natural Rubber Allergy Dyspnea, Verified 02/02/22 23:04 RASH Review of Systems ROS Statement: Those systems with pertinent positive or pertinent negative responses have been documented in the HPI. ROS Other: All systems not noted in ROS Statement are negative. Constitutional: Denies: fever, chills, weakness Respiratory: Reports: as per HPI, cough, dyspnea Cardiovascular: Reports: as per HPI, chest pain. Denies: palpitations, orthopnea, edema, syncope Gastrointestinal: Denies: abdominal pain, nausea, vomiting, diarrhea Genitourinary: Denies: dysuria, hematuria Musculoskeletal: Denies: back pain Skin: Denies: rash Neurological: Denies: headache, weakness, numbness EKG Findings - EKG Results: EKG: interpreted by ERMD, sinus rhythm (Rate 71 bpm), normal axis, normal QRS, normal ST/T Past Medical History Past Medical History: COPD, Fibromyalgia, GERD/Reflux, Hypertension, Pneumonia, Thyroid Disorder Additional Past Medical History / Comment(s): RECENT FX LT WRIST-03/29/18. New A-fib dx 07/22/21 History of Any Multi-Drug Resistant Organisms: None Reported Past Surgical History: Back Surgery, Cholecystectomy, Hernia Repair, Hysterectomy, Joint Replacement, Orthopedic Surgery Additional Past Surgical History / Comment(s): Right knee arthroplasty; R Knee replacement; right foot surgery; EGD; Colonoscopies, partial thyroidectomy, partial stomach removed from mesh through stomacH W/BYPASS AND FEEDING TUBE Past Anesthesia/Blood Transfusion Reactions: Family History of Problems w/ Anesthesia, Postoperative Nausea & Vomiting (PONV) Additional Past Anesthesia/Blood Transfusion Reaction / Comment(s): mother N/V Past Psychological History: Depression Smoking Status: Former smoker Past Alcohol Use History: None Reported Past Drug Use History: None Reported - Past Family History Father Family Medical History: Cancer Additional Family Medical History / Comment(s): blood CA Mother Family Medical History: Cancer Additional Family Medical History / Comment(s): skin CA Brother(s) Family Medical History: Cancer Additional Family Medical History / Comment(s): PANCREAS CA General Exam Limitations: no limitations General appearance: alert, in no apparent distress Head exam: Present: atraumatic, normocephalic Eye exam: Present: normal appearance. Absent: scleral icterus, conjunctival injection Neck exam: Present: normal inspection Respiratory exam: Present: normal lung sounds bilaterally. Absent: respiratory distress, wheezes, rales, rhonchi, stridor Cardiovascular Exam: Present: regular rate, normal rhythm, normal heart sounds. Absent: systolic murmur, diastolic murmur, rubs, gallop GI/Abdominal exam: Present: soft. Absent: distended, tenderness, guarding, rebo und, rigid, mass Extremities exam: Present: normal inspection, normal capillary refill. Absent: pedal edema, calf tenderness Back exam: Present: normal inspection. Absent: CVA tenderness (R), CVA tenderness (L) Neurological exam: Present: alert Skin exam: Present: warm, dry, intact, normal color. Absent: rash Course Vital Signs 02/02/22 02/03/22 22:59 00:03 Temperature 98.4 F Pulse Rate 65 68 Respiratory 18 16 Rate Blood Pressure 189/97 140/114 O2 Sat by Pulse 100 98 Oximetry Disposition Clinical Impression: Chest pain Disposition: ADMITTED IP TO THIS HOSP Condition: Good Instructions (If sedation given, give patient instructions): Chest Pain (ED) Is patient prescribed a controlled substance at d/c from ED?: No Referrals: Nick Zamorano MD [Primary Care Provider] - 1-2 days Decision Date: 02/03/22 Decision Time: 00:50
[2022-02-02] MEDS ORDERED: NITROGLYCERIN SL TABS 0.4 MG TAB SUBLINGUAL STA (23:43)
[2022-02-02] MEDS ORDERED: NITROGLYCERIN OINT 1 INCH/GM PACKET TOPICAL STA (23:43)
--- NOTE | 2022-02-02 23:46 | XR ---
EXAMINATION TYPE: XR chest 2V DATE OF EXAM: 02/02/2022 COMPARISON: 07/19/2021 2 views FINDINGS: Heart and mediastinum are normal. Lungs are clear. Diaphragm is normal. Bony thorax appears normal. T here are chest leads. IMPRESSION: Normal chest. No change.
[2022-02-03 00:23] LABS: Basophils % (A) 0 %; Eosinophils # (A) 0.1 k/uL (0-0.7); Eosinophils % (A) 1 %; HCT 47.3 % (34.0-46.0); HGB 15.3 gm/dL (11.4-16.0); Lymphocytes # (A) 1.4 k/uL (1.0-4.8); Lymphocytes % (A) 24 %; MCH 30.4 pg (25.0-35.0); MCHC 32.4 g/dL (31.0-37.0); MCV 93.8 fL (80.0-100.0); Mean Platelet Volume 7.4; Monocytes # (A) 0.7 k/uL (0-1.0); Monocytes % (A) 12 %; Neutrophils # (A) 3.4 k/uL (1.3-7.7); Neutrophils % (A) 60 %; Platelet Count 251 k/uL (150-450); RBC 5.04 m/uL (3.80-5.40); RDW 13.3 % (11.5-15.5); WBC 5.7 k/uL (3.8-10.6)
[2022-02-03 00:32] LABS: ALT 16 U/L (4-34); AST 26 U/L (14-36); African American GFR (CKD) >90 (>60 ml/min/1.73 sqM); Albumin 4.6 g/dL (3.5-5.0); Alkaline Phosphatase 120 U/L (38-126); Anion Gap 9 mmol/L; Blood Urea Nitrogen 16 mg/dL (7-17); Calcium 9.1 mg/dL (8.4-10.2); Carbon Dioxide 26 mmol/L (22-30); Chloride 100 mmol/L (98-107); Glucose 94 mg/dL (74-99); Magnesium 2.2 mg/dL (1.6-2.3); Non-African American GFR(CKD) >90 (>60 ml/min/1.73 sqM); Potassium 4.3 mmol/L (3.5-5.1); Sodium 135 mmol/L (137-145); Total Bilirubin 0.4 mg/dL (0.2-1.3); Total Protein 7.7 g/dL (6.3-8.2)
[2022-02-03 00:51] LABS: INR 0.9 (<1.2); Partial Thromboplastin Time 24.7 sec (22.0-30.0); Prothrombin Time 10.4 sec (9.0-12.0)
[2022-02-03] MEDS ORDERED: MORPHINE SULFATE 4 MG/ML SYRINGE IV STA (00:58)
[2022-02-03] MEDS ORDERED: NITROGLYCERIN SL TABS 0.4 MG TAB SUBLINGUAL PRN (00:59)
[2022-02-03] MEDS: APIXABAN 5 MG TAB PO SCH ×2 (08:37→20:52)
[2022-02-03] MEDS: ASPIRIN 81 MG PO SCH (08:38)
[2022-02-03] MEDS: HYDROcodone/APAP 10-325MG 1 EACH TAB PO PRN ×3 (09:41→22:30)
[2022-02-03] MEDS: PANTOPRAZOLE 40 MG TABLET PO SCH (09:41)
--- NOTE | 2022-02-03 09:56 | P.CRDCN ---
History of Present Illness History of present illness: This is a 60-year-old female with a past medical history significant for paroxysmal atrial fibrillation on Eliquis s/p ablation 3 months ago, sleep apnea with CPAP use, SVT, cardiac ablation, loop recorder insertion, and former nicotine dependence. Patient followed with a Dr. Gamboa in [place], however moved to [place] she is following up with someone in the practice. We have been asked to see the patient in consultation for chest pain. Patient examined at the bedside. Patient presented to the emergency department with complaints of chest discomfort. Tuesday, she began to have left sided chest pain, radiating to her back. It was non-exertional. She states it has been intermittent since Tuesday. Yesterday, she had another episode, increased in intensity. She had associated shortness of breath, headache, nausea, and palptiations. She checked her blood pressure and it was 188/110. She called the office to see if any abnormalities were on her loop recorder, they recommended her go to the ER. She denies history of [place], Stroke or diabetes. She is a former smoker. She normally checks her blood pressure at home, usually SBP runs in 130s. Of noted, Cardiology did see the patient in 04/2021, Records from [facility] was reviewed by the gut cleaner at that time, Per prior documentation patient underwent cardiac cath at the beginning of 2020 revealing mild coronary artery disease. DIAGNOSTICS EKG reveals sinus rhythm, heart rate 71, PACs noted Telemetry reviewed patient in sinus mechanism with heart rate 60s, occassional PACs and PVCs noted. Chest xray no acute cardiopulmonary process Laboratory data: CBC unremarkable, d-dimer 0.64, sodium 135, potassium 4.3, BUN 16, serum creatinine 0.6, troponin negative 3 04/2021 Echo revealed ejection fraction 55-60%. Mild mitral regurgitation. Mild tricuspid regurgitation. [id number] pulmonary hypertension. Current home cardiac medications include Eliquis 5 mg twice a day REVIEW OF SYSTEMS: At the time of my exam: CONSTITUTIONAL: Denies fever or chills. HEENT: Denies blurred vision, vision changes, or eye pain. Denies hemoptysis CARDIOVASCULAR: + chest pain. Denies orthopnea. Denies PND. + palpitations RESPIRATORY: + shortness of breath. GASTROINTESTINAL: Denies abdominal pain. Denies nausea or vomiting. HEMATOLOGIC: Denies bleeding disorders. GENITOURINARY: Denies any blood in urine. SKIN: Denies pruitis. Denies rash. PHYSICAL EXAM: VITAL SIGNS: Reviewed. GENERAL: Well-developed in no acute distress. HEENT: Head is normocephalic. Pupils are equal, round. Sclerae anicteric. Mucous membranes of the mouth are moist. Neck supple. No JVD or thyromegaly LUNGS: Respirations even and unlabored. Lungs essentially clear to auscultation bilaterally. HEART: Regular rate and rhythm. S1 and S2 heard. Systolic murmur noted. ABDOMEN: Soft. Nondistended. Nontender. EXTREMITIES: Normal range of motion. No clubbing or cyanosis. Peripheral pulses intact. No lower extremity edema NEUROLOGIC: Awake and alert. Oriented x 3. ASSESSMENT: Chest pain, atypical, acute coronary syndrome has been ruled out Paroxysmal atrial fibrillation, s/p ablation per patient a few months ago on Eliquis Mild non-obstructive coronary artery disease - from recent cardiac catheterization in 2020 History of SVT with cardiac ablation History of loop recorder insertion Obstructive sleep apnea Former nicotine dependence PLAN: An acute coronary event has been ruled out Obtain 2D echocardiogram Interrogate patient's loop recorder Will try to obtain Cath report from [place] Monitor on telemetry Continue anticoagulation with Eliquis Further recommendations based on clinical course Nurse practitioner note has been reviewed by physician. Signing provider agrees with the documented findings, assessment, and plan of care. Past Medical History Past Medical History: COPD, Fibromyalgia, GERD/Reflux, Hypertension, Pneumonia, Thyroid Disorder Additional Past Medical History / Comment(s): RECENT FX LT WRIST-03/29/18. New A-fib dx 07/22/21 History of Any Multi-Drug Resistant Organisms: None Reported Past Surgical History: Back Surgery, Cholecystectomy, Hernia Repair, Hysterectomy, Joint Replacement, Orthopedic Surgery Additional Past Surgical History / Comment(s): Right knee arthroplasty; R Knee replacement; right foot surgery; EGD; Colonoscopies, partial thyroidectomy, partial stomach removed from mesh through stomacH W/BYPASS AND FEEDING TUBE Past Anesthesia/Blood Transfusion Reactions: Family History of Problems w/ Anesthesia, Postoperative Nausea & Vomiting (PONV) Additional Past Anesthesia/Blood Transfusion Reaction / Comment(s): mother N/V Past Psychological History: Depression Additional Psychological History / Comment(s): . Adult children. No animal exposures. No experience. No international travel. Does not work outside of the home Smoking Status: Former smoker Past Alcohol Use History: None Reported Additional Past Alcohol Use History / Comment(s): smoked from age 16 to 41 yrs 1ppd Past Drug Use History: None Reported - Past Family History Father Family Medical History: Cancer Additional Family Medical History / Comment(s): blood CA Mother Family Medical History: Cancer Additional Family Medical History / Comment(s): skin CA Brother(s) Family Medical History: Cancer Additional Family Medical History / Comment(s): PANCREAS CA Medications and Allergies Home Medications Medication Instructions Recorded Confirmed Type Pramipexole [Mirapex] 2 mg PO BID@010,199909/14/17 02/03/22 History Omeprazole 40 mg PO DAILY 04/11/21 02/03/22 History HYDROcodone/APAP 10-325MG [[place] 1 tab PO QID PRN 07/19/21 02/03/22 History 10-325] Apixaban [Eliquis] 5 mg PO BID 02/03/22 02/03/22 History Ergocalciferol [Vitamin D2 (1250 1,250 mcg PO TU 02/03/22 02/03/22 History Mcg = 61705 Iu)] Milnacipran HCl [Savella] See Taper PO DIRECTED 02/03/22 02/03/22 History Allergies Allergy/AdvReac Type Severity Reaction Status Date / Time latex Allergy Rash/Hives, Verified 02/03/22 07:22 DYSPNEA Latex, Natural Rubber Allergy Dyspnea, Verified 02/03/22 07:22 RASH Physical Exam Vitals: Vital Signs Temp Pulse Pulse Resp BP BP Pulse Ox 02/03/22 02:25 97.4 F L 66 18 147/95 97 02/03/22 01:31 67 18 138/85 97 02/03/22 00:03 68 16 140/114 98 02/02/22 22:59 98.4 F 65 18 189/97 100 Intake and Output 02/02/22 02/03/22 02/03/22 22:59 06:59 14:59 Other: # Voids 1 Weight 115.212 kg 115.212 kg Results 02/02/22 23:37 02/02/22 23:37 Cardiac Enzymes 02/02/22 02/02/22 02/03/22 Range/Units 23:37 23:37 03:17 AST 26 (14-36) U/L Troponin I <0.012 <0.012 (0.000-0.034) ng/mL Coagulation 02/02/22 Range/Units 23:37 PT 10.4 (9.0-12.0) sec APTT 24.7 (22.0-30.0) sec CBC 02/02/22 Range/Units 23:37 WBC 5.7 (3.8-10.6) k/uL RBC 5.04 (3.80-5.40) m/uL Hgb 15.3 (11.4-16.0) gm/dL Hct 47.3 H (34.0-46.0) % Plt Count 251 (150-450) k/uL Comprehensive Metabolic Panel 02/02/22 Range/Units 23:37 Sodium 135 L (137-145) mmol/L Potassium 4.3 (3.5-5.1) mmol/L Chloride 100 (98-107) mmol/L Carbon Dioxide 26 (22-30) mmol/L BUN 16 (7-17) mg/dL Creatinine 0.65 (0.52-1.04) mg/dL Glucose 94 (74-99) mg/dL Calcium 9.1 (8.4-10.2) mg/dL AST 26 (14-36) U/L ALT 16 (4-34) U/L Alkaline Phosphatase 120 (38-126) U/L Total Protein 7.7 (6.3-8.2) g/dL Albumin 4.6 (3.5-5.0) g/dL Current Medications Generic Name Dose Route Start Last Admin Trade Name Freq PRN Reason Stop Dose Admin Aspirin 325 mg 02/04/22 09:00 Aspirin 325 Mg Tab PO DAILY MARTÍN Sodium Chloride 1,000 mls @ 20 mls/hr 02/03/22 01:00 Saline 0.9% IV .Q24H MARTÍN Nitroglycerin 0.4 mg 02/03/22 00:59 Nitroglycerin Sl Tabs 0.4 Mg Tab SUBLINGUAL Q5M PRN Chest Pain Intake and Output 02/02/22 02/03/22 02/03/22 22:59 06:59 14:59 Other: # Voids 1 Weight 115.212 kg 115.212 kg 02/02/22 23:37 02/02/22 23:37
[2022-02-03] MEDS ORDERED: ACETAMINOPHEN IV (For NPO) 1,000 MG in EMPTY BAG 1 BAG IVPB STA (10:03)
[2022-02-03] MEDS ORDERED: MAGNESIUM SULFATE-D5W PMX 1 GM in DEXTROSE/WATER 1 100ML.BAG IVPB ONE (10:03)
--- NOTE | 2022-02-03 11:18 | P.HPIM ---
History of Present Illness H&P Date: 02/03/22 Chief Complaint: Left chest pressure History and Physical and Discharge Summary This is a 61-year-old female with past medical history of CAD, paroximal atrial fibrillation, ablation, SVT, loop recorder insertion ,COPD, fibromyalgia, gastroesophageal reflux disease, obesity, obstructive sleep apnea with CPAP at home, hypertension, hypothyroidism, multiple surgeries including abdominal, depression, former nicotine dependence and multiple other medical issues admitted with complaints of nonradiating left-sided chest pressure, persistent since yesterday, occurred at rest while at home, accompanied by some shortness of breath. Denies cough. Denies recent illness, but reports some mild sinus drainage began this morning. Denies nausea ,vomiting . Denies syncope.Reports on Tuesday she developed sweats, nausea with eventual headache with her blood pressure is running high systolic in the 180s. She reached out to her store planner, who recommended she proceed to the ER. On admission, blood pressure 189/97, heart rate 65, respiratory rate 18, maintaining O2 sats of 100% on room air. Received morphine, nitroglycerin, with subsequent blood pressures in the 130s to 140s. EKG reported sinus rhythm with PACs, troponin negative 3, electrolytes within normal limits ,chest x-ray reports no acute cardiopulmonary process, hematology, coagulation and chemistry panels unremarkable. Echo of 04/13/2021 reported mild concentric left ventricular hypertrophy, normal LV function, EF 55-60%, mild to moderate pulmonary hypertension. Currently complaining of headache that occurred after receiving nitroglycerin in the ER. Reports that she was seen by a store planner this morning," informed that she will have a stress test, started on a blood pressure pill and monitored overnight, being discharged tomorrow." Review of Systems ROS Statement: Those systems with pertinent positive or pertinent negative responses have been documented in the HPI. ROS Other: All systems not noted in ROS Statement are negative. Past Medical History Past Medical History: COPD, Fibromyalgia, GERD/Reflux, Hypertension, Pneumonia, Thyroid Disorder Additional Past Medical History / Comment(s): RECENT FX LT WRIST-03/29/18. New A-fib dx 07/22/21 History of Any Multi-Drug Resistant Organisms: None Reported Past Surgical History: Back Surgery, Cholecystectomy, Hernia Repair, Hysterectomy, Joint Replacement, Orthopedic Surgery Additional Past Surgical History / Comment(s): Right knee arthroplasty; R Knee replacement; right foot surgery; EGD; Colonoscopies, partial thyroidectomy, partial stomach removed from mesh through stomacH W/BYPASS AND FEEDING TUBE Past Anesthesia/Blood Transfusion Reactions: Family History of Problems w/ Anesthesia, Postoperative Nausea & Vomiting (PONV) Additional Past Anesthesia/Blood Transfusion Reaction / Comment(s): mother N/V Past Psychological History: Depression Additional Psychological History / Comment(s): . Adult children. No animal exposures. No experience. No international travel. Does not work outside of the home Smoking Status: Former smoker Past Alcohol Use History: None Reported Additional Past Alcohol Use History / Comment(s): smoked from age 16 to 41 yrs 1ppd Past Drug Use History: None Reported - Past Family History Father Family Medical History: Cancer Additional Family Medical History / Comment(s): blood CA Mother Family Medical History: Cancer Additional Family Medical History / Comment(s): skin CA Brother(s) Family Medical History: Cancer Additional Family Medical History / Comment(s): PANCREAS CA Medications and Allergies Home Medications Medication Instructions Recorded Confirmed Type Pramipexole [Mirapex] 2 mg PO BID@01009/14/17 02/03/22 History Omeprazole 40 mg PO DAILY 04/11/21 02/03/22 History HYDROcodone/APAP 10-325MG [[place] 1 tab PO QID PRN 07/19/21 02/03/22 History 10-325] Apixaban [Eliquis] 5 mg PO BID 02/03/22 02/03/22 History Ergocalciferol [Vitamin D2 (1250 1,250 mcg PO TU 02/03/22 02/03/22 History Mcg = 60347 Iu)] Milnacipran HCl [[place]] See Taper PO DIRECTED 02/03/22 02/03/22 History predniSONE 10 mg PO DIRECTED #18 tab 02/03/22 Rx Allergies Allergy/AdvReac Type Severity Reaction Status Date / Time latex Allergy Rash/Hives, Verified 02/03/22 07:22 DYSPNEA Latex, Natural Rubber Allergy Dyspnea, Verified 02/03/22 07:22 RASH Physical Exam Vitals: Vital Signs Temp Pulse Pulse Resp BP BP BP 02/03/22 07:25 98.3 F 66 19 134/83 02/03/22 02:25 97.4 F L 66 18 147/95 02/03/22 01:31 67 18 138/85 02/03/22 00:03 68 16 140/114 02/02/22 22:59 98.4 F 65 18 189/97 Pulse Ox 02/03/22 07:25 97 02/03/22 02:25 97 02/03/22 01:31 97 02/03/22 00:03 98 02/02/22 22:59 100 Intake and Output 02/02/22 02/03/22 02/03/22 22:59 06:59 14:59 Other: # Voids 1 Weight 115.212 kg 115.212 kg -GENERAL: Obese, sitting up in bed, alert and oriented x3, no acute distress. HEENT: Pupils are round and equally reacting to light. EOMI. No scleral icterus. No conjunctival pallor. Normocephalic, atraumatic. No pharyngeal erythema. Neck supple, no JVD, No thyromegaly. CARDIOVASCULAR: S1 and S2 present. Positive Systolic murmur. -PULMONARY: Chest is clear to auscultation, no wheezing or crackles. Midsternal tenderness to palpation. ABDOMEN: Soft, nontender, nondistended, normoactive bowel sounds. No palpable organomegaly. EXTREMITIES: No cyanosis, clubbing, or pedal edema. NEUROLOGICAL: Gross neurological examination did not reveal any focal deficits. Alert and oriented 3. Strength and sensation grossly intact. SKIN: Warm and dry, No rashes. Results CBC & Chem 7: 02/02/22 23:37 02/02/22 23:37 Labs: Abnormal Lab Results - Last 24 Hours (Table) 02/02/22 02/02/22 02/03/22 Range/Units 23:37 23:37 00:00 Hct 47.3 H (34.0-46.0) % D-Dimer 0.64 H (<0.60) mg/L FEU Sodium 135 L (137-145) mmol/L Thrombosis Risk Factor Assmnt - Choose All That Apply Any of the Below Risk Factors Present?: No Each Risk Factor Represents 2 Points: Age 61-74 years Thrombosis Risk Factor Assessment Total Risk Factor Score: 2 Thrombosis Risk Factor Assessment Level: Low Risk Assessment and Plan Assessment: Left-sided chest pressure, reproducible with midsternal tenderness, possible costochondritis, troponins negative 2, cardiology following Hypertension CAD History of SVT with cardiac ablation Loop recorder Chronic Paroximal atrial fibrillation, on Eliquis Pulmonary hypertension COPD, stable Obstructive sleep apnea, uses CPAP at home Gastroesophageal reflux disease History of gastric bypass Hypothyroidism with history of partial thyroidectomy Osteoarthritis Fibromyalgia Depression, history of Obesity with BMI 39.8 History of prior nicotine dependence, 1 pack per day 25 years Plan:Continue on current medication regime ,monitoring and symptomatic treatment. IV Tylenol and magnesium ordered for headache. Evaluated by cardiology, echo ordered/pending. Reports being obtained from [facility]. Discharge home today in a stable condition with guarded prognosis pending final DC recommendations and clearance per cardiology. Steroid taper at DC for potential costochondritis. Discharge Medication List Pramipexole [Mirapex] 2 mg PO BID@09/14/17 [History] Omeprazole 40 mg PO DAILY 04/11/21 [History] HYDROcodone/APAP 10-325MG [[place] 10-325] 1 tab PO QID PRN 07/19/21 [History] Apixaban [Eliquis] 5 mg PO BID 02/03/22 [History] Ergocalciferol [Vitamin D2 (1250 Mcg = 55537 Iu)] 1,250 mcg PO TU 02/03/22 [History] Milnacipran HCl [[place]] See Taper PO DIRECTED 02/03/22 [History] predniSONE 10 mg PO DIRECTED #18 tab 02/03/22 [Rx] The impression and plan of care has been dictated as directed. : I performed a history and examination of this patient, discussed the same with the dictator. I agree with the dictator's note ,documented as a scribe. Any additional findings or plans will be noted.
--- NOTE | 2022-02-03 14:13 | CA ---
Transthoracic Echo Report Name: Luciana Peters Age: 61 Gender: F : 1960 Exam Date: 02/03/2022 08:21 Exam Location: [facility] Ht (in): 67 Wt (lb): 251 Ordering Physician: Patrizia Little Attending/Referring Phys: Microbiology Lab Technician Tennille Traore, JODIE Procedure CPT: Indications: LV function, shortness of breath, chest pain Cardiac Hx: Technical Quality: Fair Contrast 1: Total Dose (mL): Contrast 2: Total Dose (mL): MEASUREMENTS (Male / Female) Normal Values 2D ECHO LV Diastolic Diameter PLAX 4.2 cm 4.2 - 5.9 / 3.9 - 5.3 cm LV Systolic Diameter PLAX 2.9 cm IVS Diastolic Thickness 1.4 cm 0.6 - 1.0 / 0.6 - 0.9 cm LVPW Diastolic Thickness 1.5 cm 0.6 - 1.0 / 0.6 - 0.9 cm LV Relative Wall Thickness 0.7 RV Internal Dim ED PLAX 2.8 cm LA Volume 61.0 cm??? 18 - 58 / 22 - 52 cm??? M-MODE Aortic Root Diameter MM 3.1 cm AV Cusp Separation MM 2.2 cm DOPPLER AV Peak Velocity 158.7 cm/s AV Peak Gradient 10.1 mmHg MV Area PHT 2.9 cm??? Mitral E Point Velocity 94.8 cm/s Mitral A Point Velocity 86.9 cm/s Mitral E to A Ratio 1.1 MV Deceleration Time 257.9 ms MV E' Velocity 8.0 cm/s Mitral E to MV E' Ratio 11.8 TR Peak Velocity 233.9 cm/s TR Peak Gradient 21.9 mmHg Right Ventricular Systolic Press 25.1 mmHg FINDINGS Left Ventricle Moderately increased left ventricular wall thickness. Normal left ventricular systolic function with no obvious regional wall motion abnormalities. Left ventricular ejection fraction is estimated at 55-60 %. Normal left ventricular diastolic filling pattern. Right Ventricle Normal right ventricular size and function. Right ventricular systolic pressure within normal limits. Right Atrium Normal right atrial size. Left Atrium Mildly increased left atrial volume. No evidence for an atrial septal defect. Mitral Valve Structurally normal mitral valve.no mitral stenosis. Mild mitral regurgitation. Aortic Valve Trileaflet aortic valve. No aortic valve stenosis or regurgitation. Tricuspid Valve Structurally normal tricuspid valve. Mild tricuspid regurgitation. Pulmonic Valve Structurally normal pulmonic valve. Trace pulmonic regurgitation. Pericardium No pericardial effusion. Aorta Normal size aortic root and proximal ascending aorta. CONCLUSIONS Normal left ventricular dimension and systolic function Previewed by: Dr. Ankur Marks MD (Electronically Signed) Final Date: 03 Feb 2022 14:12
[2022-02-03] MEDS: SODIUM CHLORIDE 0.9% 1,000 ML IV SCH (20:53)
[2022-02-04] MEDS: SODIUM CHLORIDE 0.9% 1,000 ML IV SCH (02:26)
[2022-02-04] MEDS: ASPIRIN 81 MG PO SCH (07:51)
[2022-02-04] MEDS: PANTOPRAZOLE 40 MG TABLET PO SCH (07:52)
[2022-02-04] MEDS: APIXABAN 5 MG TAB PO SCH (07:52)
[2022-02-04] MEDS: HYDROcodone/APAP 10-325MG 1 EACH TAB PO PRN (07:53)
[2022-02-04 08:39] VITALS: BP 155/89; PULSE 80; RESP 18; TEMP 100.7
[2022-02-04] MEDS ORDERED: ASPIRIN 325 MG TAB PO SCH (09:00)
[2022-02-04 09:25] LABS: Chol/HDL Ratio 2.71 Ratio; LDL Cholesterol,Calculated 83.2 mg/dL (0.0-131.0); VLDL Calculation 15.94 mg/dL (5.00-40.00)
--- NOTE | 2022-02-04 10:03 | P.PN ---
Subjective This is a 60-year-old female with a past medical history significant for paroxysmal atrial fibrillation on Eliquis s/p ablation 3 months ago, sleep apnea with CPAP use, SVT, cardiac ablation, loop recorder insertion, and former nicotine dependence. Patient followed with a Dr. Gamboa in [place], however moved to [place] she is following up with someone in the practice. We have been asked to see the patient in consultation for chest pain. Patient examined at the bedside. Patient presented to the emergency department with complaints of chest discomfort. Tuesday, she began to have left sided chest pain, radiating to her back. It was non-exertional. She states it has been intermittent since Tuesday. Yesterday, she had another episode, increased in intensity. She had associated shortness of breath, headache, nausea, and palptiations. She checked her blood pressure and it was 188/110. She called the office to see if any abnormalities were on her loop recorder, they recommended her go to the ER. She denies history of CT, Stroke or diabetes. She is a former smoker. She normally checks her blood pressure at home, usually SBP runs in 130s. [facility] Records Obtained: Cardiac catheterization 09/30/2020: Performed by Tra Crain Overall impression: patient presented with unstable angina, coronary angiogram showed mild RCA disease Left main: Normal sized. No evidence disease LAD: Normal-sized. No evidence of disease Ramus intermedius: Normal-sized. No evidence of disease Left circumflex: Normal-sized. No evidence of disease First obtuse marginal:Normal-sized. No evidence of disease Right coronary: Normal-sized. Proximal vessel lesion: Theres is a 20% stenosis Right posterior descending: Normal-sized. No evidence disease First right posterolateral: Normal-sized. No evidence of disease 02/04/2022 Patient seen and examined at bedside, no acute distress. She denies any further chest pain. No shortness of breath. No complaints. Her vital signs are stable. Telemetry reviewed patient in sinus mechanism with heart rate in the 60s. Loop recorder interrogation completed patient episodes of tachycardia, for episodes of atrial fibrillation on 02/02/22 that was less than 50 seconds. PHYSICAL EXAM: VITAL SIGNS: Reviewed. GENERAL: Well-developed in no acute distress. HEENT: Neck supple. No JVD LUNGS: Respirations even and unlabored. Lungs essentially clear to auscultation bilaterally. HEART: Regular rate and rhythm. S1 and S2 heard. Systolic murmur noted. ABDOMEN: Soft. Nondistended. Nontender. EXTREMITIES: Normal range of motion. No clubbing or cyanosis. Peripheral pulses intact. No lower extremity edema NEUROLOGIC: Awake and alert. Oriented x 3. ASSESSMENT: Chest pain, atypical, acute coronary syndrome has been ruled out Paroxysmal atrial fibrillation, s/p ablation per patient a few months ago on Eliquis Mild non-obstructive coronary artery disease - from recent cardiac catheterization in 2020 History of SVT with cardiac ablation History of loop recorder insertion Obstructive sleep apnea Former nicotine dependence PLAN: An acute coronary event has been ruled out Interrogation of loop recorder revealed no acute findings. Echo EF 55-60% Continue anticoagulation with Eliquis From cardiology perspective, no further inpatient workup from our perspective. Patient is stable for discharge. Follow up outpatient with her primary beta tester. Nurse practitioner note has been reviewed by physician. Signing provider agrees with the documented findings, assessment, and plan of care. Objective - Vital Signs Vital signs: Vital Signs Temp 100.7 F H 02/04/22 07:15 Pulse 80 02/04/22 07:15 Resp 18 02/04/22 07:15 BP 155/89 02/04/22 07:15 Pulse Ox 96 02/04/22 07:15 FiO2 Intake & Output 02/03/22 02/04/22 02/04/22 18:59 06:59 18:59 Other: Voiding Method Toilet Toilet # Voids 1 2 - Labs CBC & Chem 7: 02/02/22 23:37 02/02/22 23:37
--- NOTE | 2022-02-08 09:36 | P.DS ---
Providers Date of admission: 02/03/22 00:59 Expected date of discharge: 02/04/22 Attending physician: Nick Zamorano MD Consults: 02/03/22 00:59 Consult Physician Routine Consulting Provider: Ankur Marks Consult Reason/Comments: chest pain Do you want consulting provider notified?: Yes Primary care physician: Nick Zamorano MD Hospital Course: Final diagnosis Left-sided chest pressure, reproducible with midsternal tenderness, possible costochondritis, troponins negative 2, cardiology following Hypertension CAD History of SVT with cardiac ablation Loop recorder Chronic Paroximal atrial fibrillation, on Eliquis Pulmonary hypertension COPD, stable Obstructive sleep apnea, uses CPAP at home Gastroesophageal reflux disease History of gastric bypass Hypothyroidism with history of partial thyroidectomy Osteoarthritis Fibromyalgia Depression, history of Obesity with BMI 39.8 History of prior nicotine dependence, 1 pack per day 25 years Discharge disposition Patient is being discharged in a stable condition with guarded prognosis to home. Patient will follow-up with Dr. Nick Zamorano in the outpatient setting upon discharge. Patient is to follow-up with cardiology as scheduled and will continue on prednisone taper as started by her primary. Total time taken is greater than 35 minutes. Hospital course This is a 61-year-old female admitted with left-sided chest pressure and associated shortness of breath and was being closely monitored. Patient was seen and evaluated by cardiology and underwent 2-D echo showing normal LV systolic function and EF is approximately 55-60% with some mildly increased left atrial volume and no evidence of atrial septal defect and mild tricuspid regurgitation. Mitral as well. She will follow up with cardiology in one week. Patient is feeling much better and adamant about going home today. Patient is anxious about being discharged as she has to work today and would like to go to work. Patient has been cleared by cardiology and will follow-up with them as scheduled. Currently no reports of chest pain, no worsening shortness of breath, or palpitations. Patient is afebrile. No reports of nausea or vomiting and patient is tolerating diet. Patient will be discharged home today. Guarded prognosis. On exam vital signs are stable. Cardio S1, S2 are muffled. Respiratory system shows diminished breath sounds at the bases with no wheezing or rhonchi noted. Abdomen is soft and nontender. Nervous system shows no focal deficit. Please refer to medication reconciliation sheet for a list of medications. The impression and plan of care has been dictated by Fernanda Ramirez, Nurse Practitioner as directed. Dr. Marvin MD I have performed a history and examination and MDM of this patient, discussed the same with the dictator, and agree with the dictator's assessment and plan as written ,documented as a scribe. Based on total visit time, I have performed more than 50% of the visit. Patient Condition at Discharge: Good Plan - Discharge Summary Discharge Rx Participant: No New Discharge Prescriptions: New predniSONE 10 mg PO DIRECTED #18 tab Continue Pramipexole [Mirapex] 2 mg PO BID@ Ergocalciferol [Vitamin D2 (1250 Mcg = 79723 Iu)] 1,250 mcg PO TU Omeprazole 40 mg PO DAILY HYDROcodone/APAP 10-325MG [[place] 10-325] 1 tab PO QID PRN PRN Reason: Pain Milnacipran HCl [Savella] See Taper PO DIRECTED Apixaban [Eliquis] 5 mg PO BID Discharge Medication List Pramipexole [Mirapex] 2 mg PO BID@09/14/17 [History] Omeprazole 40 mg PO DAILY 04/11/21 [History] HYDROcodone/APAP 10-325MG [[place] 10-325] 1 tab PO QID PRN 07/19/21 [History] Apixaban [Eliquis] 5 mg PO BID 02/03/22 [History] Ergocalciferol [Vitamin D2 (1250 Mcg = 40683 Iu)] 1,250 mcg PO TU 02/03/22 [History] Milnacipran HCl [Savella] See Taper PO DIRECTED 02/03/22 [History] predniSONE 10 mg PO DIRECTED #18 tab 02/03/22 [Rx] Follow up Appointment(s)/Referral(s): Nick Zamorano MD [Primary Care Provider] - 1 Week Patient Instructions/Handouts: Chest Pain (ED) Activity/Diet/Wound Care/Special Instructions: Please follow up with your manager steel in 1-2 weeks after discharge. Discharge Disposition: HOME SELF-CARE
== END 2022-02-04 11:28 | disposition home or self-care (01) ==
LOC: EC 22:57 → 6NMEDSUR 02-03 00:59
PROVIDERS: ADMIT Family Medicine; ATTEND Family Medicine
DX: R07.89 Other chest pain (principal); I10 Essential (primary) hypertension; I25.10 Atherosclerotic heart disease of native coronary artery without angina pectoris; I47.1 Supraventricular tachycardia; I48.0 Paroxysmal atrial fibrillation; I27.20 Pulmonary hypertension, unspecified; J44.9 Chronic obstructive pulmonary disease, unspecified; G47.33 Obstructive sleep apnea (adult) (pediatric); K21.9 Gastro-esophageal reflux disease without esophagitis; E89.0 Postprocedural hypothyroidism; M19.90 Unspecified osteoarthritis, unspecified site; M79.7 Fibromyalgia; F32.A Depression, unspecified; E66.9 Obesity, unspecified; Z68.39 Body mass index [BMI] 39.0-39.9, adult; R50.9 Fever, unspecified; R06.02 Shortness of breath; R06.00 Dyspnea, unspecified; R11.0 Nausea; R51.9 Headache, unspecified; I49.3 Ventricular premature depolarization; I08.1 Rheumatic disorders of both mitral and tricuspid valves; Z79.899 Other long term (current) drug therapy; Z79.84 Long term (current) use of oral hypoglycemic drugs; Z79.01 Long term (current) use of anticoagulants; Z91.040 Latex allergy status; Z98.84 Bariatric surgery status; Z90.49 Acquired absence of other specified parts of digestive tract; Z90.710 Acquired absence of both cervix and uterus; Z96.651 Presence of right artificial knee joint; Z95.818 Presence of other cardiac implants and grafts; Z87.01 Personal history of pneumonia (recurrent); Z87.891 Personal history of nicotine dependence; Z80.0 Family history of malignant neoplasm of digestive organs; Z80.8 Family history of malignant neoplasm of other organs or systems
CPT/HCPCS: 96365; 96368; 96375; 99285; 36415; 93005; 93306; 85379; 80061; 80053; 83735; 84484; 85025; 85610; 85730; 71046; G0378 ×2; J2270; J3475; J0131

== ENCOUNTER → 2022-09-22 | Outpatient (CLI) | payer MEDICARE, OTHER ==
--- NOTE | 2022-09-22 18:44 | CT ---
EXAMINATION TYPE: CT upper extremity RT wo/w con CT DLP: 1358.6 mGycm, Automated exposure control for dose reduction was used. DATE OF EXAM: 09/22/2022 5:27 PM COMPARISON: None CLINICAL INDICATION:Female, 62 years old with history of R22.31 localized swelling/mass/lump rt upper limb;, fatty tumor, numb fingertips. TECHNIQUE: Axial images were obtained of the right arm with and without contrast. Additional coronal and sagittal reformatted images and soft tissue and bone window were obtained for review. No palpabl e marker placed. Contrast used:80ml mL of Isovue 300 without and with IV Contrast, Oral contrast used: None FINDINGS: A few foci of gas are seen within the superficial venous vasculature likely secondary to IV access. There is no evidence of fracture. There is degeneration changes of the glenohumeral joint wi th osteophyte formation and joint space narrowing. There is no evidence of fracture, subluxation, or dislocation. No significant soft tissue swelling or joint effusion is identified. No focal muscular atrophy or edema is identified. No radiopaque foreign body identified. No evidence of mass or organiz ing fluid collection. No abnormal postcontrast enhancement. There is abundant amount of subcutaneous fat throughout the arm. Scattered subtle saphenous fat fat stranding areas nonspecific and of doubtfu l clinical significance, these are most pronounced around the inferior arm. IMPRESSION: 1. No obvious fatty tumor definitively visualized. Findings suggest may be in conspicuous given the amount of subcutaneous fat of the upper externally. No palpable marker was placed on the patient The locate this mass. 2. Moderate right shoulder osteoporosis.
== END | disposition home or self-care (01) ==
LOC: RADCTMAIN 16:13
PROVIDERS: ATTEND Family Medicine
DX: M81.0 Age-related osteoporosis without current pathological fracture (principal); R22.31 Localized swelling, mass and lump, right upper limb
CPT/HCPCS: 73202; Q9967

== ENCOUNTER 2023-05-22 18:00 | Observation (INO) | payer MEDICARE, OTHER ==
--- NOTE | 2023-05-22 18:15 | ED ---
General Adult HPI - General Source: patient, RN notes reviewed <Marsha Severino - Last Filed: 05/22/23 18:09> <Chuy Hernandez - Last Filed: 05/22/23 20:48> - General Stated complaint: chest pain Time Seen by Provider: 05/22/23 18:10 - History of Present Illness Initial comments: 63-year-old female presents to the emergency department with chief complaint of chest discomfort x2 hours. She states that this pain has been constant since it started. She describes it as alternating between sharp pain and pressure. She admits to associated shortness of breath. (Marsha Severino) Dictation was produced using [employer] dictation software. please excuse any grammatical, word or spelling errors. Chief Complaint: 63-year-old female presents to the emergency department for chest pressure History of Present Illness: 63-year-old female presents emergency department for chest pressure. Patient states her symptoms began today. She reports that the pressures unlike anything she is ever felt in the past. Substernal. Associated with nausea and dizziness. Nonradiating to the extremities or the jaw. Patient has a history of coronary disease. She has history of A. fib. No history of PE or DVT. States that she does report some associated shortness of breath. Denies any fever or constitutional symptoms. The ROS documented in this emergency department record has been reviewed and confirmed by me. Those systems with pertinent positive or negative responses have been documented in the HPI. All other systems are other negative and/or noncontributory. (Chuy Hernandez) - Related Data Home Medications Medication Instructions Recorded Confirmed Pramipexole [Mirapex] 1 mg PO BID 09/14/17 05/22/23 Omeprazole 40 mg PO HS 04/11/21 05/22/23 HYDROcodone/APAP 10-325MG [[place] 1 tab PO QID PRN 07/19/21 05/22/23 10-325] Levothyroxine Sodium [Synthroid] 75 mcg PO HS 05/22/23 05/22/23 Milnacipran HCl [Savella] 50 mg PO BID 05/22/23 05/22/23 SUMAtriptan succinate [Imitrex] 50 mg PO BID PRN 05/22/23 05/22/23 Tobramycin/Dexamethasone [Tobradex 1 drop BOTH EYES BID 05/22/23 05/22/23 Ophth Susp] Topiramate [Topamax] 25 mg PO HS 05/22/23 05/22/23 azaTHIOprine [Imuran] 50 mg PO BID 05/22/23 05/22/23 cycloSPORINE 0.05% OPHTH SOLN 1 drop BOTH EYES BID 05/22/23 05/22/23 [Restasis] Allergies Allergy/AdvReac Type Severity Reaction Status Date / Time latex Allergy Rash/Hives, Verified 05/22/23 20:18 DYSPNEA Latex, Natural Rubber Allergy Dyspnea, Verified 05/22/23 20:18 RASH Review of Systems ROS Other: All systems not noted in ROS Statement are negative. <Marsha Severino - Last Filed: 05/22/23 18:09> ROS Other: All systems not noted in ROS Statement are negative. <Chuy Hernandez - Last Filed: 05/22/23 20:48> ROS Statement: Those systems with pertinent positive or pertinent negative responses have been documented in the HPI. Past Medical History Past Medical History: COPD, Fibromyalgia, GERD/Reflux, Hypertension, Pneumonia, Thyroid Disorder Additional Past Medical History / Comment(s): RECENT FX LT WRIST-03/29/18. New A-fib dx 07/22/21 History of Any Multi-Drug Resistant Organisms: None Reported Past Surgical History: Back Surgery, Cholecystectomy, Hernia Repair, Hysterectomy, Joint Replacement, Orthopedic Surgery Additional Past Surgical History / Comment(s): Right knee arthroplasty; R Knee replacement; right foot surgery; EGD; Colonoscopies, partial thyroidectomy, partial stomach removed from mesh through stomacH W/BYPASS AND FEEDING TUBE Past Anesthesia/Blood Transfusion Reactions: Family History of Problems w/ Anesthesia, Postoperative Nausea & Vomiting (PONV) Additional Past Anesthesia/Blood Transfusion Reaction / Comment(s): mother N/V Past Psychological History: Depression Additional Psychological History / Comment(s): . Adult children. No animal exposures. No experience. No international travel. Does not work outside of the home Smoking Status: Former smoker Past Alcohol Use History: None Reported Additional Past Alcohol Use History / Comment(s): smoked from age 16 to 41 yrs 1ppd Past Drug Use History: None Reported - Past Family History Father Family Medical History: Cancer Additional Family Medical History / Comment(s): blood CA Mother Family Medical History: Cancer Additional Family Medical History / Comment(s): skin CA Brother(s) Family Medical History: Cancer Additional Family Medical History / Comment(s): PANCREAS CA <Marsha Severino - Last Filed: 05/22/23 18:09> General Exam <Marsha Severino - Last Filed: 05/22/23 18:09> <Chuy Hernandez - Last Filed: 05/22/23 20:48> - General Exam Comments Initial Comments: Visual Physical Exam Vital signs reviewed General: Well-appearing, nontoxic, no acute distress. Head: Normocephalic, atraumatic Eyes: PERRLA, EOMI ENT: Airway patent Chest: Nonlabored breathing Skin: No visual rash, normal skin tone Neuro: Alert and oriented 3 Musculoskeletal: No gross abnormalities (Marsha Severino) PHYSICAL EXAM: General Impression: Alert and oriented x3, not in acute distress HEENT: Normocephalic atraumatic, extra-ocular movements intact, pupils equal and reactive to light bilaterally, mucous membranes moist. Cardiovascular: Heart regular rate and rhythm Chest: Able to complete full sentences, no retractions, no tachypnea Abdomen: abdomen soft, non-tender, non-distended, no organomegaly Musculoskeletal: Pulses present and equal in all extremities, no peripheral edema Motor: no focal deficits noted Neurological: CN II-XII grossly intact, no focal motor or sensory deficits noted Skin: Intact with no visualized rashes Psych: Normal affect and mood (Chuy Hernandez) Course Vital Signs 05/22/23 18:10 Temperature 98.0 F Pulse Rate 89 Respiratory 18 Rate Blood Pressure 131/80 O2 Sat by Pulse 100 Oximetry EKG Findings - EKG Comments: EKG Findings:: My EKG interpretation: Ventricular rate 81, A. fib, QRS and 1, QTC 421. No MT prolongation, no QTC prolongation, no ST or T-wave changes noted. Overall, this EKG is unremarkable <Chuy Hernandez - Last Filed: 05/22/23 20:48> Medical Decision Making <Marsha Severino - Last Filed: 05/22/23 18:09> - Lab Data Result diagrams: 05/22/23 18:32 05/22/23 18:32 <Chuy Hernandez - Last Filed: 05/22/23 20:48> - Medical Decision Making I preformed the quick note for this chart. Electronically signed by Marsha Severino PA-C (Marsha Severino) Was pt. sent in by a medical professional or institution ([facility], [facility], urgent care, hospital, or skilled nursing...) When possible be specific @ -No Did you speak to anyone other than the patient for history (EMS, parent, family, police, friend...)? What history was obtained from this source @ -No Did you review nursing and triage notes (agree or disagree)? Why? @ -I reviewed and agree with nursing and triage notes Were old charts reviewed (outside hosp., previous admission, EMS record, old EKG, old radiological studies, urgent care reports/EKG's, skilled nursing records)? Report findings @ -No old charts were reviewed Differential Diagnosis (chest pain, altered mental status, abdominal pain women, abdominal pain men, vaginal bleeding, musculoskeletal, weakness, fever, dyspnea, syncope, headache, dizziness, GI bleed, back pain, seizure, CVA, palpatations, mental health)? @ -Differential Chest Pain: Stable Angina, Unstable Angina, STEMI, NSTEMI Aortic Dissection, Pneumothorax, Musculoskeletal, Esophageal Spasm GERD, Cholecystitis, Pancreatitis, Zoster, this is not meant to be an all-inclusive list. EKG interpreted by me (3pts min.). @ -See above X-rays interpreted by me (1pt min.). @ -Two-view chest x-ray is unremarkable CT interpreted by me (1pt min.). @ -None done U/S interpreted by me (1pt. min.). @ -None done What testing was considered but not performed or refused? (CT, X-rays, U/S, labs)? Why? @ -None What meds were considered but not given or refused? Why? @ -None Did you discuss the management of the patient with other professionals (professionals i.e. SR[facility]I James, [facility], lab, RT, psych nurse, social work case manager, tile power shear operator, teacher, medical information officer, residential case manager)? Give summary @ -Case discussed with Dr. Wong for admission Was smoking cessation discussed for >3mins.? @ -No Was critical care preformed (if so, how long)? @ -No Were there social determinants of health that impacted care today? How? (Homelessness, low income, unemployed, alcoholism, drug addiction, transportation, low edu. Level, literacy, decrease access to med. care, residential, rehab)? @ -No Was there de-escalation of care discussed even if they declined (Discuss DNR or withdrawal of care, Hospice)? DNR status @ -No What co-morbidities impacted this encounter? (DM, HTN, Smoking, COPD, CAD, Cancer, CVA, ARF, Chemo, Hep., AIDS, mental health diagnosis, sleep apnea, morbid obesity)? @ -None Was patient admitted / discharged? Hospital course, mention meds given and route, prescriptions, significant lab abnormalities, going to OR and other pertinent info. @ -63-year-old female presents emergency department with chest pain suspicious for acute coronary syndrome. Vital signs stable. EKG is unremarkable. Patient given nitroglycerin and aspirin. Reevaluated at bedside at 8:40 PM with stable medical condition. States that her pain is significantly improved. Laboratory evaluation is unremarkable. CBC, coag panel metabolic panel is unremarkable. Troponin is negative. Patient be admitted to observation with consultation cardiology. Undiagnosed new problem with uncertain prognosis? @ -No Drug Therapy requiring intensive monitoring for toxicity (Heparin, Nitro, Insulin, Cardizem)? @ -No Were any procedures done? @ -No Diagnosis/symptom? Acute, or Chronic, or Acute on Chronic? Uncomplicated (without systemic symptoms) or Complicated (systemic symptoms)? @ -Chest pain Side effects of treatment? @ -No Exacerbation, Progression, or Severe Exacerbation? @ -No Poses a threat to life or bodily function? How? (Chest pain, [place], [place], pneumonia, PE, COPD, DKA, ARF, appy, cholecystitis, CVA, Diverticulitis, Homicidal, Suic idal, threat to staff... and all critical care pts) @ -yes (Chuy Hernandez) - Lab Data Lab Results 05/22/23 05/22/23 05/22/23 Range/Units 18:32 18:32 18:32 WBC 5.4 (3.8-10.6) k/uL RBC 4.78 (3.80-5.40) m/uL Hgb 14.1 (11.4-16.0) gm/dL Hct 44.0 (34.0-46.0) % MCV 92.0 (80.0-100.0) fL MCH 29.6 (25.0-35.0) pg MCHC 32.1 (31.0-37.0) g/dL RDW 13.9 (11.5-15.5) % Plt Count 275 (150-450) k/uL MPV 7.6 Neutrophils % 55 % Lymphocytes % 30 % Monocytes % 6 % Eosinophils % 8 % Basophils % 0 % Neutrophils # 3.0 (1.3-7.7) k/uL Lymphocytes # 1.6 (1.0-4.8) k/uL Monocytes # 0.3 (0-1.0) k/uL Eosinophils # 0.4 (0-0.7) k/uL Basophils # 0.0 (0-0.2) k/uL PT 9.8 (9.0-12.0) sec INR 0.9 (<1.2) APTT 23.9 (22.0-30.0) sec Sodium 138 (137-145) mmol/L Potassium 4.4 (3.5-5.1) mmol/L Chloride 107 (98-107) mmol/L Carbon Dioxide 18 L (22-30) mmol/L Anion Gap 13 mmol/L BUN 11 (7-17) mg/dL Creatinine 0.66 (0.52-1.04) mg/dL Est GFR (CKD-EPI)AfAm >90 (>60 ml/min/1.73 sqM) Est GFR (CKD-EPI)NonAf >90 (>60 ml/min/1.73 sqM) Glucose 159 H (74-99) mg/dL Calcium 8.8 (8.4-10.2) mg/dL Magnesium 2.1 (1.6-2.3) mg/dL Total Bilirubin 0.5 (0.2-1.3) mg/dL AST 92 H (14-36) U/L ALT 47 H (4-34) U/L Alkaline Phosphatase 177 H (38-126) U/L Troponin I (0.000-0.034) ng/mL NT-Pro-B Natriuret Pep pg/mL Total Protein 7.3 (6.3-8.2) g/dL Albumin 3.9 (3.5-5.0) g/dL 05/22/23 05/22/23 Range/Units 18:32 18:32 WBC (3.8-10.6) k/uL RBC (3.80-5.40) m/uL Hgb (11.4-16.0) gm/dL Hct (34.0-46.0) % MCV (80.0-100.0) fL MCH (25.0-35.0) pg MCHC (31.0-37.0) g/dL RDW (11.5-15.5) % Plt Count (150-450) k/uL MPV Neutrophils % % Lymphocytes % % Monocytes % % Eosinophils % % Basophils % % Neutrophils # (1.3-7.7) k/uL Lymphocytes # (1.0-4.8) k/uL Monocytes # (0-1.0) k/uL Eosinophils # (0-0.7) k/uL Basophils # (0-0.2) k/uL PT (9.0-12.0) sec INR (<1.2) APTT (22.0-30.0) sec Sodium (137-145) mmol/L Potassium (3.5-5.1) mmol/L Chloride (98-107) mmol/L Carbon Dioxide (22-30) mmol/L Anion Gap mmol/L BUN (7-17) mg/dL Creatinine (0.52-1.04) mg/dL Est GFR (CKD-EPI)AfAm (>60 ml/min/1.73 sqM) Est GFR (CKD-EPI)NonAf (>60 ml/min/1.73 sqM) Glucose (74-99) mg/dL Calcium (8.4-10.2) mg/dL Magnesium (1.6-2.3) mg/dL Total Bilirubin (0.2-1.3) mg/dL AST (14-36) U/L ALT (4-34) U/L Alkaline Phosphatase (38-126) U/L Troponin I <0.012 (0.000-0.034) ng/mL NT-Pro-B Natriuret Pep 166 pg/mL Total Protein (6.3-8.2) g/dL Albumin (3.5-5.0) g/dL Disposition <Marsha Severino - Last Filed: 05/22/23 18:09> Is patient prescribed a controlled substance at d/c from ED?: No Decision Time: 20:48 <Chuy Hernandez - Last Filed: 05/22/23 20:48> Clinical Impression: Chest pain Disposition: HOME SELF-CARE Condition: Good Instructions (If sedation given, give patient instructions): Chest Pain (ED) Referrals: Maria L Deleon DO [Primary Care Provider] - 1-2 days
[2023-05-22] MEDS ORDERED: NITROGLYCERIN SL TABS 0.4 MG TAB SUBLINGUAL STA (19:03)
[2023-05-22] MEDS ORDERED: ASPIRIN 81 MG PO STA (19:07)
[2023-05-22 19:20] LABS: Basophils % (A) 0 %; Eosinophils # (A) 0.4 k/uL (0-0.7); Eosinophils % (A) 8 %; HGB 14.1 gm/dL (11.4-16.0); Lymphocytes # (A) 1.6 k/uL (1.0-4.8); Lymphocytes % (A) 30 %; MCH 29.6 pg (25.0-35.0); MCHC 32.1 g/dL (31.0-37.0); Mean Platelet Volume 7.6; Monocytes # (A) 0.3 k/uL (0-1.0); Monocytes % (A) 6 %; Neutrophils % (A) 55 %; Platelet Count 275 k/uL (150-450); RBC 4.78 m/uL (3.80-5.40); RDW 13.9 % (11.5-15.5); WBC 5.4 k/uL (3.8-10.6)
--- NOTE | 2023-05-22 19:22 | XR ---
EXAMINATION TYPE: XR chest 2V DATE OF EXAM: 05/22/2023 6:59 PM CLINICAL INDICATION:Female, 63 years old with history of Chest Pain; [facility] COMPARISON: Chest radiographs from 02/02/2022 TECHNIQUE: XR chest 2V Frontal and lateral views of the chest. FINDINGS: Lungs/Pleura: There is flattening of the diaphragm with increased lucency of the lungs. No evidence o f pneumothorax, pleural effusion or focal consolidation. Pulmonary vascularity: Unremarkable. Heart/mediastinum: Cardiomediastinal silhouette is unremarkable. A loop recorder projects over the le ft thorax over the heart. Musculoskeletal: No acute osseous pathology. IMPRESSION: 1. No acute cardiopulmonary disease process. 2. COPD changes.
[2023-05-22 19:34] LABS: ALT 47 U/L (4-34); African American GFR (CKD) >90 (>60 ml/min/1.73 sqM); Albumin 3.9 g/dL (3.5-5.0); Anion Gap 13 mmol/L; Blood Urea Nitrogen 11 mg/dL (7-17); Calcium 8.8 mg/dL (8.4-10.2); Carbon Dioxide 18 mmol/L (22-30); Chloride 107 mmol/L (98-107); Glucose 159 mg/dL (74-99); Non-African American GFR(CKD) >90 (>60 ml/min/1.73 sqM); Sodium 138 mmol/L (137-145); Total Bilirubin 0.5 mg/dL (0.2-1.3); Total Protein 7.3 g/dL (6.3-8.2)
[2023-05-22 19:40] LABS: AST 92 U/L (14-36); Alkaline Phosphatase 177 U/L (38-126); Magnesium 2.1 mg/dL (1.6-2.3); Potassium 4.4 mmol/L (3.5-5.1)
[2023-05-22 20:21] LABS: INR 0.9 (<1.2); Partial Thromboplastin Time 23.9 sec (22.0-30.0); Prothrombin Time 9.8 sec (9.0-12.0)
[2023-05-22] MEDS ORDERED: NITROGLYCERIN SL TABS 0.4 MG TAB SUBLINGUAL PRN (20:49)
[2023-05-23] MEDS ORDERED: HYDROcodone/APAP 10-325MG 1 EACH TAB PO ONE (03:21)
[2023-05-23] MEDS ORDERED: PRAMIPEXOLE 1 MG TAB PO STA (03:21)
[2023-05-23] MEDS ORDERED: DOBUTamine DRIP for NUC MED 500 MG in DEXTROSE/WATER 1 250ML.BAG IV PRN (08:28)
[2023-05-23 08:52] LABS: Chol/HDL Ratio 2.87 Ratio; LDL Cholesterol,Calculated 78.3 mg/dL (0.0-131.0)
[2023-05-23] MEDS ORDERED: ASPIRIN 325 MG TAB PO SCH (09:00)
[2023-05-23] MEDS ORDERED: APIXABAN 5 MG TAB PO SCH (09:00)
--- NOTE | 2023-05-23 09:54 | P.CRDCN ---
History of Present Illness History of present illness: HISTORY OF PRESENT ILLNESS: This is a 63-year-old female with a past medical history significant for atrial fibrillation, ablation x 2, fibromyalgia, and mixed connective tissue disease. Patient follows with a medical intern in [facility]. We have been asked to s ee the patient in consultation for chest pain. Patient examined at the bedside. Patient states yesterday she began having chest pain in the morning when she got up. She states the pain on the left side of her chest. She describes the pain as a pressure type sensation and also a stabbing type sensation. She states that she got in the shower to see if the pain would ease up but it did not. She also reports having some pain into her back. She states that she was getting short of breath but initially thought it was related to her sinuses. She reports the pain is worse when she is up and moving. The pain is not worse with deep inspiration or chest wall palpation. The patient does have a history of atrial fibrillation. She has had 2 ablations in the past. She states her most recent one was approximately one year ago. She states she has not been having any issues related to her atrial fibrillation recently. She denies dizziness or lightheadedness. She denies palpitations. She states she is a former cigarette smoker and quit smoking 23 years ago. * EKG reveals sinus mechanism with no signs of acute ischemia * Chest xray negative for acute process. COPD changes. * Laboratory data: W BC 5.4. Hemoglobin 14.1. Platelet count 275. Sodium 138. Potassium 4.4. BUN 11. Creatinine 0.66. Magnesium 2.1. [place] negative 3. AST 92. ALT 47. Alkaline phosphatase 177. * Current home cardiac medications include Eliquis 5mg BID * Most recent echocardiogram obtained in January 2022 revealing ejection fraction 55-60%, mild tricuspid regurgitation REVIEW OF SYSTEMS: At the time of my exam: CONSTITUTIONAL: Denies fever or chills. HEENT: Denies blurred vision, vision changes, or eye pain. Denies hemoptysis CARDIOVASCULAR: Denies chest pain. Denies orthopnea. Denies PND. Denies palpitations RESPIRATORY: Denies shortness of breath. GASTROINTESTINAL: Denies abdominal pain. Denies nausea or vomiting. HEMATOLOGIC: Denies bleeding disorders. GENITOURINARY: Denies any blood in urine. SKIN: Denies pruitis. Denies rash. PHYSICAL EXAM: VITAL SIGNS: Reviewed. GENERAL: Well-developed in no acute distress. HEENT: Head is normocephalic. Pupils are equal, round. Sclerae anicteric. Mucous membranes of the mouth are moist. Neck supple. No JVD or thyromegaly LUNGS: Respirations even and unlabored. Lungs essentially clear to auscultation bilaterally. HEART: Regular rate and rhythm. S1 and S2 heard. ABDOMEN: Soft. Nondistended. Nontender. EXTREMITIES: Normal range of motion. No clubbing or cyanosis. Peripheral pulses intact. No lower extremity edema NEUROLOGIC: Awake and alert. Oriented x 3. ASSESSMENT: Chest pain, troponins negative 3 Paroxysmal atrial fibrillation History of A. fib ablation, 2 History of fibromyalgia History of mixed connective tissue disorder Former nicotine dependence, patient quit smoking 23 years ago Morbid obesity: BMI 40.7 PLAN: An acute coronary been has been ruled out Resume anticoagulation Obtain 2-D echo to assess cardiac structure and function Patient to undergo dobutamine stress echo today to assess for ischemia If negative, she may be discharged home today and follow-up with her primary medical intern Nurse practitioner note has been reviewed by physician. Signing provider agrees with the documented findings, assessment, and plan of care. Past Medical History Past Medical History: COPD, Fibromyalgia, GERD/Reflux, Hypertension, Pneumonia, Thyroid Disorder Additional Past Medical History / Comment(s): RECENT FX LT WRIST-03/29/18. New A-fib dx 07/22/21 History of Any Multi-Drug Resistant Organisms: None Reported Past Surgical History: Back Surgery, Cholecystectomy, Hernia Repair, Hy sterectomy, Joint Replacement, Orthopedic Surgery Additional Past Surgical History / Comment(s): Right knee arthroplasty; R Knee replacement; right foot surgery; EGD; Colonoscopies, partial thyroidectomy, partial stomach removed from mesh through stomacH W/BYPASS AND FEEDING TUBE Past Anesthesia/Blood Transfusion Reactions: Family History of Problems w/ Anesthesia, Postoperative Nausea & Vomiting (PONV) Additional Past Anesthesia/Blood Transfusion Reaction / Comment(s): mother N/V Past Psychological History: Depression Additional Psychological History / Comment(s): . Adult children. No animal exposures. No experience. No international travel. Does not work outside of the home Smoking Status: Former smoker Past Alcohol Use History: None Reported Additional Past Alcohol Use History / Comment(s): smoked from age 16 to 41 yrs 1ppd Past Drug Use History: None Reported - Past Family History Father Family Medical History: Cancer Additional Family Medical History / Comment(s): blood CA Mother Family Medical History: Cancer Additional Family Medical History / Comment(s): skin CA Brother(s) Family Medical History: Cancer Additional Family Medical History / Comment(s): PANCREAS CA Medications and Allergies Home Medications Medication Instructions Recorded Confirmed Type Pramipexole [Mirapex] 1 mg PO BID 09/14/17 05/22/23 History Omeprazole 40 mg PO HS 04/11/21 05/22/23 History HYDROcodone/APAP 10-325MG [[place] 1 tab PO QID PRN 07/19/21 05/22/23 History 10-325] Levothyroxine Sodium [Synthroid] 75 mcg PO HS 05/22/23 05/22/23 History Milnacipran HCl [Savella] 50 mg PO BID 05/22/23 05/22/23 History SUMAtriptan succinate [Imitrex] 50 mg PO BID PRN 05/22/23 05/22/23 History Tobramycin/Dexamethasone [Tobradex 1 drop BOTH EYES BID 05/22/23 05/22/23 History Ophth Susp] Topiramate [Topamax] 25 mg PO HS 05/22/23 05/22/23 History azaTHIOprine [Imuran] 50 mg PO BID 05/22/23 05/22/23 History cycloSPORINE 0.05% OPHTH SOLN 1 drop BOTH EYES BID 05/22/23 05/22/23 History [Restasis] Allergies Allergy/AdvReac Type Severity Reaction Status Date / Time latex Allergy Rash/Hives, Verified 05/22/23 20:18 DYSPNEA Latex, Natural Rubber Allergy Dyspnea, Verified 05/22/23 20:18 RASH Physical Exam Vitals: Vital Signs Temp Pulse Resp BP Pulse Ox 05/23/23 05:20 97.2 F L 87 16 95/53 98 05/23/23 05:00 82 15 05/23/23 04:00 81 16 05/23/23 02:00 80 16 05/23/23 01:00 82 18 05/23/23 00:00 87 26 H 05/22/23 23:00 89 24 05/22/23 22:00 86 22 05/22/23 21:03 84 27 H 147/88 05/22/23 20:00 82 21 149/77 05/22/23 19:01 125 H 18 05/22/23 18:43 87 26 H 05/22/23 18:10 98.0 F 89 18 131/80 100 Intake and Output 05/22/23 05/23/23 05/23/23 22:59 06:59 14:59 Other: Weight 117.934 kg Results 05/22/23 18:32 05/22/23 18:32 Cardiac Enzymes 05/22/23 05/22/23 05/22/23 Range/Units 18:32 18:32 21:55 AST 92 H (14-36) U/L Troponin I <0.012 <0.012 (0.000-0.034) ng/mL 05/23/23 Range/Units 00:32 AST (14-36) U/L Troponin I <0.012 (0.000-0.034) ng/mL Coagulation 05/22/23 Range/Units 18:32 PT 9.8 (9.0-12.0) sec APTT 23.9 (22.0-30.0) sec CBC 05/22/23 Range/Units 18:32 WBC 5.4 (3.8-10.6) k/uL RBC 4.78 (3.80-5.40) m/uL Hgb 14.1 (11.4-16.0) gm/dL Hct 44.0 (34.0-46.0) % Plt Count 275 (150-450) k/uL Comprehensive Metabolic Panel 05/22/23 Range/Units 18:32 Sodium 138 (137-145) mmol/L Potassium 4.4 (3.5-5.1) mmol/L Chloride 107 (98-107) mmol/L Carbon Dioxide 18 L (22-30) mmol/L BUN 11 (7-17) mg/dL Creatinine 0.66 (0.52-1.04) mg/dL Glucose 159 H (74-99) mg/dL Calcium 8.8 (8.4-10.2) mg/dL AST 92 H (14-36) U/L ALT 47 H (4-34) U/L Alkaline Phosphatase 177 H (38-126) U/L Total Protein 7.3 (6.3-8.2) g/dL Albumin 3.9 (3.5-5.0) g/dL Current Medications Generic Name Dose Route Start Last Admin Trade Name Freq PRN Reason Stop Dose Admin Aspirin 325 mg 05/23/23 09:00 Aspirin 325 Mg Tab PO DAILY MARTÍN Nitroglycerin 0.4 mg 05/22/23 20:49 Nitroglycerin Sl Tabs 0.4 Mg Tab SUBLINGUAL Q5M PRN Chest Pain Intake and Output 05/22/23 05/23/23 05/23/23 22:59 06:59 14:59 Other: Weight 117.934 kg 05/22/23 18:32 05/22/23 18:32
[2023-05-23] MEDS ORDERED: HYDROcodone/APAP 10-325MG 1 EACH TAB PO PRN (10:29)
[2023-05-23] MEDS ORDERED: DOBUTamine DRIP for NUC MED 500 MG/250 ML BAG IV ONE (11:40)
[2023-05-23] MEDS ORDERED: METOPROLOL TARTRATE 25 MG TAB PO SCH (12:30)
--- NOTE | 2023-05-23 17:51 | CA ---
Dobutamine Stress Echocardiogram Report CaseLuciana Age: 63 Gender: F : 1960 Exam Date: 05/23/2023 11:46 Exam Location: [facility] Ordering Physician: Kassidy Ashraf Referring Physician: [id number] C[employer] Making Examiner: CECILLE, Technologist: Ht (in): 67 Wt (lb): 261 Procedure CPT: Indication: CP ICD-9 Codes: Rhythm: Patient History: Chest Pain Cardiac Medications: Medications in past 24 hours: Contrast: Total Dose (mL): Stress Results Protocol: Dobutamine Peak Dose (???g/kg/min): 20 Duration (min:sec): Atropine:(mg) Target HR: 132 Double Product: [id number] Resting HR: 70 Resting BP: 135 / 76 Peak HR: 145 Peak BP: 125 / 68 Max Predicted HR: 155 94 % Max Predicted HR Stress Summary: BP Response: Reason for Termination: Exceeded target heart rate (85% max predicted) Cardiac Symptoms: No Symptoms ECG Analysis Resting EKG: Normal sinus rhythm, normal ECG Stress EKG: Atrial fibrillation Arrhythmia: Atrial fibrillation Echo Analysis Base Echo Analysis: Normal resting echocardiogram. Low Echo Anaylsis: Normal wall thickening and augmentation Peak Echo Analysis: Normal wall thickening and motion Recovery Echo: No segmental wall motion MEASUREMENTS (Male/Female) Normal Values CONCLUSIONS 1. Atrial fibrillation induced by dobutamine 2. Normal stress echocardiogram with no evidence of stress induced ischemia Dr. Sheree Craig MD (Electronically Signed) Final Date: 23 May 2023 17:50
--- NOTE | 2023-05-23 17:52 | CA ---
Transthoracic Echo Report Name: Luciana Peters Age: 63 Gender: F : 1960 Exam Date: 05/23/2023 11:39 Exam Location: [facility] Ht (in): 67 Wt (lb): 261 Ordering Physician: Kassidy Ashraf Attending/Referring Phys: [id number], [employer] Tennille Traore RDCS Procedure CPT: Indications: LV function, CP Cardiac Hx: Technical Quality: Fair Contrast 1: Total Dose (mL): Contrast 2: Total Dose (mL): MEASUREMENTS (Male / Female) Normal Values 2D ECHO LV Diastolic Diameter PLAX 3.4 cm 4.2 - 5.9 / 3.9 - 5.3 cm LV Systolic Diameter PLAX 2.6 cm IVS Diastolic Thickness 1.7 cm 0.6 - 1.0 / 0.6 - 0.9 cm LVPW Diastolic Thickness 1.6 cm 0.6 - 1.0 / 0.6 - 0.9 cm LV Relative Wall Thickness 1.0 RV Internal Dim ED PLAX 2.8 cm M-MODE Aortic Root Diameter MM 3.5 cm LA Systolic Diameter MM 5.6 cm LA Ao Ratio MM 1.6 AV Cusp Separation MM 0.0 cm DOPPLER AV Peak Velocity 128.4 cm/s AV Peak Gradient 6.6 mmHg AV Mean Velocity 81.9 cm/s AV Mean Gradient 3.2 mmHg AV Velocity Time Integral 22.7 cm LVOT Peak Velocity 90.2 cm/s LVOT Peak Gradient 3.3 mmHg LVOT Velocity Time Integral 21.4 cm Mitral E Point Velocity 83.6 cm/s Mitral A Point Velocity 67.7 cm/s Mitral E to A Ratio 1.2 MV Deceleration Time 155.6 ms MV E' Velocity 8.4 cm/s Mitral E to MV E' Ratio 9.9 TR Peak Velocity 198.6 cm/s TR Peak Gradient 15.8 mmHg Right Ventricular Systolic Press 27.9 mmHg FINDINGS Left Ventricle Mildly increased left ventricular wall thickness. Left ventricular cavity size normal. Normal left ventricular systolic function with no obvious regional wall motion abnormalities. Left ventricular ejection fraction is estimated at 55-60 %. Right Ventricle Normal right ventricular size and function. Right ventricular systolic pressure within normal limits. Right Atrium Normal right atrial size. Left Atrium Normal left atrial size. Mitral Valve Structurally normal mitral valve. No mitral stenosis, regurgitation or prolapse. Aortic Valve Aortic valve not well visualized. Tricuspid Valve Structurally normal tricuspid valve. Mild tricuspid regurgitation. Pulmonic Valve Pulmonic valve not well visualized. Pericardium No pericardial effusion. Aorta Normal size aortic root and proximal ascending aorta. CONCLUSIONS 1. Normal left ventricle size and systolic function 2. Mild tricuspid regurgitation with normal right ventricle systolic pressure Previewed by: Dr. Sheree Craig MD (Electronically Signed) Final Date: 23 May 2023 17:51
[2023-05-23] MEDS ORDERED: azaTHIOprine 50 MG TAB PO SCH (21:00)
[2023-05-23] MEDS ORDERED: TOPIRAMATE 25 MG TAB PO SCH (21:00)
[2023-05-23] MEDS ORDERED: cycloSPORINE 0.05% OPHTH 0.4 ML DROPERETTE BOTH EYES SCH (21:00)
[2023-05-23] MEDS ORDERED: PRAMIPEXOLE 1 MG TAB PO SCH (21:00)
[2023-05-23] MEDS ORDERED: LEVOTHYROXINE 75 MCG TAB PO SCH (21:00)
[2023-05-23] MEDS ORDERED: TOBRA-DEXAMET 0.3-0.1% OPHTH DROPS 2.5 ML BTL BOTH EYES SCH (21:00)
[2023-05-23] MEDS ORDERED: PANTOPRAZOLE 40 MG TABLET PO SCH (21:00)
[2023-05-23 21:03] VITALS: BP 105/68; PULSE 71; RESP 17; TEMP 98
== END 2023-05-23 18:33 ==
LOC: EC 18:00 → 6NMEDSUR 20:50
PROVIDERS: ADMIT Family Medicine; ATTEND Family Medicine
DX: R07.89 Other chest pain (principal); I48.0 Paroxysmal atrial fibrillation; J44.9 Chronic obstructive pulmonary disease, unspecified; M79.7 Fibromyalgia; K21.9 Gastro-esophageal reflux disease without esophagitis; I10 Essential (primary) hypertension; F32.A Depression, unspecified; M35.1 Other overlap syndromes; E66.01 Morbid (severe) obesity due to excess calories; Z68.41 Body mass index [BMI] 40.0-44.9, adult; Z87.891 Personal history of nicotine dependence; Z79.890 Hormone replacement therapy; Z79.624 Long term (current) use of inhibitors of nucleotide synthesis; Z79.899 Other long term (current) drug therapy; Z91.040 Latex allergy status
CPT/HCPCS: 99285; 36415; 93005; 93306; 93351; 83880; 80061; 80053; 83735; 84484 ×2; 85025; 85610; 85730; 71046; G0378 ×3

== ENCOUNTER → 2023-06-16 | Outpatient (CLI) | payer MEDICARE, OTHER ==
[2023-06-16 16:44] LABS: ALT 15 U/L (8-44); AST 22 U/L (13-35); Alkaline Phosphatase 146 U/L (41-126); Blood Urea Nitrogen 11.7 mg/dL (9.0-27.0); C Reactive Protein <0.30 mg/dL (0.00-0.80); Calcium 8.8 mg/dL (8.7-10.3); Carbon Dioxide 24.4 mmol/L (21.6-31.8); Chloride 108 mmol/L (96-109); Globulin 2.5 d/dL (1.6-3.3); Glucose 99 mg/dL (70-110); Potassium 4.1 mmol/L (3.5-5.5); Sodium 141 mmol/L (135-145); Total Bilirubin 0.2 mg/dL (0.3-1.2); Total Protein 6.5 d/dL (6.2-8.2)
[2023-06-16 17:12] LABS: HCT 40.4 % (37.2-46.3); HGB 12.9 d/dL (12.0-15.0); MCH 29.2 pg (27.0-32.0); MCHC 31.9 d/dL (32.0-37.0); MCV 91.4 FL (80.0-97.0); Mean Platelet Volume 10.1 FL (9.5-12.2); NRBC Per 100 WBC 0 X 10*3/uL (0.00-0.01); Platelet Count 261 X 10*3/uL (140-440); RBC 4.42 X 10*6/uL (4.10-5.20); RDW 13.7 % (11.5-14.5); WBC 4.69 X 10*3/uL (4.50-10.00)
[2023-06-16 17:43] LABS: Erythrocyte Sedimentation Rate 16 mm/Hr (0-30)
[2023-06-16 20:56] LABS: Anti-DNA, DS unit <1.0 IU/mL; DNA Double-Stranded Negative (Negative)
[2023-06-16 21:55] LABS: Appearance,Urine Cloudy (Clear); Bilirubin,Urine Negative (Negative); Blood,Urine Trace (Negative); Color,Urine Yellow (Yellow); Ketones,Urine Negative (Negative); Nitrite,Urine Negative (Negative); PH, Urine 6.5; Specific Gravity,Urine 1.013 (1.001-1.030)
[2023-06-16 22:50] LABS: Bacteria,Urine 3+ (None Seen); Calcium Oxalate Crystals,Urine Present (None Seen)
== END | disposition home or self-care (01) ==
LOC: LABWHC1 12:04
PROVIDERS: ATTEND Internal Medicine
DX: E66.9 Obesity, unspecified (principal); I10 Essential (primary) hypertension; M35.1 Other overlap syndromes; Z79.899 Other long term (current) drug therapy; M79.7 Fibromyalgia
CPT/HCPCS: 36415; 80053; 81001; 83036; 84443; 85027; 85652; 86140; 86160; 86225

== ENCOUNTER → 2023-09-16 | Outpatient (CLI) | payer MEDICARE, OTHER ==
[2023-09-16 16:24] LABS: Basophils # (A) 0.04 X 10*3/uL (0.00-0.10); Basophils % (A) 0.4 %; Eosinophils # (A) 0 X 10*3/uL (0.04-0.35); Eosinophils % (A) 0 %; HCT 48.9 % (37.2-46.3); HGB 15.6 g/dL (12.0-15.0); Lymphocytes # (A) 2.05 X 10*3/uL (0.90-5.00); Lymphocytes % (A) 19.5 %; MCH 28.7 pg (27.0-32.0); MCHC 31.9 g/dL (32.0-37.0); MCV 90.1 FL (80.0-97.0); Mean Platelet Volume 9.4 FL (9.5-12.2); Monocytes # (A) 0.57 X 10*3/uL (0.20-1.00); Monocytes % (A) 5.4 %; NRBC Per 100 WBC 0 X 10*3/uL (0.00-0.01); Neutrophils # (A) 7.47 X 10*3/uL (1.80-7.70); Neutrophils % (A) 71.1 %; Platelet Count 329 X 10*3/uL (140-440); RBC 5.43 X 10*6/uL (4.10-5.20); RDW 14.1 % (11.5-14.5); WBC 10.51 X 10*3/uL (4.50-10.00)
[2023-09-16 16:45] LABS: BUN/Creat Ratio 22.71 Ratio (12.00-20.00); Blood Urea Nitrogen 15.9 mg/dL (9.0-27.0); Calcium 9.2 mg/dL (8.7-10.3); Carbon Dioxide 25.1 mmol/L (21.6-31.8); Chloride 101 mmol/L (96-109); Glucose 114 mg/dL (70-110); Magnesium 2.4 mg/dL (1.5-2.4); Potassium 4.7 mmol/L (3.5-5.5); Sodium 138 mmol/L (135-145)
== END | disposition home or self-care (01) ==
LOC: LABWHC1 10:30
PROVIDERS: ATTEND Physician Assistant
DX: I48.91 Unspecified atrial fibrillation (principal); E83.42 Hypomagnesemia
CPT/HCPCS: 36415; 80048; 83735; 85025

== ENCOUNTER 2024-01-02 09:47 | Observation (INO) | payer MEDICARE, OTHER ==
--- NOTE | 2024-01-02 10:21 | ED ---
Chest Pain HPI - General Chief Complaint: Chest Pain Stated Complaint: Left side pain Time Seen by Provider: 01/02/24 10:00 Source: patient, EMS, RN notes reviewed - History of Present Illness Initial Comments: This is a 63-year-old female with a history of atrial fibrillation on Eliquis who presents to the emergency department chief complaint of chest pain. He states that this chest pain started last night located on the anterior chest on the left side that has moved to the mid chest and is traveling. This pain is not reproducible on palpation. She also states she has been having mild shortness of breath that started last night, denies orthopnea, lower leg extremity edema. She denies radiation or movement into her back. She denies nausea, vomiting, diaphoresis, dizziness, lightheadedness. Patient states that she underwent a cardiac ablation in addition to mitral valve clips on 12/25 for her A-fib and has been recovering well aside from symptoms of chest pain last night. Patient denies a history of NV, CVA, DVT, PE. - Related Data Home Medications Medication Instructions Recorded Confirmed Pramipexole [Mirapex] 1 mg PO DAILY 09/14/17 01/02/24 Omeprazole 40 mg PO DAILY 04/11/21 01/02/24 HYDROcodone/APAP 10-325MG [[place] 1 tab PO QID PRN 07/19/21 01/02/24 10-325] Milnacipran HCl [Savella] 100 mg PO BID 05/22/23 01/02/24 Topiramate [Topamax] 25 mg PO HS 05/22/23 01/02/24 Albuterol Inhaler [Ventolin Hfa 1 - 2 puff INHALATION RT-Q6H PRN 01/02/24 01/02/24 Inhaler] Amiodarone [Cordarone] 200 mg PO BID 01/02/24 01/02/24 Apixaban [Eliquis] 5 mg PO BID 01/02/24 01/02/24 Colchicine [Lodoco] 0.5 mg PO DAILY 01/02/24 01/02/24 Levothyroxine Sodium [Synthroid] 50 mcg PO DAILY 01/02/24 01/02/24 Pramipexole [Mirapex] 2 mg PO HS 01/02/24 01/02/24 Tirzepatide [Mounjaro] 10 mg SQ WE 01/02/24 01/02/24 dilTIAZem HCL [Tiazac] 300 mg PO DAILY 01/02/24 01/02/24 Allergies Allergy/AdvReac Type Severity Reaction Status Date / Time latex Allergy Rash/Hives, Verified 01/02/24 11:57 DYSPNEA Latex, Natural Rubber Allergy Dyspnea, Verified 01/02/24 11:57 RASH/hives Review of Systems ROS Statement: Those systems with pertinent positive or pertinent negative responses have been documented in the HPI. ROS Other: All systems not noted in ROS Statement are negative. Past Medical History Past Medical History: COPD, Fibromyalgia, GERD/Reflux, Hypertension, Pneumonia, Thyroid Disorder Additional Past Medical History / Comment(s): RECENT FX LT WRIST-03/29/18. New A-fib dx 07/22/21 History of Any Multi-Drug Resistant Organisms: None Reported Past Surgical History: Back Surgery, Cholecystectomy, Hernia Repair, Hysterectomy, Joint Replacement, Orthopedic Surgery Additional Past Surgical History / Comment(s): Right knee arthroplasty; R Knee replacement; right foot surgery; EGD; Colonoscopies, partial thyroidectomy, partial stomach removed from mesh through stomacH W/BYPASS AND FEEDING TUBE. mitro clips 12/25/2023 Past Anesthesia/Blood Transfusion Reactions: Family History of Problems w/ Anesthesia, Postoperative Nausea & Vomiting (PONV) Additional Past Anesthesia/Blood Transfusion Reaction / Comment(s): mother N/V Past Psychological History: Depression Smoking Status: Former smoker Past Alcohol Use History: None Reported Past Drug Use History: None Reported - Past Family History Father Family Medical History: Cancer Additional Family Medical History / Comment(s): blood CA Mother Family Medical History: Cancer Additional Family Medical History / Comment(s): skin CA Brother(s) Family Medical History: Cancer Additional Family Medical History / Comment(s): PANCREAS CA General Exam General appearance: alert, in no apparent distress Head exam: Present: atraumatic, normocephalic, normal inspection Eye exam: Present: normal appearance, PERRL, EOMI. Absent: scleral icterus, conjunctival injection, periorbital swelling ENT exam: Present: normal exam, mucous membranes moist Neck exam: Present: normal inspection. Absent: tenderness, meningismus, lymphadenopathy Respiratory exam: Present: normal lung sounds bilaterally. Absent: respiratory distress, wheezes, rales, rhonchi, stridor Cardiovascular Exam: Present: regular rate, irregular rhythm, normal heart sounds. Absent: systolic murmur, diastolic murmur, gallop, clicks GI/Abdominal exam: Present: soft, normal bowel sounds. Absent: distended, tenderness, guarding, rebound, rigid Extremities exam: Present: normal inspection, full ROM, normal capillary refill. Absent: tenderness, pedal edema, joint swelling, calf tenderness Back exam: Present: normal inspection Neurological exam: Present: alert, oriented X3, CN II-XII intact Psychiatric exam: Present: normal affect, normal mood Skin exam: Present: warm, dry, intact, normal color. Absent: rash Course Vital Signs 01/02/24 01/02/24 01/02/24 10:07 10:14 10:55 Temperature 97.9 F Pulse Rate 77 75 75 Respiratory 16 16 14 Rate Blood Pressure 149/87 139/85 139/70 O2 Sat by Pulse 99 100 99 Oximetry 01/02/24 01/02/24 01/02/24 12:09 14:10 15:11 Temperature Pulse Rate 76 80 79 Respiratory 14 14 16 Rate Blood Pressure 133/78 150/89 122/74 O2 Sat by Pulse 100 99 100 Oximetry Chest Pain MDM - MDM Was pt. sent in by a medical professional or institution (, PA, REINSURANCE CLAIM ANALYST, urgent care, hospital, or fci...) When possible be specific @ -No Did you speak to anyone other than the patient for history (EMS, parent, family, police, friend...)? What history was obtained from this source @ -No Did you review nursing and triage notes (agree or disagree)? Why? @ -I reviewed and agree with nursing and triage notes Were old charts reviewed (outside hosp., previous admission, EMS record, old EKG, old radiological studies, urgent care reports/EKG's, fci records)? Report findings @ -No old charts were reviewed Differential Diagnosis (chest pain, altered mental status, abdominal pain women, abdominal pain men, vaginal bleeding, weakness, fever, dyspnea, syncope, headache, dizziness, GI bleed, back pain, seizure, CVA, palpatations, mental health, musculoskeletal)? @ -Differential Chest Pain: Stable Angina, Unstable Angina, STEMI, NSTEMI Aortic Dissection, Pneumothorax, Musculoskeletal, Esophageal Spasm GERD, Cholecystitis, Pancreatitis, Zoster, this is not meant to be an all-inclusive list. EKG interpreted by me (3pts min.). @ -completed at 956 reading A-fib, ventricular rate 82, unable to determine consistent [place] interval, QTc 435. X-rays interpreted by me (1pt min.). @ -Chest x-ray no evidence for acute cardiopulmonary disease. CT interpreted by me (1pt min.). @ -None done U/S interpreted by me (1pt. min.). @ -None done What testing was considered but not performed or refused? (CT, X-rays, U/S, labs)? Why? @ -None What meds were considered but not given or refused? Why? @ -Open was considered but deferred due to recommendation from internal medicine Dr. Zamorano Did you discuss the management of the patient with other professionals (professionals i.e. , PA, REINSURANCE CLAIM ANALYST, lab, RT, psych nurse, social sciences professor, machinist supervisor, teacher, staff submarine warfare officer, counseling case manager)? Give summary @ -Spoke with Dr. Zamorano about admission. He is in agreement with this. I discussed the option of heparinizing the patient due to an elevated troponin rater than 0.1, at this time he states that he will hold the heparin due to the elevated cardiac enzymes likely secondary to the procedure she had completed on 12/25. Was smoking cessation discussed for >3mins.? @ -No Was critical care preformed (if so, how long)? @ -No Were there social determinants of health that impacted care today? How? (Homelessness, low income, unemployed, alcoholism, drug addiction, transportation, low edu. Level, literacy, decrease access to med. care, [facility], rehab)? @ -No Was there de-escalation of care discussed even if they declined (Discuss DNR or withdrawal of care, Hospice)? DNR status @ -No What co-morbidities impacted this encounter? (DM, HTN, Smoking, COPD, CAD, Cancer, CVA, ARF, Chemo, Hep., AIDS, mental health diagnosis, sleep apnea, morbid obesity)? @ -HTN, afib Was patient admitted / discharged? Hospital course, mention meds given and route, prescriptions, significant lab abnormalities, going to OR and other pertinent info. @ -This is a 63-year-old female with complaint of chest pain. On physical examination there are no acute murmurs, lungs are clear bilaterally. His EKG no acute signs of ischemia. Was given IVP morphine for pain control. Patient CBC, CMP and coagulation profile unremarkable. Patient's troponin found to be elevated at 0.156. On reevaluation of the patient, she states that she has still been intermittently experiencing the chest pain on her anterior chest that has been moving and does not radiate. At this time, patient will be admitted observation for trending troponin and likely cardiology consult secondary to NSTEMI. Patient is in agreement with this. I discussed with Dr. Plata. At this time, patient was provided with aspirin and topical nitro. Heparin was deferred at this time from recommendation of internal medicine. Undiagnosed new problem with uncertain prognosis? @ -No Drug Therapy requiring intensive monitoring for toxicity (Heparin, Nitro, Insulin, Cardizem)? @ -No Were any procedures done? @ -No Diagnosis/symptom? @ -chest pain, history of cardiac ablation of AFib Acute, or Chronic, or Acute on Chronic? @ -acute Uncomplicated (without systemic symptoms) or Complicated (systemic symptoms)? @ -uncomplicated Side effects of treatment? @ -No Exacerbation, Progression, or Severe Exacerbation? @ -No Poses a threat to life or bodily function? How? (Chest pain, USA, NV, pneumonia, PE, COPD, DKA, ARF, appy, cholecystitis, CVA, Diverticulitis, Homicidal, Suicidal, threat to staff... and all critical care pts) @Yes, chest pain can lead to irreversible myocardial damage and possible . Disposition Clinical Impression: Acute non-ST elevation myocardial infarction (NSTEMI), Chest pain, History of cardiac radiofrequency ablation Disposition: ADMITTED IP TO THIS HOSP Condition: Good Decision to Admit Reason: Admit from EC
--- NOTE | 2024-01-02 10:49 | XR ---
EXAMINATION TYPE: XR chest 2V DATE OF EXAM: 01/02/2024 COMPARISON: 05/22/2023 HISTORY: Shortness of breath TECHNIQUE: Frontal and lateral views of the chest are obtained. FINDINGS: Scattered senescent parenchymal changes noted. Hyperinflation compatible with COPD. No evidence for infiltrate. No evidence for atelectasis. Heart size is stable. Mediastinal structures are stable and grossly unremarkable. No evidence for hilar prominence. Degenerative changes dorsal spine. IMPRESSION: 1. No evidence for acute pulmonary disease.
[2024-01-02] MEDS: MORPHINE SULFATE 2 MG/ML SYRINGE IVP STA (11:23)
[2024-01-02 11:32] LABS: Basophils % (A) 0 %; Eosinophils # (A) 0.6 k/uL (0-0.7); Eosinophils % (A) 7 %; HCT 44.7 % (34.0-46.0); HGB 14.1 gm/dL (11.4-16.0); Lymphocytes # (A) 2.2 k/uL (1.0-4.8); Lymphocytes % (A) 29 %; MCH 29.8 pg (25.0-35.0); MCHC 31.6 g/dL (31.0-37.0); MCV 94.5 fL (80.0-100.0); Mean Platelet Volume 7.4; Monocytes # (A) 0.3 k/uL (0-1.0); Monocytes % (A) 4 %; Neutrophils # (A) 4.3 k/uL (1.3-7.7); Neutrophils % (A) 57 %; Platelet Count 332 k/uL (150-450); RBC 4.73 m/uL (3.80-5.40); RDW 13.5 % (11.5-15.5); WBC 7.6 k/uL (3.8-10.6)
[2024-01-02 12:43] LABS: ALT 16 U/L (4-34); AST 26 U/L (14-36); African American GFR (CKD) >90 (>60 ml/min/1.73 sqM); Albumin 3.7 g/dL (3.5-5.0); Alkaline Phosphatase 114 U/L (38-126); Anion Gap 8 mmol/L; Blood Urea Nitrogen 8 mg/dL (7-17); Calcium 8.8 mg/dL (8.4-10.2); Carbon Dioxide 25 mmol/L (22-30); Chloride 106 mmol/L (98-107); Glucose 92 mg/dL (74-99); Magnesium 2.1 mg/dL (1.6-2.3); Non-African American GFR(CKD) >90 (>60 ml/min/1.73 sqM); Potassium 3.8 mmol/L (3.5-5.1); Sodium 139 mmol/L (137-145); Total Bilirubin 0.5 mg/dL (0.2-1.3); Total Protein 6.4 g/dL (6.3-8.2)
[2024-01-02 12:46] LABS: INR 0.9 (<1.2); Partial Thromboplastin Time 24.4 sec (22.0-30.0); Prothrombin Time 10.1 sec (10.0-12.5)
[2024-01-02] MEDS: ASPIRIN 81 MG PO STA (14:02)
[2024-01-02] MEDS: NITROGLYCERIN OINT 1 INCH/GM PACKET TOPICAL STA (14:03)
[2024-01-02] MEDS: MORPHINE SULFATE 2 MG/ML SYRINGE IVP ONE (14:04)
[2024-01-02] MEDS ORDERED: MORPHINE SULFATE 4 MG/ML SYRINGE IV PRN (14:30)
[2024-01-02] MEDS ORDERED: NALOXONE 0.4 MG/ML 1 ML VIAL IV PRN (14:30)
[2024-01-02] MEDS: HYDROcodone/APAP 10-325MG 1 EACH TAB PO PRN (21:41)
[2024-01-02] MEDS: TOPIRAMATE 25 MG TAB PO SCH (21:42)
[2024-01-02] MEDS: AMIODARONE 200 MG TAB PO SCH (21:42)
[2024-01-02] MEDS: APIXABAN 5 MG TAB PO SCH (21:42)
[2024-01-03] MEDS: LEVOTHYROXINE 50 MCG TAB PO SCH (06:22)
[2024-01-03] MEDS: PANTOPRAZOLE 40 MG TABLET PO SCH (06:22)
[2024-01-03] MEDS: PRAMIPEXOLE 1 MG TAB PO SCH (09:00)
--- NOTE | 2024-01-03 11:18 | P.HPIM ---
History of Present Illness H&P Date: 01/03/24 Chief Complaint: Fluctuating chest pain History and Physical and Discharge Summary: This is a 63-year-old female with past medical history significant for recent cardiac ablation in addition to mitral valve clips with Dr. Sanchez last Tuesday12/26/2023,cardiac catheterization she reports as normal ,atrial fibrillation, 3 ablations, cardioversion in September lasting 2 months, and multiple other medical issues presented to the ER with complaints of nonreproducible, fluctuating , nonradiating left-sided chest pain without any triggers. Patient reports Dr. Sanchez started her recently on colchicine which she attributes the chest pain to. Currently denies chest pain, palpitations or shortness of breath. Maintaining O2 sats in the high 90s on room air. Troponin 0.156, 0.115 ,EKG reported sinus rhythm, chest x-ray reported nonacute. Hematology, coagulation and CMP unremarkable. Discussed with cardiothoracic surgery, stating they had seen her in the ER and that she is cleared for discharge. Currently denies chest pain, palpitations or shortness of breath evaluated by cardiology, discontinued colchicine and cleared patient for discharge. Review of Systems ROS Statement: Those systems with pertinent positive or pertinent negative responses have been documented in the HPI. ROS Other: All systems not noted in ROS Statement are negative. Past Medical History Past Medical History: COPD, Fibromyalgia, GERD/Reflux, Hypertension, Pneumonia, Thyroid Disorder Additional Past Medical History / Comment(s): RECENT FX LT WRIST-03/29/18. New A-fib dx 07/22/21 History of Any Multi-Drug Resistant Organisms: None Reported Past Surgical History: Back Surgery, Cholecystectomy, Hernia Repair, Hysterectomy, Joint Replacement, Orthopedic Surgery Additional Past Surgical History / Comment(s): Right knee arthroplasty; R Knee replacement; right foot surgery; EGD; Colonoscopies, partial thyroidectomy, partial stomach removed from mesh through stomacH W/BYPASS AND FEEDING TUBE. mitro clips 12/25/2023 Past Anesthesia/Blood Transfusion Reactions: Family History of Problems w/ Anesthesia, Postoperative Nausea & Vomiting (PONV) Additional Past Anesthesia/Blood Transfusion Reaction / Comment(s): mother N/V Past Psychological History: Depression Additional Psychological History / Comment(s): . Adult children. No animal exposures. No experience. No international travel. Does not work outside of the home Smoking Status: Former smoker Past Alcohol Use History: None Reported Additional Past Alcohol Use History / Comment(s): smoked from age 16 to 41 yrs 1ppd Past Drug Use History: None Reported - Past Family History Father Family Medical History: Cancer Additional Family Medical History / Comment(s): blood CA Mother Family Medical History: Cancer Additional Family Medical History / Comment(s): skin CA Brother(s) Family Medical History: Cancer Additional Family Medical History / Comment(s): PANCREAS CA Medications and Allergies Home Medications Medication Instructions Recorded Confirmed Type Pramipexole [Mirapex] 1 mg PO DAILY 09/14/17 01/02/24 History Omeprazole 40 mg PO DAILY 04/11/21 01/02/24 History HYDROcodone/APAP 10-325MG [[place] 1 tab PO QID PRN 07/19/21 01/02/24 History 10-325] Milnacipran HCl [Savella] 100 mg PO BID 05/22/23 01/02/24 History Topiramate [Topamax] 25 mg PO HS 05/22/23 01/02/24 History Albuterol Inhaler [Ventolin Hfa 1 - 2 puff INHALATION RT-Q6H PRN 01/02/24 01/02/24 History Inhaler] Amiodarone [Cordarone] 200 mg PO BID 01/02/24 01/02/24 History Apixaban [Eliquis] 5 mg PO BID 01/02/24 01/02/24 History Levothyroxine Sodium [Synthroid] 50 mcg PO DAILY 01/02/24 01/02/24 History Pramipexole [Mirapex] 2 mg PO HS 01/02/24 01/02/24 History Tirzepatide [Mounjaro] 10 mg SQ WE 01/02/24 01/02/24 History dilTIAZem HCL [Tiazac] 300 mg PO DAILY 01/02/24 01/02/24 History Allergies Allergy/AdvReac Type Severity Reaction Status Date / Time latex Allergy Rash/Hives, Verified 01/02/24 11:57 DYSPNEA Latex, Natural Rubber Allergy Dyspnea, Verified 01/02/24 11:57 RASH/hives Physical Exam Vitals: Vital Signs Temp Pulse Pulse Resp BP BP Pulse Ox 01/03/24 07:54 97.6 F 72 20 103/71 99 01/03/24 04:30 71 16 112/72 97 01/02/24 23:51 77 16 106/68 96 01/02/24 21:15 97.6 F 89 16 148/82 99 01/02/24 19:30 97.5 F L 76 18 135/72 100 01/02/24 18:01 98 F 82 16 108/68 98 01/02/24 15:11 79 16 122/74 100 01/02/24 14:10 80 14 150/89 99 01/02/24 12:09 76 14 133/78 100 Intake and Output 01/02/24 01/03/24 01/03/24 22:59 06:59 14:59 Intake Total 333 Balance 333 Intake: Oral 333 Other: # Voids 1 Weight 106.594 kg PHYSICAL EXAM: VITAL SIGNS: [As above] GENERAL: Morbidly obese, alert and oriented x 3, sitting up in bed, no acute distress HEENT: Normocephalic, atraumatic conjunctivae normal. eyes normal. MMM. NECK: Supple, no JVD. No thyroid enlargement. No LNs CARDIOVASCULAR: S1, S2 regular.. No murmur RESPIRATION: Unlabored, equal air entry, clear to auscultation . ABDOMEN: Soft, nondistended, nontender . No guarding. no masses palpable. No ascites, No hepatosplenomegaly.Bowel sounds heard. LEGS: No edema. no swelling NERVOUS SYSTEM: Cranial N 2-12 grossly normal. No focal deficits. Strength and sensation grossly intact. Skin: Warm and dry, no rash Results CBC & Chem 7: 01/02/24 11:23 01/02/24 12:19 Labs: Abnormal Lab Results - Last 24 Hours (Table) 01/02/24 01/02/24 01/02/24 Range/Units 12:19 12:19 15:38 Creatinine 0.47 L (0.52-1.04) mg/dL Troponin I 0.156 H* 0.115 H* (0.000-0.034) ng/mL Assessment and Plan Assessment: Chest pain secondary to recent surgical intervention with Dr. Sanchez, CTS Elevated troponins, flat, secondary to the above Chronic atrial fibrillation. Discharge Medication List Pramipexole [Mirapex] 1 mg PO DAILY 09/14/17 [History] Omeprazole 40 mg PO DAILY 04/11/21 [History] HYDROcodone/APAP 10-325MG [[place] 10-325] 1 tab PO QID PRN 07/19/21 [History] Milnacipran HCl [Savella] 100 mg PO BID 05/22/23 [History] Topiramate [Topamax] 25 mg PO HS 05/22/23 [History] Albuterol Inhaler [Ventolin Hfa Inhaler] 1 - 2 puff INHALATION RT-Q6H PRN 01/02/24 [History] Amiodarone [Cordarone] 200 mg PO BID 01/02/24 [History] Apixaban [Eliquis] 5 mg PO BID 01/02/24 [History] Colchicine [Lodoco] 0.5 mg PO DAILY 01/02/24 [History] Levothyroxine Sodium [Synthroid] 50 mcg PO DAILY 01/02/24 [History] Pramipexole [Mirapex] 2 mg PO HS 01/02/24 [History] Tirzepatide [Mounjaro] 10 mg SQ WE 01/02/24 [History] dilTIAZem HCL [Tiazac] 300 mg PO DAILY 01/02/24 [History] Plan: Continue on current medication regimen ,monitoring and symptomatic treatment. Patient asymptomatic ,has been cleared by cardiology for discharge. Patient will be discharged home today in a stable condition with guarded prognosis. Patient has been advised to follow-up with CTS this week as well as her own primary technician in [place]. The impression and plan of care has been dictated as directed. : I performed a history and examination of this patient, discussed the same with the dictator. I agree with the dictator's note ,documented as a scribe. Any additional findings or plans will be noted.
[2024-01-03 12:00] VITALS: BP 126/75; PULSE 69; RESP 18; TEMP 97.8
--- NOTE | 2024-01-03 13:25 | P.CRDCN ---
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 We have been asked to evaluate the patient for chest pain. Last Tuesday, patient underwent surgery with Dr. Sanchez possibly mitral valve clips. Patient states that she developed chest pain in different areas of her left side of her chest after taking colchicine. She thought this started on Tuesday evening. She saw her home care nurse and was told to come into the emergency center for reevaluation. The chest pain does moved to different areas. When she left the hospital after her procedure, she was doing fine. EKG sinus rhythm Chest x-ray: No acute process CBC, INR, CMP unremarkable. Troponin 0.156 and 0.115. Home cardiac medications: Amiodarone 200 mg twice daily, Eliquis 5 mg twice daily, Cardizem 300 mg daily, also on levothyroxine 50 mcg daily. Review Of Systems: At the time of my exam: CONSTITUTIONAL: Denies fever or chills. HEENT: Denies blurred vision, vision changes, or eye pain. Denies hemoptysis CARDIOVASCULAR: Denies chest pain. Denies orthopnea. Denies PND. Denies palpitations RESPIRATORY: Denies shortness of breath. GASTROINTESTINAL: Denies abdominal pain. Denies nausea or vomiting. HEMATOLOGIC: Denies bleeding disorders. GENITOURINARY: Denies any blood in urine. SKIN: Denies pruitis. Denies rash. Physical examination: Gen: This is an obese 63-year-old female in no acute distress VS: reviewed blood pressure 126/75, heart rate 69, pulse ox 97% on room air. HEENT: Head is atraumatic, normocephalic. Pupils equal, round. Sclerae is anicteric. NECK: Supple. No JVD. LUNGS: Clear to auscultation. No wheezes or rhonchi. No intercostal retractions. HEART: Regular rate and rhythm. No murmur. ABDOMEN: Soft No tenderness. EXTREMITIES: No pedal edema. No calf tenderness. NEUROLOGICAL: Patient is awake, alert and oriented x3. Assessment: Chest pain secondary to recent surgical intervention Elevated troponin secondary to recent surgical intervention Chronic atrial fibrillation Plan: Resume patient's home cardiac medications Discontinue colchicine Patient is cleared for discharge from cardiology and will follow-up with her primary fire safety inspector as scheduled. Thank you kindly for this consultation. Nurse practitioner note has been reviewed, I agree with documented findings and plan of care. Patient was seen and examined. Past Medical History Past Medical History: COPD, Fibromyalgia, GERD/Reflux, Hypertension, Pneumonia, Thyroid Disorder Additional Past Medical History / Comment(s): RECENT FX LT WRIST-03/29/18. New A-fib dx 07/22/21 History of Any Multi-Drug Resistant Organisms: None Reported Past Surgical History: Back Surgery, Cholecystectomy, Hernia Repair, Hysterectomy, Joint Replacement, Orthopedic Surgery Additional Past Surgical History / Comment(s): Right knee arthroplasty; R Knee replacement; right foot surgery; EGD; Colonoscopies, partial thyroidectomy, partial stomach removed from mesh through stomacH W/BYPASS AND FEEDING TUBE. mitro clips 12/25/2023 Past Anesthesia/Blood Transfusion Reactions: Family History of Problems w/ Anesthesia, Postoperative Nausea & Vomiting (PONV) Additional Past Anesthesia/Blood Transfusion Reaction / Comment(s): mother N/V Past Psychological History: Depression Additional Psychological History / Comment(s): . Adult children. No animal exposures. No experience. No international travel. Does not work outside of the home Smoking Status: Former smoker Past Alcohol Use History: None Reported Additional Past Alcohol Use History / Comment(s): smoked from age 16 to 41 yrs 1ppd Past Drug Use History: None Reported - Past Family History Father Family Medical History: Cancer Additional Family Medical History / Comment(s): blood CA Mother Family Medical History: Cancer Additional Family Medical History / Comment(s): skin CA Brother(s) Family Medical History: Cancer Additional Family Medical History / Comment(s): PANCREAS CA Medications and Allergies Home Medications Medication Instructions Recorded Confirmed Type Pramipexole [Mirapex] 1 mg PO DAILY 09/14/17 01/02/24 History Omeprazole 40 mg PO DAILY 04/11/21 01/02/24 History HYDROcodone/APAP 10-325MG [Alliance 1 tab PO QID PRN 07/19/21 01/02/24 History 10-325] Milnacipran HCl [Savella] 100 mg PO BID 05/22/23 01/02/24 History Topiramate [Topamax] 25 mg PO HS 05/22/23 01/02/24 History Albuterol Inhaler [Ventolin Hfa 1 - 2 puff INHALATION RT-Q6H PRN 01/02/24 01/02/24 History Inhaler] Amiodarone [Cordarone] 200 mg PO BID 01/02/24 01/02/24 History Apixaban [Eliquis] 5 mg PO BID 01/02/24 01/02/24 History Levothyroxine Sodium [Synthroid] 50 mcg PO DAILY 01/02/24 01/02/24 History Pramipexole [Mirapex] 2 mg PO HS 01/02/24 01/02/24 History Tirzepatide [Mounjaro] 10 mg SQ WE 01/02/24 01/02/24 History dilTIAZem HCL [Tiazac] 300 mg PO DAILY 01/02/24 01/02/24 History Allergies Allergy/AdvReac Type Severity Reaction Status Date / Time latex Allergy Rash/Hives, Verified 01/02/24 11:57 DYSPNEA Latex, Natural Rubber Allergy Dyspnea, Verified 01/02/24 11:57 RASH/hives Physical Exam Vitals: Vital Signs Temp Pulse Pulse Resp BP BP Pulse Ox 01/03/24 07:54 97.6 F 72 20 103/71 99 01/03/24 04:30 71 16 112/72 97 01/02/24 23:51 77 16 106/68 96 01/02/24 21:15 97.6 F 89 16 148/82 99 01/02/24 19:30 97.5 F L 76 18 135/72 100 01/02/24 18:01 98 F 82 16 108/68 98 01/02/24 15:11 79 16 122/74 100 01/02/24 14:10 80 14 150/89 99 01/02/24 12:09 76 14 133/78 100 Intake and Output 01/02/24 01/03/24 01/03/24 22:59 06:59 14:59 Intake Total 333 Balance 333 Intake: Oral 333 Other: # Voids 1 Weight 106.594 kg Results 01/02/24 11:23 01/02/24 12:19 Cardiac Enzymes 01/02/24 01/02/24 01/02/24 Range/Units 12:19 12:19 15:38 AST 26 (14-36) U/L Troponin I 0.156 H* 0.115 H* (0.000-0.034) ng/mL Coagulation 01/02/24 Range/Units 12:19 PT 10.1 (10.0-12.5) sec APTT 24.4 (22.0-30.0) sec CBC 01/02/24 Range/Units 11:23 WBC 7.6 (3.8-10.6) k/uL RBC 4.73 (3.80-5.40) m/uL Hgb 14.1 (11.4-16.0) gm/dL Hct 44.7 (34.0-46.0) % Plt Count 332 (150-450) k/uL Comprehensive Metabolic Panel 01/02/24 Range/Units 12:19 Sodium 139 (137-145) mmol/L Potassium 3.8 (3.5-5.1) mmol/L Chloride 106 (98-107) mmol/L Carbon Dioxide 25 (22-30) mmol/L BUN 8 (7-17) mg/dL Creatinine 0.47 L (0.52-1.04) mg/dL Glucose 92 (74-99) mg/dL Calcium 8.8 (8.4-10.2) mg/dL AST 26 (14-36) U/L ALT 16 (4-34) U/L Alkaline Phosphatase 114 (38-126) U/L Total Protein 6.4 (6.3-8.2) g/dL Albumin 3.7 (3.5-5.0) g/dL Current Medications Generic Name Dose Route Start Last Admin Trade Name Freq PRN Reason Stop Dose Admin Hydrocodone Bitart/Acetaminophen 1 each 01/02/24 21:19 01/03/24 07:47 Hydrocodone/Apap 10-325mg 1 Each Tab PO 1 each QID PRN Administration Pain Amiodarone HCl 200 mg 01/02/24 21:30 01/03/24 09:00 Amiodarone 200 Mg Tab PO 200 mg BID MARTÍN Administration Apixaban 5 mg 01/02/24 21:30 01/03/24 09:00 Apixaban 5 Mg Tab PO 5 mg BID MARTÍN Administration Protocol Levothyroxine Sodium 50 mcg 01/03/24 06:30 01/03/24 06:22 Levothyroxine 50 Mcg Tab PO 50 mcg DAILY@0630 MARTÍN Administration Morphine Sulfate 4 mg 01/02/24 14:30 Morphine Sulfate 4 Mg/Ml Syringe IV Q4HR PRN Severe Pain (Scale 7 to 10) Naloxone HCl 0.2 mg 01/02/24 14:30 Naloxone 0.4 Mg/Ml 1 Ml Vial IV Q2M PRN Opioid Reversal Pantoprazole Sodium 40 mg 01/03/24 07:30 01/03/24 06:22 Pantoprazole 40 Mg Tablet PO 40 mg [id number] MARTÍN Administration Pramipexole Dihydrochloride 1 mg 01/03/24 09:00 01/03/24 09:00 Pramipexole 1 Mg Tab PO 1 mg DAILY MARTÍN Administration Topiramate 25 mg 01/02/24 21:30 01/02/24 21:42 Topiramate 25 Mg Tab PO 25 mg HS MARTÍN Administration Intake and Output 01/02/24 01/03/24 01/03/24 22:59 06:59 14:59 Intake Total 333 Balance 333 Intake: Oral 333 Other: # Voids 1 Weight 106.594 kg 01/02/24 11:23 01/02/24 12:19
== END 2024-01-03 13:18 | disposition home or self-care (01) ==
LOC: EC 09:47 → 6NMEDSUR 15:00 → 3SCARD 20:19
PROVIDERS: ADMIT Family Medicine; ATTEND Family Medicine
DX: R07.89 Other chest pain (principal); I48.91 Unspecified atrial fibrillation; J44.9 Chronic obstructive pulmonary disease, unspecified; R79.89 Other specified abnormal findings of blood chemistry; I48.20 Chronic atrial fibrillation, unspecified; E66.01 Morbid (severe) obesity due to excess calories; M79.7 Fibromyalgia; K21.9 Gastro-esophageal reflux disease without esophagitis; I10 Essential (primary) hypertension; E89.0 Postprocedural hypothyroidism; F32.A Depression, unspecified; Z87.01 Personal history of pneumonia (recurrent); Z87.891 Personal history of nicotine dependence; Z79.01 Long term (current) use of anticoagulants; Z79.899 Other long term (current) drug therapy; Z79.890 Hormone replacement therapy; Z68.36 Body mass index [BMI] 36.0-36.9, adult
CPT/HCPCS: 96365; 96366; 99285; 36415; 93005; 80053; 83735; 84484; 85025; 85610; 85730; 71046; G0378 ×3; J2270